=== PATIENT | female | born 1975 | race Caucasian/White ===

== ENCOUNTER 2017-05-05 14:48 | Emergency (ER) | payer MEDICAID, SELFPAY ==
[2017-05-05 14:48] VITALS: BP 129/72; PULSE 65; RESP 14; TEMP 36.6; O2SAT 100; BMI 32.3
--- NOTE | 2017-05-05 15:28 | ED.VISSUMM ---
- ER Visit Summary Date of Service: 05/05/17 Chief Complaint: Back pain History of Present Illness: The patient is a 42 F with a history of chronic back pain. She has not been in pain management for approximately 5 years. She has had injections in her back previously. Patient states that 3 days ago she carried a mattress up 3 flights of steps and down. Yesterday she developed worsening of her chronic back pain. Patient states when she stands to try to do dishes her legs go numb after approximately 10 minutes. This resolves when she sits at rest. She denies problems with bowel or bladder control. There is no fall or direct injury to her back. Patient is taking prescription strength ibuprofen regularly for her back. Physical Examination: Vital signs are unremarkable. Head and neck examination is normal. Heart is regular rate and rhythm. Lung sounds are clear. Abdomen is soft and nontender. No palpable masses. Back examination reveals bilateral lumbar paraspinal tenderness, left greater than right. There is no midline tenderness. Neuro exam reveals normal strength and sensation in the lower extremities. She has strong distal pulses and 2+ bilateral patellar reflexes. Test Results: [] Emergency Department Course and Treatment: Patient be given a single dose of [place] here along with Flexeril and prednisone. She is advised to continue ibuprofen at home and will be given prescription for Flexeril and prednisone. I advised her that I will not prescribe her narcotics for home for chronic ongoing pain. She will be given phone numbers for 2 different pain management groups in [facility] for follow-up as needed. Treatment Plan: [] Disposition: Discharge Impression: Acute on chronic back pain This note was generated with [employer] dictation software. It may contain incorrect words, spelling, and punctuation that were not noted in review of the chart prior to signing ED Disposition - Plan for ED Patient: Chief Complaint: Back Referrals: Eliseo Aparicio MD [Primary Care Provider] -
--- NOTE | 2017-05-05 15:31 | ED.DCSUM_ITS ---
- ER Visit Summary Date of Service: 05/05/17 Chief Complaint: Back pain History of Present Illness: The patient is a 42 F with a history of chronic back pain. She has not been in pain management for approximately 5 years. She has had injections in her back previously. Patient states that 3 days ago she carried a mattress up 3 flights of steps and down. Yesterday she developed worsening of her chronic back pain. Patient states when she stands to try to do dishes her legs go numb after approximately 10 minutes. This resolves when she sits at rest. She denies problems with bowel or bladder control. There is no fall or direct injury to her back. Patient is taking prescription strength ibuprofen regularly for her back. Physical Examination: Vital signs are unremarkable. Head and neck examination is normal. Heart is regular rate and rhythm. Lung sounds are clear. Abdomen is soft and nontender. No palpable masses. Back examination reveals bilateral lumbar paraspinal tenderness, left greater than right. There is no midline tenderness. Neuro exam reveals normal strength and sensation in the lower extremities. She has strong distal pulses and 2+ bilateral patellar reflexes. Test Results: [] Emergency Department Course and Treatment: Patient be given a single dose of [place] here along with Flexeril and prednisone. She is advised to continue ibuprofen at home and will be given prescription for Flexeril and prednisone. I advised her that I will not prescribe her narcotics for home for chronic ongoing pain. She will be given phone numbers for 2 different pain management groups in [facility] for follow-up as needed. Treatment Plan: [] Disposition: Discharge Impression: Acute on chronic back pain This note was generated with [employer] dictation software. It may contain incorrect words, spelling, and punctuation that were not noted in review of the chart prior to signing ED Disposition - Plan for ED Patient: Chief Complaint: Back Referrals: Eliseo Aparicio MD [Primary Care Provider] -
--- NOTE | 2017-05-05 15:31 | ED.DEP ---
ED Disposition - Plan for ED Patient: Disposition: Home or Assisted Living Chief Complaint: Back Instructions: ED Neck Back Pain General Prescriptions: Prednisone 10 mg PO UD #33 tablet Cyclobenzaprine [Flexeril] 10 mg PO TID PRN #20 tablet PRN Reason: Muscle Spasm Referrals: Elieso Aparicio MD [Primary Care Provider] - Lyndon Solomon MD [STAFF PHYSICIAN] - As Needed Jose Tobin MD [STAFF PHYSICIAN] - As Needed
[2017-05-05] MEDS: HYDROcodone Bitartrate/Apap 5/325 Tablet PO (15:32)
[2017-05-05 15:36] VITALS: BP 141/70; PULSE 75; RESP 14; O2SAT 99
== END 2017-05-05 15:36 | disposition home or self-care (01) ==
PROVIDERS: Emergency Provider Emergency Medicine; Family Provider Family Medicine; PCP Family Medicine
DX: M54.5 Low back pain (principal); G89.29 Other chronic pain; R20.0 Anesthesia of skin; R20.2 Paresthesia of skin; R53.1 Weakness; G47.33 Obstructive sleep apnea (adult) (pediatric); F32.9 Major depressive disorder, single episode, unspecified; Z87.891 Personal history of nicotine dependence; Z79.899 Other long term (current) drug therapy
CPT/HCPCS: 99283

== ENCOUNTER → 2017-06-19 13:36 | Outpatient (CLI) | payer MEDICAID, SELFPAY ==
[2017-06-19 17:33] LABS: Chlamydia Trachomatis by PCR Negative (Negative); Neisserai gonorrhoeae by PCR Negative (Negative); Probe Check PASS; Sample Adequacy Control PASS; Specimen Processing Control PASS
== END ==
PROVIDERS: Family Provider Family Medicine; PCP Family Medicine; Visit Provider Obstetrics & Gynecology
DX: Z11.3 Encounter for screening for infections with a predominantly sexual mode of transmission (principal)
CPT/HCPCS: 87491; 87591

== ENCOUNTER 2018-10-12 13:46 | Emergency (ER) | payer SELFPAY ==
[2018-10-12 13:47] VITALS: BP 104/69; PULSE 76; RESP 15; TEMP 36.4; O2SAT 98; BMI 28.3
--- NOTE | 2018-10-12 14:00 | RAD_ITS ---
STUDY: X-RAY - SACRUM/COCCYX REASON FOR EXAM: Female, 43 years old. Pain after a fall TECHNIQUE: 3 view(s) of the sacrum and coccyx were obtained. COMPARISON: None. FINDINGS: Acute minimally displaced fracture in the mid coccyx is seen on the lateral view. There is associated soft tissue swelling RAD/Sacrum-Coccyx min 2 Views IMPRESSION: Acute minimally displaced coccygeal fracture Electronically Signed: Chad Anne MD at 14:22 EDT , Service support ,
--- NOTE | 2018-10-12 15:05 | ED.VIS.GEN ---
History of Present Illness Chief Complaint: Other, Pain/Inj Narrative: 43-year-old female was in a hurry this morning to get to child support court and she slipped on wooden steps landing on her buttocks directly on her tailbone. She had sudden onset coccygeal pain. She denies any other injuries. The onset of pain was sudden. The severity is mild. It is worse with sitting and better with ice. She did not hit her head or lose consciousness. She denies any other injuries. It is mild in severity. She denies bowel bladder dysfunction. Past Medical History - Allergies and Home Meds Allergies/Adverse Reactions: Allergies bee pollen [Bee Pollen] Allergy (Verified 10/12/18 14:33) Anaphylaxis blueberry [Blueberry] Allergy (Verified 10/12/18 14:33) Anaphylaxis ketorolac tromethamine [From Toradol] Allergy (Verified 10/12/18 14:33) Hives naproxen Allergy (Verified 10/12/18 14:33) Rash Penicillins Allergy (Verified 10/12/18 14:33) Rash gabapentin Adverse Reaction (Verified 10/12/18 14:33) Other tramadol Adverse Reaction (Verified 10/12/18 14:33) Vomiting Primary Care Physician: Eliseo Aparicio MD [Primary Care Provider] - Prior records reviewed: Yes Surgical History: noncontributory Smoking Status: Former smoker Review of Systems General: Denies: Chills, Fever, Sweats Eyes: Denies: Visual changes - bilaterally, Diplopia ENT: Denies: Rhinorrhea, Sore throat Cardiovascular: Denies: Chest pain, Palpitations Respiratory: Denies: Dyspnea, Cough, Dyspnea on exertion Gastrointestinal: Denies: Abdominal pain, Nausea, Vomiting, Diarrhea, Melena, Hematochezia Genitourinary: Denies: Dysuria, Hematuria, Frequency Musculoskeletal: Reports: Back pain. Denies: Extremity Pain Skin: Denies: Rash, Wounds Neurological: Denies: Headache, Weakness, Numbness Physical Exam Vital Signs/Narrative: Vital Signs Temp Pulse Resp BP Pulse Ox 10/12/18 13:47 97.5 F L 76 15 104/69 98 General: Well nourished, Well developed, No Acute Distress Head: Normocephalic, Atraumatic Eyes: Perrl, EOMI ENT: Moist mucous membranes, No rhinorrhea Neck: Supple, Nontender Cardiovascular: Regular rate, Regular rhythm, No murmurs Respiratory: No distress, CTA bilaterally, Chest nontender Abdomen: Soft, Nontender, Nondistended, Normal bowel sounds Back: Normal Inspection, - - Mild tenderness over the coccyx. Small area of ecchymosis. Skin intact. Extremities: Nontender, No edema Skin: Normal color, No rash Neurological: Alert, Oriented x3, Cranial nerves II-XII grossly intact, Normal Strength, Normal Sensation Psychological: Normal affect, Normal Mood Diagnostic/Tx/Re-eval - Medical Decision Making Coccygeal x-rays revealed a mildly displaced coccygeal fracture. She has a completely normal neurologic exam. No evidence of cauda equina. No other injuries noted. Her pain was addressed and she was instructed on using ice and following up. She will return to the emergency department if worse. ED Disposition - Plan for ED Patient: Disposition: Home or Assisted Living Diagnosis: Closed fracture of coccyx Instructions: Tailbone (Coccyx) Fracture Prescriptions: Oxycodone HCl/Acetaminophen [Percocet 5-325 mg Tablet] 1 each PO TID PRN #12 tablet PRN Reason: Pain Referrals: Eliseo Aparicio MD [Primary Care Provider] -
[2018-10-12] MEDS: oxyCODONE 5 MG Tablet PO (15:20)
[2018-10-12 15:23] VITALS: PULSE 78; RESP 16; O2SAT 97
== END 2018-10-12 15:23 | disposition home or self-care (01) ==
PROVIDERS: Emergency Provider Emergency Medicine; Family Provider Family Medicine; PCP Family Medicine
DX: S32.2XXA Fracture of coccyx, initial encounter for closed fracture (principal); W01.0XXA Fall on same level from slipping, tripping and stumbling without subsequent striking against object, initial encounter; Y93.9 Activity, unspecified; Y92.9 Unspecified place or not applicable; Z87.891 Personal history of nicotine dependence
CPT/HCPCS: 72220; 99283

== ENCOUNTER 2020-01-19 20:28 | Inpatient (IN) | payer MEDICAID, SELFPAY ==
[2020-01-19 20:36] VITALS: BMI 33.7
[2020-01-19 20:44] VITALS: BP 103/55; PULSE 72; RESP 20; TEMP 37.1; O2SAT 100
[2020-01-19 20:46] LABS: Absolute Lymphocyte Count 1.54 X10^3/uL (0.83-4.51); Absolute Neutrophil Count 2.7 X10^3/uL (2.0-7.7); Basophil# 0.04 X10^3/uL; Basophil% 0.8 % (0-1); Eosinophil# 0.07 X10^3/uL; Eosinophils% 1.5 % (0-5); Hematocrit 38.3 % (37-47); Hemoglobin 12.3 g/dL (12.0-15.0); Lymphocyte # 1.54 X10^3/ul (4.0); Lymphocyte % 32.3 % (19-41); Mean Corp Hgb Conc 32.1 g/dL (32-36); Mean Corpuscular Hgb 33.5 pg (27.0-32.0); Mean Corpuscular Volume 104.4 fL (81-99); Mean Platelet Vol. 8.5 fl (6.2-12.0); Monocyte# 0.43 X10^3/uL; NRBC Flagged by Analyzer 0 % (0-5); Neutrophil # 2.69 X10^3/uL (2.7-7.7); Neutrophil % 56.4 % (47-70); Platelet Count 288 K/mm3 (150-450); RBC Distribution Width CV 13.2 % (11.6-14.6); RBC Distribution Width SD 50.4 fl (35.1-43.9); Red Blood Count 3.67 M/mm3 (4.2-5.4); White Blood Count 4.8 K/mm3 (4.4-11.0)
--- NOTE | 2020-01-19 20:51 | HP.PCM_ITS ---
Problem List (1) Cellulitis of toe of right foot Status: Acute History of Present Illness Date of Admission: 01/19/20 Chief Complaint: cellulitis of right foot The patient is a 44 year old F who is admitted to [facility] as direct admit for cellulitis of right foot. patient presented to me this past friday after experiencing pain, swelling and redness to right 3rd toe for 4-5 days. she thinks she may have been bit by an insect last week but did not seek medical attention until this past Friday. She was evaluated by her pcp who first recommended general surgery consult but general surgery had recommended podiatry consult. I saw patient on Friday where I performed a bedside I&D and placed her on keflex. A culture of the wound from Friday is growing proteus. I have been following patient daily by way of phone conversation. I called her yesterday and she reported that the redness and pain was not improved. when I talked with her today, she states the swelling was improving but redness was still present. I had her take a picture of her toe and there was redness present. I discussed admission to hospital. she was in agreement however, when her bed became available at 3:00 pm, she did not present to the hospital until 8:30 pm. Patient denies n/v/f/c. Patient does report pain as 8/10. Past Medical History Past Medical History (Chronic Problems): Chronic Problems Pelvic pain (Chronic) Menorrhagia with regular cycle (Chronic) Allergies bee pollen [Bee Pollen] Allergy (Verified 10/12/18 14:33) Anaphylaxis blueberry [Blueberry] Allergy (Verified 10/12/18 14:33) Anaphylaxis ketorolac tromethamine [From Toradol] Allergy (Verified 10/12/18 14:33) Hives naproxen Allergy (Verified 10/12/18 14:33) Rash Penicillins Allergy (Verified 10/12/18 14:33) Rash gabapentin Adverse Reaction (Verified 10/12/18 14:33) Other tramadol Adverse Reaction (Verified 10/12/18 14:33) Vomiting Home Medications: Ambulatory Orders Medication Instructions Recorded Citalopram [Celexa] 40 mg PO QHS 02/13/15 Estradiol 2 mg PO DAILY 10/12/18 Oxycodone HCl/Acetaminophen 1 ea PO TID PRN #12 tab 10/12/18 [Percocet 5-325 mg Tablet] Surgical History: noncontributory Smoking Status: Former smoker Review of Systems Constitutional: Denies: Chills, Fever, Weight Change Cardiovascular: Denies: Chest Pain, Palpitations Respiratory: Denies: Cough, Shortness of breath at rest, Sputum production Gastrointestinal: Denies: Abdominal Pain, Nausea, Vomiting Musculoskeletal: Reports: Foot Pain Skin: Reports: Wounds - right foot wound s/p I&D VTE Information - Inpt Only VTE Present on Admission: No Patient Problems: Active and Suspected Problems Cellulitis of toe of right foot (Acute) Objective: Patient is alert and orientated x 3. she does not appear in any distress. vascular: DP and PT pulses are palpable to right foot. CFT is less than 5 seconds. skin temperature is warm to warm. there is slight erythema to right 3rd toe but there is improvement noted from prior redness present on picture submitted by patient. derm: there is healing incision of right 3rd toe. there is no drainage from wound. there is redness present to right 3rd toe but appears to be improving. no fluctuance noted. pain to palpation of right 3rd toe. toenails right hallux are dystrophic. m/s: pain to palpation of right 3rd toe. no fluctuance noted. mmt is 5/5 for dorsiflexion and plantarflexion of toe. no calf pain noted. - Physical Exam Vitals/I&O's: Vital Signs Temp Pulse Resp BP Pulse Ox 98.7 F 72 20 H 103/55 L 100 01/19/20 20:44 01/19/20 20:44 01/19/20 20:44 01/19/20 20:44 01/19/20 20:44 Oxygen Delivery Method Room Air Body Mass Index (BMI) 28.3 Laboratory Results 01/19/20 20:37: WBC 4.8, RBC 3.67 L, Hgb 12.3, Hct 38.3, MCV 104.4 H, MCH 33.5 H , MCHC 32.1, RDW Std Deviation 50.4 H, RDW Coeff of Lee 13.2, Plt Count 288, MPV 8.5, Immature Gran % (Auto) 0.000, Neut % (Auto) 56.4, Lymph % (Auto) 32.3, [place] % (Auto) 9.0, Eos % (Auto) 1.5, Baso % (Auto) 0.8, Absolute Neuts (auto) 2.7, Absolute Lymphs (auto) 1.54, Nucleated RBC % 0 01/19/20 20:37: Sodium Pending, Potassium Pending, Chloride Pending, Carbon Dioxide Pending, Anion Gap Pending, BUN Pending, Creatinine Pending, Est GFR (MDRD) Af Amer Pending, Est GFR (MDRD) Non-Af Pending, BUN/Creatinine Ratio Pending, Glucose Pending, Calcium Pending Current Medications Acetaminophen (Acetaminophen 325 Mg Tablet) 650 mg PO Q6H PRN PRN PRN Reason: Pain 1-10 or Fever Vancomycin IV Pharmacy to Dose (1 ea/ Sodium Chloride) 500 mls @ 250 mls/hr IV X1 PRN; Protocol PRN Reason: Rx to Dose Ceftriaxone Sodium (Rocephin) 1 gm in 50 mls @ 100 mls/hr IV Q24 BRIJESH Ondansetron HCl (Ondansetron 4 Mg/2 Ml Vial) 4 mg IV Q8H PRN PRN PRN Reason: NAUSEA/VOMITING Assessment/Plan All Active Problems Cellulitis of toe of right foot (Acute) I personally was present to examine patient on admission to hospital. she is 2 days s/p bedside I&D of right 3rd toe. she has been treated with 2 full days of keflex but when I contacted patient this morning, she states the redness was still present. I personally requested a picture of her toe and I too agree that redness was present so we discussed admission to hospital for which she agreed to. She did not present to hospital until 8:30 pm, 5.5 hours after a bed was available. When I evaluated patient this evening, I do feel the redness is improving but there is still slight redness present. I will start her on vancomycin 1 gram IV bid and pharmacy will dose. I will also place her on ceftriaxone 1 gram IV q 24 hours. I will monitor for further reduction of cellulitis. I will treat her pain with percocet q 6 hours. I am going to order mri of right foot to evaluate for any residual abscess. if abscess present, then will need to discuss further I&D. if no abscess present, will treat with IV antibiotics for a few days and then possible discharge home on oral. I will consult medicine for medical management. Of note, cultures from [facility] performed on 01/17/20 are currently proteus. susceptibility still pending. will follow these.
[2020-01-19 20:56] LABS: Anion Gap 4 (5-15); BUN 21 mg/dL (7-18); BUN/Creat Ratio 20.2 RATIO (10-20); Calcium,Total 9.2 mg/dL (8.5-10.1); Chloride 107 mmol/L (98-107); Creatinine, Serum 1.04 mg/dL (0.55-1.02); EST Glomerular Filtration Rate 61 mL/min (>60); Est Glom Filt Rate - Afr Amer 74 mL/min (>60); Glucose 96 mg/dL (74-106); Potassium 4.1 mmol/L (3.5-5.1); Sodium Level 139 mmol/L (136-145)
[2020-01-19 21:09] VITALS: BMI 33.8
--- NOTE | 2020-01-19 21:30 | PN_ITS ---
Patient Problems: Active and Suspected Problems Cellulitis of toe of right foot (Acute) Subjective: Chief complaint: Consultation for medical management. 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 She underwent bedside incision and drainage as outpatient and she was sent home on Keflex. On that day, wound culture was done and reportedly, it is growing Proteus. Today, she was called by her doctor and she mentioned that the pain of the right foot and redness did not improve. 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 Currently, she complained of right foot pain, dull aching pain, not radiating, it is about 7 out of 10 in severity, associated with minimal swelling and erythema of the right forefoot around the middle toe. She denies fever or chills. Her vitals are stable. - Physical Exam Vitals/I&O's: Vital Signs Temp Pulse Resp BP Pulse Ox 98.7 F 72 20 H 103/55 L 100 01/19/20 20:44 01/19/20 20:44 01/19/20 20:44 01/19/20 20:44 01/19/20 20:44 Oxygen Delivery Method Room Air Weight: 196 lb 13.965 oz Body Mass Index (BMI) 33.7 General: Alert, Oriented x3, Cooperative, No apparent distress HEENT: Atraumatic, PERRLA, EOMI, Normocephalic Oral: Moist Mucosa, No Gingival or Mucosal Lesions/ Ulcerations Neck: Supple, No JVD, Negative Carotid Bruits, Trachea Midline, Thyroid Normal Size and Texture Lungs: Clear to auscultation, Normal air movement, No rhonchi, No wheeze, No rales Cardiovascular: Regular rate, Regular Rhythm, Normal S1, Normal S2, PMI Normal Abdomen: Bowel Sounds Present, Soft, Non Tender, Non-Distended, No Hepato- splenomegaly Extremities: No clubbing, No cyanosis, No edema Skin: No rashes, Ulcer/ Wound Musculoskeletal: - - Right foot: Minimal swelling and erythema around the middle toe, tender to palpation, hot to palpation. Neurological: Cranial nerves II-XII grossly intact, Motor Exam 5/5 strength throughout Psych/Mental Status: Normal Affect, Appropriate, Alert and oriented to time, place, person, mood and affect Laboratory Results 01/19/20 20:37: WBC 4.8, RBC 3.67 L, Hgb 12.3, Hct 38.3, MCV 104.4 H, MCH 33.5 H , MCHC 32.1, RDW Std Deviation 50.4 H, RDW Coeff of Lee 13.2, Plt Count 288, MPV 8.5, Immature Gran % (Auto) 0.000, Neut % (Auto) 56.4, Lymph % (Auto) 32.3, [place] % (Auto) 9.0, Eos % (Auto) 1.5, Baso % (Auto) 0.8, Absolute Neuts (auto) 2.7, Absolute Lymphs (auto) 1.54, Nucleated RBC % 0 01/19/20 20:37: Sodium 139, Potassium 4.1, Chloride 107, Carbon Dioxide 28.0, Anion Gap 4 L, BUN 21 H, Creatinine 1.04 H, Est GFR (MDRD) Af Amer 74, Est GFR (MDRD) Non-Af 61, BUN/Creatinine Ratio 20.2 H, Glucose 96, Calcium 9.2 Current Medications Vancomycin IV Pharmacy to Dose (1 ea/ Sodium Chloride) 500 mls @ 250 mls/hr IV PRN PRN; Protocol PRN Reason: Rx to Dose Ceftriaxone Sodium (Rocephin) 1 gm in 50 mls @ 100 mls/hr IV Q24 BRIJESH Vancomycin HCl 1,250 mg/ (Sodium Chloride) 275 mls @ 167 mls/hr IV X1 ONE Stop: 01/19/20 23:08 Influenza Virus Vaccine Quadrival (Influenza Vaccine (6mos+)/Pf 0.5 Ml Syringe) 0.5 ml IM .ONCE ONE Stop: 01/20/20 10:01 Ondansetron HCl (Ondansetron 4 Mg/2 Ml Vial) 4 mg IV Q8H PRN PRN PRN Reason: NAUSEA/VOMITING Oxycodone HCl (Oxycodone 5 Mg Tablet) 5 mg PO Q6H PRN PRN PRN Reason: Pain Score 6-10 Medical Necessity - Tobacco Use Smoking Status: Current every day smoker Tobacco Use: Cigarettes Assessment/Plan All Active Problems Cellulitis of toe of right foot (Acute) This is a 44 years old female patient directly admitted to the hospital because of right foot cellulitis which did not improve on Keflex after bedside incision and drainage that was done 2 days ago as outpatient. #1 mild right forefoot cellulitis: Status post bedside incision and drainage as outpatient 2 days ago, patient was on Keflex for 2 days. Reported improvement of the pain and redness, swelling is better. Reportedly, wound culture revealed Proteus. Her vitals are stable. Routine blood work was remarkable for mild dehydration, BUN of 21 and creatinine of 1.04. At this time, I doubt osteomyelitis. MRI of right foot ordered. She was started on IV Rocephin and vancomycin. Podiatry medicine on the case. #2 dehydration: Gentle IV fluids rotation, repeat BMP tomorrow morning. #3 depression: Continue home medication when home medications updated. #4 DVT prophylaxis: Low risk patient, no prophylaxis indicated. This note was generated with [employer] dictation software. It may contain incorrect words, spelling, and punctuation that were not noted in checking the note before signing. Inpatient E&M: 39231 Subs Hosp L2
[2020-01-19] MEDS: Ceftriaxone 1 GM/50 ML BAG IV (22:02)
[2020-01-19] MEDS: 0.9% Saline Lock 10 ML Syringe IV ×3 (22:03→23:41)
[2020-01-19] MEDS: oxyCODONE 5 MG Tablet PO (22:04)
--- NOTE | 2020-01-20 00:42 | PCM.RX.CS ---
Consult Pharmacy has been consulted to manage selected antiobiotic: Vancomycin Type of Consult: New start Suspected Infection: Skin/Soft tissue Prior Doses of Antibiotics Received/Current Regimen: Medications Vancomycin HCl 1,250 mg/ (Sodium Chloride) 275 mls @ 167 mls/hr IV Q12H BRIJESH Discontinued Medications Vancomycin HCl 1,250 mg/ (Sodium Chloride) 275 mls @ 167 mls/hr IV X1 ONE Stop: 01/19/20 23:08 Last Admin: 01/19/20 23:40 Dose: 167 mls/hr Labs: Sodium 139 mmol/L (136-145) 01/19/20 20:37 Potassium 4.1 mmol/L (3.5-5.1) 01/19/20 20:37 Chloride 107 mmol/L (98-107) 01/19/20 20:37 Carbon Dioxide 28.0 mmol/L (21.0-32.0) 01/19/20 20:37 Anion Gap 4 (5-15) L 01/19/20 20:37 BUN 21 mg/dL (7-18) H 01/19/20 20:37 Creatinine 1.04 mg/dL (0.55-1.02) H 01/19/20 20:37 Est GFR (MDRD) Af Amer 74 mL/min (>60) 01/19/20 20:37 Est GFR (MDRD) Non-Af 61 mL/min (>60) 01/19/20 20:37 BUN/Creatinine Ratio 20.2 RATIO (10-20) H 01/19/20 20:37 Glucose 96 mg/dL (74-106) 01/19/20 20:37 Weight used for dosin.3 kg Estimated Creatinine Clearance: 98 Goal Trough: 10-15 mcg/mL Pharmacy Plan for Drug Dosing: Pharmacy Service will continue to monitor and adjust dosing as required. Follow-Up Labs: Trough Vancomycin Labs to be done on [date and time ordered]: 01/21/20 @1100
[2020-01-20 02:45] VITALS: BP 105/52; PULSE 76; RESP 18; TEMP 36.6; O2SAT 96
[2020-01-20] MEDS: oxyCODONE 5 MG Tablet PO ×5 (04:24→22:56)
[2020-01-20 08:20] VITALS: BP 97/47; PULSE 65; RESP 16; TEMP 36.6; O2SAT 99
[2020-01-20 08:44] LABS: Absolute Lymphocyte Count 1.43 X10^3/uL (0.83-4.51); Absolute Neutrophil Count 2.1 X10^3/uL (2.0-7.7); Basophil# 0.03 X10^3/uL; Basophil% 0.7 % (0-1); Eosinophil# 0.14 X10^3/uL; Eosinophils% 3.4 % (0-5); Hemoglobin 11.7 g/dL (12.0-15.0); Lymphocyte # 1.43 X10^3/ul (4.0); Lymphocyte % 34.9 % (19-41); Mean Corp Hgb Conc 31.6 g/dL (32-36); Mean Corpuscular Hgb 33.1 pg (27.0-32.0); Mean Corpuscular Volume 104.5 fL (81-99); Mean Platelet Vol. 8.6 fl (6.2-12.0); Monocyte# 0.38 X10^3/uL; Monocyte% 9.3 % (0-10); NRBC Flagged by Analyzer 0 % (0-5); Neutrophil # 2.11 X10^3/uL (2.7-7.7); Neutrophil % 51.5 % (47-70); Platelet Count 260 K/mm3 (150-450); RBC Distribution Width CV 13.3 % (11.6-14.6); RBC Distribution Width SD 52.1 fl (35.1-43.9); Red Blood Count 3.54 M/mm3 (4.2-5.4); White Blood Count 4.1 K/mm3 (4.4-11.0)
[2020-01-20] MEDS: Ceftriaxone 1 GM/50 ML BAG IV (08:54)
--- NOTE | 2020-01-20 09:00 | MRI_ITS ---
STUDY: MRI RIGHT FOREFOOT WITH AND WITHOUT CONTRAST REASON FOR EXAM: Female, 44 years old. spider bite rt 3rd digit, 3RD MPJ AREA TECHNIQUE: Standardized fat and water weighted pulse sequences were obtained in all 3 orthogonal planes, post contrast administration. IV 18cc dotarem was administered for the contrast portion of the examination. COMPARISON: X-ray 01/19/2014 FINDINGS: Normal metatarsophalangeal joint of the hallux. Normal tibial and fibular sesamoids, with normal sesamoids-first metatarsal articulations. Normal interphalangeal joint of the hallux. Normal proximal and distal phalanges of the great toe. Normal medial and lateral heads of the flexor hallucis brevis tendons. Normal flexor and extensor hallucis longus tendons. Normal second through fifth metatarsophalangeal (MTP) joints. Normal interphalangeal joints of the second through fifth toes. Normal proximal, middle and distal phalanges of the second through fifth toes. Normal flexor and extensor tendons of the second through fifth toes. Normal first through fourth intermetatarsal spaces. Normal visualized metatarsi. Normal intrinsic muscles of the forefoot. Subtle edema and enhancement of the dorsum of the third digit consistent with cellulitis. No loculated fluid collection to suggest abscess. MRI/Lower Ext No Joint W/WO Cont IMPRESSION: Suspect cellulitis of the third digit but no abscess or osteomyelitis. Electronically Signed: Markell Carter MD at 16:41 EDT Tel , Service support ,
--- NOTE | 2020-01-20 10:35 | CASEMGMT ---
RN NORRIS Face to Face with patient for initial transition planning/care coordination assessment. RN CM introduced self and role at [facility]. Patient lying in bed, alert and oriented. Patient willing to participate in assessment and is able to answer all questions appropriately. Care providers, pharmacy, and demographics verified. Patient wishes to discharge home, denies need for home health at this time. Patient states she has no further needs or concerns at this time. CM to follow for discharge planning needs that may arise. PCP: Alessandra Specialists: sagar Greyiatrist; COMPA Carvalho Preferred Pharmacy: [facility] Insurance: [employer] Prescription Benefit: yes Living Will/HPOA: none LNOK: mother Living Arrangements: Patient states she is currently staying at [facility] on the second floor in [facility]. Patient state she could stay with her mother and daughter with first floor setup Transportation: Daughter, friend, taxi DME/HHC: Patient denies previous HHC or DME. Disposition Plan: Patient to discharge home with family support and follow-up plans in place. Aline BEAR, RN, CM
--- NOTE | 2020-01-20 12:06 | PN.SURG_ITS ---
Patient Problems: Active and Suspected Problems Cellulitis of toe of right foot (Acute) Subjective: patient is seen at bedside this afternoon. mri pending. patient denies n/v/f/c. reports swelling and redness are improving. still states pain as 6/10. taking percocet which helps. Objective: patient is alert and orientated x 3. she does not appear in any distress right foot with superficial wound to 3rd toe. it appears to be healing without any drainage. no flutuance noted on exam. there is pain to palpation. redness has improved since last night. no other open wounds present. - Physical Exam Vitals/I&O's: Vital Signs Temp Pulse Resp BP Pulse Ox 97.9 F 65 16 97/47 L 99 01/20/20 08:20 01/20/20 08:20 01/20/20 08:20 01/20/20 08:20 01/20/20 08:20 Oxygen Delivery Method Room Air Weight: 89.3 kg Body Mass Index (BMI) 33.7 Intake and Output for Last 24 Hours 01/18/20 01/19/20 01/20/20 23:59 23:59 23:59 Intake Total 874.75 / 874.75 1419.00 / 1419.00 Balance 874.75 / 874.75 1419.00 / 1419.00 Laboratory Results 01/19/20 20:37: WBC 4.8, RBC 3.67 L, Hgb 12.3, Hct 38.3, MCV 104.4 H, MCH 33.5 H , MCHC 32.1, RDW Std Deviation 50.4 H, RDW Coeff of Lee 13.2, Plt Count 288, MPV 8.5, Immature Gran % (Auto) 0.000, Neut % (Auto) 56.4, Lymph % (Auto) 32.3, [place] % (Auto) 9.0, Eos % (Auto) 1.5, Baso % (Auto) 0.8, Absolute Neuts (auto) 2.7, Absolute Lymphs (auto) 1.54, Nucleated RBC % 0 01/19/20 20:37: Sodium 139, Potassium 4.1, Chloride 107, Carbon Dioxide 28.0, Anion Gap 4 L, BUN 21 H, Creatinine 1.04 H, Est GFR (MDRD) Af Amer 74, Est GFR (MDRD) Non-Af 61, BUN/Creatinine Ratio 20.2 H, Glucose 96, Calcium 9.2 01/20/20 08:24: WBC 4.1 L, RBC 3.54 L, Hgb 11.7 L, Hct 37.0, MCV 104.5 H, MCH 33.1 H, MCHC 31.6 L, RDW Std Deviation 52.1 H, RDW Coeff of Lee 13.3, Plt Count 260, MPV 8.6, Immature Gran % (Auto) 0.200, Neut % (Auto) 51.5, Lymph % (Auto) 34.9, [place] % (Auto) 9.3, Eos % (Auto) 3.4, Baso % (Auto) 0.7, Absolute Neuts (auto) 2.1, Absolute Lymphs (auto) 1.43, Nucleated RBC % 0 Current Medications Vancomycin IV Pharmacy to Dose (1 ea/ Sodium Chloride) 500 mls @ 250 mls/hr IV PRN PRN; Protocol PRN Reason: Rx to Dose Ceftriaxone Sodium (Rocephin) 1 gm in 50 mls @ 100 mls/hr IV Q24 [facility] Last Infusion: 01/20/20 09:54 Dose: Infused Documented by: Sodium Chloride () 250 mls @ 15 mls/hr IV .[id number] PRN PRN Reason: Saline Flush Last Infusion: 01/20/20 11:31 Dose: 0 mls/hr Documented by: Sodium Chloride () 250 mls @ 15 mls/hr IV .[id number] PRN PRN Reason: Additional IVPB Infusion Vancomycin HCl 1,250 mg/ (Sodium Chloride) 275 mls @ 167 mls/hr IV Q12H [facility] Last Admin: 01/20/20 11:31 Dose: 167 mls/hr Documented by: Nutritional Formula (Lactose Free) (Ensure Enlive 120 Ml Liquid) 120 ml PO 4X/DAY [facility] Last Admin: 01/20/20 08:54 Dose: 120 ml Documented by: Ondansetron HCl (Ondansetron 4 Mg/2 Ml Vial) 4 mg IV Q8H PRN PRN PRN Reason: NAUSEA/VOMITING Oxycodone HCl (Oxycodone 5 Mg Tablet) 5 mg PO Q4H PRN PRN PRN Reason: Pain Score 6-10 Sodium Chloride (0.9% Saline Lock 10 Ml Syringe) 10 - 40 ml IV UD PRN PRN Reason: SALINE FLUSH Last Admin: 01/19/20 23:41 Dose: 10 ml Documented by: Medical Necessity - Tobacco Use Smoking Status: Current every day smoker Tobacco Use: Cigarettes Assessment/Plan All Active Problems Cellulitis of toe of right foot (Acute) patient seen and examined. WBC is normal. MRI is pending. Culture performed from [facility] confirm proteus infection susceptible to Ampicillin, Ampicillin Sulbactam, Cefepime, Ceftriaxone, Cipro, Ertapenem, Gentamicin, meropenem, and bactrim. I will have results added to patient chart. she is on vancomycin and ceftriaxone. I will discuss with ID but likely can stop the vancomycin and treat with ceftriaxone. MRI pending. she is scheduled to go this afternoon. If mri negative for abscess, can likely discharge possibly tomorrow on oral antibiotic. If mri confirms residual abscess, may need to discuss further I&D. continue with percocet for pain. discussed need to transition to nonnarcotic medication. appreciate hospitalist for medical management. I did review mri. mri is negative for abscess. will continue with vancomycin and ceftriaxone. I spoke with ID from [facility]. will continue with vancomycin and ceftriaxone and access tomorrow. will plan for possible discharge in coming days on clindamycin and cipro. patient wishing for discharge soon. will discuss tomorrow.
--- NOTE | 2020-01-20 13:16 | PN_ITS ---
Patient Problems: Active and Suspected Problems Cellulitis of toe of right foot (Acute) Subjective: Doing well, no issues overnight. Vitals/I&O's: Vital Signs Temp Pulse Resp BP Pulse Ox 97.9 F 65 16 97/47 L 99 01/20/20 08:20 01/20/20 08:20 01/20/20 08:20 01/20/20 08:20 01/20/20 08:20 Oxygen Delivery Method Room Air Weight: 196 lb 13.965 oz Body Mass Index (BMI) 33.7 Intake and Output for Last 24 Hours 01/18/20 01/19/20 01/20/20 23:59 23:59 23:59 Intake Total 874.75 / 874.75 1419.00 / 1419.00 Balance 874.75 / 874.75 1419.00 / 1419.00 General: Alert, Oriented x3, Cooperative, No apparent distress HEENT: Atraumatic, PERRLA, EOMI, Normocephalic Oral: Moist Mucosa Neck: Supple, No JVD Lungs: Clear to auscultation, Normal air movement, No rhonchi, No wheeze, No rales Cardiovascular: Regular rate, Regular Rhythm, Normal S1, Normal S2, No murmurs Abdomen: Soft, Non Tender, Non-Distended, No Hepato-splenomegaly Extremities: No edema, Capillary Refill Less than 3 Seconds Skin: No rashes, No breakdown, Ulcer/ Wound - Band-Aid in place Neurological: Neuro grossly intact, Sensory exam intact to light touch and pain Psych/Mental Status: Normal Affect, Appropriate Laboratory Results 01/19/20 20:37: WBC 4.8, RBC 3.67 L, Hgb 12.3, Hct 38.3, MCV 104.4 H, MCH 33.5 H , MCHC 32.1, RDW Std Deviation 50.4 H, RDW Coeff of Lee 13.2, Plt Count 288, MPV 8.5, Immature Gran % (Auto) 0.000, Neut % (Auto) 56.4, Lymph % (Auto) 32.3, [place] % (Auto) 9.0, Eos % (Auto) 1.5, Baso % (Auto) 0.8, Absolute Neuts (auto) 2.7, Absolute Lymphs (auto) 1.54, Nucleated RBC % 0 01/19/20 20:37: Sodium 139, Potassium 4.1, Chloride 107, Carbon Dioxide 28.0, Anion Gap 4 L, BUN 21 H, Creatinine 1.04 H, Est GFR (MDRD) Af Amer 74, Est GFR (MDRD) Non-Af 61, BUN/Creatinine Ratio 20.2 H, Glucose 96, Calcium 9.2 01/20/20 08:24: WBC 4.1 L, RBC 3.54 L, Hgb 11.7 L, Hct 37.0, MCV 104.5 H, MCH 33.1 H, MCHC 31.6 L, RDW Std Deviation 52.1 H, RDW Coeff of Lee 13.3, Plt Count 260, MPV 8.6, Immature Gran % (Auto) 0.200, Neut % (Auto) 51.5, Lymph % (Auto) 34.9, [place] % (Auto) 9.3, Eos % (Auto) 3.4, Baso % (Auto) 0.7, Absolute Neuts (auto) 2.1, Absolute Lymphs (auto) 1.43, Nucleated RBC % 0 Current Medications Vancomycin IV Pharmacy to Dose (1 ea/ Sodium Chloride) 500 mls @ 250 mls/hr IV PRN PRN; Protocol PRN Reason: Rx to Dose Ceftriaxone Sodium (Rocephin) 1 gm in 50 mls @ 100 mls/hr IV Q24 [facility] Last Infusion: 01/20/20 09:54 Dose: Infused Documented by: Sodium Chloride () 250 mls @ 15 mls/hr IV .[id number] PRN PRN Reason: Saline Flush Last Infusion: 01/20/20 11:31 Dose: 0 mls/hr Documented by: Sodium Chloride () 250 mls @ 15 mls/hr IV .[id number] PRN PRN Reason: Additional IVPB Infusion Vancomycin HCl 1,250 mg/ (Sodium Chloride) 275 mls @ 167 mls/hr IV Q12H [facility] Last Admin: 01/20/20 11:31 Dose: 167 mls/hr Documented by: Ondansetron HCl (Ondansetron 4 Mg/2 Ml Vial) 4 mg IV Q8H PRN PRN PRN Reason: NAUSEA/VOMITING Oxycodone HCl (Oxycodone 5 Mg Tablet) 5 mg PO Q4H PRN PRN PRN Reason: Pain Score 6-10 Sodium Chloride (0.9% Saline Lock 10 Ml Syringe) 10 - 40 ml IV UD PRN PRN Reason: SALINE FLUSH Last Admin: 01/19/20 23:41 Dose: 10 ml Documented by: Medical Necessity - Tobacco Use Smoking Status: Current every day smoker Tobacco Use: Cigarettes Assessment/Plan All Active Problems Cellulitis of toe of right foot (Acute) 1. Mild right foot cellulitis -Status post bedside incision and drainage -Wound culture revealed a fairly sensitive Proteus -ID is consulted for recommendation on antibiotics -Discharge planning per primary 2. Dehydration -We will repeat BMP in the morning -She did receive IV fluids 3. Depression/anxiety -Stable -Continue with her home medication DVT: Ambulation Inpatient E&M: 21535 Subs Hosp L2
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
[2020-01-20 14:30] VITALS: BP 97/44; PULSE 72; RESP 16; TEMP 36.5; O2SAT 98
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
[2020-01-20 20:47] VITALS: BP 115/46; PULSE 67; RESP 18; TEMP 36.9; O2SAT 98
[2020-01-20] MEDS: 0.9% Saline Lock 10 ML Syringe IV (23:00)
[2020-01-20] MEDS: Citalopram 40 MG TABLET PO (23:02)
[2020-01-21 03:31] VITALS: BP 136/97; PULSE 58; RESP 18; TEMP 36.9; O2SAT 98
[2020-01-21] MEDS: oxyCODONE 5 MG Tablet PO ×3 (03:38→13:35)
[2020-01-21 07:51] LABS: Anion Gap 4 (5-15); BUN 24 mg/dL (7-18); Calcium,Total 8.9 mg/dL (8.5-10.1); Chloride 108 mmol/L (98-107); Creatinine, Serum 0.73 mg/dL (0.55-1.02); EST Glomerular Filtration Rate 93 mL/min (>60); Est Glom Filt Rate - Afr Amer 112 mL/min (>60); Estimated Creatinine Clearance 85.81 ml/min; Glucose 99 mg/dL (74-106); Potassium 4.2 mmol/L (3.5-5.1); Sodium Level 138 mmol/L (136-145)
[2020-01-21 09:02] VITALS: BP 101/57; PULSE 64; RESP 16; TEMP 37.2; O2SAT 96
[2020-01-21] MEDS: Ceftriaxone 1 GM/50 ML BAG IV (09:15)
[2020-01-21] MEDS: 0.9% Saline Lock 10 ML Syringe IV (09:15)
--- NOTE | 2020-01-21 12:14 | PCM.PROGNOTE ---
Patient Problems: Active and Suspected Problems Cellulitis of toe of right foot (Acute) Subjective: patient is seen at bedside this afternoon. denies n/v/f/c. states there is pain to right foot but improving. patient wants to go home. Objective: patient is alert and orientated x 3. she does not appear in any distress right foot with healing wound of 3rd toe. no redness or fluctuance. mild tenderness present to right 3rd toe. mri reviewed. no evidence fluid collection to suggest abscess. - Physical Exam Vitals/I&O's: Vital Signs Temp Pulse Resp BP Pulse Ox 99.0 F 64 16 101/57 L 96 01/21/20 09:02 01/21/20 09:02 01/21/20 09:02 01/21/20 09:02 01/21/20 09:02 Oxygen Delivery Method Room Air Weight: 89.3 kg Body Mass Index (BMI) 33.7 Intake and Output for Last 24 Hours 01/19/20 01/20/20 01/21/20 23:59 23:59 23:59 Intake Total 874.75 / 874.75 2556.50 / 2556.50 770.5 / 770.5 Balance 874.75 / 874.75 2556.50 / 2556.50 770.5 / 770.5 Laboratory Results 01/21/20 07:06: Sodium 138, Potassium 4.2, Chloride 108 H, Carbon Dioxide 26.0, Anion Gap 4 L, BUN 24 H, Creatinine 0.73, Estim Creat Clear Calc 85.81, Est GFR (MDRD) Af Amer 112, Est GFR (MDRD) Non-Af 93, BUN/Creatinine Ratio 33.0 H, Glucose 99, Calcium 8.9 01/21/20 11:05: Vancomycin Trough 13.0 Current Medications Citalopram Hydrobromide (Citalopram 40 Mg Tablet) 40 mg PO QHS [facility] Last Admin: 01/20/20 23:02 Dose: 40 mg Documented by: Vancomycin IV Pharmacy to Dose (1 ea/ Sodium Chloride) 500 mls @ 250 mls/hr IV PRN PRN; Protocol PRN Reason: Rx to Dose Ceftriaxone Sodium (Rocephin) 1 gm in 50 mls @ 100 mls/hr IV Q24 [facility] Last Infusion: 01/21/20 09:50 Dose: Infused Documented by: Sodium Chloride () 250 mls @ 15 mls/hr IV .[id number] PRN PRN Reason: Saline Flush Last Infusion: 01/21/20 04:06 Dose: 0 mls/hr Documented by: Sodium Chloride () 250 mls @ 15 mls/hr IV .[id number] PRN PRN Reason: Additional IVPB Infusion Vancomycin HCl 1,250 mg/ (Sodium Chloride) 275 mls @ 167 mls/hr IV Q12H [facility] Last Admin: 01/21/20 12:00 Dose: 167 mls/hr Documented by: Ondansetron HCl (Ondansetron 4 Mg/2 Ml Vial) 4 mg IV Q8H PRN PRN PRN Reason: NAUSEA/VOMITING Oxycodone HCl (Oxycodone 5 Mg Tablet) 5 mg PO Q4H PRN PRN PRN Reason: Pain Score 6-10 Last Admin: 01/21/20 09:15 Dose: 5 mg Documented by: Sodium Chloride (0.9% Saline Lock 10 Ml Syringe) 10 - 40 ml IV UD PRN PRN Reason: SALINE FLUSH Last Admin: 01/21/20 09:15 Dose: 10 ml Documented by: Medical Necessity - Tobacco Use Smoking Status: Current every day smoker Tobacco Use: Cigarettes Assessment/Plan All Active Problems Cellulitis of toe of right foot (Acute) patient was examined and informed of findings. her redness has improved. there is no evidence of abscess on mri. patient wanting to go home. thus far, cultures from [facility] show proteus, sensitive to both bactrim and cipro. I discussed case with ID from both [facility] and [facility]. we discussed coverage for proteus but also extending coverage to include gram positive organisms for any bacteria that finalize late. We discussed options. I discussed use of bactrim and keflex vs clindamycin and cipro. Patient has never tried bactrim but has tried clindamycin in past and has tolerated. I discussed risk of c dif from use of clindamycin. she understands this. I will discharge patient on clindamycin and cipro. discussed risk of c dif and/or tendon rupture. patient chart showing zofran but she states she does not take. clindamycin will possibly interact with zofran. she states she does not take. her wound is mostly healed. she can treat with moisturizing lotion. she can resume regular shoe. I will have patient f/u with me in one week she can discharge today once her vancomycin is complete.
--- NOTE | 2020-01-21 12:32 | DS.PCM_ITS ---
Discharge Date and Diagnosis - Problem List Patient Problems: Active and Suspected Problems Cellulitis of toe of right foot (Acute) Date of Admission: 01/19/20 Date of Discharge: 01/21/20 - Primary Discharge Diagnosis Acute Problems: Active Problems Cellulitis of toe of right foot (Acute) - Secondary Discharge Diagnosis Chronic Problems: Chronic Problems Pelvic pain (Chronic) Menorrhagia with regular cycle (Chronic) Hospital Course and Treatment Imaging Results: MRI with no evidence of abscess culture from [facility] showing + proteus sensitive to bactrim, ampicillin, cipro medicine for medical management Operations: None, - - LAVH right salpingectomy Procedures: None Summary of Care Provided: The patient is a 44 year old F with cellulitis admitted to hospital for IV antibiotics. she was admitted and placed on IV vancomycin and Ceftriaxone. redness improved upon admission. MRI shows no abscess. patient desiring discharge. will discharge her on clindamycin and cipro. ] Patient Problems: Active and Suspected Problems Cellulitis of toe of right foot (Acute) Subjective: cellulitis of foot - Physical Exam Vitals/I&O's: Vital Signs Temp Pulse Resp BP Pulse Ox 99.0 F 64 16 101/57 L 96 01/21/20 09:02 01/21/20 09:02 01/21/20 09:02 01/21/20 09:02 01/21/20 09:02 Oxygen Delivery Method Room Air Weight: 89.3 kg Body Mass Index (BMI) 33.7 Intake and Output for Last 24 Hours 01/19/20 01/20/20 01/21/20 23:59 23:59 23:59 Intake Total 874.75 / 874.75 2556.50 / 2556.50 770.5 / 770.5 Balance 874.75 / 874.75 2556.50 / 2556.50 770.5 / 770.5 Laboratory Results 01/21/20 07:06: Sodium 138, Potassium 4.2, Chloride 108 H, Carbon Dioxide 26.0, Anion Gap 4 L, BUN 24 H, Creatinine 0.73, Estim Creat Clear Calc 85.81, Est GFR (MDRD) Af Amer 112, Est GFR (MDRD) Non-Af 93, BUN/Creatinine Ratio 33.0 H, Glucose 99, Calcium 8.9 01/21/20 11:05: Vancomycin Trough 13.0 Current Medications Citalopram Hydrobromide (Citalopram 40 Mg Tablet) 40 mg PO QHS [facility] Last Admin: 01/20/20 23:02 Dose: 40 mg Documented by: Vancomycin IV Pharmacy to Dose (1 ea/ Sodium Chloride) 500 mls @ 250 mls/hr IV PRN PRN; Protocol PRN Reason: Rx to Dose Ceftriaxone Sodium (Rocephin) 1 gm in 50 mls @ 100 mls/hr IV Q24 [facility] Last Infusion: 01/21/20 09:50 Dose: Infused Documented by: Sodium Chloride () 250 mls @ 15 mls/hr IV .[id number] PRN PRN Reason: Saline Flush Last Infusion: 01/21/20 04:06 Dose: 0 mls/hr Documented by: Sodium Chloride () 250 mls @ 15 mls/hr IV .[id number] PRN PRN Reason: Additional IVPB Infusion Vancomycin HCl 1,250 mg/ (Sodium Chloride) 275 mls @ 167 mls/hr IV Q12H [facility] Last Admin: 01/21/20 12:00 Dose: 167 mls/hr Documented by: Ondansetron HCl (Ondansetron 4 Mg/2 Ml Vial) 4 mg IV Q8H PRN PRN PRN Reason: NAUSEA/VOMITING Oxycodone HCl (Oxycodone 5 Mg Tablet) 5 mg PO Q4H PRN PRN PRN Reason: Pain Score 6-10 Last Admin: 01/21/20 09:15 Dose: 5 mg Documented by: Sodium Chloride (0.9% Saline Lock 10 Ml Syringe) 10 - 40 ml IV UD PRN PRN Reason: SALINE FLUSH Last Admin: 01/21/20 09:15 Dose: 10 ml Documented by: Discharge Diet: No Restrictions Discharge Activity: Return to Normal Activity Return to work on:: 01/31/20 May shower in (days): 1 Weight Bearing Status: Weight bearing as tolerated Call your doctor if your incision/area has: Continuous Slow Oozing, Sudden Increased Bleeding, Increased Redness, Foul Smelling Discharge Call your doctor if you observe: Fever of 101 or Higher, Change in Color Cleanse incision/area with: Soap & Water Home Medications: Medications to take at Discharge Citalopram [Celexa] 40 mg PO QHS 02/13/15 Estradiol 2 mg PO DAILY 10/12/18 Oxycodone HCl/Acetaminophen [Percocet 5-325 mg Tablet] 1 ea PO TID PRN #12 tab 10/12/18 Ciprofloxacin [Cipro] 500 mg PO BID #14 tab 01/21/20 Clindamycin [Cleocin] 300 mg PO TID #21 cap 01/21/20 Oxycodone [Oxyir] 5 mg PO Q6H PRN PRN #20 tab 01/21/20 Following Prescriptions Were Given to Patient: Ciprofloxacin [Cipro] 500 mg PO BID #14 tab Prescription Printed Clindamycin [Cleocin] 300 mg PO TID #21 cap Prescription Printed Oxycodone [Oxyir] 5 mg PO Q6H PRN PRN #20 tab PRN Reason: Pain Score 6-10 Prescription Printed Primary Care Physician: Eliseo Aparicio MD [Primary Care Provider] - Please Follow Up With: Rodolfo Grey DPM When: in 5 days Patient Instructions: ED Cellulitis Disposition: Home Minutes spent on discharge:: 15 Patient Condition:: Good Medical Necessity - Tobacco Use Smoking Status: Current every day smoker Tobacco Use: Cigarettes Meaningful Use Info Meaningful Use Diagnoses (Choose all that apply): None applicable
--- NOTE | 2020-01-21 12:40 | DCINST_ITS ---
Discharge Diet: No Restrictions Discharge Activity: Return to Normal Activity Return to work on:: 01/31/20July shower in (days): 1 Weight Bearing Status: Weight bearing as tolerated Call your doctor if your incision/area has: Continuous Slow Oozing, Sudden Increased Bleeding, Increased Redness, Foul Smelling Discharge Call your doctor if you observe: Fever of 101 or Higher, Change in Color Cleanse incision/area with: Soap & Water Allergies/Adverse Reactions: Allergies bee pollen [Bee Pollen] Allergy (Verified 10/12/18 14:33) Anaphylaxis blueberry [Blueberry] Allergy (Verified 10/12/18 14:33) Anaphylaxis ketorolac tromethamine [From Toradol] Allergy (Verified 10/12/18 14:33) Hives naproxen Allergy (Verified 10/12/18 14:33) Rash Penicillins Allergy (Verified 10/12/18 14:33) Rash gabapentin Adverse Reaction (Verified 01/19/20 21:04) dizziness tramadol Adverse Reaction (Verified 10/12/18 14:33) Vomiting Medications to take at Discharge Citalopram [Celexa] 40 mg PO QHS 02/13/15 Estradiol 2 mg PO DAILY 10/12/18 Oxycodone HCl/Acetaminophen [Percocet 5-325 mg Tablet] 1 ea PO TID PRN #12 tab 10/12/18 Ciprofloxacin [Cipro] 500 mg PO BID #14 tab 01/21/20 Clindamycin [Cleocin] 300 mg PO TID #21 cap 01/21/20 Oxycodone [Oxyir] 5 mg PO Q6H PRN PRN #20 tab 01/21/20 The following prescriptions were given: Ciprofloxacin [Cipro] 500 mg PO BID #14 tab Prescription Printed Clindamycin [Cleocin] 300 mg PO TID #21 cap Prescription Printed Oxycodone [Oxyir] 5 mg PO Q6H PRN PRN #20 tab PRN Reason: Pain Score 6-10 Prescription Printed Primary Care Physician: Eliseo Aparicio MD [Primary Care Provider] - Test Results: Test results from this visit will be discussed in further detail at your follow- up appointment, if applicable. Please Follow Up With: Rodolfo Grey DPM When: in 5 days
--- NOTE | 2020-01-21 12:42 | PCM.PN.HOSP ---
Patient Problems: Active and Suspected Problems Cellulitis of toe of right foot (Acute) Subjective: Looks good, no issues overnight. Would like to go home today Vitals/I&O's: Vital Signs Temp Pulse Resp BP Pulse Ox 99.0 F 64 16 101/57 L 96 01/21/20 09:02 01/21/20 09:02 01/21/20 09:02 01/21/20 09:02 01/21/20 09:02 Oxygen Delivery Method Room Air Weight: 196 lb 13.965 oz Body Mass Index (BMI) 33.7 Intake and Output for Last 24 Hours 01/19/20 01/20/20 01/21/20 23:59 23:59 23:59 Intake Total 874.75 / 874.75 2556.50 / 2556.50 770.5 / 770.5 Balance 874.75 / 874.75 2556.50 / 2556.50 770.5 / 770.5 General: Alert, Oriented x3, Cooperative, No apparent distress HEENT: Atraumatic, PERRLA, EOMI, Normocephalic Oral: Moist Mucosa Neck: Supple, No JVD Lungs: Clear to auscultation, Normal air movement, No rhonchi, No wheeze, No rales Cardiovascular: Regular rate, Regular Rhythm, Normal S1, Normal S2, No murmurs Abdomen: Soft, Non Tender, Non-Distended, No Hepato-splenomegaly Extremities: No edema, Capillary Refill Less than 3 Seconds Skin: No rashes, No breakdown, Ulcer/ Wound - Band-Aid in place Neurological: Neuro grossly intact, Sensory exam intact to light touch and pain Psych/Mental Status: Normal Affect, Appropriate Laboratory Results 01/21/20 07:06: Sodium 138, Potassium 4.2, Chloride 108 H, Carbon Dioxide 26.0, Anion Gap 4 L, BUN 24 H, Creatinine 0.73, Estim Creat Clear Calc 85.81, Est GFR (MDRD) Af Amer 112, Est GFR (MDRD) Non-Af 93, BUN/Creatinine Ratio 33.0 H, Glucose 99, Calcium 8.9 01/21/20 11:05: Vancomycin Trough 13.0 Current Medications Citalopram Hydrobromide (Citalopram 40 Mg Tablet) 40 mg PO QHS BRIJESH Last Admin: 01/20/20 23:02 Dose: 40 mg Documented by: Vancomycin IV Pharmacy to Dose (1 ea/ Sodium Chloride) 500 mls @ 250 mls/hr IV PRN PRN; Protocol PRN Reason: Rx to Dose Ceftriaxone Sodium (Rocephin) 1 gm in 50 mls @ 100 mls/hr IV Q24 BRIJESH Last Infusion: 01/21/20 09:50 Dose: Infused Documented by: Sodium Chloride () 250 mls @ 15 mls/hr IV .[id number] PRN PRN Reason: Saline Flush Last Infusion: 01/21/20 04:06 Dose: 0 mls/hr Documented by: Sodium Chloride () 250 mls @ 15 mls/hr IV .[id number] PRN PRN Reason: Additional IVPB Infusion Vancomycin HCl 1,250 mg/ (Sodium Chloride) 275 mls @ 167 mls/hr IV Q12H BRIJESH Last Admin: 01/21/20 12:00 Dose: 167 mls/hr Documented by: Ondansetron HCl (Ondansetron 4 Mg/2 Ml Vial) 4 mg IV Q8H PRN PRN PRN Reason: NAUSEA/VOMITING Oxycodone HCl (Oxycodone 5 Mg Tablet) 5 mg PO Q4H PRN PRN PRN Reason: Pain Score 6-10 Last Admin: 01/21/20 09:15 Dose: 5 mg Documented by: Sodium Chloride (0.9% Saline Lock 10 Ml Syringe) 10 - 40 ml IV UD PRN PRN Reason: SALINE FLUSH Last Admin: 01/21/20 09:15 Dose: 10 ml Documented by: STROKE Vital Signs/Narrative: Vital Signs Temp Pulse Resp BP Pulse Ox 01/21/20 09:02 99.0 F 64 16 101/57 L 96 Medical Necessity - Tobacco Use Smoking Status: Current every day smoker Tobacco Use: Cigarettes Assessment/Plan All Active Problems Cellulitis of toe of right foot (Acute) 1. Mild right foot cellulitis -Status post bedside incision and drainage -Wound culture revealed a fairly sensitive Proteus -Podiatry discussed the case with [facility] ID who recommended clindamycin and Cipro -Discharge planning per primary 2. Dehydration -She did receive IV fluids, and creatinine is improved this morning 3. Depression/anxiety -Stable -Continue with her home medication DVT: Ambulation Inpatient E&M: 90680 Subs Hosp L2
[2020-01-21 12:49] VITALS: BP 105/59; PULSE 62; RESP 18; TEMP 36.6; O2SAT 99
--- NOTE | 2020-01-21 13:12 | PCM.RX.CS ---
Consult Pharmacy has been consulted to manage selected antiobiotic: Vancomycin Type of Consult: Follow-up Suspected Infection: Skin/Soft tissue Prior Doses of Antibiotics Received/Current Regimen: current regimen is 1250mg IV q12h Labs: Sodium 138 mmol/L (136-145) 01/21/20 07:06 Potassium 4.2 mmol/L (3.5-5.1) 01/21/20 07:06 Chloride 108 mmol/L (98-107) H 01/21/20 07:06 Carbon Dioxide 26.0 mmol/L (21.0-32.0) 01/21/20 07:06 Anion Gap 4 (5-15) L 01/21/20 07:06 BUN 24 mg/dL (7-18) H 01/21/20 07:06 Creatinine 0.73 mg/dL (0.55-1.02) 01/21/20 07:06 Est GFR (MDRD) Af Amer 112 mL/min (>60) 01/21/20 07:06 Est GFR (MDRD) Non-Af 93 mL/min (>60) 01/21/20 07:06 BUN/Creatinine Ratio 33.0 RATIO (10-20) H 01/21/20 07:06 Glucose 99 mg/dL (74-106) 01/21/20 07:06 Vancomycin Trough 13.0 ug/mL (5.0-15.0) 01/21/20 11:05 Weight used for dosin.3 kg Estimated Creatinine Clearance: 108ml/min Goal Trough: 10-15 mcg/mL Pharmacy Plan for Drug Dosing: The vancomycin trough obtained this morning came back as 13.0. This is within goal range of 10-15 so will keep same dosing. Check another trough in 4 days per protocol if patient still here, although it appears the patient will be discharged later today. Pharmacy Service will continue to monitor and adjust dosing as required. Follow-Up Labs: Trough Vancomycin Labs to be done on [date and time ordered]: 01/25/20 11:00
== END 2020-01-21 14:15 | disposition home or self-care (01) | DRG 383 ==
PROVIDERS: Hospitalist; Admitting Provider Podiatrist Foot & Ankle Surgery; PCP Family Medicine; Referring Provider Podiatrist Foot & Ankle Surgery; Visit Provider Family Medicine
DX: L03.031 Cellulitis of right toe (principal); B96.4 Proteus (mirabilis) (morganii) as the cause of diseases classified elsewhere; S90.861A Insect bite (nonvenomous), right foot, initial encounter; W57.XXXA Bitten or stung by nonvenomous insect and other nonvenomous arthropods, initial encounter; Y93.9 Activity, unspecified; Y92.9 Unspecified place or not applicable; E86.0 Dehydration; F32.9 Major depressive disorder, single episode, unspecified; F41.9 Anxiety disorder, unspecified; F17.210 Nicotine dependence, cigarettes, uncomplicated; Z79.899 Other long term (current) drug therapy; Z23 Encounter for immunization
CPT/HCPCS: 36415; 73720; 80048; 80202; 85025; 97802; A9575; J7050; 90686; A4216

== ENCOUNTER 2021-06-05 07:53 | Emergency (ER) | payer MEDICAID, SELFPAY ==
[2021-06-05 07:55] VITALS: BP 124/80; PULSE 62; RESP 14; TEMP 36.6; O2SAT 98; BMI 34.3
--- NOTE | 2021-06-05 08:04 | RAD_ITS ---
STUDY: X-RAY - LUMBAR SPINE REASON FOR EXAM: Female, 46 years old. EXTREME LOW BACK PAIN AND DOWN LEFT LEG. NO INJURY TECHNIQUE: 3 view(s) of the lumbar spine were obtained. COMPARISON: None FINDINGS: Normal lumbar lordosis. Mild extra scoliosis is present. No fracture or compression deformity is seen. There is a normal alignment of the vertebrae. Mild disc space narrowing and endplate spurring is present at the L5-S1 level. Remaining disc spaces are preserved. Slight retrolisthesis of L5 on S1 of 2 to 3 mm. The soft tissue structures are unremarkable. RAD/Lumbar Spine 2 or 3 Views IMPRESSION: Degenerative changes of the spine, as detailed above. Electronically Signed: Evert Lee MD at 8:36 EDT ,
--- NOTE | 2021-06-05 08:05 | ED.VIS.BACK ---
HPI History of Present Illness Chief Complaint: Back Narrative Narrative: Patient is via EMS with back pain that she has had for the last 2 days. She states that she had previous problems with her back chronically, but not for years. No prior surgeries to her back. While she denies any injury, she does state that she has a pit bull for a dog who sometimes pulls on the leash and jerked her back. She states that she has been having pain in her middle to left side of her back for the last 2 days. Got worse last evening and she had to sleep on her right side. When she got up to go to the bathroom today, she states that she was unable to lean over or sit so she laid in bed and had her roommate called EMS. She denies any fevers or chills, but states that she was sweaty from the pain. No loss of bowel or bladder. No saddle anesthesia. Pain radiates to her left hip as it had in the past. Past surgical history includes uterine ablation and hysterectomy previously/9 years ago. PFSH PFSH Medical History no medical history Home Medications citalopram 40 mg PO QHS 02/13/15 [History Last Taken Unknown] estradiol 2 mg PO DAILY 10/12/18 [History Last Taken 01/18/20 22:00] oxycodone-acetaminophen 1 ea PO TID PRN #12 tab 10/12/18 [Rx Last Taken 01/19/20 08:30] ciprofloxacin HCl 500 mg PO BID #14 tab 01/21/20 [Rx Last Taken Unknown] clindamycin HCl 300 mg PO TID #21 cap 01/21/20 [Rx Last Taken Unknown] oxycodone 5 mg PO Q6H PRN PRN #20 tab 01/21/20 [Rx Last Taken Unknown] cyclobenzaprine 10 mg PO TID PRN #20 tab 06/05/21 [Rx Last Taken Unknown] methylprednisolone [Medrol (Manuel)] 4 mg PO DAILY #21 tab 06/05/21 [Rx Last Taken Unknown] Allergy/AdvReac Type Severity Reaction Status Date / Time bee pollen [Bee Pollen] Allergy Anaphylaxis Verified 06/05/21 07:55 blueberry [Blueberry] Allergy Anaphylaxis Verified 06/05/21 07:55 ketorolac tromethamine Allergy Hives Verified 06/05/21 07:55 [From Toradol] naproxen Allergy Rash Verified 06/05/21 07:55 Penicillins Allergy Rash Verified 06/05/21 07:55 gabapentin AdvReac dizziness Verified 06/05/21 07:55 tramadol AdvReac Vomiting Verified 06/05/21 07:55 Surgical History H/O: hysterectomy Social History Smoking Status: Current every day smoker tobacco type: cigarettes ROS ROS ED ROS Narrative Constitutional: No fever, no chills. Subjective sweating secondary to pain. HEENT: No sore throat. No neck pain. No loss of vision. No rhinorrhea. Cardiovascular: No chest pain. No palpitations. No pedal edema. Respiratory: No cough, no shortness of breath. Abdominal: No abdominal pain. No nausea. No vomiting. Genitourinary: No dysuria. No hematuria. Musculoskeletal: No myalgias. No arthralgias. Positive low back pain radiating to left hip. Worse with movement. Neurologic: No headaches. No dizziness. No lightheadedness. No loss of bowel or bladder. No saddle anesthesia. Skin: No rash. No change in color. Psychiatric: No depression. No anxiety. EXAM Physical Exam Narrative Exam Narrative: Afebrile. Vital signs noted. HEENT: Normocephalic. Atraumatic. PERRL, EOMI. Neck soft and supple. No point tenderness or step off. Cardiovascular: Regular rate and rhythm. No murmurs, rubs, or gallops appreciated. Respiratory: No tachypnea. Lungs clear to auscultation bilaterally. Gastrointestinal: Abdomen soft, nontender, with normoactive bowel sounds. No rebound or guarding. Neurological: Awake. Alert. Nonfocal, nonlateralizing. DTRs equal and symmetric. Flexion and extension of bilateral knees intact. EHL intact bilaterally. Straight leg raising negative bilaterally. Skin: No rash. Normal color. No pallor. Musculoskeletal: No pedal edema. Full range of motion extremities. No vertebral point tenderness or bony step-off. Const Vital Signs: 06/05/21 07:55 06/05/21 08:40 Temperature 97.8 F Temperature Source Oral Pulse Rate 62 56 L Respiratory Rate 14 Blood Pressure 124/80 H 107/92 H Blood Pressure Mean 94 97 Pulse Ox 98 99 Oxygen Delivery Method Room Air Room Air MDM MDM MDM Narrative Medical decision making narrative: I reviewed her prior records. She is not had problems or frequent ED visits in the last 4 years. She was given a morphine intramuscular injection along with a Norflex intramuscular injection. Given the long time that has elapsed since her previous low back pain, I will obtain imaging of her back. My interpretation of her lumbar x-rays show no acute fracture/compression fracture. There may be slight degenerative changes. Radiology confirms this. At this point in time, I feel she would be able to be discharged safely home for possible follow-up with pain management again. She will be given prescriptions for Flexeril and prednisone as she had in the past. Patient was able to ambulate to the bathroom here in the emergency department. She told the RN that she needed something more for analgesia. She will be given 1 Lamar tablet here. She was informed that she already had morphine, and that her outpatient narcotics should come from her primary care physician. I do not feel that narcotic pain medication is indicated for her low back pain. At this point in time, she will be discharged to follow-up with her primary care physician. Return instructions were reviewed. I see no red flag signs for emergent imaging of her low back. Disposition is discharged home in stable condition. Radiography Diagnostic Testing: Clinical Impression(s) from Imaging Studies Lumbar Spine X-Ray 06/05/21 08:04 IMPRESSION: Degenerative changes of the spine, as detailed above. Electronically Signed: Evert Lee MD at 8:36 EDT Reading Location ID and State: [facility] / [place] , Service support , Discharge Plan Triage Chief Complaint: Back ED Provider: Brown Barrientos Dx/Rx/DC Orders Clinical Impression: Low back pain Instructions: ED Back Care Tips, ED Back Exercises, Lumbar, ED Back Pain (Acute or Chronic) Prescriptions: New methylprednisolone [Medrol (Manuel)] 4 mg tablets,dose pack 4 mg PO DAILY Qty: 21 RF: 0 cyclobenzaprine 10 mg tablet 10 mg PO TID PRN (Reason: muscle spasm) Qty: 20 RF: 0 No Action citalopram 40 MG tablet 40 mg PO QHS RF: 0 estradiol 2 MG tablet 2 mg PO DAILY RF: 0 oxycodone-acetaminophen 1 EACH tablet 1 ea PO TID PRN (Reason: Pain) Qty: 12 RF: 0 ciprofloxacin HCl 500 MG tablet 500 mg PO BID Qty: 14 RF: 0 clindamycin HCl 150 MG capsule 300 mg PO TID Qty: 21 RF: 0 oxycodone 5 MG tablet 5 mg PO Q6H PRN PRN (Reason: Pain Score 6-10) Qty: 20 RF: 0 Primary Care Provider: Eliseo Aparicio Referrals: Eliseo Aparicio MD [Primary Care Provider] - 3-5 Days Disposition Disposition: Home, Self Care
[2021-06-05] MEDS: Morphine 4 MG/ML Syringe IM (08:17)
[2021-06-05] MEDS: Orphenadrine 60 MG/2 ML Ampul IM (08:17)
[2021-06-05 08:40] VITALS: BP 107/92; PULSE 56; O2SAT 99
[2021-06-05] MEDS: HYDROcodone Bitartrate/Apap 5/325 Tablet PO (09:18)
[2021-06-05 09:20] VITALS: BP 110/87; PULSE 61; RESP 14; O2SAT 97
--- NOTE | 2021-06-05 09:24 | ED.RN ---
PT COMPLAINING ABOUT BEING D/C. CURRENTLY REFUSING TO LEAVE ROOM UNTIL SHE FINDS A RIDE. EXPLAINED THAT SHE CAN WAIT FOR RIDE IN WAITING, NOT UNTIL I FIND A RIDE. THIS RN OFFERED A WHEELCHAIR, IM NOT GOING ANYWHERE UNTIL I FIND A RIDE. Y'ALL DONT CARE ABOUT ANYONE'S PAIN HERE DO YOU.
--- NOTE | 2021-06-05 09:40 | ED.RN ---
ASSISTED PT IN SITTING UP AND GETTING OUT OF BED. ASSISTED PT WITH BRA AND HOOKED IT. PT TOOK HER SHIRT AND QUICKLY PUT ON OVER HER HEAD. PUSHED PT TO WAITING ROOM, PT STILL ATTEMPTING TO FIND A RIDE.
--- NOTE | 2021-06-05 11:12 | ED.RN ---
PT IN WAITING ROOM ATTEMPTING TO OBTAIN A RIDE HOME. PT SCREAMING AND YELLING ABOUT HOW THE [facility] HAS DONE NOTHING FOR HER. PT CALLED HER PHYSICIAN OFFICE AND AGAIN BEGINS YELLING THAT I CAN'T WALK, THEY DID NOTHING, AND THEY DON'T CARE. P[T YELLS AT THIS RN TO COME HELP ME. THIS RN STATES I WILL GLADLY HELP YOU BUT I WILL NOT BE YELLED AT LIKE THAT. PT STATES FINE, I AM NOT YELLING.PT EXPLAINED TO PHYSICIAN OFFICE THAT SHE COULD NOT WALK AND WAS LEFT IN THE WAITING ROOMPT THEN ON PHONE WITH FRIEND REGARDING RIDE HOME. PT STATES HE WON'T COME GET ME HE IS MAD. PT RIDE THEN ARRIVES AND PT WALKS OUT OF DEPARTMENT WITH NO ASSISTIVE DEVICES
== END 2021-06-05 09:41 | disposition home or self-care (01) ==
PROVIDERS: Emergency Provider Emergency Medicine; PCP Family Medicine; Visit Provider Emergency Medicine
DX: M54.50 Low back pain, unspecified (principal); F17.210 Nicotine dependence, cigarettes, uncomplicated; G89.29 Other chronic pain
CPT/HCPCS: 72100; 96372; 99285; A4216

== ENCOUNTER → 2023-03-13 | Outpatient (CLI) | payer BC, SELFPAY ==
[2023-03-13 15:57] LABS: Red Blood Cells-Urine 0 SEEN /hpf (0-5)
[2023-03-13 17:29] LABS: Color, Urine Yellow (Yellow); Glucose, Dipstick Normal (Normal); Ketone-Dipstick 5 mg/dl (Negative); Leukocyte Esterase-Dipstick 25 /ul (Negative); Nitrite-Dipstick Negative (Negative); Occult Blood-Urine Negative /ul (Negative); Protein-Dipstick 15 mg/dl (Negative); Specific Gravity, Urine 1.015 (1.002-1.030); Urine Clarity Clear (Clear); Urine Urobilinogen Normal (Normal)
[2023-03-13 17:32] LABS: Urine Bilirubin Dipstick 1 mg/dL (Negative)
[2023-03-13 17:36] LABS: Squamous Epithelial Cells - UA 5-10 SEEN /hpf (5-10); White Blood Cells 0-5 SEEN /hpf (0-5)
[2023-03-13 17:37] LABS: Bacteria 0 SEEN /hpf (None Seen); Mucous, Urine 1+ /hpf (<or=2+)
== END | disposition home or self-care (01) ==
PROVIDERS: PCP Family Medicine; Visit Provider Physician Assistant Surgical
DX: R30.0 Dysuria (principal)
CPT/HCPCS: 81001; 87086

== ENCOUNTER 2023-11-27 12:26 | Emergency (ER) | payer MEDICAID, SELFPAY ==
[2023-11-27 12:26] VITALS: BP 126/114; BP 130/100; PULSE 83; PULSE 85; RESP 14; TEMP 36.6; O2SAT 98; BMI 37.6
--- NOTE | 2023-11-27 13:09 | EKG12_ITS ---
Test Reason : CHEST PAIN Blood Pressure : / mmHG Vent. Rate : 066 BPM Atrial Rate : 066 BPM P-R Int : 160 ms QRS Dur : 086 ms QT Int : 384 ms P-R-T Axes : 066 068 064 degrees QTc Int : 402 ms Normal sinus rhythm Normal ECG Confirmed by MILO URIBE, BHAKTI ([id number]), continuity editor SHARON GAYLE ([id number]) on 12/01/2023 8:11:43 AM Referred By: Confirmed By:BHAKTI PEDRAZA MD
--- NOTE | 2023-11-27 13:20 | ED.VIS.CHEST ---
HPI History of Present Illness Chief Complaint: Chest Pain Informant: patient Narrative Narrative: Patient is a 48-year-old female presenting with chest pain, nausea, vomiting and numbness and tingling of her extremities. Patient reports that she has long-term intermit episodes of chest pain. She states today she had some pain going down her left arm. She is coming in however because she had 2 episodes of vomiting today and started to have swelling in her hands and her feet as well as tingling in her hands and her feet. She also notes that she has had some black discoloration of her great toenails for years. She denies any urinary symptoms. She reports that her bowel movements have been dark dark and thick. She last had a bowel move this morning. Does not report any diarrhea. Last week had an episode of left-sided abdominal pain but it resolved. She notes she has a history of a hysterectomy, x 3 and uterine ablation. 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 She notes the place she is staying at did have COVID going around last week. She states she did not get it. She currently denies any abdominal pain. She notes that her vomit was brown and chunky and look like she swallowed tobacco. Denies any fevers. denies any URI symptoms. Is currently requesting something to drink. [facility] Home Medications ?Medication ?Instructions ?Recorded ?Last Taken ?Type citalopram 40 mg tablet 40 mg PO QHS mood 02/13/15 Unknown History estradiol 2 mg tablet 2 mg PO DAILY hormone 10/12/18 01/18/20 22:00 History oxycodone-acetaminophen 5 mg-325 1 ea PO TID PRN Pain #12 tabs 10/12/18 01/19/20 08:30 Rx mg tablet ciprofloxacin HCl 500 mg tablet 500 mg PO BID #14 tabs 01/21/20 Unknown Rx oxycodone 5 mg tablet 5 mg PO Q6H PRN PRN Pain Score 01/21/20 Unknown Rx 6-10 #20 tabs cyclobenzaprine 10 mg tablet 10 mg PO TID PRN muscle spasm #20 06/05/21 Unknown Rx tabs methylprednisolone 4 mg tablets in 4 mg PO DAILY #21 tabs 06/05/21 Unknown Rx a dose pack (Medrol (Manuel)) ondansetron 4 mg disintegrating 4 mg PO Q8H PRN PRN Nausea #10 tabs 11/27/23 Unknown Rx tablet Allergy/AdvReac Type Severity Reaction Status Date / Time bee pollen (Bee Pollen) Allergy Anaphylaxis Verified 11/27/23 12:27 blueberry (Blueberry) Allergy Anaphylaxis Verified 11/27/23 12:27 ketorolac tromethamine (From Allergy Hives Verified 11/27/23 12:27 Toradol) naproxen Allergy Rash Verified 11/27/23 12:27 Penicillins Allergy Rash Verified 11/27/23 12:27 gabapentin AdvReac dizziness Verified 11/27/23 12:27 tramadol AdvReac Vomiting Verified 11/27/23 12:27 Surgical History H/O: hysterectomy Social History Smoking Status: Current every day smoker tobacco type: cigarettes ROS ROS ED Constitutional Constitutional ED: Denies chills or fever(s) Cardiovascular Cardiovascular: Reports chest pain; Denies palpitations Respiratory/Chest Respiratory/Chest: Denies cough or dyspnea Gastrointestinal Gastrointestinal: Reports abdominal pain, nausea and vomiting; Denies diarrhea or melena Genitourinary Genitourinary ED: Denies dysuria or hematuria Musculoskeletal Musculoskeletal: Denies arthralgias or myalgias Integumentary Denies rash Neurologic Neurologic: Reports paresthesias; Denies headache(s) or weakness Hematologic/Lymphatic Hematologic/Lymphatic: Denies easy bleeding or easy bruising EXAM Physical Exam Const Vital Signs: 11/27/23 12:26 11/27/23 12:26 11/27/23 14:26 Temperature 98 F Temperature Source Temporal Pulse Rate 85 83 71 Respiratory Rate 14 14 16 Blood Pressure 130/100 H 126/114 H 102/66 Blood Pressure Mean 110 118 78 Pulse Ox 98 98 99 Oxygen Delivery Method Room Air Room Air Room Air Positive well nourished and well developed General Appearance ED: well developed HEENT Reports moist mucous membranes normocephalic and atraumatic Eyes PERRL and EOMs intact bilaterally General Eye ED: Negative for scleral icterus Neck supple and no JVD Chest Wall inspection of chest normal and palpation of chest normal Resp normal respiratory effort and clear to auscultation bilaterally Cardio regular rate and regular rhythm Peripheral Pulses: pulses 2+ throughout GI normal to inspection, nondistended, normoactive bowel sounds, soft to palpation and non-tender Extremity normal to inspection Extremity Narrative: Very mild edema noted to the hands and feet that is nonpitting. Neuro oriented x3 Sensorium / Orientation: awake and alert Motor Exam: Negative for general weakness Psych mental status grossly normal Mood & Affect: anxious Skin no rashes or lesions noted and no wounds Skin Narrative: Chronic thickening of all of the toe nails with discoloration of the bilateral great toenails consistent with a chronic fungal infection Heart Score History: Slightly/Non-Suspicious ECG: Normal Age: >45 - <65 years Risk Factors: 1 or 2 Risk Factors Score: 2 MDM MDM MDM Narrative Medical decision making narrative: Patient is evaluated for 2 episodes of vomiting and numbness/tingling of her extremities. She also feels that her hands and feet are swollen. She is cramping in her feet. She also reports is intermittent but chronic chest pain. Patient is well-appearing. Her vital signs are normal. Clinically she is not appear dehydrated. I question if she is having of some hyperventilation or the start of carpopedal spasm is causing this bilateral numbness and tingling. Possibly made worse by the vomiting. Will obtain basic blood work, chest x-ray and EKG. Abdomen is soft and nontender. I do not think she requires any abdominal imaging at this time. She is given IV fluids and Zofran. Lab work is largely unremarkable. CBC shows a chronic but stable anemia with a normal white blood cell count. Her platelets are normal. Her CMP shows a mild transaminitis but is very mildly elevated and she has a normal bilirubin as well as lipase. Low suspicion for acute biliary or pancreatic pathology. Her kidney function is normal. She does not have any electrolyte abnormalities and her magnesium is also normal. Urinalysis shows 1+ bacteria but 5-10 white blood cells. Will send for culture but defer treatment at this time as she is not reporting any urinary symptoms. Chest x-ray viewed by myself as well as radiology does not show any acute process. EKG shows normal sinus rhythm with no acute ischemic changes. Her high-sensitivity troponin is normal and have a low suspicion for ACS. She is not hypoxic neck pain of any shortness of breath and I have a low suspicion for pulmonary emboli. Patient is reevaluated she states she is feeling better and ready to go. She will be given a prescription for Zofran. Is given return precautions. Encouraged follow-up with her primary care doctor. Discharged home in stable condition. Lab Data Attestation: I reviewed the patient's lab results. Labs: Laboratory Results - last 24 hr 11/27/23 11/27/23 12:35 13:59 WBC 5.1 RBC 3.57 L Hgb 11.4 L Hct 34.8 L MCV 97.5 MCH 31.9 MCHC 32.8 RDW Std Deviation 46.5 H RDW Coeff of Lee 12.9 Plt Count 304 MPV 8.7 Immature Gran % (Auto) 0.400 Neut % (Auto) 51.3 Lymph % (Auto) 36.0 Dodge % (Auto) 9.3 Eos % (Auto) 2.2 Baso % (Auto) 0.8 Absolute Neuts (auto) 2.6 Absolute Lymphs (auto) 1.82 Nucleated RBC % 0 Sodium 136 Potassium 4.0 Chloride 104 Carbon Dioxide 27.0 Anion Gap 5 BUN 23 H Creatinine 0.64 Estim Creat Clear Calc 124.51 Est GFR (MDRD) Af Amer 129 Est GFR (MDRD) Non-Af 106 BUN/Creatinine Ratio 36.2 H Glucose 97 Calcium 9.3 Magnesium 2.1 Total Bilirubin 0.20 AST 42 H ALT 68 H Alkaline Phosphatase 120 H Troponin I High Sens 5 Total Protein 7.0 Albumin 3.4 Globulin 3.6 Albumin/Globulin Ratio 0.9 Lipase 27 Urine Color Yellow Urine Clarity Sl. Cloudy Urine pH 6.5 Ur Specific [place] 1.015 Urine Protein 15 H Urine Glucose (UA) Normal Urine Ketones Negative Urine Occult Blood 10 H Urine Nitrite Negative Urine Bilirubin Negative Urine Urobilinogen Normal Ur Leukocyte Esterase 100 H Urine RBC 0-5 SEEN Urine WBC 5-10 SEEN Ur Squamous Epith Cells 0-5 SEEN Urine Bacteria 1+ Urine Mucus 0 SEEN Radiography Diagnostic Testing: Clinical Impression(s) from Imaging Studies Chest X-Ray 11/27/23 14:00 IMPRESSION: Degenerative changes, as described above. No demonstrated acute cardiopulmonary process. Electronically Signed: Evert Lee MD at 14:26 EDT , Rhythm Strip Rhythm Strip: Sinus Rhythm Rate: 66 Ectopy: None EKG Initial EKG: Attestation: I personally reviewed and interpreted this EKG as follows: Interpretation: Sinus Rhythm Comments: Normal sinus rhythm at a rate of 66 bpm Normal axis Normal intervals Normal ST segments Discharge Plan Triage Chief Complaint: Chest Pain ED Provider: Marlen Paul Dx/Rx/DC Orders Clinical Impression: Tingling in extremities, Nausea and vomiting, Chest pain Instructions: ED Chest Pain, Noncardiac, ED Vomiting (Adult), ED Paraesthesias Prescriptions: New ondansetron 4 mg tablet,disintegrating 4 mg PO Q8H PRN PRN (Reason: Nausea) Qty: 10 0RF No Action citalopram 40 MG tablet 40 mg PO QHS estradiol 2 MG tablet 2 mg PO DAILY Patient Comments: TAKE 1 TABLET BY MOUTH DAILY oxycodone-acetaminophen 1 EACH tablet 1 ea PO TID PRN (Reason: Pain) Qty: 12 0RF ciprofloxacin HCl 500 MG tablet 500 mg PO BID Qty: 14 0RF oxycodone 5 MG tablet 5 mg PO Q6H PRN PRN (Reason: Pain Score 6-10) Qty: 20 0RF methylprednisolone [Medrol (Manuel)] 4 mg tablets,dose pack 4 mg PO DAILY Qty: 21 0RF cyclobenzaprine 10 mg tablet 10 mg PO TID PRN (Reason: muscle spasm) Qty: 20 0RF Primary Care Provider: Eliseo Aparicio Referrals: Eliseo Aparicio MD [Primary Care Provider] - Activity Restrictions/Additional Instructions: Make sure drinking plenty of fluids with electrolytes in it. Your workup was largely normal today. We did send your urine out for culture which will take about 48 hours to come back. Will contact you if you require antibiotics. Return if you have a progression worsening your symptoms. Print Language: Arabic Disposition Disposition: Home, Self Care
[2023-11-27 13:36] LABS: Mucous, Urine 0 SEEN /hpf (<or=2+)
[2023-11-27 13:41] LABS: Color, Urine Yellow (Yellow); Glucose, Dipstick Normal (Normal); Ketone-Dipstick Negative (Negative); Leukocyte Esterase-Dipstick 100 /ul (Negative); Nitrite-Dipstick Negative (Negative); Occult Blood-Urine 10 /ul (Negative); Protein-Dipstick 15 mg/dl (Negative); Specific Gravity, Urine 1.015 (1.002-1.030); Urine Bilirubin Dipstick Negative (Negative); Urine Clarity Sl. Cloudy (Clear); Urine Urobilinogen Normal (Normal); Urine pH 6.5 (5.0 - 8.0)
[2023-11-27] MEDS: 0.9% Normal Saline (1000mL) 1,000 ML 1000 ML IV (13:54)
[2023-11-27] MEDS: Ondansetron 4 MG/2 ML Vial IV (13:55)
[2023-11-27 13:56] LABS: Bacteria 1+ /hpf (None Seen); Red Blood Cells-Urine 0-5 SEEN /hpf (0-5); Squamous Epithelial Cells - UA 0-5 SEEN /hpf (5-10)
[2023-11-27 13:57] LABS: White Blood Cells 5-10 SEEN /hpf (0-5)
--- NOTE | 2023-11-27 14:00 | RAD_ITS ---
STUDY: X-RAY CHEST REASON FOR EXAM: Female, 48 years old. chest pain TECHNIQUE: PA and lateral views of the chest. COMPARISON: July 06, 2011 FINDINGS: The lungs are clear and expanded. There is no demonstrated pleural abnormality. Normal size heart. Normal mediastinum and adolfo. Normal visualized pulmonary arteries. There is atherosclerotic calcification of the aortic arch with tortuosity. There are diffuse degenerative changes of the visualized thoracic spine. Normal visualized ribs, clavicles, and shoulders. There is no demonstrated abnormality of the visualized soft tissue structures of the upper abdomen. RAD/Chest PA and Lateral IMPRESSION: Degenerative changes, as described above. No demonstrated acute cardiopulmonary process. Electronically Signed: Evert Lee MD at 14:26 EDT ,
--- NOTE | 2023-11-27 14:03 | MDS.RN ---
Labs late because of no US on the floor. Multiple attempts for PIV from 2 nurses.
[2023-11-27 14:07] LABS: Absolute Lymphocyte Count 1.82 X10^3/uL (0.83-4.51); Absolute Neutrophil Count 2.6 X10^3/uL (2.0-7.7); Basophil# 0.04 X10^3/uL; Basophil% 0.8 % (0-1); Eosinophil# 0.11 X10^3/uL; Eosinophils% 2.2 % (0-5); Hematocrit 34.8 % (37-47); Hemoglobin 11.4 g/dL (12.0-15.0); Lymphocyte # 1.82 X10^3/ul (0.83-4.51); Mean Corp Hgb Conc 32.8 g/dL (32-36); Mean Corpuscular Hgb 31.9 pg (27.0-32.0); Mean Corpuscular Volume 97.5 fL (81-99); Mean Platelet Vol. 8.7 fl (6.2-12.0); Monocyte# 0.47 X10^3/uL; Monocyte% 9.3 % (0-10); NRBC Flagged by Analyzer 0 % (0-5); Neutrophil # 2.59 X10^3/uL (2.7-7.7); Neutrophil % 51.3 % (47-70); Platelet Count 304 K/mm3 (150-450); RBC Distribution Width CV 12.9 % (11.6-14.6); RBC Distribution Width SD 46.5 fl (35.1-43.9); Red Blood Count 3.57 M/mm3 (4.2-5.4); White Blood Count 5.1 K/mm3 (4.4-11.0)
[2023-11-27 14:26] VITALS: BP 102/66; PULSE 71; RESP 16; O2SAT 99
[2023-11-27 14:35] LABS: ALB/GLOB Ratio 0.9 RATIO (0.9-2.4); AST(SGOT) 42 U/L (15-37); Alanine Aminotransfer ALT/SGPT 68 U/L (13-56); Albumin, Serum 3.4 g/dL (3.2-5.0); Alkaline Phosphatase 120 U/L (45-117); Anion Gap 5 (5-15); BUN 23 mg/dL (7-18); BUN/Creat Ratio 36.2 RATIO (10-20); Calcium,Total 9.3 mg/dL (8.5-10.1); Chloride 104 mmol/L (98-107); Creatinine, Serum 0.64 mg/dL (0.55-1.02); EST Glomerular Filtration Rate 106 mL/min (>60); Est Glom Filt Rate - Afr Amer 129 mL/min (>60); Estimated Creatinine Clearance 124.51 ml/min; Globulin 3.6 g/dL (2.2-4.2); Glucose 97 mg/dL (74-106); Lipase 27 U/L (13-75); Magnesium 2.1 mg/dL (1.6-2.6); Sodium Level 136 mmol/L (136-145); Troponin-I HS 5 pg/mL (3.0-54.0)
[2023-11-27 16:17] VITALS: PULSE 77; RESP 16; O2SAT 100
== END 2023-11-27 16:18 | disposition home or self-care (01) ==
PROVIDERS: Emergency Provider Emergency Medicine; PCP Family Medicine; Visit Provider Emergency Medicine
DX: R07.9 Chest pain, unspecified (principal); R11.2 Nausea with vomiting, unspecified; F17.210 Nicotine dependence, cigarettes, uncomplicated; R20.2 Paresthesia of skin; Z90.710 Acquired absence of both cervix and uterus
CPT/HCPCS: 71046; 80053; 81001; 83690; 83735; 84484; 85025; 87077; 87086; 87088; 87186; 87631; 93005; 96361; 96374; 99282; J7030; A4216; J2405

== ENCOUNTER → 2023-12-04 | Outpatient (CLI) | payer MEDICAID, SELFPAY ==
--- NOTE | 2023-12-04 08:42 | BI_ITS ---
MAMMOGRAPHY - BILATERAL DIAGNOSTIC REASON FOR EXAM: Female, 48 years old. Six-month history of a tender left breast lump. PERTINENT HISTORY: Sister with breast cancer. Mother with breast cancer. Grandmother with breast cancer. Aunt with breast cancer. TECHNIQUE: Digital bilateral breast shaun (3D mammographic acquisition) in the CC and MLO projections. 2-D mediolateral oblique (MLO) and craniocaudad (CC) views of both breasts were obtained. CAD: Full Field Digital Mammography with Computer Added Detection was performed. COMPARISON: Comparison is made with prior outside examination dated October 10, 2021. FINDINGS: Breast Composition: The breasts are heterogeneously dense, which may obscure small masses. There are no dominant masses or suspicious calcifications. Stable small benign-appearing bilateral axillary lymph nodes. No other significant abnormalities are identified. There has been no significant change since the prior study. BI/DIAG MAMM W/CAD, BILAT IMPRESSION: Stable bilateral diagnostic mammogram. With the patient''s history of a palpable lump in the left upper outer quadrant, targeted correlation with ultrasound recommended. ASSESSMENT CATEGORY: BIRADS Category 0: Incomplete. Need additional imaging evaluation. A letter regarding these results will be sent to the patient by the facility within 30 days. Approximately 10% of breast cancers are not detected by mammography. A normal mammogram should not delay biopsy of a clinically suspicious abnormality. Electronically Signed: Chet Davies MD at 11:05 EDT ,
--- NOTE | 2023-12-04 08:44 | US_ITS ---
STUDY: ULTRASOUND BREAST - LEFT REASON FOR EXAM: Female, 48 years old. Left breast lump. TECHNIQUE: Axial and longitudinal images of the LEFT breast were performed with a high resolution ultrasound transducer. # OF IMAGES: 21 COMPARISON: Comparison is made with prior mammogram done earlier today. FINDINGS: LEFT Breast: The central lateral aspect of the left breast was examined with ultrasound. There is a 9 mm x 5 mm x 3 mm benign-appearing lymph node at the 3:00 position of the breast at 4 cm from the nipple. US/Breast Limited Unilateral IMPRESSION: 9 mm x 5 mm x 3 mm benign-appearing lymph node at the 3:00 position of the left breast at 4 cm from the nipple. ASSESSMENT CATEGORY: BIRADS Category 2: Benign. A letter regarding these results will be sent to the patient by the facility within 30 days. Electronically Signed: Chet Davies MD at 11:18 EDT ,
== END | disposition home or self-care (01) ==
LOC: OPBI 08:39
PROVIDERS: PCP Family Medicine; Referring Provider Nurse Practitioner Family; Visit Provider Nurse Practitioner Family
DX: N64.4 Mastodynia (principal); N63.20 Unspecified lump in the left breast, unspecified quadrant
CPT/HCPCS: 77062; 76642; 77066; G0279

== ENCOUNTER 2024-08-03 16:24 | Emergency (ER) | payer MEDICAID, SELFPAY ==
[2024-08-03 16:26] VITALS: BP 130/81; PULSE 95; RESP 20; TEMP 36.6; O2SAT 98; BMI 39.9
--- NOTE | 2024-08-03 16:29 | EKG12_ITS ---
Test Reason : GENERAL Blood Pressure : */* mmHG Vent. Rate : 71 BPM Atrial Rate : 71 BPM P-R Int : 164 ms QRS Dur : 86 ms QT Int : 372 ms P-R-T Axes : 53 50 49 degrees QTcB Int : 404 ms Normal sinus rhythm Normal ECG Confirmed by Farhad Rice ([id number]), editor trade journal KAILA ROQUE ([id number]) on 08/05/2024 10:00:39 AM Referred By: Confirmed By: Farhad Rice
--- NOTE | 2024-08-03 16:29 | VDLE_ITS ---
Reason For Study Reason For Study: Right leg pain RIGHT LEFT GSV is normal. CFV is compressible, spontaneous, phasic, competent, CFV is compressible, spontaneous, phasic, competent and demonstrates normal augmentation. and demonstrates normal augmentation. FV is compressible, spontaneous, phasic, competent and demonstrates normal augmentation. POP V is compressible, spontaneous, phasic, competent and demonstrates normal augmentation. T/P Trunk is compressible. PTV is compressible. RT PerV is compressible. Procedure This is a venous duplex using B-mode, color flow and spectral Doppler. Exam performed portable in ED. A preliminary report was called and/or faxed to Dr. Lyle. VL/Venous Duplex US, Unilateral Interpretation Summary Deep veins of the right lower extremity are patent and compressible segmentally . There is no evidence of right lower extremity deep vein thrombosis. The right great saphenous vein appears patent a nd compressible segmentally. Ordering Physician: Ruddy Lyle Referring Physician: MD Alessandra Eliseo Performed By: Aline Ochoa RVT
--- NOTE | 2024-08-03 16:38 | EX.ED.DYSGE1 ---
HPI History of Present Illness Chief Complaint: Edema Informant: patient Onset/Context/Timing Onset: Days Context: Gradual Onset Timing: Continuous Current Severity: Mild Maximum Severity: Mild Narrative Narrative: Four 10-year-old female is new past medical history. Prior hysterectomy and C-sections. He states her last 5 7 days she has had mild swelling to her right lower extremity. Denies any fall injury or trauma. No history of DVT or PE. Prior knee effusion years ago. No recent travel, surgery or immobilization. Also states last month she has had episodes of chest discomfort. Sharp and stabbing. Lasts less than 5 minutes. Not associated with exertion. No exertional dyspnea or exertional chest pain. No history of cardiac disease. No hemoptysis. Currently symptom-free. Prior similar symptoms: No Recent Illness/Hospitalization: No PFSH PFSH Medical History no medical history no medical history Home Medications ?Medication ?Instructions ?Recorded ?Last Taken ?Type estradiol 2 mg tablet 2 mg PO DAILY hormone 10/12/18 01/18/20 22:00 History atomoxetine 40 mg capsule 40 mg PO DAILY 08/03/24 08/03/24 History Allergy/AdvReac Type Severity Reaction Status Date / Time bee pollen (Bee Pollen) Allergy Anaphylaxis Verified 08/03/24 16:26 blueberry (Blueberry) Allergy Anaphylaxis Verified 08/03/24 16:26 ketorolac tromethamine (From Allergy Hives Verified 08/03/24 16:26 Toradol) naproxen Allergy Rash Verified 08/03/24 16:26 Penicillins Allergy Rash Verified 08/03/24 16:26 gabapentin AdvReac dizziness Verified 08/03/24 16:26 tramadol AdvReac Vomiting Verified 08/03/24 16:26 Surgical History H/O: hysterectomy Social History (Updated 08/03/24 @ 16:43 by Lisa Payne) household members: spouse housing: house Smoking Status: Current every day smoker tobacco type: cigarettes ROS ROS ED ROS Narrative Atypical nonexertional chest pain. Atraumatic right leg swelling. Constitutional Constitutional ED: Denies chills or fever(s) Eyes Eyes: Denies blurry vision ENT ENT ED: Denies ear pain Cardiovascular Cardiovascular: Reports chest pain; Denies palpitations or racing heartbeat Respiratory/Chest Respiratory/Chest: Denies cough, dyspnea or dyspnea on exertion Gastrointestinal Gastrointestinal: Denies abdominal pain Genitourinary Genitourinary ED: Denies dysuria or hematuria Musculoskeletal Musculoskeletal: Denies arthralgias Integumentary Denies abscess Neurologic Neurologic: Denies headache(s) Psychiatric Psychiatric: Denies anxiety or depression Endocrine Endocrinology: Denies cold intolerance Hematologic/Lymphatic Hematologic/Lymphatic: Reports none Allergic/Immunologic Allergic/Immunologic ED: Denies mouth swelling, tongue swelling or urticaria EXAM Physical Exam Narrative Exam Narrative: 49-year-old female sitting upright in bed. Vital signs are stable afebrile. She is in no distress. Pulse ox 98% on room air no hypoxia. H EENT exam pupils round reactive light. Moist mucous membranes. Neck nontender. No lymphadenopathy. No JVD. Lungs clear to auscultation bilaterally. Heart regular rate rhythm rate about 95. Chest wall ribs nontender. No reproducible pain. Abdomen soft nontender. Moving all 4 extremities. Neurovascular intact. 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 Equal symmetric radial pulses. Dorsi plantarflexion intact. No calf tenderness. No cords. She does have mild swelling in her right leg from the knee down. There is no redness or warmth. No lymphangitic streaking. No inguinal lymphadenopathy. She has normal flexion extension of her right hip, right knee right ankle. Normal strength and sensation. Back nontender. Neurologically she is awake alert. No focal motor deficits. Answering questions following commands. Const Vital Signs: 08/03/24 16:26 08/03/24 16:42 08/03/24 16:42 Temperature 97.8 F Temperature Source Temporal Pulse Rate 95 Respiratory Rate 20 H Respiratory Effort Normal Non-Labored Respiratory Pattern Normal Blood Pressure 130/81 H Blood Pressure Mean 97 Pulse Ox 98 Oxygen Delivery Method Room Air Room Air Positive well nourished and well developed; Negative for cachectic, contractures or unkempt General Appearance ED: well developed and NAD; Negative for unkempt, cachectic, contractures, cyanotic, diaphoretic or pallor Nutritional Appearance: Negative for cachectic HEENT Reports moist mucous membranes Negative for trauma or tenderness Eyes PERRL and EOMs intact bilaterally General Eye ED: Negative for pale conjunctiva or scleral icterus Neck no lymphadenopathy, supple and no JVD General: Negative for tenderness Chest Wall inspection of chest normal and palpation of chest normal Resp normal respiratory effort and clear to auscultation bilaterally Effort and Inspection: Negative for retractions or pain with movement Auscultation: Negative for rales, rhonchi, wheezes or diminished lung sounds Cardio regular rate, regular rhythm, S1 normal heart sound, S2 normal heart sound and no murmurs Palpation: Negative for palpable S3 or palpable S4 Rate: Negative for bradycardia or tachycardic Rhythm: Negative for abnormal rhythm GI normal to inspection, nondistended, normoactive bowel sounds, non-tender, non-distended and no masses Auscultation: normoactive bowel sounds Palpation: soft; Negative for tender, guarding or rebound tenderness present Back/Spine no CVA tenderness General Back: Negative for CVA tenderness Cervical Spine: Negative for cervical spine tenderness Thoracic Spine / Upper Back: Negative for thoracic spinal tenderness or paraspinal muscle tenderness Lumbar Spine / Lower Back: Negative for lumbar spinal tenderness Extremity Negative for normal to inspection Extremity Narrative: Right leg swollen. No pitting edema. No calf tenderness. No cords. No cellulitis. No septic joint. Normal flexion extension of right hip, knee and ankle. Normal dorsi plantarflexion. Normal touch sensation. No signs of trauma. No signs of redness or warmth. Neuro oriented x3 and CN's II-XII intact bilaterally Sensorium / Orientation: alert; Negative for orientation impaired, lethargic or stuporous Motor Exam: strength 5/5 throughout; Negative for general weakness or strength abnormal Psych mental status grossly normal Appearance: Negative for unkempt Skin no rashes or lesions noted, no wounds and skin turgor normal General Skin Exam: elasticity normal; Negative for jaundice or pallor Lesions: No lesion noted Rashes: No rashes noted Trauma: Negative for abrasion Wounds: Negative for wounds noted MDM MDM MDM Narrative Medical decision making narrative: 49-year-old female right leg swelling for 5 to 7 days no trauma. No risk factors for DVT or PE. No recent travel, surgery immobilization. No family history of clots. Noninvasive study right leg to be obtained. She also had very atypical nonexertional chest pain. No cardiac history. She undergo cardiac workup. Repeat exam patient doing well at 5:16 PM I have instructed her on her test results. Awaiting the CTA of her chest and the second troponin. Repeat exam at 6:28 PM patient states she needed to go. She did not want a wait for the 2-hour troponin. I went over her test results with her. She understands the risks and benefits. Outpatient follow-up with her primary care physician. Prior to discharge her CAT scan of her chest did return and there was no PE. History & Record Review Discussion w/independent historian: Patient Additional record(s) reviewed:: Prior inpatient record, Prior outpatient record, Prior ED visit and Prior labs Lab Data Attestation: I reviewed the patient's lab results. Lab results narrative: CBC shows a white count of 4.8. H&H 12.1 and 37. Platelets 390. Electrolytes shows sodium 139. Gap 9. Normal BUN of 18 creatinine 0.8. Glucose 122. Initial troponin less than 6. 2-hour troponin equals D-dimer elevated at 0.67. CTA of the chest to be obtained. Noninvasive study of her right lower extremity was negative for DVT per the missile tracking technician. Labs: Laboratory Results - last 24 hr 08/03/24 16:37 WBC 4.8 RBC 3.73 L Hgb 12.1 Hct 37.0 MCV 99.2 H MCH 32.4 H MCHC 32.7 RDW Std Deviation 50.1 H RDW Coeff of Lee 13.5 Plt Count 390 MPV 8.7 Immature Gran % (Auto) 0.200 Neut % (Auto) 51.6 Lymph % (Auto) 36.5 [place] % (Auto) 8.4 Eos % (Auto) 2.9 Baso % (Auto) 0.4 Absolute Neuts (auto) 2.5 Absolute Lymphs (auto) 1.75 Nucleated RBC % 0 D-Dimer Quant (PE/DVT) 0.67 H* Sodium 139 Potassium 4.0 Chloride 104 Carbon Dioxide 25.7 Anion Gap 9 BUN 18 Creatinine 0.80 Estim Creat Clear Calc 101.88 Est GFR (MDRD) Non-Af 91 BUN/Creatinine Ratio 22.2 H Glucose 122 H Calcium 9.5 Troponin T High Sens < 6 Radiography Chest X-Ray - ED: 2 View, Heart, Lungs, Mediastinum, Bony Structures, No Acute Disease and Chronic Changes Diagnostic Testing: Clinical Impression(s) from Imaging Studies Chest X-Ray 08/03/24 16:50 IMPRESSION: Lungs appear clear of acute disease, and unchanged. No pleural effusion or pneumothorax is noted. The cardiomediastinal silhouette is within the normal range, and unchanged. No acute osseous process is seen. No evidence of acute cardiopulmonary disease. Reading Location: [place] [id number] Chest x-ray, portable, single view interpreted by myself shows no acute abnormality. Normal cardiac silhouette. Normal mediastinum. Normal lung paredes. Rhythm Strip Rhythm Strip: Sinus Rhythm Rate: 71 Ectopy: None EKG Initial EKG: Attestation: I personally reviewed and interpreted this EKG as follows: Interpretation: Sinus Rhythm and No Acute Injury Pattern Comments: Normal sinus rhythm rate of 71 no acute signs of ME or ischemia. No [id number]. Discharge Plan Triage Chief Complaint: Edema ED Provider: Ruddy Lyle Dx/Rx/DC Orders Clinical Impression: Leg swelling, Atypical chest pain Instructions: ED Chest Pain, Uncertain Cause Prescriptions: No Action estradiol 2 MG tablet 2 mg PO DAILY Patient Comments: PT SUPPOSED TO BE ON, NEEDS REFILLS atomoxetine 40 mg capsule 40 mg PO DAILY Primary Care Provider: Eliseo Aparicio Referrals: Eliseo Aparicio MD [Primary Care Provider] - As soon as possible Activity Restrictions/Additional Instructions: Labs look good. Awaiting your CAT scan report. Follow-up with your doctor for further evaluation. The ultrasound of your legs showed no clot. Your other tests look good. Awaiting the CAT scan your chest. If something shows up abnormal on the CAT scan results I will let you know. Print Language: Faroese Disposition Disposition: Home, Self Care
--- NOTE | 2024-08-03 16:50 | RAD_ITS ---
PROCEDURE: CHEST 1 VIEW (PORTABLE) 08/03/2024 REASON FOR EXAM: CHEST PAIN TECHNIQUE: Frontal view of the chest. COMPARISON: Chest x-ray of 11/27/2023. RAD/Chest 1 View (Portable) IMPRESSION: Lungs appear clear of acute disease, and unchanged. No pleural effusion or pneumothorax is noted. The cardiomediastinal silhouette is within the normal range, and unchanged. No acute osseous process is seen. No evidence of acute cardiopulmonary disease. Reading Location: [place] [id number]
[2024-08-03 16:56] LABS: Absolute Lymphocyte Count 1.75 X10^3/uL (0.83-4.51); Absolute Neutrophil Count 2.5 X10^3/uL (2.0-7.7); Basophil# 0.02 X10^3/uL; Basophil% 0.4 % (0-1); Eosinophil# 0.14 X10^3/uL; Eosinophils% 2.9 % (0-5); Hemoglobin 12.1 g/dL (12.0-15.0); Lymphocyte # 1.75 X10^3/ul (0.83-4.51); Lymphocyte % 36.5 % (19-41); Mean Corp Hgb Conc 32.7 g/dL (32-36); Mean Corpuscular Hgb 32.4 pg (27.0-32.0); Mean Corpuscular Volume 99.2 fL (81-99); Mean Platelet Vol. 8.7 fl (6.2-12.0); Monocyte% 8.4 % (0-10); NRBC Flagged by Analyzer 0 % (0-5); Neutrophil # 2.47 X10^3/uL (2.7-7.7); Neutrophil % 51.6 % (47-70); Platelet Count 390 K/mm3 (150-450); RBC Distribution Width CV 13.5 % (11.6-14.6); RBC Distribution Width SD 50.1 fl (35.1-43.9); Red Blood Count 3.73 M/mm3 (4.2-5.4); White Blood Count 4.8 K/mm3 (4.4-11.0)
[2024-08-03 17:13] LABS: Anion Gap 9 (5-15); BUN 18 mg/dL (4-19); BUN/Creat Ratio 22.2 RATIO (10-20); Calcium,Total 9.5 mg/dL (7.6-11.0); Carbon Dioxide 25.7 mmol/L (21.0-32.0); Chloride 104 mmol/L (98-108); D-Dimer Quantitative (DVT/PE) 0.67 FEU/ug/m (0.27-0.49); EST Glomerular Filtration Rate 91 (>60); Estimated Creatinine Clearance 101.88 ml/min (50-250); Glucose 122 mg/dL (70-99); Sodium Level 139 mmol/L (133-145); Troponin T High Sensitivity < 6 ng/L (<=14)
--- NOTE | 2024-08-03 17:17 | CT_ITS ---
PROCEDURE: CTA CHEST W/WO CONTRAST N/A REASON FOR EXAM: ATYPICAL CP AND ELEVATED D-DIMER TECHNIQUE: CTA axial imaging of the chest with intravenous contrast. Multiplanar and multisequence images were obtained. PATIENT PREPARATION: Per protocol CONTRAST: Omnipaque 350 VOLUME: 100 mL Not Provided Gauge IV One or more dose reduction techniques were used (e.g., Automated exposure control, adjustment of the mA and/or kV according to patient size, use of iterative reconstruction technique). RADIATION DOSE SUMMARY: . COMPARISON: None FINDINGS: Hardware: None Lymph nodes: No suspicious adenopathy. Heart: No cardiomegaly. No pericardial effusion. No coronary artery calcifications. Thoracic Aorta: No thoracic aortic aneurysm or dissection. Pulmonary Vessels: No large central pulmonary emboli are identified. Contrast timing is suboptimal for evaluation of more distal branches. Most Proximal Level of Embolus (if embolus present): None Lungs and Airways: Central airways are patent without endobronchial lesions. Mild bibasilar atelectasis. No focal consolidation. No pneumothorax. No pleural effusion. Upper Abdomen: Visualized portions of the upper abdominal viscera are unremarkable. Bones: Bone windows are unremarkable. CT/CTA Chest W/WO Contrast IMPRESSION: No evidence of pulmonary embolism or acute findings in the thorax. Reading Location: [facility]
[2024-08-03 17:45] VITALS: BP 177/56; PULSE 84; RESP 20; O2SAT 97
--- NOTE | 2024-08-03 18:32 | NURSING ---
Pt requesting d/c, does not want to stay for delta troponin.
== END 2024-08-03 18:33 | disposition home or self-care (01) ==
PROVIDERS: Emergency Provider Emergency Medicine; PCP Family Medicine; Visit Provider Emergency Medicine
DX: R07.89 Other chest pain (principal); F17.210 Nicotine dependence, cigarettes, uncomplicated; Z90.710 Acquired absence of both cervix and uterus; R60.9 Edema, unspecified; M79.89 Other specified soft tissue disorders
CPT/HCPCS: 71045; 71275; 80048; 84484; 85025; 85379; 93005; 93971; 99283; Q9967; A4216

== ENCOUNTER 2024-11-04 19:45 | Emergency (ER) | payer MEDICAID, SELFPAY ==
[2024-11-04] VITALS (9 sets, daily range): BP systolic 120–174; BP diastolic 51–84; PULSE 77–96; RESP 9–20; TEMP 36.1–36.9; O2SAT 95–98; BMI 42.7
--- NOTE | 2024-11-04 20:12 | ED.VIS.CHEST ---
HPI History of Present Illness Chief Complaint: Chest Pain Informant: patient Narrative Narrative: Sent from PCP concerning abnormal EKG. She has been having chest pains on and off for the last few months. States sharp in nature goes down her left arm. She has tobacco history of 17 pack years. States premature MD in mother at the age of 36. She does not know when her father had an MD. Grandmother in her 70s. Denies hypertension diabetes or hyperlipidemia. Denies any stress test history. Denies recent travel surgery or immobilizations. No history PE or DVT. She states increasing productive cough recently. No fever or chills. Reported there was concerns of left-sided swelling on EKG. Reports pain is sharp. CVD Risk Factors: Positive for Family History 1' </=55 and Smoking; Negative for Hypertension, Diabetes or Hypercholesterolemia PE Risk Factors: Negative for Recent Travel/Surgery, Recent Immobilization or Prior DVT or PE PFSH PFS Home Medications ?Medication ?Instructions ?Recorded ?Last Taken ?Type estradiol 2 mg tablet 2 mg PO DAILY hormone 10/12/18 01/18/20 22:00 History atomoxetine 40 mg capsule 40 mg PO DAILY 08/03/24 08/03/24 History hydrochlorothiazide 12.5 mg tablet 12.5 mg PO DAILY 11/04/24 Unknown History hydroxyzine pamoate 25 mg capsule 25 mg PO Q8H PRN anxiety 11/04/24 Unknown History trazodone 50 mg tablet 100 mg PO QHS PRN PRN sleep 11/04/24 Unknown History vitamin B complex (B-Complex 1 tab PO Q24H 11/04/24 Unknown History tablet) Allergy/AdvReac Type Severity Reaction Status Date / Time bee pollen (Bee Pollen) Allergy Anaphylaxis Verified 11/04/24 19:45 blueberry (Blueberry) Allergy Anaphylaxis Verified 11/04/24 19:45 ketorolac tromethamine (From Allergy Hives Verified 11/04/24 19:45 Toradol) naproxen Allergy Rash Verified 11/04/24 19:45 Penicillins Allergy Rash Verified 11/04/24 19:45 gabapentin AdvReac dizziness Verified 11/04/24 19:45 tramadol AdvReac Vomiting Verified 11/04/24 19:45 Surgical History H/O: hysterectomy Social History household members: spouse housing: house Smoking Status: Current every day smoker tobacco type: cigarettes ROS ROS ED Constitutional Constitutional ED: Denies chills, fever(s) or sweats ENT ENT ED: Denies sore throat Cardiovascular Cardiovascular: Reports chest pain; Denies leg edema, palpitations or racing heartbeat Respiratory/Chest Respiratory/Chest: Reports cough; Denies dyspnea or dyspnea on exertion Gastrointestinal Gastrointestinal: Denies abdominal pain, diarrhea, nausea or vomiting Genitourinary Genitourinary ED: Denies dysuria, hematuria or urinary frequency Musculoskeletal Musculoskeletal: Denies back pain, extremity pain or neck pain Integumentary Denies rash or wounds Neurologic Neurologic: Denies headache(s), paresthesias or weakness EXAM Physical Exam Const Vital Signs: 11/04/24 19:46 11/04/24 20:15 11/04/24 20:18 Temperature 98.5 F Temperature Source Oral Pulse Rate 96 85 Respiratory Rate 16 16 Blood Pressure 139/75 H Blood Pressure Mean 96 Pulse Ox 98 Oxygen Delivery Method Room Air 11/04/24 21:00 11/04/24 21:30 11/04/24 21:34 Temperature Temperature Source Pulse Rate 83 78 94 Respiratory Rate 15 16 16 Blood Pressure 168/77 H 158/77 H Blood Pressure Mean 104 104 Pulse Ox Oxygen Delivery Method 11/04/24 22:00 11/04/24 22:45 11/04/24 22:45 Temperature Temperature Source Pulse Rate 83 78 85 Respiratory Rate 9 L 16 20 H Blood Pressure 174/84 H 120/70 120/70 Blood Pressure Mean 109 84 84 Pulse Ox Oxygen Delivery Method 11/04/24 23:00 11/04/24 23:49 Temperature 96.9 F L Temperature Source Pulse Rate 83 77 Respiratory Rate 9 L 18 Blood Pressure 133/63 H 143/51 H Blood Pressure Mean 84 81 Pulse Ox 95 Oxygen Delivery Method Positive well nourished and well developed General Appearance ED: well developed and NAD HEENT Reports moist mucous membranes normocephalic and atraumatic Eyes General Eye ED: Yes normal appearance of both eyes Neck full ROM Chest Wall Chest: Negative for tenderness Resp normal respiratory effort and normal air movement Effort and Inspection: symmetric chest movement; Negative for respiratory distress Cardio regular rate, regular rhythm and no murmurs Peripheral Pulses: pulses 2+ throughout GI normal to inspection, nondistended, normoactive bowel sounds and non-tender Palpation: Negative for guarding or rebound tenderness present Extremity normal to inspection General Extremety ED: Negative for edema or tenderness General Extremity: Negative for edema Neuro oriented x3 and no sensory deficits noted Sensorium / Orientation: awake and alert Skin no rashes or lesions noted and no wounds MDM MDM MDM Narrative Medical decision making narrative: Interventions / MDM: Differential diagnosis: Chest pain Diagnosis considered but do not suspect: Pulmonary embolism CT chest negative. ACS however workup negative. Pneumonia however imaging studies negative. My EKG interpretation: Sinus rate of 82, no ST or T wave changes. QTc 429. Imaging independently reviewed and interpreted by myself: 2 view chest x-ray: No acute process. CTA chest: No acute process. External documents reviewed: N/A Test considered but not ordered:N/A ED course: Patient intermittent chest pains for months. Sharp in nature. She is also a productive cough. EKG in the ED. Sinus rhythm no acute findings. I will perform cardiac workup. Aspirin given. PERC criteria negative. Low suspicion for PE. Initial troponin negative chest x-ray negative. Patient's pain return allergic to NSAIDs, morphine was ordered. With her increasing pain CT angiogram chest ordered results were negative delta troponin negative. Patient reassured on findings. Discussion with the patient she received a call from scheduling that she has an echocardiogram that was ordered by her primary care office. She will keep this plan testing. Review of her office labs had concerns for left atrial enlargement that she was sent in by her PCP office. Sharp pains with her cough concerns for pleurisy. No pneumonia. Outpatient follow-up with her doctors. Re-evaluation: stable Disposition discussed with patient/family/significant other: Patient Case discussed with consulting clinician: N/A This note was generated with [employer] dictation software. It may contain incorrect words, spelling, and punctuation that were not noted in checking the note before signing. Lab Data Attestation: I reviewed the patient's lab results. Labs: Laboratory Results - last 24 hr 11/04/24 11/04/24 11/04/24 20:15 20:30 22:28 WBC 5.8 RBC 3.93 L Hgb 12.5 Hct 37.4 MCV 95.2 MCH 31.8 MCHC 33.4 RDW Std Deviation 45.4 H RDW Coeff of Lee 13.1 Plt Count 307 MPV 9.1 Immature Gran % (Auto) 0.300 Neut % (Auto) 75.4 H Lymph % (Auto) 16.4 L Bucks % (Auto) 7.1 Eos % (Auto) 0.5 Baso % (Auto) 0.3 Absolute Neuts (auto) 4.4 Absolute Lymphs (auto) 0.95 Nucleated RBC % 0 Sodium Cancelled 138 Potassium Cancelled 4.1 Chloride Cancelled 104 Carbon Dioxide Cancelled 22.4 Anion Gap Cancelled 12 BUN Cancelled 20 H Creatinine Cancelled 0.81 Estim Creat Clear Calc Cancelled 104.66 Est GFR (MDRD) Non-Af Cancelled 90 BUN/Creatinine Ratio Cancelled 24.8 H Glucose Cancelled 118 H Calcium Cancelled 9.1 Troponin T High Sens Cancelled < 6 Troponin T Hi Sens 2 Hr < 6 Radiography Diagnostic Testing: Clinical Impression(s) from Imaging Studies Chest X-Ray 11/04/24 20:20 IMPRESSION: NO ACUTE FINDINGS. Reading Location: [id number] Chest CTA 11/04/24 22:38 IMPRESSION: No embolism, dissection, or pneumonia. Reading Location: [place] [id number] Discharge Plan Triage Chief Complaint: Chest Pain ED Provider: Freddy Downing Dx/Rx/DC Orders Clinical Impression: Chest pain, Pleurisy, Bronchitis, Tobacco dependence Instructions: ED Bronchitis, No Antibiotic (Adult), ED Chest Pain, Uncertain Cause, ED Pleurisy Prescriptions: No Action estradiol 2 MG tablet 2 mg PO DAILY Patient Comments: PT SUPPOSED TO BE ON, NEEDS REFILLS atomoxetine 40 mg capsule 40 mg PO DAILY trazodone 50 mg tablet 100 mg PO QHS PRN PRN (Reason: sleep) hydroxyzine pamoate 25 mg capsule 25 mg PO Q8H PRN (Reason: anxiety) hydrochlorothiazide 12.5 mg tablet 12.5 mg PO DAILY vitamin B complex [B-Complex] Tablet 1 tab PO Q24H Primary Care Provider: Eliseo Aparicio Referrals: Eliseo Aparicio MD [Primary Care Provider] - 3-5 Days Activity Restrictions/Additional Instructions: Cardiac workup negative. CT angiogram chest negative. No pneumonia seen on image studies. Follow-up with your doctor for planned outpatient testing. Print Language: Bulgarian Disposition Disposition: Home, Self Care Discharge Date/Time: 11/04/24 23:50
--- NOTE | 2024-11-04 20:20 | RAD_ITS ---
PROCEDURE: CHEST PA AND LATERAL 11/04/2024 REASON FOR EXAM: CHEST PAIN,COUGH TECHNIQUE: CHEST PA AND LATERAL COMPARISON: 08/03/2024. FINDINGS: The heart is normal in size. The lungs are clear. No acute osseous abnormalities. RAD/Chest PA and Lateral IMPRESSION: NO ACUTE FINDINGS. Reading Location: [id number]
[2024-11-04 20:31] LABS: Hematocrit 37.4 % (37-47); Hemoglobin 12.5 g/dL (12.0-15.0); Immature Granulocytes Count 0.020 X10^3/uL (0.0-0.0); Mean Corp Hgb Conc 33.4 g/dL (32-36); Mean Corpuscular Volume 95.2 fL (81-99); Mean Platelet Vol. 9.1 fl (6.2-12.0); NRBC Flagged by Analyzer 0 % (0-5); Platelet Count 307 K/mm3 (150-450); RBC Distribution Width CV 13.1 % (11.6-14.6); RBC Distribution Width SD 45.4 fl (35.1-43.9); Red Blood Count 3.93 M/mm3 (4.2-5.4); White Blood Count 5.8 K/mm3 (4.4-11.0)
--- OUTSIDE RECORDS SUMMARY | 2024-11-04 20:37 | XMS RPT_ITS | CCD ---
Author Organization [facility] Care Team Providers Care Brim Rounder Name Role Phone Rosalino Silver MD Primary Care Provider PADMINI ATWOOD Referring PADMINI Pozo Attending ROSALINO Park Primary Care Unavailable PADMINI ATWOOD Attending ROSALINO Park Primary Care Unavailable Rosalino Silver MD Primary Care Provider Rosalino Silver MD Primary Care Provider Dr. Rosalino Silver MD Primary Care Provider [phone] Dr. Ruddy Lyle MD Emergency Provider Roger COATER ASSOCIATE.Daniela COLLINS Unavailable Julius COATER ASSOCIATE.Priyank COLLINS Unavailable Sun Thompson Referring Sun Bojorquez Attending UnavailRosalino Dinh Primary Care Unavailable Marlen Paul Attending Unavailable Rosalino Silver Primary Care Unavailable Ruddy Lyle Attending Unavailable Rosalino Silver Primary Care Unavailable Joe Gustafson Attending Unavailable Rosalino Silver Primary Care Unavailable Ruddy Lyle Referring Unavailable ROSALINO SILVER Primary Care Unavailable MITCHEL WASHINGTON Attending Unavailable ROSALINO SILVER Primary Care Unavailable Allergies Allergy Classification Reported Allergen(s) Allergy Type Date of Onset Reaction(s) Facility (17 sources) Blueberry; Translations: [BLUEBERRY] Food Intolerance 4 Hives [facility] Work Phone: (17 sources) gabapentin; Translations: [GABAPENTIN] Drug Allergy 7 Other: See Comments [facility] (16 sources) Ketorolac; Translations: [KETOROLAC] Drug Allergy 5 Rash [facility] (17 sources) Naproxen; Translations: [NAPROXEN] Drug Allergy 2 GI Upset [facility] (3 sources) Penicillins; Translations: [PENICILLINS] Drug Allergy 5 Rash [facility] Work Phone: (16 sources) traMADol; Translations: [TRAMADOL HCL] Drug Allergy 0 Vomiting [facility] Work Phone: (16 sources) Bees; Translations: [BEES] Propensity to adverse reactions 5 [facility] Work Phone: (12 sources) Penicillins Drug Allergy 5 Rash [facility] Work Phone: (1 source) Bee pollen Drug Allergy 5 Anaphylaxis [facility] (2 sources) Ketorolac; Translations: [ketorolac tromethamine] Drug Allergy 5 Hives [facility] (1 source) Penicillins Allergy to substance 5 Rash [facility] (1 source) traMADol Drug Allergy 5 Vomiting [facility] (1 source) Penicillins Drug Allergy 5 [facility] (1 source) Bee pollen Drug allergy (disorder) 5 [facility] Repository (1 source) Blueberry Drug allergy (disorder) 5 [facility] (1 source) gabapentin Drug Allergy 5 [facility] (1 source) Naproxen Drug Allergy 5 [facility] (1 source) Penicillins Drug allergy (disorder) 5 [facility] (1 source) traMADol Drug Allergy 5 [facility] Repository Medications Current Medications Medication Drug Class(es) Dates Sig (Normalized) Sig (Original) atomoxetine 40 mg oral capsule (1 source) Norepinephrine Reuptake Inhibitor Start: 08-03-2024 take 1 capsule by mouth once daily Atomoxetine 40 mg capsule Active 40 mg PO DAILY August 03, 2024 12:00am 12 hr buPROPion hydrochloride 150 mg extended release oral tablet (7 sources) Aminoketone take 1 tablet by mouth once daily buPROPion SR (ZYBAN SR; WELLBUTRIN SR) 150 mg 12 hr tablet Indications: Mood changes Take 150 mg by mouth once daily. Active Comment on above: Take 150 mg by mouth once daily. citalopram 40 mg oral tablet (17 sources) Serotonin Reuptake Inhibitor Start: 02-13-2015 End: 08-03-2024 take 1 tablet by mouth once daily citalopram (CELEXA) 40 mg tablet Take 1 tablet by mouth once daily. 30 tablet 11 09/06/2021 Active Comment on above: Take 1 tablet by yanet th once daily. ergocalciferol 1.25 mg oral capsule (13 sources) Provitamin D2 Compound Start: 10-09-2021 End: 09-04-2022 take 1 tablet by mouth two times weekly, then take 1 tablet by mouth every week ergocalciferol 50,000 unit capsule (VITAMIN D2, DRISDOL) Indications: Vitamin D deficiency Take 1 tablet by mouth twice weekly [id number], then decrease to 1 tablet weekly. 16 capsule 3 09/04/2022 Active Comment on above: Take 1 tablet by yanet th twice weekly [id number], then decrease to 1 tablet weekly. estradiol 2 mg oral tablet (18 sources) Estrogen Start: 10-12-2018 End: 09-04-2022 take 1 tablet by mouth once daily estradiol (ESTRACE) 2 mg tablet Take 1 tablet by mouth once daily. 30 tablet 09/04/2022 Active Comment on above: Take 1 tablet by yanet th once daily. lamoTRIgine 100 mg oral tablet (7 sources) Mood Stabilizer, Anti-epileptic Agent take 1 tablet by mouth once daily at bedtime lamoTRIgine (LAMICTAL) 100 mg tablet Indications: Mood changes Take 100 mg by mouth daily at bedtime. Active Comment on above: Take 100 mg by mouth daily at bedtime. magnesium oxide 400 mg oral tablet (7 sources) take 1 tablet by mouth once daily at bedtime magnesium oxide 400 mg magnesium tab Indications: History of drug abuse (HCC) Take 400 mg by mouth daily at bedtime. Active Comment on above: Take 400 mg by mouth daily at bedtime. mecobalamin (7 sources) take 1000 ug by mouth once daily mecobalamin (B12 ACTIVE ORAL) Indications: History of drug abuse (HCC) Take 1,000 mcg by mouth once daily. Active take 1000 ug by mouth once daily mecobalamin (B12 ACTIVE ORAL) Indications: History of drug abuse (HCC) Take 1,000 mcg by mouth once daily. 0 Active Comment on above: Take 1,000 mcg by mo uth once daily. melatonin 5 mg oral capsule (7 sources) take 2 tablets by mouth once daily at bedtime Melatonin 5 mg cap Indications: Difficulty sleeping Take 5 mg by mouth daily at bedtime. Two tabs at bedtime. Active Comment on above: Take 5 mg by mouth d aily at bedtime. Two tabs at bedtime. MULTIVITAMIN ORAL (7 sources) MULTIVITAMIN ORA L Indications: History of drug abuse (HCC) Take by mouth once daily. Active MULTIVITAMIN ORA L Indications: History of drug abuse (HCC) Take by mouth once daily. 0 Active Comment on above: Take by mouth once d aily. traZODone hydrochloride 150 mg oral tablet (7 sources) Serotonin Reuptake Inhibitor take 1 tablet by mouth once daily at bedtime traZODone (DESYREL) 150 mg tablet Indications: Difficulty sleeping Take 150 mg by mouth daily at bedtime. Active Comment on above: Take 150 mg by mouth daily at bedtime. Completed/Discontinued Medications Medication Drug Class(es) Dates Sig (Normalized) Sig (Original) acetaminophen 325 mg / oxyCODONE hydrochloride 5 mg oral tablet (1 source) Opioid Agonist Start: 10-12-2018 End: 08-03-2024 Oxycodone-Acetamin ophen 1 EACH tablet Discontinued 1 NMA PO THREE TIMES A DAY as needed for Pain October 12, 2018 August 03, 2024 4:59pm ciprofloxacin 500 mg oral tablet (1 source) Quinolone Antimicrobial Start: 01-21-2020 End: 08-03-2024 take 1 tablet by mouth twice daily Ciprofloxacin Hcl 500 MG tablet Discontinued 500 mg PO TWICE A DAY January 21, 2020 12:00am August 03, 2024 4:59pm clindamycin 150 mg oral capsule (1 source) Lincosamide Antibacterial Start: 01-21-2020 End: 03-13-2023 take 2 capsules by mouth three times daily Clindamycin Hcl 150 MG capsule Discontinued 300 mg PO THREE TIMES A DAY January 21, 2020 12:00am March 13, 2023 4:21pm COMPOUNDED PRESCRIPTION (9 sources) Start: 10-14-2018 End: 09-04-2022 COMPOUNDED PRESCRIPTION Indications: Injury of coccyx, subsequent encounter , Follow up Coccyx pillow 1 Each 0 10/14/2018 09/04/2022 Discontinued Start: 10-14-2018 COMPOUNDED PRE SCRIPTION Indications: Injury of coccyx, subsequent encounter , Follow up Coccyx pillow 1 Each 0 10/14/2018 Active Comment on above: Coccyx pillow cyclobenzaprine hydrochloride 10 mg oral tablet (1 source) Muscle Relaxant Start: 022 End: 025 take 1 tablet by mouth three times daily as needed for muscle spasms Cyclobenzaprine 10 mg tablet Discontinued 10 mg PO THREE TIMES A DAY as needed for muscle spasm June 05, 2021 12:00am August 03, 2024 4:59pm ibuprofen 800 mg oral tablet (10 sources) Nonsteroidal Anti-inflammatory Drug Start: 021 End: 023 take 1 tablet by mouth every eight hours as needed for headache and headache ibuprofen (MOTRIN) 800 mg tablet Indications: Headache, unspecified headache type Take 1 tablet by mouth every 8 hours as needed for pain. Take with food. 60 tablet 2 01/12/2021 09/04/2022 Discontinued Start: 06-22-2015 End: 10-24-2015 take 1 tablet by mouth every six hours as needed for pain Ibuprofen 600 MG tablet Discontinued 600 mg PO EVERY 6 HOURS NEEDED as needed for Pain June 22, 2015 12:00am October 24, 2015 8:19am Comment on above: Take 1 tablet by [facility] every 8 hours as needed for pain. Take with food. methylPREDNISolone 4 mg oral tablet (1 source) Corticosteroid Start: 2021 End: 2024 take 1 tablet by mouth once daily Methylprednisolone (Medrol (Manuel)) 4 mg tablets,dose pack Discontinued 4 mg PO DAILY June 05, 2021 12:00am August 03, 2024 4:59pm ondansetron 4 mg disintegrating oral tablet (1 source) Serotonin-3 Receptor Antagonist Start: 2023 End: 2024 take 1 tablet by mouth every eight hours as needed for nausea Ondansetron 4 mg tablet,disintegrating Discontinued 4 mg PO EVERY 8 HOURS NEEDED as needed for Nausea November 27, 2023 12:00am August 03, 2024 4:59pm oxyCODONE hydrochloride 5 mg oral tablet (1 source) Opioid Agonist Start: 2019 End: 2024 take 1 tablet by mouth every six hours as needed for pain Oxycodone 5 MG tablet Discontinued 5 mg PO EVERY 6 HOURS NEEDED as needed for Pain Score 6-10 January 21, 2020 August 03, 2024 4:59pm Problems Active Problems Problem Classification Problem Date Documented Da te Episodic/Chronic Abdominal pain (1 source) Pain in pelvis; Translations: [Pelvic and perineal pain] 10-23-2015 Episodic Administrative/social admission (1 source) Encounter for issue of repeat prescription; Translations: [Medication refill] Onset: 10-29-2024 Episodic Deficiency and other anemia (2 sources) Anemia; Translations: [Anemia, unspecified] Episodic Genitourinary symptoms and ill-defined conditions (1 source) Increased frequency of urination; Translations: [Frequency of micturition] 03-13-2023 Episodic Intracranial injury (1 source) Concussion injury of body structure; Translations: [Concussion] 03-23-2014 Episodic Menstrual disorders (1 source) Menorrhagia; Translations: [Excessive and frequent menstruation with regular cycle] 10-23-2015 Chronic Mood disorders (15 sources) Depressive disorder; Translations: [Other specified depressive episodes] Onset: 11-18-2005 11-18-2005 Chronic Mood disorders (1 source) Disturbance in mood; Translations: [Emotional lability] Episodic Nausea and vomiting (1 source) Nausea and vomiting; Translations: [Nausea with vomiting, unspecified] 12-05-2023 Episodic Nutritional deficiencies (5 sources) Vitamin D deficiency; Translations: [Vitamin D deficiency, unspecified] Onset: 07-05-2022 Chronic Other connective tissue disease (1 source) Swelling of lower limb; Translations: [Other specified soft tissue disorders] 08-03-2024 Episodic Other connective tissue disease (1 source) Ganglion of wrist; Translations: [Ganglion, unspecified wrist] 04-26-2015 Episodic Other fractures (1 source) Closed fracture of coccyx; Translations: [Fracture of coccyx, initial encounter for closed fracture] 10-13-2018 Episodic Other gastrointestinal disorders (1 source) Diarrhea; Translations: [Diarrhea, unspecified] 03-13-2023 Episodic Other nervous system disorders (1 source) Paresthesia; Translations: [Paresthesia of skin] 12-05-2023 Episodic Other non-traumatic joint disorders (2 sources) Shoulder pain; Translations: [Pain in left shoulder] Episodic Other non-traumatic joint disorders (1 source) Pain in left shoulder; Translations: [Pain in joint, shoulder region] 09-04-2022 Episodic Other screening for suspected conditions (not mental disorders or infectious disease) (6 sources) Patient encounter status; Translations: [Encounter for screening mammogram for malignant neoplasm of breast] Episodic Residual codes; unclassified (1 source) Difficulty sleeping ; Translations: [Sleep disorder, unspecified] Episodic Residual codes; unclassified (1 source) Swelling; Translations: [Edema, unspecified] 11-27-2023 Episodic Residual codes; unclassified (1 source) Edema, unspecified; Translations: [Edema, unspecified] Onset: 08-06-2024 Episodic Skin and subcutaneous tissue infections (1 source) Cellulitis of right toe; Translations: [Cellulitis of toe of right foot] 01-19-2020 Episodic Spondylosis; intervertebral disc disorders; other back problems (20 sources) Lumbar spondylosis; Translations: [Spondylosis without myelopathy or radiculopathy, lumbar region] Onset: 01-08-2013 01-08-2013 Chronic Sprains and strains (1 source) Injury of right wrist; Translations: [Strain of unspecified muscle, fascia and tendon at wrist and hand level, right hand, initial encounter] 04-26-2015 Episodic Substance-related disorders (1 source) History of drug abuse; Translations: [Other psychoactive substance abuse, in remission] Chronic Unclassified (1 source) [facility] [employer] Review Required; Translations: [[place] [facility] [employer] Review Required] Onset: 07-05-2022 Past or Other Problems Problem Classification Problem Date Documented Da te Episodic/Chronic Nonmalignant breast conditions (3 sources) Lump in left breast; Translations: [Unspecified lump in the left breast, unspecified quadrant] Onset: 12-24-2023 Episodic Nonspecific chest pain (3 sources) Atypical chest pain; Translations: [Other chest pain] Onset: 12-17-2023 08-03-2024 Episodic Other connective tissue disease (2 sources) Pain in left arm; Translations: [Pain in left arm] Onset: 07-05-2022 Episodic Other female genital disorders (15 sources) Female genital organ symptoms; Translations: [Unspecified condition associated with female genital organs and menstrual cycle] Onset: 10-12-2008 10-12-2008 Episodic Other injuries and conditions due to external causes (15 sources) Finding of urine substance level; Translations: [Elevated urine levels of drugs, medicaments and biological substances] Onset: 10-30-2016 10-30-2016 Episodic Other nervous system disorders (8 sources) Carpal tunnel syndrome; Translations: [Carpal tunnel syndrome, unspecified upper limb] Onset: 04-11-2014 Resolved: 05-17-2014 Chronic Spondylosis; intervertebral disc disorders; other back problems (16 sources) Lumbar radiculopathy; Translations: [Radiculopathy, lumbar region] Onset: 10-03-2016 10-03-2016 Episodic Superficial injury; contusion (4 sources) Foreign body in hand; Translations: [Superficial foreign body of unspecified hand, initial encounter] Onset: 08-23-2014 Resolved: 08-23-2014 08-23-2014 Episodic Unclassified (1 source) [facility] [employer] Review Required; Translations: [[place] [facility] [employer] Review Required] Onset: 07-05-2022 Results Test Name Value Interpretation Reference Range Facility [facility] 10-29-2024 CNOV Office Visit ([facility]) ZEB SWIFT ([id number]) 1975 F Date Time Provider Department 10/29/24 2:45 PM MITCHEL WASHINGTON During your visit today, we recorded the following information about you: Temperature Pulse Respiration Blood pressure 98.1 degrees 82/minute 20/minute 116/76 Weight 113 kg Mitchel Washington APRN.CNP 10/29/2024 3:12 PM Signed [facility] Subjective Zeb Swift is a 49 year old female. Patient presents with: Edema: RLE swelling, pain in kneem swelling is increasing in entire leg, states she normally takes htcz but is out HPI Right Lower Extremity Edema and Pain: - Edema from the knee down, x6-8 months. - New onset pain in the right knee, worsening over time. - Taking HCTZ 12.5 mg daily x3 months for edema, prescribed by Dr. Jean-Baptiste. - Ran out of HCTZ 2 days ago; no previous lapses in medication. - Recent x-ray suggested a torn meniscus in the right knee. - Denies redness or warmth in the affected area. - Follow-up appointment scheduled with Dr. Silver on . Review of Systems Musculoskeletal: (+) right lower leg swelling, (+) right anterior knee pain, (-) posterior knee pain, (-) calf pain Objective BP 116/76 Pulse 82 Temp 36.7 ?C (98.1 ?F) Resp 20 Wt 113 kg (249 lb 1.9 oz) LMP 12/17/2009 SpO2 96% Physical Exam General: No acute distress. MSK/Ext: No asymmetry, no erythema, no edema, no tenderness. { 1. Medication refill (Z76.0) - Chronic lower extremity edema, previously managed with HCTZ 12.5 mg daily; swelling worsened after missing 2 days of medication. - No clinical signs of DVT on exam (no redness, warmth, or calf tenderness). - Provided 1-week supply of HCTZ 12.5 mg daily to bridge until established follow-up. - Advised patient to keep follow-up appointment with Dr. Silver on for ongoing management. - Encouraged patient to follow up with orthopedics for further evaluation of meniscal tear and potential surgical intervention. 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 Patient/authorized sales representative [employer] agreed to proceed MDM Procedures Allergies As of Date: 10/29/2024 Noted Allergy Reaction GABAPENTIN 10/18/2016 14 - Other: See Comments Comments: Feels drunk and off balance PENICILLINS 02/27/2005 2 - Rash BEES 02/27/2005 BLUEBERRY 11/02/2013 4 - Hives NAPROXEN 10/07/2011 8 - GI Upset Comments: GI upset and sweating TORADOL (KETOROLAC) 04/07/2014 2 - Rash TRAMADOL HCL 12/18/2009 11 - Vomiting Date Reviewed: 10/29/2024 Reviewed by: Jocy Dumont LPN - Fully Assessed Reason for Visit: Edema [39] Cmt: RLE swelling, pain in kneem swelling is increasing in entire leg, states she normally takes htcz but is out Primary Visit Diagnosis:Medication refill [Z76.0] Order(s):hydroCHLOROth iazide 12.5 mg tabletTake 1 tablet by mouth once daily for 7 days.Disp: 7 tabletRfl: 0 Prescriptions as of 10/29/2024 - atomoxetine (STRATTERA) 40 mg capsule Take 40 mg by mouth once daily. - hydroCHLOROthiazide 12.5 mg tablet Take 1 tablet by mouth once daily for 7 days. - estradiol (ESTRACE) 2 mg tablet Take 1 tablet by mouth once daily. - ergocalciferol 50,000 unit capsule (VITAMIN D2, DRISDOL) Take 1 tablet by mouth twice weekly [id number], then decrease to 1 tablet weekly. - lamoTRIgine (LAMICTAL) 100 mg tablet Take 100 mg by mouth daily at bedtime. - traZODone (DESYREL) 150 mg tablet Take 150 mg by mouth daily at bedtime. - Melatonin 5 mg cap Take 5 mg by mouth daily at bedtime. Two tabs at bedtime. - mecobalamin (B12 ACTIVE ORAL) Take 1,000 mcg by mouth once daily. - magnesium oxide 400 mg magnesium tab Take 400 mg by mouth daily at bedtime. - MULTIVITAMIN ORAL Take by mouth once daily. - citalopram (CELEXA) 40 mg tablet Take 1 tablet by mouth once daily. Problem List As Of Date 10/29/2024 Noted Resolved DEPRESSIVE DISORDER NEC [F32.89] 11/18/2005 Female genital symptoms [N94.9] 10/12/2008 Lumbar spondylosis [M47.816] 01/08/2013 DDD (degenerative disc disease), lumbar [M51.36*01/08/2013 Carpal tunnel syndrome [G56.00] 04/11/2014 05/03/2014 CTS (carpal tunnel syndrome) left [G56.00] 05/17/2014 05/17/2014 Hand(s) except finger(s) alone, superficial for*08/23/2014 08/23/2014 Lumbar radiculopathy [M54.16] 10/03/2016 Positive urine drug screen [R82.5] 10/30/2016 Prescriptions ordered this encounter Disp Refills Start End HYDROCHLOROTHIAZIDE 12.5 MG TABLET 7 ta* 0 10/29/2024 11/05/2024 Route: PO Sig: Take 1 tablet by mouth once daily for 7 days. Medications Discontinued During This Encounter Prescriptions - buPROPion SR (ZYBAN SR; WELLBUTRIN SR) 150 mg 12 hr tablet (Discontinued) Reported on 10/29/2024 - hydroCHLOROthiazide 12.5 mg tablet (Discont (more content not included)... Normal [facility] 12 Lead EKGon 08-03-2024 12 Lead EKG [facility] [address] [place] [address] 12 Lead EKG 08/03/24 1707 MR#: [id number] Acct: [id number] Name: ZEB SWIFT BARRY Rep #: [id number] : 1975 49 From: Farhad Rice MD Attending Dr: Status: DEP ER Ordering Dr: Ruddy Lyle MD Date: 08/03/24 Location: ED Sex: F C Admitted: Test Reason : GENERAL Blood Pressure : */* mmHG Vent. Rate : 71 BPM Atrial Rate : 71 BPM P-R Int : 164 ms QRS Dur : 86 ms QT Int : 372 ms P-R-T Axes : 53 50 49 degrees QTcB Int : 404 ms Normal sinus rhythm Normal ECG Confirmed by Farhad Rice ([id number]), food editor KAILA ROQUE ([id number]) on 08/05/2024 10:00:39 AM Referred By: Confirmed By: Farhad Rice 08/05/24 1000 Date Farhad Rice MD CC: Dr. Ruddy Lyle MD; Dr. Rosalino Silver MD Signed Normal [facility] Absolute lymphocyte countOrd ered By: Ruddy Lyle on 08-03-2024 Lymphocytes Auto (Unsp spec) [#/Vol] 1.75 10*3/uL 0.83-4.51 [facility] Absolute neutrophil countOrd ered By: Ruddy Lyle on 08-03-2024 Neutrophils (Bld) [#/Vol] 2.5 10*3/uL 2.0-7.7 [facility] Anion gap in Serum or Plasma Ordered By: Ruddy Lyle on 08-03-2024 Anion gap [Moles/Vol] 9 mmol/L 5-15 [facility] Automated lymphocyte count a s percentage of total leukocytesOrdered By: Ruddy Lyle on 08-03-2024 Lymphocytes/100 WBC Auto (Unsp spec) 36.5 % - [facility] BUN/creatinine ratioOrdered By: Ruddy Lyle on 08-03-2024 Urea nitrogen/Creatinine [Mass ratio] 22.2 mg/mg High - [facility] Basic Metabolic Profile (BMP )on 08-03-2024 BUN/CRE 22.2 RATIO High - [facility] Comment on above: Performed By: #### L 100.0100, L500.2500, L501.4021 ####[facility] [address] [place], [address] Calcium [Mass/Vol] 9.5 mg/dL Normal 7.6-11.0 [facility] Comment on above: Performed By: #### L 100.0100, L500.2500, L501.4021 ####[facility] [address] [place], [address] Chloride [Moles/Vol] 104 mmol/L Normal 98-[address] [facility] Comment on above: Performed By: #### L 100.0100, L500.2500, L501.4021 ####[facility] [address] [place], [address] CO2 [Moles/Vol] 25.7 mmol/L Normal 21.0-32.0 [facility] Comment on above: Performed By: #### L 100.0100, L500.2500, L501.4021 ####[facility] [address] [place], [address] Creatinine [Mass/Vol] 0.80 mg/dL Normal 0.70-1.20 [facility] Comment on above: Performed By: #### L 100.0100, L500.2500, L501.4021 ####[facility] [address] [place], [address] ECRCL 101.88 ml/min Normal 50-250 [facility] Comment on above: Performed By: #### L 100.0100, L500.2500, L501.4021 ####[facility] [address] [place], [address] GAP 9 Normal 5-15 [facility] Comment on above: Performed By: #### L 100.0100, L500.2500, L501.4021 ####[facility] [address] [place], [address] GFR/1.73 sq M.predicted among non-blacks MDRD (S/P/Bld) [Vol rate/Area] 91 mL/min/{1.73_m2} Normal >60 [facility] Comment on above: Result Comment: mL/m in/1.73m2 CKD-EPI Creatinine Equation (2020) Performed By: #### L 100.0100, L500.2500, L501.4021 ####[facility] [address] [place], [address] Glucose [Mass/Vol] 122 mg/dL High 70-99 [facility] Comment on above: Performed By: #### L 100.0100, L500.2500, L501.4021 ####[facility] [address] [place], [address] Potassium [Moles/Vol] 4.0 mmol/L Normal 3.3-5.1 [facility] Comment on above: Performed By: #### L 100.0100, L500.2500, L501.4021 ####[facility] [address] [place], [address] Sodium [Moles/Vol] 139 mmol/L Normal 133-145 [facility] Comment on above: Performed By: #### L 100.0100, L500.2500, L501.4021 ####[facility] [address] [place], [address] Urea nitrogen [Mass/Vol] 18 mg/dL Normal 4-19 [facility] Comment on above: Performed By: #### L 100.0100, L500.2500, L501.4021 ####[facility] [address] [place], [address] Basophil percentageOrdered B y: Ruddy Lyle on 08-03-2024 Basophils/100 WBC (Bld) 0.4 % 0-1 [facility] CBC W/Diff, Automatedon 07-22 Absolute Lymph 1.75 X10 3/uL Normal 0.83-4.51 [facility] Comment on above: Performed By: #### L 100.0100, L500.2500, L501.4021 ####[facility] [address] [place], [address] Absolute Neut 2.5 X10 3/uL Normal 2.0-7.7 [facility] Comment on above: Performed By: #### L 100.0100, L500.2500, L501.4021 ####[facility] [address] [place], [address] Basophils/100 WBC (Bld) 0.4 % Normal 0-1 [facility] Comment on above: Performed By: #### L 100.0100, L500.2500, L501.4021 ####[facility] [address] [place], [address] Eosinophils/100 WBC (Bld) 2.9 % Normal 0-5 [facility] Comment on above: Performed By: #### L 100.0100, L500.2500, L501.4021 ####[facility] [address] [place], [address] Erythrocyte distribution width (RBC) [Ratio] 13.5 % Normal 11.6-14.6 [facility] Comment on above: Performed By: #### L 100.0100, L500.2500, L501.4021 ####[facility] [address] [place], [address] Hematocrit (Bld) [Volume fraction] 37.0 % Normal 37-47 [facility] Comment on above: Performed By: #### L 100.0100, L500.2500, L501.4021 ####[facility] [address] [place], [address] Hemoglobin (Bld) [Mass/Vol] 12.1 g/dL Normal 12.0-15.0 [facility] Comment on above: Performed By: #### L 100.0100, L500.2500, L501.4021 ####[facility] [address] [place], [address] IG% 0.200 Normal 0.0-0.9 [facility] Comment on above: Result Comment: IG% - Immature Granulocytes (promyelocytes, myelocytes and metamyelocytes) > 1% indicates that a LEFT SHIFT is Present. Performed By: #### L 100.0100, L500.2500, L501.4021 ####[facility] [address] [place], [address] Lymphocytes/100 WBC (Bld) 36.5 % Normal 19-41 [facility] Comment on above: Performed By: #### L 100.0100, L500.2500, L501.4021 ####[facility] [address] [place], [address] MCH (RBC) [Entitic mass] 32.4 pg High 27.0-32.0 [facility] Comment on above: Performed By: #### L 100.0100, L500.2500, L501.4021 ####[facility] [address] [place], [address] MCHC (RBC) [Mass/Vol] 32.7 g/dL Normal 32-36 [facility] Comment on above: Performed By: #### L 100.0100, L500.2500, L501.4021 ####[facility] [address] [place], [address] MCV (RBC) [Entitic vol] 99.2 fL High 81-99 [facility] Comment on above: Performed By: #### L 100.0100, L500.2500, L501.4021 ####[facility] [address] [place], [address] Monocytes/100 WBC (Bld) 8.4 % Normal 0-10 [facility] Comment on above: Performed By: #### L 100.0100, L500.2500, L501.4021 ####[facility] [address] [place], [address] Neutrophils/100 WBC (Bld) 51.6 % Normal 47-70 [facility] Comment on above: Performed By: #### L 100.0100, L500.2500, L501.4021 ####[facility] [address] [place], [address] Nucleated RBC (Bld) [#/Vol] 0 10*3/uL Normal 0-5 [facility] Comment on above: Performed By: #### L 100.0100, L500.2500, L501.4021 ####[facility] [address] [place], [address] Platelet mean volume (Bld) [Entitic vol] 8.7 fL Normal 6.2-12.0 [facility] Comment on above: Performed By: #### L 100.0100, L500.2500, L501.4021 ####[facility] [address] [place], [address] Platelets (Bld) [#/Vol] 390 10*3/uL Normal 150-450 [facility] Comment on above: Performed By: #### L 100.0100, L500.2500, L501.4021 ####[facility] [address] [place], [address] RBC (Bld) [#/Vol] 3.73 10*6/uL Low 4.2-5.4 [facility] Comment on above: Performed By: #### L 100.0100, L500.2500, L501.4021 ####[facility] [address] [place], [address] RDW SD 50.1 fl High 35.1-43.9 [facility] Comment on above: Performed By: #### L 100.0100, L500.2500, L501.4021 ####[facility] [address] [place], [address] WBC (Bld) [#/Vol] 4.8 10*3/uL Normal 4.4-11.0 [facility] Comment on above: Performed By: #### L 100.0100, L500.2500, L501.4021 ####[facility] [address] [place], [address] CTA Chest W/WO Contraston CTA Chest W/WO Contrast [facility] Imaging Services [address] [place] [address] CTA Chest W/WO Contrast MR#: [id number] Acct: [id number] Name: ZEB SWIFT BARRY Rep #: [id number] : 1975 F 49 From: Andrea strong MD PCP: Dr. Rosalino Silver MD Status: REG ER Study: CTA Chest W/WO Contrast Date of Exam: 08/03/24 Exam# [id number] Ordering Dr: Ruddy Lyle MD PROCEDURE: CTA CHEST W/WO CONTRAST N/A REASON FOR EXAM: ATYPICAL CP AND ELEVATED D-DIMER TECHNIQUE: CTA axial imaging of the chest with intravenous contrast. Multiplanar and multisequence images were obtained. PATIENT PREPARATION: Per protocol CONTRAST: Omnipaque 350 VOLUME: 100 mL Not Provided Gauge IV One or more dose reduction techniques were used (e.g., Automated exposure control, adjustment of the mA and/or kV according to patient size, use of iterative reconstruction technique). RADIATION DOSE SUMMARY: . COMPARISON: None FINDINGS: Hardware: None Lymph nodes: No suspicious adenopathy. Heart: No cardiomegaly. No pericardial effusion. No coronary artery calcifications. Thoracic Aorta: No thoracic aortic aneurysm or dissection. Pulmonary Vessels: No large central pulmonary emboli are identified. Contrast timing is suboptimal for evaluation of more distal branches. Most Proximal Level of Embolus (if embolus present): None Lungs and Airways: Central airways are patent without endobronchial lesions. Mild bibasilar atelectasis. No focal consolidation. No pneumothorax. No pleural effusion. Upper Abdomen: Visualized portions of the upper abdominal viscera are unremarkable. Bones: Bone windows are unremarkable. CT/CTA Chest W/WO Contrast IMPRESSION: No evidence of pulmonary embolism or acute findings in the thorax. Reading Location: [facility] CC: Dr. Ruddy Lyle MD; Dr. Rosalino Silver MD Oracle R12 Developer: Signed Normal [facility] Carbon dioxide, total [Moles /volume] in Central venous bloodOrdered By: Ruddy Lyle on 08-03-2024 CO2 [Moles/Vol] 25.7 mmol/L 21.0-32.0 [facility] Chest 1 View (Portable)on Chest 1 View (Portable) [facility] Imaging Services [address] [place] [address] Chest 1 View (Portable) MR#: [id number] Acct: [id number] Name: ZEB SWIFT Rep #: [id number] : 1975 F 49 From: Eddie Pearson PCP: Dr. Rosalino Silver MD Status: REG ER Study: Chest 1 View (Portable) Date of Exam: 08/03/24 Exam# [id number] Ordering Dr: Ruddy Lyle MD PROCEDURE: CHEST 1 VIEW (PORTABLE) 08/03/2024 REASON FOR EXAM: CHEST PAIN TECHNIQUE: Frontal view of the chest. COMPARISON: Chest x-ray of 11/27/2023. RAD/Chest 1 View (Portable) IMPRESSION: Lungs appear clear of acute disease, and unchanged. No pleural effusion or pneumothorax is noted. The cardiomediastinal silhouette is within the normal range, and unchanged. No acute osseous process is seen. No evidence of acute cardiopulmonary disease. Reading Location: [place] [address] CC: Dr. Ruddy Lyle MD; Dr. Rosalino Silver MD Oracle R12 Developer: Signed Normal [facility] Chloride assayOrdered By: Navarro Lyle on 08-03-2024 Chloride [Moles/Vol] 104 mmol/L 98-[address] [facility] D-Dimer Quantitative (DVT/PE )on 08-03-2024 D-DIMER QUANT 0.67 FEU/ug/m Invalid Interpretation Code 0.27-0.49 [facility] Comment on above: Order Comment: CRITI MATEO VALUE CALLED TO NOE DELUCA08/03/24 1713 Lissett Seals.RESULTS READ BACK BY SAME. Result Comment: D-Di lucy ELEVATED (>0.49): Additional studies and clinical assessments are indicated to conclude diagnosis of: Deep Vein Thrombosis (DVT) or Pulmonary Embolism (PE) Performed By: #### L 300.8000 ####[facility] [address] [facility] [place], [place], [id number] Emergency Department Summary on 08-03-2024 Emergency Department Summary [facility] Medical Records Department [address] [place] [address] Emergency Department Summary 08/03/24 MR#: [id number] Acct: [id number] Name: JENIFFERZEB BARRY Rep #: [id number] : 1975 49 From: Ruddy Lyle MD PCP: Dr. Rosalino Silver MD Status:DEP ER Location: ED HPI History of Present Illness Chief Complaint: Edema Informant: patient Onset/Context/Timing Onset: Days Context: Gradual Onset Timing: Continuous Current Severity: Mild Maximum Severity: Mild Narrative Narrative: Four 10-year-old female is new past medical history. Prior hysterectomy and C-sections. He states her last 5 7 days she has had mild swelling to her right lower extremity. Denies any fall injury or trauma. No history of DVT or PE. Prior knee effusion years ago. No recent travel, surgery or immobilization. Also states last month she has had episodes of chest discomfort. Sharp and stabbing. Lasts less than 5 minutes. Not associated with exertion. No exertional dyspnea or exertional chest pain. No history of cardiac disease. No hemoptysis. Currently symptom-free. Prior similar symptoms: No Recent Illness/Hospitalizatio n: No PFSH PFSH Medical History no medical history no medical history Home Medications ???Medication ???Instructions ???Recorded ???Last Taken ???Type estradiol 2 mg tablet 2 mg PO DAILY hormone 10/12/18 22:00 History atomoxetine 40 mg capsule 40 mg PO DAILY 08/03/24 08/03/24 H istory Allergy/AdvReac Type Severity Reaction Status Date / Time bee pollen (Bee Pollen) Allergy Anaphylaxis Verified 08/03/24 16:26 blueberry (Blueberry) Allergy Anaphylaxis Verified 08/03/24 16:26 ketorolac tromethamine (From Allergy Hives Verified 08/03/24 16:26 Toradol) naproxen Allergy Rash Verified 08/03/24 16:26 Penicillins Allergy Rash Verified 08/03/24 16:26 gabapentin AdvReac dizziness Verified 08/03/24 16:26 tramadol AdvReac Vomiting Verified 08/03/24 16:26 Surgical History H/O: hysterectomy Social History (Updated 08/03/24 @ 16:43 by Lisa Payne) household members: spouse housing: house Smoking Status: Current every day smoker tobacco type: cigarettes ROS ROS ED ROS Narrative Atypical nonexertional chest pain. Atraumatic right leg swelling. Constitutional Constitutional ED: Denies chills or fever(s) Eyes Eyes: Denies blurry vision ENT ENT ED: Denies ear pain Cardiovascular Cardiovascular: Reports chest pain; Denies palpitations or racing heartbeat Respiratory/Chest Respiratory/Chest: Denies cough, dyspnea or dyspnea on exertion Gastrointestinal Gastrointestinal: Denies abdominal pain Genitourinary Genitourinary ED: Denies dysuria or hematuria Musculoskeletal Musculoskeletal: Denies arthralgias Integumentary Denies abscess Neurologic Neurologic: Denies headache(s) Psychiatric Psychiatric: Denies anxiety or depression Endocrine Endocrinology: Denies cold intolerance Hematologic/Lymphatic Hematologic/Lymphatic: Reports none Allergic/Immunologic Allergic/Immunologic ED: Denies mouth swelling, tongue swelling or urticaria EXAM Physical Exam Narrative Exam Narrative: 49-year-old female sitting upright in bed. Vital signs are stable afebrile. She is in no distress. Pulse ox 98% on room air no hypoxia. H EENT exam pupils round reactive light. Moist mucous membranes. Neck nontender. No lymphadenopathy. No JVD. Lungs clear to auscultation bilaterally. Heart regular rate rhythm rate about 95. Chest wall ribs nontender. No reproducible pain. Abdomen soft nontender. Moving all 4 extremities. Neurovascular intact. 5-5 information scientist strength. Equal symmetric radial pulses. Dorsi plantarflexion intact. No calf tenderness. No cords. She does have mild swelling in her right leg from the knee down. There is no redness or warmth. No lymphangitic streaking. No inguinal lymphadenopathy. She has normal flexion extension of her right hip, right knee right ankle. Normal strength and sensation. Back nontender. Neurologically she is awake alert. No focal motor deficits. Answering questions following commands. Const Vital Signs: 08/03/24 16:26 08/03/24 16:42 08/03/24 16:42 Temperature 97.8 F Temperature Source Temporal Pulse Rate 95 Respiratory Rate 20 H Respiratory Effort Normal Non-Labored Respiratory Pattern Normal Blood Pressure 130/81 H Blood Pressure Mean 97 Pulse Ox 98 Oxygen Delivery Method Room Air Room Air Positive well nourished and well developed; Negative for cachectic, contractures or unkempt General Appearance ED: well developed and NAD; Negative for unkempt, cachectic, contractures, cyanotic, diaphoretic or pallor Nutritional Appearance: Negative for cachectic HEENT Reports moist mucous membranes (more content not included)... Normal [facility] Eosinophil percentageOrdered By: Ruddy Lyle on 08-03-2024 Eosinophils/100 WBC (Bld) 2.9 % 0-5 [facility] Erythrocyte distribution wid th ratioOrdered By: Ruddy Lyle on 08-03-2024 Erythrocyte distribution width (RBC) [Ratio] 13.5 % 11.6-14.6 [facility] Erythrocyte distribution wid th standard deviationOrdered By: Ruddy Lyle on 08-03-2024 Erythrocyte distribution width (RBC) [Ratio] 50.1 fl High 35.1-43.9 [facility] Glomerular filtration rate ( GFR) estimation/1.73 sq m using serum, plasma, or whole bOrdered By: Ruddy Lyle on 08-03-2024 GFR/1.73 sq M.predicted among non-blacks MDRD (S/P/Bld) [Vol rate/Area] 91 mL/min/{1.73_m2} >60 [facility] Comment on above: mL/min/1.73m2 CKD-EP I Creatinine Equation (2020) Hematocrit Auto (Bld) [Volum e fraction]Ordered By: Ruddy Lyle on 08-03-2024 Hematocrit (Bld) [Volume fraction] 37.0 % 37-47 [facility] Hemoglobin measurementOrdere d By: Ruddy Lyle on 08-03-2024 Hemoglobin (Bld) [Mass/Vol] 12.1 g/dL 12.0-15.0 [facility] Immature granulocytes/100 WB C Auto (Bld)Ordered By: Ruddy Lyle on 08-03-2024 Immature granulocytes/100 WBC (Bld) 0.200 % 0.0-0.9 [facility] Comment on above: IG% - Immature Granu locytes (promyelocytes, myelocytes and metamyelocytes) > 1% indicates that a LEFT SHIFT is Present. L501.4021on 08-03-2024 Trop T High Sen < 6 Normal <=14 [facility] Comment on above: Performed By: #### L 100.0100, L500.2500, L501.4021 ####[facility] [address] [place], [address] MCV (mean corpuscular volume ) determinationOrdered By: uRddy Lyle on 08-03-2024 MCV (RBC) [Entitic vol] 99.2 fL High 81-99 [facility] Mean corpuscular hemoglobin (MCH) determinationOrdered By: Ruddy Lyle on 08-03-2024 MCH (RBC) [Entitic mass] 32.4 pg High 27.0-32.0 [facility] Mean corpuscular hemoglobin concentration (MCHC) determinationOrdered By: Ruddy Lyle on 08-03-2024 MCHC (RBC) [Mass/Vol] 32.7 g/dL 32-36 [facility] Mean platelet volume determi nationOrdered By: Ruddy Lyle on 08-03-2024 Platelet mean volume (Bld) [Entitic vol] 8.7 fL 6.2-12.0 [facility] Monocyte percentageOrdered B y: Ruddy Lyle on 08-03-2024 Monocytes/100 WBC (Bld) 8.4 % 0-10 [facility] Neutrophil percentageOrdered By: Ruddy Lyle on 08-03-2024 Neutrophils/100 WBC (Bld) 51.6 % 47-70 [facility] Nucleated red blood cell per centageOrdered By: Ruddy Lyle on 08-03-2024 Nucleated RBC/100 WBC (Bld) [Ratio] 0 % 0-5 [facility] Platelet countOrdered By: Navarro Lyle on 08-03-2024 Platelets (Bld) [#/Vol] 390 10*3/uL 150-450 [facility] Potassium measurement (mass/ volume)Ordered By: Ruddy Lyle on 08-03-2024 Potassium (Unsp spec) [Mass/Vol] 4.0 mmol/L 3.3-5.1 [facility] RBC Auto (Bld) [#/Vol]Ordere d By: Ruddy Lyle on 08-03-2024 RBC (Bld) [#/Vol] 3.73 10*6/uL Low 4.2-5.4 [facility] Serum creatinine measurement (mass/volume)Ordered By: Ruddy Lyle on 08-03-2024 Creatinine [Mass/Vol] 0.80 mg/dL 0.70-1.20 [facility] Serum glucose measurement (m ass/volume)Ordered By: Ruddy Lyle on 08-03-2024 Glucose [Mass/Vol] 122 mg/dL High 70-99 [facility] Serum or plasma calcium kiet urement (mass/volume)Ordered By: Ruddy Lyle on 08-03-2024 Calcium [Mass/Vol] 9.5 mg/dL 7.6-11.0 [facility] Serum or plasma urea nitroge n measurement (mass/volume)Ordered By: Ruddy Lyle on 08-03-2024 Urea nitrogen [Mass/Vol] 18 mg/dL 4-19 [facility] Sodium levelOrdered By: Ruddy Lyle on 08-03-2024 Sodium [Moles/Vol] 139 mmol/L 133-145 [facility] Troponin T.cardiac [Mass/vol ume] in Serum or Plasma by High sensitivity methodOrdered By: Ruddy Lyle on 08-03-2024 Troponin T.cardiac High sensitivity method [Mass/Vol] < 6 ng/L <14 [facility] Venous Duplex US, Unilateral on 08-03-2024 Venous Duplex US, Unilateral [facility] [address] [place] [address] Venous Duplex US, Unilateral 08/03/24 1638 MR#: [id number] Acct: [id number] Name: ZEB SWIFT BARRY Rep #: [id number] : 1975 49 From: Joe Gustafson MD Attending Dr: Status: DEP ER Ordering Dr: Ruddy Lyle MD Date: 08/03/24 Location: ED Sex: F C Admitted: Reason For Study Reason For Study: Right leg pain RIGHT LEFT GSV is normal. CFV is compressible, spontaneous, phasic, competent, CFV is compressible, spontaneous, phasic, competent and demonstrates normal augmentation. and demonstrates normal augmentation. FV is compressible, spontaneous, phasic, competent and demonstrates normal augmentation. POP V is compressible, spontaneous, phasic, competent and demonstrates normal augmentation. T/P Trunk is compressible. PTV is compressible. RT PerV is compressible. Procedure This is a venous duplex using B-mode, color flow and spectral Doppler. Exam performed portable in ED. A preliminary report was called and/or faxed to Dr. Lyle. VL/Venous Duplex US, Unilateral Interpretation Summary Deep veins of the right lower extremity are patent and compressible segmentally. There is no evidence of right lower extremity deep vein thrombosis. The right great saphenous vein appears patent and compressible segmentally. Ordering Physician: Ruddy Lyle Referring Physician: MD Rosalino Silver Performed By: Aline Ochoa T 08/04/24754 Date Joe Gustafson MD CC: Dr. Ruddy Lyle MD; Dr. Rosalino Silver MD Date Dictated: 08/03/241637 Date Transcribed: 08/04/24754 Oracle R12 Developer: Signed Normal [facility] White blood cell (WBC) count Ordered By: Ruddy Lyle on 08-03-2024 WBC (Bld) [#/Vol] 4.8 10*3/uL 4.4-11.0 [facility] Breast Limited Unilateralon 12-04-2023 Breast Limited Unilateral [facility] Imaging Services [address] [place] [id number] Breast Limited Unilateral MR#: [id number] Acct: [id number] Name: JENIFFERZEB BARRY Rep #: [id number] : 1975 F 48 From: Chet alvarez MD PCP: Dr. Rosalino Silver MD Status: REG CLI Study: Breast Limited Unilateral Date of Exam: Exam# [id number] Ordering Dr: Sun Tirado [facility] DISH MACHINE OPERATOR-C [id number] STUDY: ULTRASOUND BREAST - LEFT REASON FOR EXAM: Female, 48 years old. Left breast lump. TECHNIQUE: Axial and longitudinal images of the LEFT breast were performed with a high resolution ultrasound transducer. # OF IMAGES: 21 COMPARISON: Comparison is made with prior mammogram done earlier today. FINDINGS: LEFT Breast: The central lateral aspect of the left breast was examined with ultrasound. There is a 9 mm x 5 mm x 3 mm benign-appearing lymph node at the 3:00 position of the breast at 4 cm from the nipple. US/Breast Limited Unilateral IMPRESSION: 9 mm x 5 mm x 3 mm benign-appearing lymph node at the 3:00 position of the left breast at 4 cm from the nipple. ASSESSMENT CATEGORY: BIRADS Category 2: Benign. A letter regarding these results will be sent to the patient by the facility within 30 days. Electronically Signed: Chet Davies MD at 11:18 EDT , CC: [facility] DISH MACHINE OPERATOR-C Sun Tirado; Dr. Rosalino Silver MD Oracle R12 Developer: Signed Normal [facility] DIAG MAMM W/CAD, BILATon DIAG MAMM W/CAD, BILAT [facility] Imaging Services [address] [place], [place] [id number] DIAG MAMM W/CAD, BILAT MR#: [id number] Acct: [id number] Name: JENIFFERZEB BARRY Rep #: [id number] : 1975 F 48 From: Chet alvarez MD PCP: Dr. Rosalino Silver MD Status: [facility] [address] Study: DIAG MAMM W/CAD, BILAT Date of Exam: 12/04/23 Exam# [id number] Ordering Dr: Sun Tirado [facility] DISH MACHINE OPERATOR-C [id number] MAMMOGRAPHY - BILATERAL DIAGNOSTIC REASON FOR EXAM: Female, 48 years old. Six-month history of a tender left breast lump. PERTINENT HISTORY: Sister with breast cancer. Mother with breast cancer. Grandmother with breast cancer. Aunt with breast cancer. TECHNIQUE: Digital bilateral breast lev (3D mammographic acquisition) in the CC and MLO projections. 2-D mediolateral oblique (MLO) and craniocaudad (CC) views of both breasts were obtained. CAD: Full Field Digital Mammography with Computer Added Detection was performed. COMPARISON: Comparison is made with prior outside examination dated October 10, 2021. FINDINGS: Breast Composition: The breasts are heterogeneously dense, which may obscure small masses. There are no dominant masses or suspicious calcifications. Stable small benign-appearing bilateral axillary lymph nodes. No other significant abnormalities are identified. There has been no significant change since the prior study. BI/DIAG MAMM W/CAD, BILAT IMPRESSION: Stable bilateral diagnostic mammogram. With the patient''s history of a palpable lump in the left upper outer quadrant, targeted correlation with ultrasound recommended. ASSESSMENT CATEGORY: BIRADS Category 0: Incomplete. Need additional imaging evaluation. A letter regarding these results will be sent to the patient by the facility within 30 days. Approximately 10% of breast cancers are not detected by mammography. A normal mammogram should not delay biopsy of a clinically suspicious abnormality. Electronically Signed: Chet Davies MD at 11:05 EDT , CC: [facility] DIONISIO Tirado; Dr. Rosalino Silver MD Oracle R12 Developer: Signed Normal [facility] Urine Cultureon 11-29-2023 URC Escherichia coli Trinidad Count 50,000-80,000 Escherichia coli: REACTION Ampicillin Islt TORI >=32 R Ampicillin+Sulbac Islt TORI >=32 R ceFAZolin Islt TORI <=4 S Cefepime Islt TORI <=0.12 S cefTRIAXone Islt TORI <=0.25 S Ciprofloxacin Islt TORI <=0.25 S Ertapenem Islt TORI <=0.12 S B-Lactamase Extended Susc Islt NEG Gentamicin Islt TORI <=1 S Imipenem Islt TORI <=0.25 S levoFLOXacin Islt TORI <=0.12 S Nitrofurantoin Islt TORI <=16 S Pip+Tazo Islt TORI <=4 S Tobramycin Islt TORI <=1 S TMP SMX Islt TORI <=20 S [facility] Comment on above: Performed By: #### M 100.2200 ####[facility] [id number] [place], [address] 12 Lead EKGon 11-27-2023 12 Lead EKG [facility] Cardiovascular Services [address] [place] [address] 12 Lead EKG 11/27/23 1243 MR#: [id number] Acct: [id number] Name: ZEB SWIFT BARRY Rep #: [id number] : 1975 48 From: Jalil Jacinto MD Attending Dr: Status: DEP ER Ordering Dr: Marlen Paul DO Date: 11/27/23 Location: ED Sex: F C Admitted: Test Reason : CHEST PAIN Blood Pressure : / mmHG Vent. Rate : 066 BPM Atrial Rate : 066 BPM P-R Int : 160 ms QRS Dur : 086 ms QT Int : 384 ms P-R-T Axes : 066 068 064 degrees QTc Int : 402 ms Normal sinus rhythm Normal ECG Confirmed by JALIL JACINTO MD ([id number]), food editor DAPHNE GAYLE ([id number]) on 12/01/2023 8:11:43 AM Referred By: Confirmed By:JALIL JACINTO MD 09/09/24 0811 Date Jalil Jacinto MD CC: Dr. Marlen Paul, DO; Dr. Rosalino Silver MD Signed Normal [facility] CBC W/Diff, Automatedon 09-0 5-2023 Absolute Lymph 1.82 X10 3/uL Normal 0.83-4.51 [facility] Comment on above: Performed By: #### L 100.0100, L500.4050, L501.2450, L501.4020, L501.5200 #### [facility] Laboratory [address] [place], [address] Absolute Neut 2.6 X10 3/uL Normal 2.0-7.7 [facility] Comment on above: Performed By: #### L 100.0100, L500.4050, L501.2450, L501.4020, L501.5200 #### [facility] [address] [place], [address] Basophils/100 WBC (Bld) 0.8 % Normal 0-1 [facility] Comment on above: Performed By: #### L 100.0100, L500.4050, L501.2450, L501.4020, L501.5200 #### [facility] [address] [place], [address] Eosinophils/100 WBC (Bld) 2.2 % Normal 0-5 [facility] Comment on above: Performed By: #### L 100.0100, L500.4050, L501.2450, L501.4020, L501.5200 #### [facility] [address] [place], [address] Erythrocyte distribution width (RBC) [Ratio] 12.9 % Normal 11.6-14.6 [facility] Comment on above: Performed By: #### L 100.0100, L500.4050, L501.2450, L501.4020, L501.5200 #### [facility] Laboratory [address] [place], [address] Hematocrit (Bld) [Volume fraction] 34.8 % Low 37-47 [facility] Comment on above: Performed By: #### L 100.0100, L500.4050, L501.2450, L501.4020, L501.5200 #### [facility] [address] [place], [address] Hemoglobin (Bld) [Mass/Vol] 11.4 g/dL Low 12.0-15.0 [facility] Comment on above: Performed By: #### L 100.0100, L500.4050, L501.2450, L501.4020, L501.5200 #### [facility] [address] [place], [address] IG% 0.400 Normal 0.0-0.9 [facility] Comment on above: Result Comment: IG% - Immature Granulocytes (promyelocytes, myelocytes and metamyelocytes) > 1% indicates that a LEFT SHIFT is Present. Performed By: #### L 100.0100, L500.4050, L501.2450, L501.4020, L501.5200 #### [facility] [address] [place] [place], [address] Lymphocytes/100 WBC (Bld) 36.0 % Normal 19-41 [facility] Comment on above: Performed By: #### L 100.0100, L500.4050, L501.2450, L501.4020, L501.5200 #### [facility] [address] [place], [address] MCH (RBC) [Entitic mass] 31.9 pg Normal 27.0-32.0 [facility] Comment on above: Performed By: #### L 100.0100, L500.4050, L501.2450, L501.4020, L501.5200 #### [facility] [address] [place], [address] MCHC (RBC) [Mass/Vol] 32.8 g/dL Normal 32-36 [facility] Comment on above: Performed By: #### L 100.0100, L500.4050, L501.2450, L501.4020, L501.5200 #### [facility] [address] [place], [address] MCV (RBC) [Entitic vol] 97.5 fL Normal 81-99 [facility] Comment on above: Performed By: #### L 100.0100, L500.4050, L501.2450, L501.4020, L501.5200 #### [facility] [address] [place], [address] Monocytes/100 WBC (Bld) 9.3 % Normal 0-10 [facility] Comment on above: Performed By: #### L 100.0100, L500.4050, L501.2450, L501.4020, L501.5200 #### [facility] [address] [place], [address] Neutrophils/100 WBC (Bld) 51.3 % Normal 47-70 [facility] Comment on above: Performed By: #### L 100.0100, L500.4050, L501.2450, L501.4020, L501.5200 #### [facility] [address] [place], [address] Nucleated RBC (Bld) [#/Vol] 0 10*3/uL Normal 0-5 [facility] Comment on above: Performed By: #### L 100.0100, L500.4050, L501.2450, L501.4020, L501.5200 #### [facility] [address] [place], [address] Platelet mean volume (Bld) [Entitic vol] 8.7 fL Normal 6.2-12.0 [facility] Comment on above: Performed By: #### L 100.0100, L500.4050, L501.2450, L501.4020, L501.5200 #### [facility] [address] [place], [address] Platelets (Bld) [#/Vol] 304 10*3/uL Normal 150-450 [facility] Comment on above: Performed By: #### L 100.0100, L500.4050, L501.2450, L501.4020, L501.5200 #### [facility] [address] [place], [address] RBC (Bld) [#/Vol] 3.57 10*6/uL Low 4.2-5.4 [facility] Comment on above: Performed By: #### L 100.0100, L500.4050, L501.2450, L501.4020, L501.5200 #### [facility] [address] [place], [address] RDW SD 46.5 fl High 35.1-43.9 [facility] Comment on above: Performed By: #### L 100.0100, L500.4050, L501.2450, L501.4020, L501.5200 #### [facility] [address] [place], [address] WBC (Bld) [#/Vol] 5.1 10*3/uL Normal 4.4-11.0 [facility] Comment on above: Performed By: #### L 100.0100, L500.4050, L501.2450, L501.4020, L501.5200 #### [facility] [address] [place], [address] CHRISOVon 11-27-2023 CNOV Office Visit (UCWSTR ) ZEB SWIFT ([id number]) 1975 F Date Time Provider Department 11/27/23 12:15 PM MITCHEL WASHINGTON [facility] During your visit today, we recorded the following information about you: Mitchel Washington APRN.CNP 11/27/2023 12:19 PM Signed She came in with complaints of bilateral leg swelling feet swelling to the point where the toes normally on the ground. Patient says they hurt. Patient says she also has bilateral hand swelling. Patient does not get regular medical care checkups. Patient is currently in a sober house have been clean 1 month. Patient says she is shaky and vomiting and having high blood pressure. Patient says her eyes feel off and her pupils are tiny. Patient says she just does not feel very good. At this time patient is being referred to the ER for full evaluation. Patient is okay with this and her caregiver will take her now. Allergies As of Date: 11/27/2023 Noted Allergy Reaction GABAPENTIN 10/18/2016 14 - Other: See Comments Comments: Feels drunk and off balance PENICILLINS 02/27/2005 2 - Rash BEES 02/27/2005 BLUEBERRY 11/02/2013 4 - Hives NAPROXEN 10/07/2011 8 - GI Upset Comments: GI upset and sweating TORADOL (KETOROLAC) 04/07/2014 2 - Rash TRAMADOL HCL 12/18/2009 11 - Vomiting Date Reviewed: 09/04/2022 Reviewed by: Daniela Duran APRN.PHP SOFTWARE ENGINEER - Fully Assessed Primary Visit Diagnosis:Swelling [R60.9] Prescriptions as of 11/27/2023 - estradiol (ESTRACE) 2 mg tablet Take 1 tablet by mouth once daily. - ergocalciferol 50,000 unit capsule (VITAMIN D2, DRISDOL) Take 1 tablet by mouth twice weekly [id number], then decrease to 1 tablet weekly. - buPROPion SR (ZYBAN SR; WELLBUTRIN SR) 150 mg 12 hr tablet Take 150 mg by mouth once daily. - lamoTRIgine (LAMICTAL) 100 mg tablet Take 100 mg by mouth daily at bedtime. - traZODone (DESYREL) 150 mg tablet Take 150 mg by mouth daily at bedtime. - Melatonin 5 mg cap Take 5 mg by mouth daily at bedtime. Two tabs at bedtime. - mecobalamin (B12 ACTIVE ORAL) Take 1,000 mcg by mouth once daily. - magnesium oxide 400 mg magnesium tab Take 400 mg by mouth daily at bedtime. - MULTIVITAMIN ORAL Take by mouth once daily. - citalopram (CELEXA) 40 mg tablet Take 1 tablet by mouth once daily. Problem List As Of Date 11/27/2023 Noted Resolved DEPRESSIVE DISORDER NEC [F32.89] 11/18/2005 Female genital symptoms [N94.9] 10/12/2008 Lumbar spondylosis [M47.816] 01/08/2013 DDD (degenerative disc disease), lumbar [M51.36]01/08/2013 Carpal tunnel syndrome [G56.00] 04/11/2014 05/03/2014 CTS (carpal tunnel syndrome) left [G56.00] 05/17/2014 05/17/2014 Hand(s) except finger(s) alone, superficial for*08/23/2014 08/23/2014 Lumbar radiculopathy [M54.16] 10/03/2016 Positive urine drug screen [R82.5] 10/30/2016 Encounter Status:Closed by MITCHEL WASHINGTON on 11/27/23 Normal [facility] Chest PA and Lateralon 11-26 Chest PA and Lateral [facility] Imaging Services [address] [place], [place] [id number] Chest PA and Lateral MR#: [id number] Acct: [id number] Name: ZEB SWIFT BARRY Rep #: [id number] : 1975 F 48 From: Evert best MD PCP: Dr. Rosalino Silver MD Status: REG ER Study: Chest PA and Lateral Date of Exam: 11/27/23 Exam# [id number] Ordering Dr: Marlen Paul DO [id number] STUDY: X-RAY CHEST REASON FOR EXAM: Female, 48 years old. chest pain TECHNIQUE: PA and lateral views of the chest. COMPARISON: July 06, 2011 FINDINGS: The lungs are clear and expanded. There is no demonstrated pleural abnormality. Normal size heart. Normal mediastinum and adolfo. Normal visualized pulmonary arteries. There is atherosclerotic calcification of the aortic arch with tortuosity. There are diffuse degenerative changes of the visualized thoracic spine. Normal visualized ribs, clavicles, and shoulders. There is no demonstrated abnormality of the visualized soft tissue structures of the upper abdomen. RAD/Chest PA and Lateral IMPRESSION: Degenerative changes, as described above. No demonstrated acute cardiopulmonary process. Electronically Signed: Evert Lee MD at 14:26 EDT Reading Location ID and State: [facility] / [place] , Service support , CC: Dr. Marlen Paul DO; Dr. Rosalino Silver MD Oracle R12 Developer: Signed Normal [facility] Comprehensive Metabolic Prof ilon 11-27-2023 Albumin [Mass/Vol] 3.4 g/dL Normal 3.2-5.0 [facility] Comment on above: Order Comment: 'TROP ' Serial specimen #1, #2 or #3: 1 Performed By: #### L 100.0100, L500.4050, L501.2450, L501.4020, L501.5200 #### [facility] Laboratory [address] [place], [address] Albumin/Globulin [Mass ratio] 0.9 {ratio} Normal 0.9-2.4 [facility] Comment on above: Order Comment: 'TROP ' Serial specimen #1, #2 or #3: 1 Performed By: #### L 100.0100, L500.4050, L501.2450, L501.4020, L501.5200 #### [facility] Laboratory [address] [place], [address] ALK P 120 U/L High 45-117 [facility] Comment on above: Order Comment: 'TROP ' Serial specimen #1, #2 or #3: 1 Performed By: #### L 100.0100, L500.4050, L501.2450, L501.4020, L501.5200 #### [facility] [address] [place], [address] ALT [Catalytic activity/Vol] 68 U/L High 13-56 [facility] Comment on above: Order Comment: 'TROP ' Serial specimen #1, #2 or #3: 1 Performed By: #### L 100.0100, L500.4050, L501.2450, L501.4020, L501.5200 #### [facility] [address] [place], [address] AST [Catalytic activity/Vol] 42 U/L High 15-37 [facility] Comment on above: Order Comment: 'TROP ' Serial specimen #1, #2 or #3: 1 Performed By: #### L 100.0100, L500.4050, L501.2450, L501.4020, L501.5200 #### [facility] [address] [place], [address] Bilirubin [Mass/Vol] 0.20 mg/dL Normal 0.20-1.[address] [facility] Comment on above: Order Comment: 'TROP ' Serial specimen #1, #2 or #3: 1 Result Comment: For patients on eltrombopag therapy, use of Dimension [place] TBIL is not recommended. Performed By: #### L 100.0100, L500.4050, L501.2450, L501.4020, L501.5200 #### [facility] [address] [place], [address] BUN/CRE 36.2 RATIO High 10-20 [facility] Comment on above: Order Comment: 'TROP ' Serial specimen #1, #2 or #3: 1 Performed By: #### L 100.0100, L500.4050, L501.2450, L501.4020, L501.5200 #### [facility] [address] [place], [address] CA,Total 9.3 mg/dL Normal 8.5-10.1 [facility] Comment on above: Order Comment: 'TROP ' Serial specimen #1, #2 or #3: 1 Performed By: #### L 100.0100, L500.4050, L501.2450, L501.4020, L501.5200 #### [facility] [address] [place], [address] Chloride [Moles/Vol] 104 mmol/L Normal 98-[address] [facility] Comment on above: Order Comment: 'TROP ' Serial specimen #1, #2 or #3: 1 Performed By: #### L 100.0100, L500.4050, L501.2450, L501.4020, L501.5200 #### [facility] [address] [place], [address] CO2 [Moles/Vol] 27.0 mmol/L Normal 21.0-32.0 [facility] Comment on above: Order Comment: 'TROP ' Serial specimen #1, #2 or #3: 1 Performed By: #### L 100.0100, L500.4050, L501.2450, L501.4020, L501.5200 #### [facility] [address] [place], [address] Creatinine [Mass/Vol] 0.64 mg/dL Normal 0.55-1.02 [facility] Comment on above: Order Comment: 'TROP ' Serial specimen #1, #2 or #3: 1 Result Comment: The validity of the calculated GFR GFRAA in patients over 70 years has not been determined. Clinical correlation is essential. Performed By: #### L 100.0100, L500.4050, L501.2450, L501.4020, L501.5200 #### [facility] [address] [place], [address] ECRCL 124.51 ml/min Normal [facility] Comment on above: Order Comment: 'TROP ' Serial specimen #1, #2 or #3: 1 Performed By: #### L 100.0100, L500.4050, L501.2450, L501.4020, L501.5200 #### [facility] [address] [place], [address] EST GFR - AA 129 mL/min Normal >60 [facility] Comment on above: Order Comment: 'TROP ' Serial specimen #1, #2 or #3: 1 Result Comment: Afri can Hungarian GFR Calc Performed By: #### L 100.0100, L500.4050, L501.2450, L501.4020, L501.5200 #### [facility] [address] [place], [address] GAP 5 Normal 5-15 [facility] Comment on above: Order Comment: 'TROP ' Serial specimen #1, #2 or #3: 1 Performed By: #### L 100.0100, L500.4050, L501.2450, L501.4020, L501.5200 #### [facility] [address] [place], [address] GFR/1.73 sq M.predicted among non-blacks MDRD (S/P/Bld) [Vol rate/Area] 106 mL/min/{1.73_m2} Normal >60 [facility] Comment on above: Order Comment: 'TROP ' Serial specimen #1, #2 or #3: 1 Result Comment: Non- GFR Calc Performed By: #### L 100.0100, L500.4050, L501.2450, L501.4020, L501.5200 #### [facility] [address] [place], [address] Globulin (S) [Mass/Vol] 3.6 g/dL Normal 2.2-4.2 [facility] Comment on above: Order Comment: 'TROP ' Serial specimen #1, #2 or #3: 1 Performed By: #### L 100.0100, L500.4050, L501.2450, L501.4020, L501.5200 #### [facility] [address] [place], [address] Glucose [Mass/Vol] 97 mg/dL Normal 74-106 [facility] Comment on above: Order Comment: 'TROP ' Serial specimen #1, #2 or #3: 1 Performed By: #### L 100.0100, L500.4050, L501.2450, L501.4020, L501.5200 #### [facility] [address] [place], [address] Potassium [Moles/Vol] 4.0 mmol/L Normal 3.5-5.1 [facility] Comment on above: Order Comment: 'TROP ' Serial specimen #1, #2 or #3: 1 Performed By: #### L 100.0100, L500.4050, L501.2450, L501.4020, L501.5200 #### [facility] [address] [place], [address] Sodium [Moles/Vol] 136 mmol/L Normal 136-145 [facility] Comment on above: Order Comment: 'TROP ' Serial specimen #1, #2 or #3: 1 Performed By: #### L 100.0100, L500.4050, L501.2450, L501.4020, L501.5200 #### [facility] [address] [place], [address] T PROT 7.0 g/dL Normal 6.4-8.2 [facility] Comment on above: Order Comment: 'TROP ' Serial specimen #1, #2 or #3: 1 Performed By: #### L 100.0100, L500.4050, L501.2450, L501.4020, L501.5200 #### [facility] [address] [place], [address] Urea nitrogen [Mass/Vol] 23 mg/dL High 7-18 [facility] Comment on above: Order Comment: 'TROP ' Serial specimen #1, #2 or #3: 1 Performed By: #### L 100.0100, L500.4050, L501.2450, L501.4020, L501.5200 #### [facility] [address] [place], [address] Emergency Department Summary on 11-27-2023 Emergency Department Summary [facility] Medical Records Department [address] [place] [address] Emergency Department Summary 11/27/23 MR#: [id number] Acct: [id number] Name: ZEB SWIFT BARRY Rep #: [id number] : 1975 48 From: Marlen Paul DO PCP: Dr. Rosalino Silver MD Status:REG ER Location: ED HPI History of Present Illness Chief Complaint: Chest Pain Informant: patient Narrative Narrative: Patient is a 48-year-old female presenting with chest pain, nausea, vomiting and numbness and tingling of her extremities. Patient reports that she has long-term intermit episodes of chest pain. She states today she had some pain going down her left arm. She is coming in however because she had 2 episodes of vomiting today and started to have swelling in her hands and her feet as well as tingling in her hands and her feet. She also notes that she has had some black discoloration of her great toenails for years. She denies any urinary symptoms. She reports that her bowel movements have been dark dark and thick. She last had a bowel move this morning. Does not report any diarrhea. Last week had an episode of left-sided abdominal pain but it resolved. She notes she has a history of a hysterectomy, x 3 and uterine ablation. She is currently a resident of [facility] and states that she has been sober for 30 days now. She notes the place she is staying at did have COVID going around last week. She states she did not get it. She currently denies any abdominal pain. She notes that her vomit was brown and chunky and look like she swallowed tobacco. Denies any fevers. denies any URI symptoms. Is currently requesting something to drink. PFSH PFS Home Medications ???Medication ???Instructions ???Recorded ???Last Taken ???Type citalopram 40 mg tablet 40 mg PO QHS mood 02/13/15 Unknown History estradiol 2 mg tablet 2 mg PO DAILY hormone 10/12/18 01/18/20 22:00 History oxycodone-acetaminophe n 5 mg-325 1 ea PO TID PRN Pain #12 tabs 10/12/18 01/19/20 08:30 Rx mg tablet ciprofloxacin HCl 500 mg tablet 500 mg PO BID #14 tabs 01/21/20 Unknown Rx oxycodone 5 mg tablet 5 mg PO Q6H PRN PRN Pain Score 01/21/20 Unknown Rx 6-10 #20 tabs cyclobenzaprine 10 mg tablet 10 mg PO TID PRN muscle spasm #20 06/05/21 Unknown Rx tabs methylprednisolone 4 mg tablets in 4 mg PO DAILY #21 tabs 06/05/21 Unknown Rx a dose pack (Medrol (Manuel)) ondansetron 4 mg disintegrating 4 mg PO Q8H PRN PRN Nausea #10 tabs 11/27/23 Unknown Rx tablet Allergy/AdvReac Type Severity Reaction Status Date / Time bee pollen (Bee Pollen) Allergy Anaphylaxis Verified 11/27/23 12:27 blueberry (Blueberry) Allergy Anaphylaxis Verified 11/27/23 12:27 ketorolac tromethamine (From Allergy Hives Verified 11/27/23 12:27 Toradol) naproxen Allergy Rash Verified 11/27/23 12:27 Penicillins Allergy Rash Verified 11/27/23 12:27 gabapentin AdvReac dizziness Verified 11/27/23 12:27 tramadol AdvReac Vomiting Verified 11/27/23 12:27 Surgical History H/O: hysterectomy Social History Smoking Status: Current every day smoker tobacco type: cigarettes ROS ROS ED Constitutional Constitutional ED: Denies chills or fever(s) Cardiovascular Cardiovascular: Reports chest pain; Denies palpitations Respiratory/Chest Respiratory/Chest: Denies cough or dyspnea Gastrointestinal Gastrointestinal: Reports abdominal pain, nausea and vomiting; Denies diarrhea or melena Genitourinary Genitourinary ED: Denies dysuria or hematuria Musculoskeletal Musculoskeletal: Denies arthralgias or myalgias Integumentary Denies rash Neurologic Neurologic: Reports paresthesias; Denies headache(s) or weakness Hematologic/Lymphatic Hematologic/Lymphatic: Denies easy bleeding or easy bruising EXAM Physical Exam Const Vital Signs: 11/27/23 12:26 11/27/23 12:26 11/27/23 14:26 Temperature 98 F Temperature Source Temporal Pulse Rate 85 83 71 Respiratory Rate 14 14 16 Blood Pressure 130/100 H 126/114 H 102/66 Blood Pressure Mean 110 118 78 Pulse Ox 98 98 99 Oxygen Delivery Method Room Air Room Air Room Air Positive well nourished and well developed General Appearance ED: well developed HEENT Reports moist mucous membranes normocephalic and atraumatic Eyes PERRL and EOMs intact bilaterally General Eye ED: Negative for scleral icterus Neck supple and no JVD Chest Wall inspection of chest normal and palpation of chest normal Resp normal respiratory effort and clear to auscultation bilaterally Cardio regular rate and regular rhythm Peripheral Pulses: pulses 2+ throughout GI normal to inspection, nondistended, normoactive bowel sounds, soft to palpation and non-tender Ex (more content not included)... Normal [facility] L501.4020on 11-27-2023 TROPONIN-I HS 5 pg/mL Normal 3.0-54.0 [facility] Comment on above: Order Comment: 'TROP ' Serial specimen #1, #2 or #3: 1 Result Comment: Plea se Note: New Test Units and Gender Specific Reference Ranges. For more information see Policy Stat Procedure [facility] High Sensitivity Troponin (TNIH) and attachments. Performed By: #### L 100.0100, L500.4050, L501.2450, L501.4020, L501.5200 #### [facility] [address] [place], [address] Lipaseon 11-27-2023 Lipase [Catalytic activity/Vol] 27 U/L Normal 13-75 [facility] Comment on above: Order Comment: 'TROP ' Serial specimen #1, #2 or #3: 1 Result Comment: Plea se note: LIPASE revised reference range effective 22. New Lipase methodology. Expected to produce lower values than the previous assay method. NEW Reference Range: 13 - 75 U/L Performed By: #### L 100.0100, L500.4050, L501.2450, L501.4020, L501.5200 #### [facility] [address] [place], [address] M100.678on 11-27-2023 M100.678 Pending SARS-CoV-2 (COVID 19) Negative INFLUENZA A Negative INFLUENZA B Negative RSV PCR Negative Normal [facility] Comment on above: Performed By: #### M 100.678 ####[facility] [address] [place], [address] Magnesiumon 11-27-2023 Magnesium [Mass/Vol] 2.1 mg/dL Normal 1.6-2.[address] [facility] Comment on above: Order Comment: 'TROP ' Serial specimen #1, #2 or #3: 1 Performed By: #### L 100.0100, L500.4050, L501.2450, L501.4020, L501.5200 #### [facility] [address] [place], [address] Urinalysis, Completeon 11-26 WBC 5-10 SEEN Normal 0-5 [facility] Comment on above: Order Comment: CLEAN CATCH Performed By: #### L 400.0001 ####[facility] [address] [place], [address] BACTERIA 1+ /hpf Normal None Seen [facility] Comment on above: Order Comment: CLEAN CATCH Performed By: #### L 400.0001 ####[facility] [address] [place], [address] EPI,SQUAMOUS 0-5 SEEN Normal 5-10 [facility] Comment on above: Order Comment: CLEAN CATCH Performed By: #### L 400.0001 ####[facility] [address] [place], [address] RBC 0-5 SEEN Normal 0-5 [facility] Comment on above: Order Comment: CLEAN CATCH Performed By: #### L 400.0001 ####[facility] [address] [place], [address] Mucus Ql (Urine sed) 0 SEEN Normal [facility] Comment on above: Order Comment: CLEAN CATCH Performed By: #### L 400.0001 ####[facility] [address] [place], [address] XR Shoulder - left 3 Viewson 09-06-2022 IMPRESSION: SMALL OSTEOPHYTE AND HUMERAL HEAD CONSISTENT WITH MINIMAL DEGENERATIVE CHANGES Oracle R12 Developer: [facility] Transcribe Date/Time: Sep 06 2022 5:30P Dictated by : CHILO MARR MD This examination was interpreted and the report reviewed and electronically signed by: CHILO MARR MD on Sep 06 2022 5:33PM [facility] DIVISION OF RADIOLOGY * * *Final Report* * * DATE OF EXAM: Sep 04 2022 2:15PM WOX 5252 - XR SHLDR >/=3V AP/ANGELA AP/OTHR LT / PROCEDURE REASON: Acute pain of left shoulder * * * * Physician Interpretation * * * * HISTORY: 47-YEAR-OLD FEMALE WITH Acute pain of left shoulder . Chronic worsening left shoulder pain TECHNIQUE: XR SHLDR >/=3V AP/ANGELA AP/OTHR LT Laterality: LEFT Number of different views (projections): 3 COMPARISON: None RESULT: Left shoulder: Small osteophyte and humeral head. Glenohumeral joint space maintained. Acromiohumeral interval is maintained. Acromioclavicular joint is intact. No fracture or dislocation. DIVISION OF RADIOLOGY Provider, Eri Saini [facility] - 09/06/2022 * * *Final Report* * * DATE OF EXAM: Sep 04 2022 2:15PM WOX 5252 - XR SHLDR >/=3V AP/ANGELA AP/OTHR LT / PROCEDURE REASON: Acute pain of left shoulder * * * * Physician Interpretation * * * * HISTORY: 47-YEAR-OLD FEMALE WITH Acute pain of left shoulder . Chronic worsening left shoulder pain TECHNIQUE: XR SHLDR >/=3V AP/ANGELA AP/OTHR LT Laterality: LEFT Number of different views (projections): 3 COMPARISON: None RESULT: Left shoulder: Small osteophyte and humeral head. Glenohumeral joint space maintained. Acromiohumeral interval is maintained. Acromioclavicular joint is intact. No fracture or dislocation. IMPRESSION IMPRESSION: SMALL OSTEOPHYTE AND HUMERAL HEAD CONSISTENT WITH MINIMAL DEGENERATIVE CHANGES Oracle R12 Developer: [facility] Transcribe Date/Time: Sep 06 2022 5:30P Dictated by : CHILO MARR MD This examination was interpreted and the report reviewed and electronically signed by: CHILO MARR MD on Sep 06 2022 5:33PM EST [facility] XR Shoulder - left 3 ViewsOr dered By: [facility] Provider on 09-06-2022 [facility] XR Shoulder - left 3 Viewson 09-04-2022 Radiology Study observation (narrative) [facility] DIAGNOSTIC BILATon 10-10 [facility] No Panel Informationon 10-10 [facility] Vital Signs Date Time Vital Sign Value Performing Clinician Manish whittington 08-03-2024 17:45-0400 Diastolic blood pressure 56 mm[Hg] Dr. Rosalino Silver MD Work Phone: [facility] 08-03-2024 17:45-0400 Heart rate 84 /min Dr. Rosalino Silver MD Work Phone: [facility] 08-03-2024 17:45-0400 Respiratory rate 20 /min Dr. Rosalino Silver MD Work Phone: [facility] 08-03-2024 17:45-0400 SaO2% (BldA) [Mass fraction] 97 % Dr. Rosalino Silver MD Work Phone: 3(274)030-890088 [place] [address] 08-03-2024 17:45-0400 Systolic blood pressure 177 mm[Hg] Dr. Rosalino Silver MD Work Phone: 2(298)[phone] [place] [address] 08-03-2024 16:26-0400 Body height 162.[address] Rosalino Silver MD Work Phone: 7(896)446-318088 [place] [address] 08-03-2024 16:26-0400 Body mass index (BMI) [Ratio] 39.9 kg/m2 Dr. Rosalino Silver MD Work Phone: 3(363)[phone] [place] [address] 08-03-2024 16:26-0400 Body temperature 97.8 [degF] Dr. Rosalino Silver MD Work Phone: 7(437)[phone] [place] [address] 08-03-2024 16:26-0400 Body weight 105.[address] Rosalino Silver MD Work Phone: [facility] 09-04-2022 13:07-0400 Body weight 104.78 kg Daniela Duran APRN.PHP SOFTWARE ENGINEER Work Phone: [facility] 09-04-2022 13:07-0400 Diastolic blood pressure 72 mm[Hg] Daniela Duran COATER ASSOCIATE.PHP SOFTWARE ENGINEER Work Phone: [facility] 09-04-2022 13:07-0400 Heart rate 65 /min Daniela Duran COATER ASSOCIATE.PHP SOFTWARE ENGINEER Work Phone: [facility] 09-04-2022 13:07-0400 Respiratory rate 16 /min Daniela Duran COATER ASSOCIATE.PHP SOFTWARE ENGINEER Work Phone: [facility] 09-04-2022 13:07-0400 SaO2% (BldA) [Mass fraction] 99 % Daniela Tannhof COATER ASSOCIATE.PHP SOFTWARE ENGINEER Work Phone: [facility] 09-04-2022 13:07-0400 Systolic blood pressure 100 mm[Hg] Daniela Aguilerahof COATER ASSOCIATE.PHP SOFTWARE ENGINEER Work Phone: [facility] 10-08-2021 13:01-0400 Body weight 93.44 kg Danieladarrian Aguilerahof COATER ASSOCIATE.PHP SOFTWARE ENGINEER Work Phone: [facility] 10-08-2021 13:01-0400 Diastolic blood pressure 78 mm[Hg] Daniela Aguilerahof COATER ASSOCIATE.PHP SOFTWARE ENGINEER Work Phone: [facility] 10-08-2021 13:01-0400 Heart rate 72 /min Daniela Aguilerahof COATER ASSOCIATE.PHP SOFTWARE ENGINEER Work Phone: [facility] 10-08-2021 13:01-0400 Respiratory rate 16 /min Daniela Aguilerahof COATER ASSOCIATE.PHP SOFTWARE ENGINEER Work Phone: [facility] 10-08-2021 13:01-0400 Systolic blood pressure 126 mm[Hg] Daniela Aguilerahof COATER ASSOCIATE.PHP SOFTWARE ENGINEER Work Phone: [facility] Encounters Encounter Date Encounter Type Care Provider Facility Start: 10-29-2024 End: 10-29-2024 ambulatory ROSALINO SILVER Facility:[facility] Start: 08-03-2024 End: 08-03-2024 Emergency department patient visit Dr. Rosalino Silver MD Work Phone: -Emergency Department Work Phone: Start: 08-03-2024 End: 08-03-2024 ambulatory Rosalino Silvre MD Work Phone: [facility] [place] Comment on above: Chest Pain; right le g swelling Start: 12-04-2023 End: 12-04-2023 ambulatory Sun Tirado Jay Facility:[facility] Start: 11-27-2023 End: 11-27-2023 Emergency department patient visit Marlensteffi Paul Facility:[facility] Start: 11-27-2023 End: 11-27-2023 ambulatory ROSALINO SILVER Facility:[facility] Start: 11-27-2023 End: 11-27-2023 Patient encounter procedure Mitchel Washington COATER ASSOCIATE.PHP SOFTWARE ENGINEER Work Phone: [facility] Comment on above: Swelling (Primary Dx ) Start: 11-19-2023 End: 11-24-2023 ambulatory Rosalino Silver MD Work Phone: Internal [facility] Start: 06-23-2023 Patient encounter status Rosalino Silver MD Work Phone: [facility] Work Phone: Start: 06-23-2023 Telephone encounter Rosalino salgado MD Work Phone: [facility] [place] Start: 09-07-2022 Telephone encounter Daniela dee COATER ASSOCIATE.PHP SOFTWARE ENGINEER Work Phone: [facility] Comment on above: Results (Xray Should er ) Start: 09-04-2022 End: 09-04-2022 Subsequent hospital visit by physician [facility] Work Phone: Radiology Comment on above: Acute pain of left s houlder [M25.512] Start: 09-04-2022 End: 09-04-2022 Patient encounter procedure Daniela Duran COATER ASSOCIATE.PHP SOFTWARE ENGINEER Work Phone: [facility] Comment on above: History of drug abus e (HCC) (Primary Dx); Acute pain of left shoulder; Vitamin D deficiency; Mood changes; Difficulty sleeping Start: 07-05-2022 End: 07-08-2022 ambulatory [facility] Start: 12-12-2021 ambulatory Rosalino barone MD Work Phone: Internal [facility] Start: 10-12-2021 Telephone encounter Rosalino salgado MD Work Phone: [facility] Comment on above: Results; Patient Que stion Start: 10-10-2021 End: 10-10-2021 Subsequent hospital visit by physician Diagnostic Mamm[facility] Comment on above: Left breast lump [N6 3.20] Start: 10-09-2021 Telephone encounter Rosalino salgado MD Work Phone: [facility] Comment on above: Results (lab) Start: 10-08-2021 End: 10-08-2021 Patient encounter procedure Daniela Duran APRN.PHP SOFTWARE ENGINEER Work Phone: [facility] Comment on above: Tests ordered (Prima ry Dx) Start: 10-08-2021 End: 10-08-2021 Patient encounter status Daniela Duran APRN.PHP SOFTWARE ENGINEER Work Phone: [facility] Start: 09-06-2021 Refill Rosalino barone MD Work Phone: [facility] Comment on above: Refill Request Start: 08-27-2021 ambulatory Rosalino barone MD Work Phone: [facility] Comment on above: Depression Procedures Date Procedure Procedure Detail Performing Clinician Start: 08-03-2024 CT angiography of ch est with contrast Dr. Rosalino Silver MD Work Phone: Start: 08-03-2024 Plain chest X-ray Dr. Jesús Silver MD Work Phone: Start: 08-03-2024 D-dimer assay, quantitative Dr. Rosalino Silver MD Work Phone: Comment on above: D-Dimer ELEVATED (>0 .49): Additional studies and clinicalassessments are indicated to conclude diagnosis of:Deep Vein Thrombosis (DVT) or Pulmonary Embolism (PE) Start: 08-03-[address] Rosalino Silver MD Work Phone: Start: 09-04-2022 Radex shoulder compl ete minimum 2 views Daniela Duran APRN.PHP SOFTWARE ENGINEER Work Phone: Start: 10-10-2021 Us breast uni real t trever with image limited Rosalino Silver MD Work Phone: Start: 10-10-2021 Diagnostic mammograp hy computer-aided detcj bi Rosalino Silver MD Work Phone: Start: 11-02-2020 Mammography Rosalino clement MD Work Phone: Start: 02-20-2010 Lipid 1996 panel - S sushil or Plasma Rosalino Silver MD Work Phone: Plan of Treatment Date Care Activity Detail Author Start: 07-05-2025 Diabetes Screening Diabetes Screenin g [facility] Start: 11-22-2024 Influenza vaccination Influenz a Vaccine (Season Ended) [facility] Start: 10-08-2024 DIABETES SCREEN DIABETES SCREEN [facility] Start: 08-14-2024 Urine microalbumin profile [facility] Start: 08-03-2024 [facility] Start: 11-23-2023 Covid-19 Vaccine ( season) Covid-19 Vaccine ( season) [facility] Start: 11-23-2023 Covid-19 Vaccine () Covid-19 Vaccine () [facility] Start: 11-23-2023 Influenza vaccination C [facility] Start: 06-23-2023 End: 09-22-2023 25-hydroxyvitamin D3 [Mass/volume] in Serum or Plasma VITAMIN D 25 HYDROXY Lab Routine Vitamin D deficiency Expected: 06/23/2023, Expires: 09/22/2023 [facility] Work Phone: Comment on above: Expected: 06/23/2023 , Expires: 09/22/2023 Start: 06-23-2023 End: 09-22-2023 Comprehensive metabolic 2000 panel - Serum or Plasma COMP METABOLIC PANEL Lab Routine Wellness examination Expected: 06/23/2023, Expires: 09/22/2023 [facility] Work Phone: Comment on above: Expected: 06/23/2023 , Expires: 09/22/2023 Start: 06-23-2023 End: 09-22-2023 Hemoglobin A1c in Blood HGB A1C Lab Routine Screening for diabetes mellitus Expected: 06/23/2023, Expires: 09/22/2023 [facility] Work Phone: Comment on above: Expected: 06/23/2023 , Expires: 09/22/2023 Start: 06-23-2023 End: 09-22-2023 Lipid 1996 panel - Serum or Plasma LIPID PANEL BASIC Lab Routine Screening cholesterol level Expected: 06/23/2023, Expires: 09/22/2023 [facility] Work Phone: Comment on above: Expected: 06/23/2023 , Expires: 09/22/2023 Start: 11-22-2022 Covid-19 Vaccine ( season) Covid-19 Vaccine () [facility] Start: 11-22-2022 Influenza vaccination INFLUENZ A (Season Ended) [facility] Start: 10-10-2022 Screening for malign ant neoplasm of breast Mammogram Screening [facility] Start: 11-22-2021 Influenza vaccination C [facility] Start: 11-02-2021 Mammography MAMMOGRAM [facility] Start: 10-12-2021 End: 12-12-2021 Cobalamin (Vitamin B12) [Mass/volume] in Serum or Plasma VITAMIN B12 BLOOD Lab Routine Anemia, unspecified type Expected: 10/12/2021, Expires: 12/12/2021 [facility] Work Phone: Comment on above: Expected: 10/12/2021 , Expires: 12/12/2021 Start: 10-12-2021 End: 12-12-2021 Folate [Mass/volume] in Serum or Plasma FOLATE SERUM Lab Routine Anemia, unspecified type Expected: 10/12/2021, Expires: 12/12/2021 [facility] Work Phone: Comment on above: Expected: 10/12/2021 , Expires: 12/12/2021 Start: 10-12-2021 End: 12-12-2021 Methylmalonate [Moles/volume] in Serum or Plasma METHYLMALONIC ACID Lab Routine Anemia, unspecified type Expected: 10/12/2021, Expires: 12/12/2021 [facility] Work Phone: Comment on above: Expected: 10/12/2021 , Expires: 12/12/2021 Start: 10-09-2021 End: 12-09-2021 Ferritin [Mass/volume] in Serum or Plasma FERRITIN BLD Lab Routine Anemia, unspecified type Expected: 10/09/2021, Expires: 12/09/2021 [facility] Work Phone: Comment on above: Expected: 10/09/2021 , Expires: 12/09/2021 Start: 10-09-2021 End: 12-09-2021 Iron and Iron binding capacity panel - Serum or Plasma IRON + TIBC Lab Routine Anemia, unspecified type Expected: 10/09/2021, Expires: 12/09/2021 [facility] Work Phone: Comment on above: Expected: 10/09/2021 , Expires: 12/09/2021 Start: 2021 COLOGUARD (FIT-DNA) COLOGUARD (FIT-D NA) [facility] Start: 2021 Colonoscopy COLONOSCOPY [facility] Start: 2021 COLORECTAL CANCER SCREENING COLORECTAL CANCER SCREENING [facility] Start: [address] COLONOGRAPHY [facility] Start: 2021 DIABETES SCREEN DIABETES SCREEN [facility] Start: 2021 FECAL OCCULT BLOOD FECAL OCCULT BLOO D [facility] Start: 2021 Lipid panel Lipid Screening [facility] Start: 2021 LIPID SCREEN LIPID SCREEN [facility] Start: 2021 Screening for malign ant neoplasm of colon [facility] Start: 2021 SIGMOIDOSCOPY SIGMOIDOSCOPY [facility] Start: 07-27-2018 HPV TESTING HPV TESTING [facility] Start: 07-27-2018 PAP TESTING PAP TESTING [facility] Start: 07-27-2018 Screening for malign ant neoplasm of cervix [facility] Start: 1995 Hepatitis B Vaccine (1 of 3 - 19+ 3-dose series) Hepatitis B Vaccine (1 of 3 - 19+ 3-dose series) [facility] Start: 1994 Anxiety Screening Anxiety Screening [facility] Start: 1994 HEPATITIS C SCREENING HEPATITIS C [facility] Start: 1994 Hepatitis C screening Hepatitis C [facility] Start: 1981 COVID-19 VACCINE (#1) COVID-19 VACCI NE (#1) [facility] Start: 1976 COVID-19 VACCINE (#1) COVID-19 VACCI NE (#1) [facility] Start: 1976 HEPATITIS B (1 of 3 - 3-dose series) HEPATITIS B (1 of 3 - 3-dose series) [facility] End: 12-18-2024 DBT Breast - bilateral screening NINA SCREENING W LEV Radiology Routine Encounter for screening mammogram for breast cancer 1 Occurrences starting 11/19/2023 until 12/18/2024 [facility] Work Phone: Comment on above: 1 Occurrences starti ng 11/19/2023 until 12/18/2024 Patient Education ED Chest Pain, Uncertain Cause [facility] Work Phone: Patient referral [facility] Work Phone: End: 01-11-2023 Screening mammography bi 2-view breast inc cad NINA SCREENING Radiology Routine Encounter for screening mammogram for breast cancer 1 Occurrences starting 12/12/2021 until 01/11/2023 [facility] Work Phone: Comment on above: 1 Occurrences starti ng 12/12/2021 until 01/11/2023 End: 10-04-2023 XR SHOULDER GENERAL 3V OR MORE AP/TRUE AP/OTHER LEFT XR SHOULDER GENERAL 3V OR MORE AP/TRUE AP/OTHER LEFT Radiology Routine Acute pain of left shoulder History of drug abuse (HCC) 1 Occurrences starting 09/04/2022 until 10/04/2023 [facility] Work Phone: Comment on above: 1 Occurrences starti ng 09/04/2022 until 10/04/2023 XR SHOULDER GENERAL 3V OR MORE AP/TRUE AP/OTHER LEFT XR SHOULDER GENERAL 3V OR MORE AP/TRUE AP/OTHER LEFT Radiology Routine Acute pain of left shoulder 09/04/2022 2:15 PM EDT [facility] Work Phone: [facility] Immunizations Immunization Date Immunization Notes Care Provider Fa [facility] 01-20-2020 influenza, injectabl e, quadrivalent, preservative free Dr. Rosalino Silver MD Work Phone: [facility] 01-20-2020 influenza, seasonal, injectable, preservative free Rosalino Silver MD Work Phone: [facility] Work Phone: 01-20-2020 influenza virus vacc ine, unspecified formulation Rosalino Silver MD Work Phone: [facility] 08-14-2014 tetanus toxoid, redu bronson diphtheria toxoid, and acellular pertussis vaccine, adsorbed Rosalino Silver MD Work Phone: [facility] Work Phone: 11-01-2013 pneumococcal polysaccharide vaccine, 23 valent Rosalino Silver MD Work Phone: [facility] Work Phone: 03-23-2012 influenza virus vacc ine, unspecified formulation Rosalino Silver MD Work Phone: [facility] 09-23-2011 tetanus toxoid, redu bronson diphtheria toxoid, and acellular pertussis vaccine, adsorbed Rosalino Silver MD Work Phone: [facility] 07-12-2010 hepatitis B immune globulin Rosalino Silver MD Work Phone: [facility] Payers Date Payer Category Payer Self-pay 2022 Medicaid [id number] 2020 Medicaid [employer] [id number] 2020[facility] [phone] [address] [place] [address] Medicaid [id number] 2020 Medicaid [id number] 2014 [facility] [id number] 1976 Unknown [id number] 1976 Unknown [id number] Unknown [id number] Unknown [id number] Unknown [id number] Unknown [id number] Social History Date Type Detail Facility Start: 10-03-2016 End: 09-04-2022 Tobacco smoking status NHIS Ex-smoker [facility] History of tobacco use Cigarette Smoker C [facility] Start: 10-03-2016 End: 09-04-2022 Cigarettes smoked current (pack per day) - Reported 0.5 [facility] Start: 10-03-2016 End: 09-04-2022 Tobacco use and exposure Smokeless tobacco non-user [facility] Start: 03-13-2021 End: 09-04-2022 Alcohol intake Current non-drinker of alcohol (finding) [facility] Start: 1975 Sex Assigned At Female [facility] Start: 08-17-2021 End: 10-10-2021 Exposure to SARS-CoV-2 (event) Not sure [facility] History of tobacco use Current smoker [facility] Start: 09-04-2022 Tobacco use panel [facility] Work Phone: National Score (1-10 0), lower number is lower risk 91 [facility] Start: 03-15-2021 Gender identity Identifies as female gender (finding) [facility] Start: 03-15-2021 Sexual orientation Heterosexual (fin ding) [facility] Start: 08-03-2024 Tobacco smoking stat us AKIS Smokes tobacco daily (finding) [facility] Start: 04-25-2015 Alcohol Alcohol [facility] Start: 01-19-2020 Tobacco Use Tobacco Use [facility] Functional Status Date Assessment Result Facility 10-11-2014 Are you deaf, or do you have serious difficulty hearing No 10/11/2014 8:37 AM EDT Radha Andrade MA No [facility] 10-11-2014 Are you blind, or do you have serious difficulty seeing, even when wearing glasses No 10/11/2014 8:37 AM EDT Radha Andrade MA [facility] 10-11-2014 Do you have serious difficulty walking or climbing stairs No 10/11/2014 8:37 AM EDT Radha Andrade MA [facility] 10-11-2014 Do you have difficul ty dressing or bathing No 10/11/2014 8:37 AM EDT Radha Andrade MA [facility] 10-11-2014 Because of a physica l, mental, or emotional condition, do you have difficulty doing errands alone such as visiting a physician's office or shopping No 10/11/2014 8:37 AM EDT Radha Andrade MA [facility] Mental Status Date Assessment Result Facility 08-03-2024 Cognitive function Level Of Cons ciousness Awake;Alert;Appropriate;Fol lows Commands [facility] Work Phone: 10-11-2014 Because of a physica l, mental, or emotional condition, do you have serious difficulty concentrating, remembering, or making decisions No 10/11/2014 8:37 AM EDT Radha Andrade MA [facility] Clinical Notes 08-23-2014 to 10-29-2024 Telephone Encounter - Hailey Lindsey RN - 08/03/2024 2:20 PM EDTTelephone Encounter - Hailey Lindsey RN - 08/03/2024 2:20 PM Mitchel Romero APRN.CNP - 11/27/2023 12:16 PM EDT Note Date & Type Note Facility 10-29-2024 Note HNO ID: [id number] Author: MITCHEL WASHINGTON APRN.KARINA Service: ? Author Type: Nurse Practitioner Type: Progress Notes Filed: 10/29/2024 15:12 Note Text: URGENT CARE [facility] Zeb Swift is a 49 year old female. Patient presents with: Edema: RLE swelling, pain in kneem swelling is increasing in entire leg, states she normally takes htcz but is out HPI Right Lower Extremity Edema and Pain: - Edema from the knee down, x6-8 months. - New onset pain in the right knee, worsening over time. - Taking HCTZ 12.5 mg daily x3 months for edema, prescribed by Dr. Jean-Baptiste. - Ran out of HCTZ 2 days ago; no previous lapses in medication. - Recent x-ray suggested a torn meniscus in the right knee. - Denies redness or warmth in the affected area. - Follow-up appointment scheduled with Dr. Silver on . Review of Systems Musculoskeletal: (+) right lower leg swelling, (+) right anterior knee pain, (-) posterior knee pain, (-) calf pain Objective BP 116/76 Pulse 82 Temp 36.7 ?C (98.1 ?F) Resp 20 Wt 113 kg (249 lb 1.9 oz) LMP 12/17/2009 SpO2 96% Physical Exam General: No acute distress. MSK/Ext: No asymmetry, no erythema, no edema, no tenderness. { 1. Medication refill (Z76.0) - Chronic lower extremity edema, previously managed with HCTZ 12.5 mg daily; swelling worsened after missing 2 days of medication. - No clinical signs of DVT on exam (no redness, warmth, or calf tenderness). - Provided 1-week supply of HCTZ 12.5 mg daily to bridge until established follow-up. - Advised patient to keep follow-up appointment with Dr. Silver on for ongoing management. - Encouraged patient to follow up with orthopedics for further evaluation of meniscal tear and potential surgical intervention. 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 Patient/authorized sales representative rural power agreed to proceed MDM Procedures [facility] 08-03-2024 Radiology Diagnostic study note [facility] [address] [place] [address] CTA Chest W/WO Contrast MR#: [id number] Acct: [id number] Name: ZEB SWIFT BARRY Rep #: [id number] : 1975 F 49 From: Gita Weems MD PCP: Dr. Rosalino Silver MD Status: RE G ER Study:CTA Chest W/WO Contrast Date of Exam: 08/03/24 Exam# [id number] Ordering Dr: Erendira Lyle MD PROCEDURE: CTA CHEST W/WO CONTRAST N/A REASON FOR EXAM: ATYPICAL CP AND ELEVATED D-DIMER TECHNIQUE: CTA axial imaging of the chest with intravenous contrast. Multiplanar and multisequence images were obtained. PATIENT PREPARATION: Per protocol CONTRAST: Omnipaque 350 VOLUME: 100 mL Not Provided Gauge IV One or more dose reduction techniques were used (e.g., Automated exposure control, adjustment of the mA and/or kV according to patient size, use of iterative reconstruction technique). RADIATION DOSE SUMMARY: . COMPARISON: None FINDINGS: Hardware: None Lymph nodes: No suspicious adenopathy. Heart: No cardiomegaly. No pericardial effusion. No coronary artery calcifications. Thoracic Aorta: No thoracic aortic aneurysm or dissection. Pulmonary Vessels: No large central pulmonary emboli are identified. Contrast timing is suboptimal for evaluation of more distal branches. Most Proximal Level of Embolus (if embolus present): None Lungs and Airways: Central airways are patent without endobronchial lesions. Mild bibasilar atelectasis. No focal consolidation. No pneumothorax. No pleural effusion. Upper Abdomen: Visualized portions of the upper abdominal viscera are unremarkable. Bones: Bone windows are unremarkable. CT/CTA Chest W/WO Contrast IMPRESSION: No evidence of pulmonary embolism or acute findings in the thorax. Reading Location: [place] CC: Dr. Ruddy Lyle MD; Dr. Rosalino Silver MD ~ Oracle R12 Developer: Signed [facility] 08-03-2024 Radiology Diagnostic study note [facility] [address], [place] [id number] Chest 1 View (Portable) MR#: [id number] Acct: [id number] Name: ZEB SWIFT BARRY Rep #: [id number] : 1975 F 49 From: Armando Velarde MD PCP: Dr. Rosalino Silver MD Status: RE G ER Study:Chest 1 View (Portable) Date of Exam: 08/03/24 Exam# [id number] Ordering Dr: Erendira Lyle MD PROCEDURE: CHEST 1 VIEW (PORTABLE) 08/03/2024 REASON FOR EXAM: CHEST PAIN TECHNIQUE: Frontal view of the chest. COMPARISON: Chest x-ray of 11/27/2023. RAD/Chest 1 View (Portable) IMPRESSION: Lungs appear clear of acute disease, and unchanged. No pleural effusion or pneumothorax is noted. The cardiomediastinal silhouette is within the normal range, and unchanged. No acute osseous process is seen. No evidence of acute cardiopulmonary disease. Reading Location: [place] [address] CC: Dr. Ruddy Lyle MD; Dr. Rosalino Silver MD ~ Oracle R12 Developer: Signed [facility] 08-03-2024 Telephone encounter Note Patient call in for right leg pain and swelling x 5-7 days. Patient has chest pain that radiates to left arm off and on. Nurse Triage assessment completed with protocol recommending for disposition of Go to ED now. Care advice reviewed with patient, patient stated understanding. Reason for Disposition [1] Thigh, calf, or ankle swelling AND [2] only 1 side Answer Assessment - Initial Assessment Questions 1. ONSET: 5-7 days ago 2. LOCATION: Right leg Calf, Knee 3. SEVERITY: Moderate; From Knee down. 4. REDNESS: Redness 5. PAIN: Patient states that when she walks and bend leg it is painful; 4 or 5 out of 10 6. FEVER: Hot Flashes 7. CAUSE: Unsure 8. MEDICAL HISTORY: Denies. 9. RECURRENT SYMPTOM: Denies 10. OTHER SYMPTOMS: Feels lumps on neck; chest pain; numbness to foot Protocols used: Leg Swelling and [id number] [facility] 08-03-2024 Miscellaneous Notes Patient call in for right leg pain and swelling x 5-7 days. Patient has chest pain that radiates to left arm off and on. Nurse Triage assessment completed with protocol recommending for disposition of Go to ED now. Care advice reviewed with patient, patient stated understanding. Reason for Disposition [1] Thigh, calf, or ankle swelling AND [2] only 1 side Answer Assessment - Initial Assessment Questions 1. ONSET: 5-7 days ago 2. LOCATION: Right leg Calf, Knee 3. SEVERITY: Moderate; From Knee down. 4. REDNESS: Redness 5. PAIN: Patient states that when she walks and bend leg it is painful; 4 or 5 out of 10 6. FEVER: Hot Flashes 7. CAUSE: Unsure 8. MEDICAL HISTORY: Denies. 9. RECURRENT SYMPTOM: Denies 10. OTHER SYMPTOMS: Feels lumps on neck; chest pain; numbness to foot Protocols used: Leg Swelling and [id number]-HJ documented in this encounter [facility] 11-27-2023 Note HNO ID: [id number] Author: MITCHEL WASHINGTON APRN.PHP SOFTWARE ENGINEER Service: ? Author Type: Nurse Practitioner Type: Progress Notes Filed: 11/27/2023 12:19 Note Text: She came in with complaints of bilateral leg swelling feet swelling to the point where the toes normally on the ground. Patient says they hurt. Patient says she also has bilateral hand swelling. Patient does not get regular medical care checkups. Patient is currently in a sober house have been clean 1 month. Patient says she is shaky and vomiting and having high blood pressure. Patient says her eyes feel off and her pupils are tiny. Patient says she just does not feel very good. At this time patient is being referred to the ER for full evaluation. Patient is okay with this and her caregiver will take her now. [facility] 11-27-2023 History of Presen t illness Narrative She came in with complaints of bilateral leg swelling feet swelling to the point where the toes normally on the ground. Patient says they hurt. Patient says she also has bilateral hand swelling. Patient does not get regular medical care checkups. Patient is currently in a sober house have been clean 1 month. Patient says she is shaky and vomiting and having high blood pressure. Patient says her eyes feel off and her pupils are tiny. Patient says she just does not feel very good. At this time patient is being referred to the ER for full evaluation. Patient is okay with this and her caregiver will take her now. documented in this encounter [facility] 11-19-2023 Note Patient Outreach (IN TMMN) ZEB SWIFT ([id number]) 1975 F Date Time Provider Department 11/19/23 ROSALINO SILVER During your visit today, we recorded the following information about you: Allergies As of Date: 11/19/2023 Noted Allergy Reaction GABAPENTIN 10/18/2016 14 - Other: See Comments Comments: Feels drunk and off balance PENICILLINS 02/27/2005 2 - Rash BEES 02/27/2005 BLUEBERRY 11/02/2013 4 - Hives NAPROXEN 10/07/2011 8 - GI Upset Comments: GI upset and sweating TORADOL (KETOROLAC) 04/07/2014 2 - Rash TRAMADOL HCL 12/18/2009 11 - Vomiting Date Reviewed: 09/04/2022 Reviewed by: Daniela Duran APRN.PHP SOFTWARE ENGINEER - Fully Assessed Visit Diagnosis:Encounter for screening mammogram for breast cancer [Z12.31] Order(s):[facility] SCREENING W LEV [[id number]] Order #: [id number] FUTURE Prescriptions as of 11/24/2023 - estradiol (ESTRACE) 2 mg tablet Take 1 tablet by mouth once daily. - ergocalciferol 50,000 unit capsule (VITAMIN D2, DRISDOL) Take 1 tablet by mouth twice weekly [id number], then decrease to 1 tablet weekly. - buPROPion SR (ZYBAN SR; WELLBUTRIN SR) 150 mg 12 hr tablet Take 150 mg by mouth once daily. - lamoTRIgine (LAMICTAL) 100 mg tablet Take 100 mg by mouth daily at bedtime. - traZODone (DESYREL) 150 mg tablet Take 150 mg by mouth daily at bedtime. - Melatonin 5 mg cap Take 5 mg by mouth daily at bedtime. Two tabs at bedtime. - mecobalamin (B12 ACTIVE ORAL) Take 1,000 mcg by mouth once daily. - magnesium oxide 400 mg magnesium tab Take 400 mg by mouth daily at bedtime. - MULTIVITAMIN ORAL Take by mouth once daily. - citalopram (CELEXA) 40 mg tablet Take 1 tablet by mouth once daily. Problem List As Of Date 11/19/2023 Noted Resolved DEPRESSIVE DISORDER NEC [F32.89] 11/18/2005 Female genital symptoms [N94.9] 10/12/2008 Lumbar spondylosis [M47.816] 01/08/2013 DDD (degenerative disc disease), lumbar [M51.36]01/08/2013 Carpal tunnel syndrome [G56.00] 04/11/2014 05/03/2014 CTS (carpal tunnel syndrome) left [G56.00] 05/17/2014 05/17/2014 Hand(s) except finger(s) alone, superficial for*08/23/2014 08/23/2014 Lumbar radiculopathy [M54.16] 10/03/2016 Positive urine drug screen [R82.5] 10/30/2016 Encounter Status:Closed by [employer] TopBlipUSEMartinez on 11/24/23 [facility] 06-23-2023 Miscellaneous Notes Fasting lab orders have been placed. Daniela Duran APRN.PHP SOFTWARE ENGINEER Pt has appt for Physical on 06/25/23 with Daniela Duran. Please file orders and notify pt. Elena Esposito MA Patient has apt on 06/24 please order labs documented in this encounter [facility] 09-09-2022 Miscellaneous Notes TC to patient who verbalized understanding of providers message and has no questions at this time. Patient states she is going to call and schedule PT later today once she is done with class. ARACELIS Cole Can you please call the patient and let her know that I reviewed her x-ray results. X-ray of the shoulder shows some mild degenerative changes, which is consistent with arthritis. Due to ongoing symptoms as discussed during office visit I would recommend that she consider physical therapy. Consult has been placed. She can schedule at any time. Please let me know if she has any questions. Thank you. Daniela Duran APRN.KARINA documented in this encounter [facility] 09-04-2022 Instructions Marilynn Jackson - 09/04/2022 1:19 PM EDT Start taking NSAIDs for shoulder pain Ice to the area Return in 3 months for wellness exam documented in this encounter [facility] 09-04-2022 History of Presen t illness Narrative This is a 47 year old female who presents today with: Patient presents with: Follow Up: medication HISTORY OF PRESENT ILLNESS: Zeb Swift is a 47 year old female. Patient presents with: Follow Up: medication Here for medication refills. Mood: Taking Celexa 40 mg daily. Denies any increased sadness, anxiety, SI/HI. Recently completed residential drug rehab in [place]- 90 days sober! Vitamin D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 Start Date Expiration Date Visits Requested Visits Authorized [id number] Pending Review Auto-Generat ed Referral 09/07/2022 09/07/2023 1 1 Summary Purpose Family History No Family History Records FoundNo Family History Records FoundNo Family History Records Found Advance Directives No Advanced Directives Records Found Advance Directive Response Recorded Date/ Time Do you have a Healthcare Power of Machine Crater? No August 03, 2024 4:42pm Advance Directives No October 22 5:27pm Chief Complaint and Reason for Visit Chief Complaint Admit Date edema August 03, 2024 4:24p m Additional Source Comments Source Comments (unrecognize d section and content) In the event this informatio n is protected by the Federal Confidentiality of Alcohol and Drug Abuse Patient Records regulations: The Federal rules restrict any use of the information to criminally investigate or prosecute any alcohol or drug abuse patient.[facility] the event this information is protected by the Federal Confidentiality of Alcohol and Drug Abuse Patient Records regulations: The Federal rules restrict any use of the information to criminally investigate or prosecute any alcohol or drug abuse patient.[facility] the event this information is protected by the Federal Confidentiality of Alcohol and Drug Abuse Patient Records regulations: The Federal rules restrict any use of the information to criminally investigate or prosecute any alcohol or drug abuse patient.[facility] the event this information is protected by the Federal Confidentiality of Alcohol and Drug Abuse Patient Records regulations: The Federal rules restrict any use of the information to criminally investigate or prosecute any alcohol or drug abuse patient.[facility] the event this information is protected by the Federal Confidentiality of Alcohol and Drug Abuse Patient Records regulations: The Federal rules restrict any use of the information to criminally investigate or prosecute any alcohol or drug abuse patient.[facility] the event this information is protected by the Federal Confidentiality of Alcohol and Drug Abuse Patient Records regulations: The Federal rules restrict any use of the information to criminally investigate or prosecute any alcohol or drug abuse patient.[facility] the event this information is protected by the Federal Confidentiality of Alcohol and Drug Abuse Patient Records regulations: The Federal rules restrict any use of the information to criminally investigate or prosecute any alcohol or drug abuse patient.[facility]In the event this information is protected by the Federal Confidentiality of Alcohol and Drug Abuse Patient Records regulations: The Federal rules restrict any use of the information to criminally investigate or prosecute any alcohol or drug abuse patient.[facility] the event this information is protected by the Federal Confidentiality of Alcohol and Drug Abuse Patient Records regulations: The Federal rules restrict any use of the information to criminally investigate or prosecute any alcohol or drug abuse patient.[facility] the event this information is protected by the Federal Confidentiality of Alcohol and Drug Abuse Patient Records regulations: The Federal rules restrict any use of the information to criminally investigate or prosecute any alcohol or drug abuse patient.[facility] the event this information is protected by the Federal Confidentiality of Alcohol and Drug Abuse Patient Records regulations: The Federal rules restrict any use of the information to criminally investigate or prosecute any alcohol or drug abuse patient.[facility]In the event this information is protected by the Federal Confidentiality of Alcohol and Drug Abuse Patient Records regulations: The Federal rules restrict any use of the information to criminally investigate or prosecute any alcohol or drug abuse patient.[facility]In the event this information is protected by the Federal Confidentiality of Alcohol and Drug Abuse Patient Records regulations: The Federal rules restrict any use of the information to criminally investigate or prosecute any alcohol or drug abuse patient.[facility] HospitalIn the event this information is protected by the Federal Confidentiality of Alcohol and Drug Abuse Patient Records regulations: The Federal rules restrict any use of the information to criminally investigate or prosecute any alcohol or drug abuse patient.[facility]In the event this information is protected by the Federal Confidentiality of Alcohol and Drug Abuse Patient Records regulations: The Federal rules restrict any use of the information to criminally investigate or prosecute any alcohol or drug abuse patient.[facility] Reason for Visit (unrecogniz ed section and content) Reason Comments Depression Reason Onset Date Comments Refill Request 09/06/2021 Reason Comments Fatigue breast pain Reason Comments Results lab Reason Comments Radiology US Specialty Diagnoses / Procedures Referred By Rianna t Referred To Contact [facility] Diagnoses Left breast lump Encounter for screening mammogram for malignant neoplasm of breast Procedures US BREAST LTD LT US BREAST UNILAT INCL AXILLA LIMITED Rosalino Silver MD [address] [place] [address] [facility] [address] [facility] [place] [place] [address] Referral ID Status Reason Start Date Expiration Date V isits Requested Visits Authorized [id number] Closed Auto-Generate d Referral 01/12/2021 02/11/2022 1 1 Reason Comments Results Patient Question Reason Comments Follow Up medication Reason Comments Results Xray Shoulder Reason Comments Chest Pain right leg swelling Care Teams (unrecognized sec tion and content) Brim Rounder Relationship Specialty Start Date End Date Rosalino Silver MD [address] [place], [place] [id number] PCP - General Family Practice 04/12/10 Brim Rounder Relationship Specialty Start Date End Date Rosalino Silver MD [facility] [place], [place] [id number] PCP - General Family Practice 04/12/10 Brim Rounder Relationship Specialty Start Date End Date Rosalino Silver MD [facility] [place] [address] PCP - General Family Practice 04/12/10 Brim Rounder Relationship Specialty Start Date End Date Rosalino Silver MD [address] [place] [address] PCP - General Family Practice 04/12/10 Brim Rounder Relationship Specialty Start Date End Date Rosalino Silver MD [address] [place] [address] PCP - General Family Practice 04/12/10 Brim Rounder Relationship Specialty Start Date End Date Rosalino Silver MD [address] [place] [address] PCP - General Family Practice 04/12/10 Brim Rounder Relationship Specialty Start Date End Date Rosalino Silver MD [address] [place] [address] PCP - General Family Practice 04/12/10 Brim Rounder Relationship Specialty Start Date End Date Rosalino Silver MD [address] [place] [address] PCP - General Family Medicine 04/12/10 Brim Rounder Relationship Specialty Start Date End Date Rosalino Silver MD [address] [place] [address] PCP - General Family Medicine 04/12/10 Brim Rounder Relationship Specialty Start Date End Date Rosalino Silver MD [address] [place] [address] PCP - General Family Medicine 04/12/10 Brim Rounder Relationship Specialty Start Date End Date Rosalino Silver MD [address] [place] [address] PCP - General Family Medicine 04/12/10 Brim Rounder Relationship Specialty Start Date End Date Rosalino Silver MD [address] [place], [place] [id number] PCP - General Family Medicine 04/12/10 Brim Rounder Relationship Specialty Start Date End Date Rosalino Silver MD [address] [place], [place] [address] PCP - General Family Medicine 04/12/10 Brim Rounder Relationship Specialty Start Date End Date Rosalino Silver MD [address] [place], [place] [address] PCP - General Family Medicine 04/12/10 Team Status: Active Member Role Status Dates Dr. Rosalino Silver MD Primary Care Provider Active Team Status: Inactive Member Role Status Dates Dr. Rosalino Silver MD Primary Care Provider Active Start: August 03, 2024 End: August 03, 2024 Dr. Ruddy Lyle MD Emergency Provider Active S tart: August 03, 2024 End: August 03, 2024 Brim Rounder Relationship Specialty Start Date End Date Rosalino Silver MD [address] [place], [place] [id number] PCP - General Family Medicine 04/12/10 Daniela Duran, COATER ASSOCIATE.PHP SOFTWARE ENGINEER [address] [place] [address] Senior Data Warehouse Architect Family Medicine 02/29/24 Priyank Lira APRN.PHP SOFTWARE ENGINEER [address] [place], [place] [id number] Senior Data Warehouse Architect Family Medicine 03/09/24 INFORMATION SOURCE (unrecogn ized section and content) DATE CREATED AUTHOR 03/08/2023 [facility] DATE CREATED AUTHOR AUTHOR'S ORGANIZ ATION 08/19/2024 [facility] DATE CREATED AUTHOR AUTHOR'S ORGANIZ ATION 10/31/2024 [facility] Goals (unrecognized section and content) Goals may be documented in a n alternate section FOR RECORDS PERTAINING TO PATIENTS WHO ARE OR HAVE BEEN ENROLLED IN A CHEMICAL DEPENDENCY/SUBSTANCEABUSE PROGRAM, SOME INFORMATION MAY BE OMITTED. This clinical summary was aggregated from multiple sources. Caution should be exercised in using it in the provision of clinical care. This summary normalizes information from multiple sources, and as a consequence, information in this document may materially change the coding, format and clinical context of patient data. In addition, data may be omitted in some cases. CLINICAL DECISIONS SHOULD BE BASED ON THE PRIMARY CLINICAL RECORDS. [facility] CenterE[facility] [employer] provides no warranty or guarantee of the accuracy or completeness of information in this document.
[2024-11-04 21:03] LABS: Troponin T High Sensitivity < 6 ng/L (<=14)
[2024-11-04 21:10] LABS: Anion Gap 12 (5-15); BUN 20 mg/dL (4-19); BUN/Creat Ratio 24.8 RATIO (10-20); Calcium,Total 9.1 mg/dL (7.6-11.0); Carbon Dioxide 22.4 mmol/L (21.0-32.0); Chloride 104 mmol/L (98-108); Estimated Creatinine Clearance 104.66 ml/min (50-250); Glucose 118 mg/dL (70-99); Potassium 4.1 mmol/L (3.3-5.1)
--- NOTE | 2024-11-04 22:38 | CT_ITS ---
PROCEDURE: CTA CHEST W/WO CONTRAST 11/04/2024 REASON FOR EXAM: CHEST PAIN TECHNIQUE: CTA CHEST W/WO CONTRAST Multiplanar Sagittal and Coronal images were obtained. CONTRAST: Isovue 370 VOLUME: 99 mL One or more dose reduction techniques were used (e.g., Automated exposure control, adjustment of the mA and/or kV according to patient size, use of iterative reconstruction technique). RADIATION DOSE SUMMARY: CTDlvol: 44 mGy DLP: 559 mGycm COMPARISON: 08/03/2024 FINDINGS: Unremarkable base of neck and axilla. Normal esophagus. Normal heart size. No aortic dissection. No pulmonary embolism. Thoracic spine degeneration. No acute chest wall findings. No acute abdominal findings. Central airways are patent. Dependent atelectasis. No consolidation, effusion or pneumothorax. CT/CTA Chest W/WO Contrast IMPRESSION: No embolism, dissection, or pneumonia. Reading Location: [place] [address]
--- NOTE | 2024-11-04 22:38 | ED.RN ---
Pt c/o 09/30, sharp chest pain, Dr. Downing notified.
[2024-11-04 23:10] LABS: Troponin T High Sens 2 HR < 6 ng/L (<=14)
== END 2024-11-04 23:50 | disposition home or self-care (01) ==
PROVIDERS: Emergency Provider Emergency Medicine; PCP Family Medicine; Visit Provider Emergency Medicine
DX: R07.9 Chest pain, unspecified (principal); R09.1 Pleurisy; F17.210 Nicotine dependence, cigarettes, uncomplicated; J40 Bronchitis, not specified as acute or chronic; Z90.710 Acquired absence of both cervix and uterus
CPT/HCPCS: 71046; 71275; 80048; 84484; 85025; 93005; 96374; 99283; Q9967; A4216

== ENCOUNTER 2024-11-07 19:54 | Emergency (ER) | payer MEDICAID, SELFPAY ==
[2024-11-07 19:55] VITALS: BP 129/74; PULSE 88; RESP 18; TEMP 36.2; O2SAT 97; BMI 42.7
--- OUTSIDE RECORDS SUMMARY | 2024-11-07 20:44 | XMS RPT_ITS | CCD ---
Author Organization [facility] Care Team Providers Care Unemployment Specialist Name Role Phone Rosalino Aparicio MD Primary Care Provider PADMINI ATWOOD Referring UnavailPADMINI George Attending UnavailROSALINO Gutierres Primary Care Unavailable PADMINI ATWOOD Attending UnavailROSALINO Gutierres Primary Care Unavailable Rosalino Aparicio MD Primary Care Provider Rosalino Aparicio MD Primary Care Provider Dr. Rosalino Aparicio MD Primary Care Provider Dr. Ruddy Lyle MD Emergency Provider [employer] PLANT MACHINIST.CABIN EQUIPMENT SUPERVISOR, Daniela Unavailable Julius PLANT MACHINIST.CABIN EQUIPMENT SUPERVISOR, Priyank Unavailable [phone] Dr. Ruddy Lyle MD Attending Provider Dr. Joe Gustafson MD Attending Provider Dr. Ruddy Lyle MD Referring Provider Dr. Freddy Downing DO Emergency Provider [phone] MICHAELA DE LA GARZA Attending Unavailable SELF Referring Unavailable ROSALINO APARICIO Primary Care Unavailable MITCHEL WASHINGTON Attending Unavailable ROSALINO APARICIO Primary Care Unavailable ROSALINO APARICIO Primary Care Unavailable Marlen Paul Attending Unavailable Rosalino Aparicio Primary Care Unavailable Ruddy Lyle Attending Unavailable Rosalino Aparicio Primary Care Unavailable Freddy Downing Attending Unavailable Rosalino Aparicio Primary Care Unavailable Ruddy Lyle Referring Unavailable Joe Gustafson Attending Unavailable Rosalino Aparicio Primary Care Unavailable Sun Tirado Referring Unavailable Sun Tirado Attending Unavailable Rosalino Aparicio Primary Care Unavailable Allergies Allergy Classification Reported Allergen(s) Allergy Type Date of Onset Reaction(s) Facility (20 sources) Blueberry; Translations: [BLUEBERRY] Food Intolerance 4 Hives [facility] Work Phone: (20 sources) gabapentin; Translations: [GABAPENTIN] Drug Allergy 7 Other: See Comments [facility] (18 sources) Ketorolac; Translations: [KETOROLAC] Drug Allergy 5 Rash [facility] (20 sources) Naproxen; Translations: [NAPROXEN] Drug Allergy 2 GI Upset [facility] (3 sources) Penicillins; Translations: [PENICILLINS] Drug Allergy 5 Rash [facility] Work Phone: (18 sources) traMADol; Translations: [TRAMADOL HCL] Drug Allergy 0 Vomiting [facility] Work Phone: (18 sources) Bees; Translations: [BEES] Propensity to adverse reactions 5 [facility] Work Phone: (12 sources) Penicillins Drug Allergy 5 [facility] Work Phone: (2 sources) Bee pollen Drug Allergy 5 Anaphylaxis [facility] (3 sources) Ketorolac; Translations: [ketorolac tromethamine] Drug Allergy 5 [facility] (2 sources) Penicillins Allergy to substance 5 Rash [facility] (2 sources) traMADol Drug Allergy 5 Vomiting [facility] (3 sources) Penicillins Drug Allergy 5 [facility] (1 source) Bee pollen Drug allergy (disorder) 5 [facility] (1 source) Blueberry Drug allergy (disorder) 5 [facility] (1 source) gabapentin Drug Allergy 5 [facility] (1 source) Naproxen Drug Allergy 5 [facility] (1 source) Penicillins Drug allergy (disorder) 5 [facility] (1 source) traMADol Drug Allergy 5 [facility] Medications Current Medications Medication Drug Class(es) Dates Sig (Normalized) Sig (Original) atomoxetine 40 mg oral capsule (5 sources) Norepinephrine Reuptake Inhibitor Start: 08-04-19 End: 11-05-19 take 1 capsule by mouth once daily atomoxetine (STRATTERA) 40 mg capsule Indications: ADHD (attention deficit hyperactivity disorder), combined type Take 1 capsule by mouth once daily. 90 capsule 1 11/04/2024 Active 12 hr buPROPion hydrochloride 150 mg extended release oral tablet (7 sources) Aminoketone take 1 tablet by mouth once daily buPROPion SR (ZYBAN SR; WELLBUTRIN SR) 150 mg 12 hr tablet Indications: Mood changes Take 150 mg by mouth once daily. Active Comment on above: Take 150 mg by mouth once daily. estradiol 2 mg oral tablet (20 sources) Estrogen Start: 10-13-19 End: 11-05-19 take 1 tablet by mouth once daily estradiol (ESTRACE) 2 mg tablet Indications: Female genital symptoms Take 1 tablet by mouth once daily. 30 tablet 11/04/2024 Active Comment on above: Take 1 tablet by yanet once daily. hydroCHLOROthiazide 12.5 mg oral tablet (4 sources) Thiazide Diuretic Start: 10-30-19 End: 05-03-19 take 1 tablet by mouth once daily hydroCHLOROthiazide 12.5 mg tablet Indications: Medication refill , Swelling of lower extremity Take 1 tablet by mouth once daily. 90 tablet 11/04/2024 05/03/2025 Active hydrOXYzine pamoate 25 mg oral capsule (3 sources) Antihistamine Start: 11-05-19 take 1 capsule by mouth every eight hours as needed for anxiety Hydroxyzine Pamoate 25 mg capsule Active 25 mg PO Q8H as needed for anxiety November 04, 2024 12:00am Start: 09-11-2024 take 1 capsule by mo [facility] every six hours as needed hydrOXYzine pamoate (VISTARIL) 25 mg capsule Take 25 mg by mouth four times a day as needed for anxiety. 09/11/2024 Active magnesium oxide 400 mg oral tablet (9 sources) take 1 tablet by mouth once daily at bedtime magnesium oxide 400 mg magnesium tab Indications: History of drug abuse (HCC) Take 400 mg by mouth daily at bedtime. Active Comment on above: Take 400 mg by mouth daily at bedtime. melatonin 5 mg oral capsule (10 sources) Start: 11-04-2024 End: 11-04-2024 take 2 capsules by mouth once daily at bedtime, then take 2 capsules by mouth at bedtime Melatonin 5 mg cap Indications: Difficulty sleeping Take 2 capsules by mouth daily at bedtime. Two tabs at bedtime. 180 capsule 1 11/04/2024 Active Comment on above: Take 5 mg by mouth d aily at bedtime. Two tabs at bedtime. MULTIVITAMIN ORAL (9 sources) MULTIVITAMIN ORA L Indications: History of drug abuse (HCC) Take by mouth once daily. Active MULTIVITAMIN ORA L Indications: History of drug abuse (HCC) Take by mouth once daily. 0 Active Comment on above: Take by mouth once d aily. traZODone hydrochloride 50 mg oral tablet (12 sources) Serotonin Reuptake Inhibitor Start: take 2 tablets by mouth at bedtime as needed for sleep Trazodone 50 mg tablet Active 100 mg PO AT BEDTIME NEEDED as needed for sleep November 04, 2024 12:00am Start: 10-01-2024 End: 11-04-2024 traZODone (DESYREL) 50 mg ta blet Indications: Difficulty sleeping Take 1-2 tabs at bedtime as needed for insomnia 120 tablet 1 11/04/2024 Active End: 11-04-2024 take 1 tablet by mouth once daily at bedtime traZODone (DESYREL) 150 mg tablet Indications: Difficulty sleeping Take 150 mg by mouth daily at bedtime. 11/04/2024 Discontinued Comment on above: Take 150 mg by mouth daily at bedtime. Vitamin B Complex (B-Complex) tablet (1 source) Start: 11-04-2024 Vitamin B Complex (B-Complex) tablet Active 1 {tbl} PO Q24H November 04, 2024 12:00am Completed/Discontinued Medications Medication Drug Class(es) Dates Sig (Normalized) Sig (Original) acetaminophen 325 mg / oxyCODONE hydrochloride 5 mg oral tablet (2 sources) Opioid Agonist Start: 10-12-2018 End: 08-03-2024 Oxycodone-Acetamin ophen 1 EACH tablet Discontinued 1 NMA PO THREE TIMES A DAY as needed for Pain 12 0 October 12, 2018 August 03, 2024 4:59pm Fracture of coccyx Fracture of coccyx, initial encounter for closed fracture ciprofloxacin 500 mg oral tablet (2 sources) Quinolone Antimicrobial Start: 01-21-2020 End: 08-03-2024 take 1 tablet by mouth twice daily Ciprofloxacin Hcl 500 MG tablet Discontinued 500 mg PO TWICE A DAY 14 January 21, 2020 12:00am August 03, 2024 4:59pm citalopram 40 mg oral tablet (19 sources) Serotonin Reuptake Inhibitor Start: 02-13-2015 End: 11-04-2024 take 1 tablet by mouth at bedtime Citalopram 40 MG tablet Discontinued 40 mg PO AT BEDTIME February 13, 2015 1:00am August 03, 2024 4:59pm mood Comment on above: Take 1 tablet by yanet once daily. clindamycin 150 mg oral capsule (2 sources) Lincosamide Antibacterial Start: 01-21-2020 End: 03-13-2023 take [...] pillow cyclobenzaprine hydrochloride 10 mg oral tablet (2 sources) Muscle Relaxant Start: End: take 1 tablet by mouth three times daily as needed for muscle spasms Cyclobenzaprine 10 mg tablet Discontinued 10 mg PO THREE TIMES A DAY as needed for muscle spasm June 05, 2021 12:00am August 03, 2024 4:59pm ergocalciferol 1.25 mg oral capsule (14 sources) Provitamin D2 Compound Start: End: take 1 tablet by mouth two times weekly, then take 1 tablet by mouth every week ergocalciferol 50,000 unit capsule (VITAMIN D2, DRISDOL) Indications: Vitamin D deficiency Take 1 tablet by mouth twice weekly [id number], then decrease to 1 tablet weekly. 16 capsule 3 09/04/2022 11/04/2024 Discontinued Comment on above: Take 1 tablet by yanet th twice weekly [id number], then decrease to 1 tablet weekly. ibuprofen 800 mg oral tablet (13 sources) Nonsteroidal Anti-inflammatory Drug Start: 021 End: 023 take 1 tablet by mouth every eight hours as needed for headache and headache ibuprofen (MOTRIN) 800 mg tablet Indications: Headache, unspecified headache type Take 1 tablet by mouth every 8 hours as needed for pain. Take with food. 60 tablet 2 01/12/2021 09/04/2022 Discontinued Start: 06-22-2015 take 1 tablet by yanet th every eight hours as needed ibuprofen (MOTRIN) 600 mg tablet Take 600 mg by mouth every 8 hours as needed for pain. 06/22/2015 Active Start: 06-22-2015 End: 10-24-2015 take 1 tablet by mouth every six hours as needed for pain Ibuprofen 600 MG tablet Discontinued 600 mg PO EVERY 6 HOURS NEEDED as needed for Pain 30 June 22, 2015 12:00am October 24, 2015 8:19am Comment on above: Take 1 tablet by yanet th every 8 hours as needed for pain. Take with food. lamoTRIgine 100 mg oral tablet (8 sources) Mood Stabilizer, Anti-epileptic Agent End: 11-04-2024 take 1 tablet by mouth once daily at bedtime lamoTRIgine (LAMICTAL) 100 mg tablet Indications: Mood changes Take 100 mg by mouth daily at bedtime. 11/04/2024 Discontinued Comment on above: Take 100 mg by mouth daily at bedtime. mecobalamin (8 sources) End: 11-04-2024 take 1000 ug by mouth once daily mecobalamin (B12 ACTIVE ORAL) Indications: History of drug abuse (HCC) Take 1,000 mcg by mouth once daily. 11/04/2024 Discontinued take 1000 ug by mouth once daily mecobalamin (B12 ACTIVE ORAL) Indications: History of drug abuse (HCC) Take 1,000 mcg by mouth once daily. Active take 1000 ug by mouth once daily mecobalamin (B12 ACTIVE ORAL) Indications: History of drug abuse (HCC) Take 1,000 mcg by mouth once daily. 0 Active Comment on above: Take 1,000 mcg by [facility] once daily. methylPREDNISolone 4 mg oral tablet (2 sources) Corticosteroid Start: 2021 End: 2024 take 1 tablet by mouth once daily Methylprednisolone (Medrol (Manuel)) 4 mg tablets,dose pack Discontinued 4 mg PO DAILY 21 June 05, 2021 12:00am August 03, 2024 4:59pm ondansetron 4 mg disintegrating oral tablet (2 sources) Serotonin-3 Receptor Antagonist Start: 2023 End: 2024 take 1 tablet by mouth every eight hours as needed for nausea Ondansetron 4 mg tablet,disintegrating Discontinued 4 mg PO EVERY 8 HOURS NEEDED as needed for Nausea 10 November 27, 2023 12:00am August 03, 2024 4:59pm oxyCODONE hydrochloride 5 mg oral tablet (2 sources) Opioid Agonist Start: 2019 End: 2024 take 1 tablet by mouth every six hours as needed for pain Oxycodone 5 MG tablet Discontinued 5 mg PO EVERY 6 HOURS NEEDED as needed for Pain Score 6-10 20 January 21, 2020 August 03, 2024 4:59pm Cellulitis of toe of right foot Cellulitis of right toe Problems Active Problems Problem Classification Problem Date Documented Da te Episodic/Chronic Abdominal pain (2 sources) Pain in pelvis; Translations: [Pelvic and perineal pain] 10-23-2015 Episodic Administrative/social admission (2 sources) Repeated prescription; Translations: [Encounter for issue of repeat prescription] Onset: 10-29-2024 11-04-2024 Episodic Attention-deficit, conduct, and disruptive behavior disorders (2 sources) Attention deficit hyperactivity disorder, combined type; Translations: [Attention-deficit hyperactivity disorder, combined type] 11-04-2024 Chronic Chronic obstructive pulmonary disease and bronchiectasis (1 source) Bronchitis; Translations: [Bronchitis, not specified as acute or chronic] 11-04-2024 Episodic Deficiency and other anemia (2 sources) Anemia; Translations: [Anemia, unspecified] Episodic Genitourinary symptoms and ill-defined conditions (2 sources) Increased frequency of urination; Translations: [Frequency of micturition] 03-13-2023 Episodic Intracranial injury (2 sources) Concussion injury of body structure; Translations: [Concussion] 03-23-2014 Episodic Menstrual disorders (2 sources) Menorrhagia; Translations: [Excessive and frequent menstruation with regular cycle] 10-23-2015 Chronic Mood disorders (17 sources) Depressive disorder; Translations: [Other specified depressive episodes] Onset: 11-18-2005 11-18-2005 Chronic Mood disorders (1 source) Disturbance in mood; Translations: [Emotional lability] Episodic Nausea and vomiting (2 sources) Nausea and vomiting; Translations: [Nausea with vomiting, unspecified] 12-05-2023 Episodic Nutritional deficiencies (6 sources) Vitamin D deficiency; Translations: [Vitamin D deficiency, unspecified] Onset: 07-05-2022 Chronic Other connective tissue disease (3 sources) Swelling of lower limb; Translations: [Other specified soft tissue disorders] 08-03-2024 Episodic Other connective tissue disease (2 sources) Ganglion of wrist; Translations: [Ganglion, unspecified wrist] 04-26-2015 Episodic Other fractures (2 sources) Closed fracture of coccyx; Translations: [Fracture of coccyx, initial encounter for closed fracture] 10-13-2018 Episodic Other gastrointestinal disorders (2 sources) Diarrhea; Translations: [Diarrhea, unspecified] 03-13-2023 Episodic Other nervous system disorders (2 sources) Paresthesia; Translations: [Paresthesia of skin] 12-05-2023 Episodic Other non-traumatic joint disorders (2 sources) Shoulder pain; Translations: [Pain in left shoulder] Episodic Other non-traumatic joint disorders (1 source) Pain in left shoulder; Translations: [Pain in joint, shoulder region] 09-04-2022 Episodic Other non-traumatic joint disorders (1 source) Pain in right knee; Translations: [Pain in joint, lower leg] 11-04-2024 Episodic Other screening for suspected conditions (not mental disorders or infectious disease) (13 sources) Patient encounter status; Translations: [Encounter for screening mammogram for malignant neoplasm of breast] Episodic Pleurisy; pneumothorax; pulmonary collapse (1 source) Pleurisy; Translations: [Pleurisy] 11-04-2024 Episodic Residual codes; unclassified (2 sources) Difficulty sleeping ; Translations: [Sleep disorder, unspecified] Episodic Residual codes; unclassified (1 source) Swelling; Translations: [Edema, unspecified] 11-27-2023 Episodic Skin and subcutaneous tissue infections (2 sources) Cellulitis of right toe; Translations: [Cellulitis of toe of right foot] 01-19-2020 Episodic Spondylosis; intervertebral disc disorders; other back problems (20 sources) Lumbar spondylosis; Translations: [Spondylosis without myelopathy or radiculopathy, lumbar region] Onset: 01-08-2013 01-08-2013 Chronic Sprains and strains (2 sources) Injury of right wrist; Translations: [Strain of unspecified muscle, fascia and tendon at wrist and hand level, right hand, initial encounter] 04-26-2015 Episodic Substance-related disorders (2 sources) History of drug abuse; Translations: [Other psychoactive substance abuse, in remission] Chronic Unclassified (1 source) [facility] Com[employer] Technician Review Required; Translations: [[facility] [employer] Technician Review Required] Onset: 07-05-2022 Unclassified (2 sources) Patient encounter status 11-04-2024 Past or Other Problems Problem Classification Problem Date Documented Da te Episodic/Chronic Nonmalignant breast conditions (3 sources) Lump in left breast; Translations: [Unspecified lump in the left breast, unspecified quadrant] Onset: 12-24-2023 Episodic Nonspecific chest pain (8 sources) Atypical chest pain; Translations: [Other chest pain] Onset: 12-17-2023 08-03-2024 Episodic Other connective tissue disease (2 sources) Pain in left arm; Translations: [Pain in left arm] Onset: 07-05-2022 Episodic Other female genital disorders (18 sources) Female genital organ symptoms; Translations: [Unspecified condition associated with female genital organs and menstrual cycle] Onset: 10-12-2008 10-12-2008 Episodic Other injuries and conditions due to external causes (17 sources) Finding of urine substance level; Translations: [Elevated urine levels of drugs, medicaments and biological substances] Onset: 10-30-2016 10-30-2016 Episodic Other nervous system disorders (12 sources) Carpal tunnel syndrome; Translations: [Carpal tunnel syndrome, unspecified upper limb] Onset: 04-11-2014 Resolved: 05-17-2014 Chronic Residual codes; unclassified (1 source) Edema, unspecified; Translations: [Edema, unspecified] Onset: 08-06-2024 Episodic Spondylosis; intervertebral disc disorders; other back problems (19 sources) Lumbar radiculopathy; Translations: [Radiculopathy, lumbar region] Onset: 10-03-2016 10-03-2016 Episodic Superficial injury; contusion (6 sources) Foreign body in hand; Translations: [Superficial foreign body of unspecified hand, initial encounter] Onset: 08-23-2014 Resolved: 08-23-2014 08-23-2014 Episodic Unclassified (1 source) [facility] Technician Review Required; Translations: [[facility] Com[employer] Technician Review Required] Onset: 07-05-2022 Unclassified (1 source) Acute pain of right knee 11-04-2024 Results Test Name Value Interpretation Reference Range Facility [facility] ZEB [facility]IFT ([id number]) 1975 F Date Time Provider Department 11/05/24 MICHAELA DE LA GARZA [facility] During your visit today, we recorded the following information about you: Daphne Bermudez RN 11/05/2024 10:08 AM Signed Pt called and reports she went to [facility] ER yesterday per provider. Pt was asking if she should come in and get the lab work done the provider had ordered. I told her it looked like the provider had wanted her to get that done. Pt is going to come in and get lab work done and will drop off a copy of her ER records. Transferred to scheduling to set up appt for mammogram and MRI knee. Daphne Bermudez RN Allergies As of Date: 11/05/2024 Noted Allergy Reaction GABAPENTIN 10/18/2016 14 - Other: See Comments Comments: Feels drunk and off balance PENICILLINS 02/27/2005 2 - Rash BEES 02/27/2005 BLUEBERRY 11/02/2013 4 - Hives NAPROXEN 10/07/2011 8 - GI Upset Comments: GI upset and sweating TORADOL (KETOROLAC) 04/07/2014 2 - Rash TRAMADOL HCL 12/18/2009 11 - Vomiting Date Reviewed: 11/04/2024 Reviewed by: Debra Barron MA - Fully Assessed Reason for Visit: Appointment [[id number]] Patient Question [0147] Prescriptions as of 11/05/2024 - hydrOXYzine pamoate (VISTARIL) 25 mg capsule Take 25 mg by mouth four times a day as needed for anxiety. - ibuprofen (MOTRIN) 600 mg tablet Take 600 mg by mouth every 8 hours as needed for pain. - hydroCHLOROthiazide 12.5 mg tablet Take 1 tablet by mouth once daily. - atomoxetine (STRATTERA) 40 mg capsule Take 1 capsule by mouth once daily. - Melatonin 5 mg cap Take 2 capsules by mouth daily at bedtime. Two tabs at bedtime. - traZODone (DESYREL) 50 mg tablet Take 1-2 tabs at bedtime as needed for insomnia - estradiol (ESTRACE) 2 mg tablet Take 1 tablet by mouth once daily. - magnesium oxide 400 mg magnesium tab Take 400 mg by mouth daily at bedtime. - MULTIVITAMIN ORAL Take by mouth once daily. Problem List As Of Date 11/05/2024 Noted Resolved DEPRESSIVE DISORDER NEC [F32.89] 11/18/2005 Female genital symptoms [N94.9] 10/12/2008 Lumbar spondylosis [M47.816] 01/08/2013 DDD (degenerative disc disease), lumbar [M51.36*01/08/2013 Carpal tunnel syndrome [G56.00] 04/11/2014 05/03/2014 CTS (carpal tunnel syndrome) left [G56.00] 05/17/2014 05/17/2014 Hand(s) except finger(s) alone, superficial for*08/23/2014 08/23/2014 Lumbar radiculopathy [M54.16] 10/03/2016 Positive urine drug screen [R82.5] 10/30/2016 Encounter Status:Closed by DAPHNE BERMUDEZ on 11/05/24 [facility] 4 HRon 025 Trop T High Sen Normal <=14 [facility] Comment on above: Result Comment: Canc elled via OM: Order cancelled - Patient discharged Performed By: #### M [id number] #### [facility] [address] [place], [address] Absolute lymphocyte countOrd ered By: Freddy Le on 11-04-2024 Lymphocytes Auto (Unsp spec) [#/Vol] 0.95 10*3/uL 0.83-4.51 [facility] Absolute neutrophil countOrd ered By: Freddy Salina on 11-04-2024 Neutrophils (Bld) [#/Vol] 4.4 10*3/uL 2.0-7.7 [facility] Anion gap in Serum or Plasma Ordered By: Freddy Le on 11-04-2024 Anion gap [Moles/Vol] 12 mmol/L 5-15 [facility] Automated lymphocyte count a s percentage of total leukocytesOrdered By: Freddy Le on 11-04-2024 Lymphocytes/100 WBC Auto (Unsp spec) 16.4 % Low 19-41 [facility] BUN/creatinine ratioOrdered By: Freddy Downing on 11-04-2024 Urea nitrogen/Creatinine [Mass ratio] 24.8 mg/mg High 10-20 [facility] Basic Metabolic Profile (BMP )on 11-04-2024 BUN/CRE 24.8 RATIO High 10-20 [facility] Comment on above: Order Comment: REDRA W. PREVIOUS SPECIMEN REJECTED DUE TO HEMOLYSIS. 11/04/242023 Padmini Jacobson. Performed By: #### L [id number], L500.2500 #### [facility] [address] [place], [address] Calcium [Mass/Vol] 9.1 mg/dL Normal 7.6-11.0 [facility] Comment on above: Order Comment: REDRA W. PREVIOUS SPECIMEN REJECTED DUE TO HEMOLYSIS. 11/04/242023 Padmini Jacobson. Performed By: #### L [id number], L500.2500 #### [facility] [address] [place], [address] Chloride [Moles/Vol] 104 mmol/L Normal 98-108 [facility] Comment on above: Order Comment: REDRA W. PREVIOUS SPECIMEN REJECTED DUE TO HEMOLYSIS. 11/04/242023 Padmini Jacobson. Performed By: #### L [id number], L500.2500 #### [facility] [address] [place], [address] CO2 [Moles/Vol] 22.4 mmol/L Normal 21.0-32.0 [facility] Comment on above: Order Comment: REDRA W. PREVIOUS SPECIMEN REJECTED DUE TO HEMOLYSIS. 11/04/242023 Padmini Jacobson. Performed By: #### L [id number], L500.2500 #### [facility] [address] [place], [address] Creatinine [Mass/Vol] 0.81 mg/dL Normal 0.70-1.20 [facility] Comment on above: Order Comment: REDRA W. PREVIOUS SPECIMEN REJECTED DUE TO HEMOLYSIS. 11/04/242023 Padmini Jacobson. Performed By: #### L [id number], L500.2500 #### [facility] [address] [place], [address] ECRCL 104.66 ml/min Normal 50-250 [facility] Comment on above: Order Comment: REDRA W. PREVIOUS SPECIMEN REJECTED DUE TO HEMOLYSIS. 11/04/242023 Padmini Jacobson. Performed By: #### L [id number], L500.2500 #### [facility] [address] [place], [address] GAP 12 Normal 5-15 [facility] Comment on above: Order Comment: REDRA W. PREVIOUS SPECIMEN REJECTED DUE TO HEMOLYSIS. 11/04/242023 Padmini Jacobson. Performed By: #### L [id number], L500.2500 #### [facility] [address] [place], [address] GFR/1.73 sq M.predicted among non-blacks MDRD (S/P/Bld) [Vol rate/Area] 90 mL/min/{1.73_m2} Normal >60 [facility] Comment on above: Order Comment: REDRA W. PREVIOUS SPECIMEN REJECTED DUE TO HEMOLYSIS. 11/04/242023 Padmini Jacobson. Result Comment: mL/m in/1.73m2 CKD-EPI Creatinine Equation (2020) Performed By: #### L 501.4021, L500.2500 #### [facility] [address] [place], [address] Glucose [Mass/Vol] 118 mg/dL High 70-99 [facility] Comment on above: Order Comment: REDRA W. PREVIOUS SPECIMEN REJECTED DUE TO HEMOLYSIS. 11/04/242023 Padmini Jacobson. Performed By: #### L 501.4021, L500.2500 #### [facility] [address] [place], [address] Potassium [Moles/Vol] 4.1 mmol/L Normal 3.3-5.1 [facility] Comment on above: Order Comment: REDRA W. PREVIOUS SPECIMEN REJECTED DUE TO HEMOLYSIS. 11/04/242023 Padmini Jacobson. Result Comment: Hemo lysis present, Results??could be affected. ?? Performed By: #### L 501.4021, L500.2500 #### [facility] [address] [place], [address] Sodium [Moles/Vol] 138 mmol/L Normal 133-145 [facility] Comment on above: Order Comment: REDRA W. PREVIOUS SPECIMEN REJECTED DUE TO HEMOLYSIS. 11/04/242023 Padmini Jacobson. Performed By: #### L 501.4021, L500.2500 #### [facility] [address] [place], [address] Urea nitrogen [Mass/Vol] 20 mg/dL High - [facility] Comment on above: Order Comment: REDRA W. PREVIOUS SPECIMEN REJECTED DUE TO HEMOLYSIS. 11/04/242023 Padmini Jacobson. Performed By: #### L 501.4021, L500.2500 #### [facility] [address] [place], [address] BUN Normal - [facility] Comment on above: Result Comment: This specimen has been REJECTED due to Laboratory criteria: Hemolyzed. WANDA (ED) has been notified of need of recollection. 11/04/242023 Padmini L White Performed By: #### L 500.2500, L100.0100 #### [facility] [address] [place], [address] BUN/CRE Normal 10-20 [facility] Comment on above: Result Comment: This specimen has been REJECTED due to Laboratory criteria: Hemolyzed. WANDA (ED) has been notified of need of recollection. 11/04/242023 Padmini L White Performed By: #### L 500.2500, L100.0100 #### [facility] [address] [place], [address] Calcium Normal 7.6-11.0 [facility] Comment on above: Result Comment: This specimen has been REJECTED due to Laboratory criteria: Hemolyzed. WANDA (ED) has been notified of need of recollection. 11/04/242023 Padmini L White Performed By: #### L 500.2500, L100.0100 #### [facility] [address] [place], [address] CL Normal 98-108 [facility] Comment on above: Result Comment: This specimen has been REJECTED due to Laboratory criteria: Hemolyzed. WANDA (ED) has been notified of need of recollection. 11/04/242023 Padmini L White Performed By: #### L 500.2500, L100.0100 #### [facility] [address] [place], [address] CO2 Normal 21.0-32.0 [facility] Comment on above: Result Comment: This specimen has been REJECTED due to Laboratory criteria: Hemolyzed. WANDA (ED) has been notified of need of recollection. 11/04/242023 Padmini L White Performed By: #### L 500.2500, L100.0100 #### [facility] [address] [place], [address] CREAT,SERUM Normal 0.70-1.20 [facility] Comment on above: Result Comment: This specimen has been REJECTED due to Laboratory criteria: Hemolyzed. WANDA (ED) has been notified of need of recollection. 11/04/242023 Padmini L White Performed By: #### L 500.2500, L100.0100 #### [facility] [address] [place], [address] eGFR Normal >60 [facility] Comment on above: Result Comment: This specimen has been REJECTED due to Laboratory criteria: Hemolyzed. WANDA (ED) has been notified of need of recollection. 11/04/242023 Padmini L White Performed By: #### L 500.2500, L100.0100 #### [facility] [address] [place], [address] GAP Normal 5-15 [facility] Comment on above: Result Comment: This specimen has been REJECTED due to Laboratory criteria: Hemolyzed. WANDA (ED) has been notified of need of recollection. 11/04/242023 Padmini L White Performed By: #### L 500.2500, L100.0100 #### [facility] [address] [place], [address] GLU Normal 70-99 [facility] Comment on above: Result Comment: This specimen has been REJECTED due to Laboratory criteria: Hemolyzed. WANDA (ED) has been notified of need of recollection. 11/04/242023 Padmini L White Performed By: #### L 500.2500, L100.0100 #### [facility] [address] [place], [address] Potassium Normal 3.3-5.1 [facility] Comment on above: Result Comment: This specimen has been REJECTED due to Laboratory criteria: Hemolyzed. WANDA (ED) has been notified of need of recollection. 11/04/242023 Padmini L White Performed By: #### L 500.2500, L100.0100 #### [facility] [address] [place], [address] Basic Metabolic Profile (BMP) Normal 133-145 [facility] Comment on above: Result Comment: This specimen has been REJECTED due to Laboratory criteria: Hemolyzed. WANDA (ED) has been notified of need of recollection. 11/04/242023 Padmini Jacobson Performed By: #### L 500.2500, L100.0100 #### [facility] [address] [place], [address] Basophil percentageOrdered B y: Freddy Downing on 11-04-2024 Basophils/100 WBC (Bld) 0.3 % 0-1 [facility] CBC W/Diff, Automatedon 10-22 Absolute Lymph 0.95 X10 3/uL Normal 0.83-4.51 [facility] Comment on above: Performed By: #### L 500.2500, L100.0100 #### [facility] [address] [place], [address] Absolute Neut 4.4 X10 3/uL Normal 2.0-7.7 [facility] Comment on above: Performed By: #### L 500.2500, L100.0100 #### [facility] [address] [place], [address] Basophils/100 WBC (Bld) 0.3 % Normal 0-1 [facility] Comment on above: Performed By: #### L 500.2500, L100.0100 #### [facility] [address] [place], [address] Eosinophils/100 WBC (Bld) 0.5 % Normal 0-5 [facility] Comment on above: Performed By: #### L 500.2500, L100.0100 #### [facility] [address] [place], [address] Erythrocyte distribution width (RBC) [Ratio] 13.1 % Normal 11.6-14.6 [facility] Comment on above: Performed By: #### L 500.2500, L100.0100 #### [facility] [address] [place], [address] Hematocrit (Bld) [Volume fraction] 37.4 % Normal 37-47 [facility] Comment on above: Performed By: #### L 500.2500, L100.0100 #### [facility] [address] [place], [address] Hemoglobin (Bld) [Mass/Vol] 12.5 g/dL Normal 12.0-15.0 [facility] Comment on above: Performed By: #### L 500.2500, L100.0100 #### [facility] [address] [place], [address] IG% 0.300 Normal 0.0-0.9 [facility] Comment on above: Result Comment: IG% - Immature Granulocytes (promyelocytes, myelocytes and metamyelocytes) > 1% indicates that a LEFT SHIFT is Present. Performed By: #### L 500.2500, L100.0100 #### [facility] [address] [place], [address] Lymphocytes/100 WBC (Bld) 16.4 % Low 19-41 [facility] Comment on above: Performed By: #### L 500.2500, L100.0100 #### [facility] [address] [place], [address] MCH (RBC) [Entitic mass] 31.8 pg Normal 27.0-32.0 [facility] Comment on above: Performed By: #### L 500.2500, L100.0100 #### [facility] [address] [place], [address] MCHC (RBC) [Mass/Vol] 33.4 g/dL Normal 32-36 [facility] Comment on above: Performed By: #### L 500.2500, L100.0100 #### [facility] [address] [place], [address] MCV (RBC) [Entitic vol] 95.2 fL Normal 81-99 [facility] Comment on above: Performed By: #### L 500.2500, L100.0100 #### [facility] [address] [place], [address] Monocytes/100 WBC (Bld) 7.1 % Normal 0-10 [facility] Comment on above: Performed By: #### L 500.2500, L100.0100 #### [facility] [address] [place], [address] Neutrophils/100 WBC (Bld) 75.4 % High 47-70 [facility] Comment on above: Performed By: #### L 500.2500, L100.0100 #### [facility] [address] [place], [address] Nucleated RBC (Bld) [#/Vol] 0 10*3/uL Normal 0-5 [facility] Comment on above: Performed By: #### L 500.2500, L100.0100 #### [facility] [address] [place], [address] Platelet mean volume (Bld) [Entitic vol] 9.1 fL Normal 6.2-12.0 [facility] Comment on above: Performed By: #### L 500.2500, L100.0100 #### [facility] [address] [place], [address] Platelets (Bld) [#/Vol] 307 10*3/uL Normal 150-450 [facility] Comment on above: Performed By: #### L 500.2500, L100.0100 #### [facility] [address] [place], [address] RBC (Bld) [#/Vol] 3.93 10*6/uL Low 4.2-5.4 [facility] Comment on above: Performed By: #### L 500.2500, L100.0100 #### [facility] [address] [place], [address] RDW SD 45.4 fl High 35.1-43.9 [facility] Comment on above: Performed By: #### L 500.2500, L100.0100 #### [facility] [address] [place], [address] WBC (Bld) [#/Vol] 5.8 10*3/uL Normal 4.4-11.0 [facility] Comment on above: Performed By: #### L 500.2500, L100.0100 #### [facility] [address] [place], [address] CNOVon 11-04-2024 CNOV Office Visit (FAMPWS ) ZEB SWIFT ([id number]) 1975 F Date Time Provider Department 11/04/24 1:20 PM [facility] During your visit today, we recorded the following information about you: Pulse Blood pressure Weight 90/minute 95/67 113 kg Michaela De La Garza APRN.[employer]MENT SUPERVISOR 11/04/2024 1:56 PM Signed Chief Complaint Patient presents with: Physical HPI Zeb Swift is a 49 year old female who presents here today for Above Complaints. Patient presents for annual physical, has multiple concerns. Chest Pain: - Intermittent pulling sensation in the left chest, occurring a couple of times a month. - Pain radiates to the arm. - Episodes last less than a minute. Knee Pain: - Chronic right knee pain, progressively worsening. - Recent x-ray suggested a possible meniscus tear. - Associated with significant edema in legs, ankles, and hands. - Denies known trauma. - Taking HCTZ with noted improvement in edema; ankles look like balloons without it. ADHD: - Currently taking Strattera. - History of inpatient treatment. Substance Use Disorder: - Currently residing in transitional housing. - 93 days clean and sober. Past medical history, appointments, medications, allergies reviewed. Previous Medical History PAST MEDICAL HISTORY Diagnosis Date DEPRESSIVE DISORDER NEC 11/18/2005 Lumbar radiculopathy 10/03/2016 Meningitis, unspecified(322.9) 1998 Previous Surgical History PAST SURGICAL HISTORY Procedure Laterality Date DELIVERY ONLY 2001 , low transverse DELIVERY+ CARE 1998 DELIVERY+ CARE 2000 DILATION AND CURETTAGE DXAND/THER NONOBSTETRIC 1994,1995 Dilation AND curettage F SALPINGO-OOPHORECTOMY 06/22/15 Dr. Martin Mariee HYSTERECTOMY HX 10/23/15 Dr. Eddie Mariee INCISION AND REMOVAL FOREIGN BODY SUBQ TISS COMPL Left 08/23/2014 Excision retained suture s/p Left CTR LIG/TRNSXJ FLP TUBE ABDL/VAG APPR UNI/BI NOVASURE REVISE MEDIAN N/CARPAL TUNNEL SURG 05/17/14 left CTR REVISE MEDIAN N/CARPAL TUNNEL SURG 05/03/14 right CTR Family History FAMILY HISTORY Problem Relation Age of Onset other (Bowel Cancer [Other]) Father Breast Cancer Paternal Grandmother other (epilepsy [Other]) Mother Psychiatry Mother depression Arthritis Father Gout Breast Cancer Mother Patient Allergies ALLERGIES Allergen Reactions Gabapentin Other: See Comments Feels drunk and off balance Penicillins Rash Bees Blueberry Hives Naproxen GI Upset GI upset and sweating Toradol [Ketorolac] Rash Tramadol Hcl Vomiting Current Medications Current Outpatient Medications on File Prior to Visit Medication Sig atomoxetine (STRATTERA) 40 mg capsule Take 40 mg by mouth once daily. hydroCHLOROthiazide 12.5 mg tablet Take 1 tablet by mouth once daily for 7 days. estradiol (ESTRACE) 2 mg tablet Take 1 tablet by mouth once daily. ergocalciferol 50,000 unit capsule (VITAMIN D2, DRISDOL) Take 1 tablet by mouth twice weekly [id number], then decrease to 1 tablet weekly. lamoTRIgine (LAMICTAL) 100 mg tablet Take 100 mg by mouth daily at bedtime. (Patient not taking: Reported on 10/29/2024) traZODone (DESYREL) 150 mg tablet Take 150 mg by mouth daily at bedtime. Melatonin 5 mg cap Take 5 mg by mouth daily at bedtime. Two tabs at bedtime. mecobalamin (B12 ACTIVE ORAL) Take 1,000 mcg by mouth once daily. (Patient not taking: Reported on 10/29/2024) magnesium oxide 400 mg magnesium tab Take 400 mg by mouth daily at bedtime. MULTIVITAMIN ORAL Take by mouth once daily. citalopram (CELEXA) 40 mg tablet Take 1 tablet by mouth once daily. (Patient not taking: Reported on 10/29/2024) No current facility-administered medications on file prior to visit. Social History SOCIAL HISTORY[1] Review of Symptoms REVIEW OF SYSTEMS SEE HPI EXAM: BP 95/67 Pulse 90 Wt 113 kg (249 lb 1.9 oz) LMP 12/17/2009 General Appearance: Well appearing, alert, in no acute distress, well-hydrated, well nourished. Skin: Skin color, texture, turgor normal, no suspicious rashes or lesions. Lungs: Lungs clear to auscultation. No wheezing, rhonchi, rales.. Heart: RRR without murmur, gallop, or rubs. No ectopy. Abdomen: Normal abdominal exam, Abdomen soft, non-tender. Bowel sounds normal. No masses, organomegaly. Musculoskeletal: Positive findings: joint location: on right knee swelling, painful movement, loss of ROM, and stiffness. Peripheral Pulses: Normal. Neurologic: Gait normal. Reflexes normal and symmetric. Sensation grossly intact. Health Maintenance List Anxiety Screening Never done Hepatitis C Screening Never done Hepatitis B Vaccine(1 of 3 - 19+ 3-dose series) Never done Cervical Cancer Screening due on 07/27/2018 Lipid Screening due on 2021 Colorectal Cancer Screening Never done Mammogram Screening due on 10/10/2022 (more content not included)... Normal [facility] CTA Chest W/WO Contraston CTA Chest W/WO Contrast [facility] Services [address] [place] [address] [id number] CTA Chest W/WO Contrast MR#: [id number] Acct: [id number] Name: ZEB SWIFT BARRY Rep #: [id number] : 1975 F 49 From: Enio Mendez MD PCP: Dr. Rosalino Aparicio MD Status: REG ER Study: CTA Chest W/WO Contrast Date of Exam: 11/04/24 Exam# [id number] Ordering Dr: Freddy Downing DO PROCEDURE: CTA CHEST W/WO CONTRAST 11/04/2024 REASON FOR EXAM: CHEST PAIN TECHNIQUE: CTA CHEST W/WO CONTRAST Multiplanar Sagittal and Coronal images were obtained. CONTRAST: Isovue 370 VOLUME: 99 mL One or more dose reduction techniques were used (e.g., Automated exposure control, adjustment of the mA and/or kV according to patient size, use of iterative reconstruction technique). RADIATION DOSE SUMMARY: CTDlvol: 44 mGy DLP: 559 mGycm COMPARISON: 08/03/2024 FINDINGS: Unremarkable base of neck and axilla. Normal esophagus. Normal heart size. No aortic dissection. No pulmonary embolism. Thoracic spine degeneration. No acute chest wall findings. No acute abdominal findings. Central airways are patent. Dependent atelectasis. No consolidation, effusion or pneumothorax. CT/CTA Chest W/WO Contrast IMPRESSION: No embolism, dissection, or pneumonia. Reading Location: [place] [address] CC: Dr. Rosalino Aparicio MD; Dr. Freddy Downing DO Scraper Loader Operator: Signed Normal [facility] Carbon dioxide, total [Moles /volume] in Central venous bloodOrdered By: Freddy Downing on 11-04-2024 CO2 [Moles/Vol] 22.4 mmol/L 21.0-32.0 [facility] Chest PA and Lateralon 11-04 Chest PA and Lateral [facility] Imaging Services [address] [place] [address] Chest PA and Lateral MR#: [id number] Acct: [id number] Name: ZEB SWIFT BARRY Rep #: [id number] : 1975 F 49 From: Rodolfo March MD PCP: Dr. Rosalino Aparicio MD Status: REG ER Study: Chest PA and Lateral Date of Exam: 11/04/24 Exam# [id number] Ordering Dr: Freddy Downing DO PROCEDURE: CHEST PA AND LATERAL 11/04/2024 REASON FOR EXAM: CHEST PAIN,COUGH TECHNIQUE: CHEST PA AND LATERAL COMPARISON: 08/03/2024. FINDINGS: The heart is normal in size. The lungs are clear. No acute osseous abnormalities. RAD/Chest PA and Lateral IMPRESSION: NO ACUTE FINDINGS. Reading Location: [facility] CC: Dr. Rosalino Aparicio MD; Dr. Freddy Downing DO Scraper Loader Operator: Signed Normal [facility] Chloride assayOrdered By: Drew Downing on 11-04-2024 Chloride [Moles/Vol] 104 mmol/L 98-108 [facility] [id number] 11-04-2024 ECG01 Ventricular Rate : 8 4 BPM Atrial Rate : 84 BPM P-R Interval : 174 ms QRS Duration : 94 ms Q-T Interval : 380 ms QTC Calculation(Bazett) : 449 ms Calculated P [place] : 55 degrees Calculated R [place] : 45 degrees Calculated T [place] : 71 degrees NORMAL SINUS RHYTHM POSSIBLE LEFT ATRIAL ENLARGEMENT POSSIBLE INFERIOR MYOCARDIAL INFARCTION , AGE UNDETERMINED ABNORMAL ECG Confirmed by MD BE QARAB ([id number]) on 11/04/2024 4:58:32 PM NAME : ZEB SWIFT PID : [id number] : 1975 Gender : Female Race : ORD : Procedure Date : Nov 04 2024 13:46:20 Edit Date : Nov 04 2024 16:58:41 Diagnosis: NORMAL SINUS RHYTHM POSSIBLE LEFT ATRIAL ENLARGEMENT POSSIBLE INFERIOR MYOCARDIAL INFARCTION , AGE UNDETERMINED ABNORMAL ECG Confirmed by MD BE QARAB ([id number]) on 11/04/2024 4:58:32 PM Test Reason : Location : 136 : [place] Overread By : MD BE QARAB Edited By : MD BE QARAB Referred By : Michaela MANCIA Acquired by : Tana montoya [facility] Emergency Department Summary on 11-04-2024 Emergency Department Summary [facility] Medical Records Department [address] [place] [address] Emergency Department Summary 11/04/24 MR#: [id number] Acct: [id number] Name: ZEB SWIFT BARRY Rep #: [id number] : 1975 49 From: Freddy Weber PCP: Dr. Rosalino Aparicio MD Status:DEP ER Location: ED HPI History of Present Illness Chief Complaint: Chest Pain Informant: patient Narrative Narrative: Sent from PCP concerning abnormal EKG. She has been having chest pains on and off for the last few months. States sharp in nature goes down her left arm. She has tobacco history of 17 pack years. States premature PR in mother at the age of 36. She does not know when her father had an PR. Grandmother in her 70s. Denies hypertension diabetes or hyperlipidemia. Denies any stress test history. Denies recent travel surgery or immobilizations. No history PE or DVT. She states increasing productive cough recently. No fever or chills. Reported there was concerns of left- sided swelling on EKG. Reports pain is sharp. CVD Risk Factors: Positive for Family History 1' Diabetes or Hypercholesterolemia PE Risk Factors: Negative for Recent Travel/Surgery, Recent Immobilization or Prior DVT or PE PFSH PFS Home Medications ???Medication ???Instructions ???Recorded ???Last Taken ???Type estradiol 2 mg tablet 2 mg PO DAILY hormone 10/12/18 22:00 History atomoxetine 40 mg capsule 40 mg PO DAILY 08/03/24 08/03/24 H istory hydrochlorothiazide 12.5 mg tablet 12.5 mg PO DAILY 11/04/24 Unknow n History hydroxyzine pamoate 25 mg capsule 25 mg PO Q8H PRN anxiety 11/04/24 Unknown History trazodone 50 mg tablet 100 mg PO QHS PRN PRN sleep Unknown History vitamin B complex (B-Complex 1 tab PO Q24H 11/04/24 Unknown His tory tablet) Allergy/AdvReac Type Severity Reaction Status Date / Time bee pollen (Bee Pollen) Allergy Anaphylaxis Verified 11/04/24 19:45 blueberry (Blueberry) Allergy Anaphylaxis Verified 11/04/24 19:45 ketorolac tromethamine (From Allergy Hives Verified 11/04/24 19:45 Toradol) naproxen Allergy Rash Verified 11/04/24 19:45 Penicillins Allergy Rash Verified 11/04/24 19:45 gabapentin AdvReac dizziness Verified 11/04/24 19:45 tramadol AdvReac Vomiting Verified 11/04/24 19:45 Surgical History H/O: hysterectomy Social History household members: spouse housing: house Smoking Status: Current every day smoker tobacco type: cigarettes ROS ROS ED Constitutional Constitutional ED: Denies chills, fever(s) or sweats ENT ENT ED: Denies sore throat Cardiovascular Cardiovascular: Reports chest pain; Denies leg edema, palpitations or racing heartbeat Respiratory/Chest Respiratory/Chest: Reports cough; Denies dyspnea or dyspnea on exertion Gastrointestinal Gastrointestinal: Denies abdominal pain, diarrhea, nausea or vomiting Genitourinary Genitourinary ED: Denies dysuria, hematuria or urinary frequency Musculoskeletal Musculoskeletal: Denies back pain, extremity pain or neck pain Integumentary Denies rash or wounds Neurologic Neurologic: Denies headache(s), paresthesias or weakness EXAM Physical Exam Const Vital Signs: 11/04/24 19:46 11/04/24 20:15 11/04/24 20:18 Temperature 98.5 F Temperature Source Oral Pulse Rate 96 85 Respiratory Rate 16 16 Blood Pressure 139/75 H Blood Pressure Mean 96 Pulse Ox 98 Oxygen Delivery Method Room Air 11/04/24 21:00 11/04/24 21:30 11/04/24 21:34 Temperature Temperature Source Pulse Rate 83 78 94 Respiratory Rate 15 16 16 Blood Pressure 168/77 H 158/77 H Blood Pressure Mean 104 104 Pulse Ox Oxygen Delivery Method 11/04/24 22:00 11/04/24 22:45 11/04/24 22:45 Temperature Temperature Source Pulse Rate 83 78 85 Respiratory Rate 9 L 16 20 H Blood Pressure 174/84 H 120/70 120/70 Blood Pressure Mean 109 84 84 Pulse Ox Oxygen Delivery Method 11/04/24 23:00 11/04/24 23:49 Temperature 96.9 F L Temperature Source Pulse Rate 83 77 Respiratory Rate 9 L 18 Blood Pressure 133/63 H 143/51 H Blood Pressure Mean 84 81 Pulse Ox 95 Oxygen Delivery Method Positive well nourished and well developed General Appearance ED: well developed and NAD HEENT Reports moist mucous membranes normocephalic and atraumatic Eyes General Eye ED: Yes normal appearance of both eyes Neck full ROM Chest Wall Chest: Negative for tenderness Resp normal respiratory effort and normal air movement Effort and Inspection: symmetric chest movement; Negative for respiratory distress Cardio regular rate, regular rhythm and no murmurs Peripheral Pulses: pulses 2+ throug (more content not included)... Normal [facility] Eosinophil percentageOrdered By: Freddy Downing on 11-04-2024 Eosinophils/100 WBC (Bld) 0.5 % 0-5 [facility] Erythrocyte distribution wid th ratioOrdered By: Freddy Downing on 11-04-2024 Erythrocyte distribution width (RBC) [Ratio] 13.1 % 11.6-14.6 [facility] Erythrocyte distribution wid th standard deviationOrdered By: Freddy Downing on 11-04-2024 Erythrocyte distribution width (RBC) [Ratio] 45.4 fl High 35.1-43.9 [facility] Glomerular filtration rate ( GFR) estimation/1.73 sq m using serum, plasma, or whole bOrdered By: Freddy Downing on 11-04-2024 GFR/1.73 sq M.predicted among non-blacks MDRD (S/P/Bld) [Vol rate/Area] 90 mL/min/{1.73_m2} >60 [facility] [facility] Comment on above: mL/min/1.73m2 CKD-EP I Creatinine Equation (2020) Hematocrit Auto (Bld) [Volum e fraction]Ordered By: Freddy Downing on 11-04-2024 Hematocrit (Bld) [Volume fraction] 37.4 % 37-47 [facility] Hemoglobin measurementOrdere d By: Freddy Downing on 11-04-2024 Hemoglobin (Bld) [Mass/Vol] 12.5 g/dL 12.0-15.0 [facility] Immature granulocytes/100 WB C Auto (Bld)Ordered By: Freddy Downing on 11-04-2024 Immature granulocytes/100 WBC (Bld) 0.300 % 0.0-0.9 [facility] Comment on above: IG% - Immature Granu locytes (promyelocytes, myelocytes and metamyelocytes) > 1% indicates that a LEFT SHIFT is Present. L501.4021on 11-04-2024 Trop T High Sen < 6 Normal <=14 [facility] Comment on above: Order Comment: ANUP W. PREVIOUS SPECIMEN REJECTED DUE TO HEMOLYSIS. 11/04/242023 Padmini Jacobson. Performed By: #### L 501.4021, L500.2500 #### [facility] [address] [place], [address] MCV (mean corpuscular volume ) determinationOrdered By: Freddy Downing on 11-04-2024 MCV (RBC) [Entitic vol] 95.2 fL 81-99 [facility] Mean corpuscular hemoglobin (MCH) determinationOrdered By: Freddy Downing on 11-04-2024 MCH (RBC) [Entitic mass] 31.8 pg 27.0-32.0 [facility] Mean corpuscular hemoglobin concentration (MCHC) determinationOrdered By: Freddy Downing on 11-04-2024 MCHC (RBC) [Mass/Vol] 33.4 g/dL 32-36 [facility] Mean platelet volume determi nationOrdered By: Freddy Downing on 11-04-2024 Platelet mean volume (Bld) [Entitic vol] 9.1 fL 6.2-12.0 [facility] Monocyte percentageOrdered B y: Freddy Downing on 11-04-2024 Monocytes/100 WBC (Bld) 7.1 % 0-10 [facility] Neutrophil percentageOrdered By: Freddy Downing on 11-04-2024 Neutrophils/100 WBC (Bld) 75.4 % High 47-70 [facility] Nucleated red blood cell per centageOrdered By: Freddy Downing on 11-04-2024 Nucleated RBC/100 WBC (Bld) [Ratio] 0 % 0-5 [facility] Platelet countOrdered By: Drew Downing on 11-04-2024 Platelets (Bld) [#/Vol] 307 10*3/uL 150-450 [facility] Potassium measurement (mass/ volume)Ordered By: Freddy Downing on 11-04-2024 Potassium (Unsp spec) [Mass/Vol] 4.1 mmol/L 3.3-5.1 [facility] Comment on above: Hemolysis present, R esults could be affected. RBC Auto (Bld) [#/Vol]Ordere d By: Freddy Downing on 11-04-2024 RBC (Bld) [#/Vol] 3.93 10*6/uL Low 4.2-5.4 [facility] Serum creatinine measurement (mass/volume)Ordered By: Freddy Downing on 11-04-2024 Creatinine [Mass/Vol] 0.81 mg/dL 0.70-1.20 [facility] Serum glucose measurement (m ass/volume)Ordered By: Freddy Downing on 11-04-2024 Glucose [Mass/Vol] 118 mg/dL High 70-99 [facility] Serum or plasma calcium kiet urement (mass/volume)Ordered By: Freddy Downing on 11-04-2024 Calcium [Mass/Vol] 9.1 mg/dL 7.6-11.0 [facility] Serum or plasma urea nitroge n measurement (mass/volume)Ordered By: Freddy Downing on 11-04-2024 Urea nitrogen [Mass/Vol] 20 mg/dL High 4-19 [facility] Sodium levelOrdered By: Freddy Downing on 11-04-2024 Sodium [Moles/Vol] 138 mmol/L 133-145 [facility] Troponin T HS 2 HRon 025 Trop T High Sen < 6 Normal <=14 [facility] Comment on above: Performed By: #### L 499.0042 #### [facility] [address] [place], [place], [id number] Troponin T.cardiac [Mass/vol ume] in Serum or Plasma by High sensitivity methodOrdered By: Freddy Downing on 11-04-2024 Troponin T.cardiac High sensitivity method [Mass/Vol] < 6 ng/L <14 [facility] Troponin T.cardiac High sensitivity method [Mass/Vol] < 6 ng/L <14 [facility] White blood cell (WBC) count Ordered By: Freddy Downing on 11-04-2024 WBC (Bld) [#/Vol] 5.8 10*3/uL 4.4-11.0 [facility] CNOVon 10-29-2024 CNOV Office Visit ([facility]OU[facility]) ZEB SWIFT ([id number]) 1975 F Date Time Provider Department 10/29/24 2:45 PM MITCHEL WASHINGTON During your visit today, we recorded the following information about you: Temperature Pulse Respiration Blood pressure 98.1 degrees 82/minute 20/minute 116/76 Weight 113 kg Mitchel Washington, PLANT MACHINIST.CABIN EQUIPMENT SUPERVISOR 10/29/2024 3:12 PM Signed [facility] [...] area. - Follow-up appointment scheduled with Dr. Aparicio on . Review of Systems Musculoskeletal: (+) [...] patient to keep follow-up appointment with Dr. Aparicio on for ongoing management. - Encouraged patient to follow up with orthopedics for further evaluation of meniscal tear and potential surgical intervention. and Recording using [employer] software for draft documentation of the visit was discussed with the patient/authorized premium service representative; all questions welcomed and answered. Patient/authorized premium service representative agreed to proceed MDM Procedures Allergies As [...] is out Primary Visit Diagnosis:Medication refill [Z76.0] Order(s):hydroCHLOROthi azide 12.5 mg tabletTake 1 tablet by mouth [...] Take 1 tablet by mouth twice weekly c2vsfon, then decrease to 1 tablet weekly. - [...] tablet (Discont (more content not included)... Normal [facility] 12 Lead EKGon 08-03-2024 12 Lead EKG [facility] Cardiovascular Services [address] [place] [address] 12 Lead EKG 08/03/24 1707 MR#: [id number] Acct: [id number] Name: ZEB SWIFT BARRY Rep #: [id number] : 1975 49 From: Farhad Rice MD [...] Normal ECG Confirmed by Farhad Rice ([id number]), manager editorial KAILA ROQUE ([id number]) on 08/05/2024 10:00:39 AM Referred By: Confirmed By: Farhad Rice 08/05/24999 Date Farhad Rice MD CC: Dr. Ruddy Lyle MD; Dr. Rosalino Aparicio MD Signed Normal [facility] Absolute lymphocyte countOrd ered By: Ruddy Lyle on 08-03-2024 Lymphocytes Auto (Unsp spec) [#/Vol] 1.75 10*3/uL 0.83-4.51 [facility] Absolute neutrophil countOrd ered By: Ruddy Lyle on 08-03-2024 Neutrophils (Bld) [#/Vol] 2.5 10*3/uL 2.0-7.7 [facility] Anion gap in Serum or Plasma Ordered By: Ruddy Lyle on 08-03-2024 Anion gap [Moles/Vol] 9 mmol/L 08-05 [facility] Automated lymphocyte count a s percentage of total leukocytesOrdered By: Ruddy Lyle on 08-03-2024 Lymphocytes/100 WBC Auto (Unsp spec) 36.5 % [facility] BUN/creatinine ratioOrdered By: Ruddy Lyle on 08-03-2024 Urea nitrogen/Creatinine [Mass ratio] 22.2 mg/mg High 01-10 [facility] Basic Metabolic Profile (BMP )on 08-03-2024 BUN/CRE 22.2 RATIO High 01-10 [facility] Comment on above: Performed By: #### L 501.4021, L500.2500, L100.0100 ####[facility] [address] [place], [address] Calcium [Mass/Vol] 9.5 mg/dL Normal 7.6-11.0 [facility] Comment on above: Performed By: #### L 501.4021, L500.2500, L100.0100 ####[facility] [address] [place], [address] Chloride [Moles/Vol] 104 mmol/L Normal 98-108 [facility] Comment on above: Performed By: #### L 501.4021, L500.2500, L100.0100 ####[facility] [address] [place], [address] CO2 [Moles/Vol] 25.7 mmol/L Normal 21.0-32.0 [facility] Comment on above: Performed By: #### L 501.4021, L500.2500, L100.0100 ####[facility] [address] [place], [address] Creatinine [Mass/Vol] 0.80 mg/dL Normal 0.70-1.20 [facility] Comment on above: Performed By: #### L 501.4021, L500.2500, L100.0100 ####[facility] [address] [place], [address] ECRCL 101.88 ml/min Normal 50-250 [facility] Comment on above: Performed By: #### L 501.4021, L500.2500, L100.0100 ####[facility] [address] [place], [address] GAP 9 Normal 5-15 [facility] Comment on above: Performed By: #### L 501.4021, L500.2500, L100.0100 ####[facility] [address] [place], [address] GFR/1.73 sq M.predicted among non-blacks MDRD (S/P/Bld) [Vol rate/Area] 91 mL/min/{1.73_m2} Normal >60 [facility] Comment on above: Result Comment: mL/m in/1.73m2 CKD-EPI Creatinine Equation (2020) Performed By: #### L 501.4021, L500.2500, L100.0100 ####[facility] [address] [place], [address] Glucose [Mass/Vol] 122 mg/dL High 70-99 [facility] Comment on above: Performed By: #### L 501.4021, L500.2500, L100.0100 ####[facility] [address] [place], [address] Potassium [Moles/Vol] 4.0 mmol/L Normal 3.3-5.1 [facility] Comment on above: Performed By: #### L 501.4021, L500.2500, L100.0100 ####[facility] [address] [place], [address] Sodium [Moles/Vol] 139 mmol/L Normal 133-145 [facility] Comment on above: Performed By: #### L 501.4021, L500.2500, L100.0100 ####[facility] [address] [place], [address] Urea nitrogen [Mass/Vol] 18 mg/dL Normal 4-19 [facility] Comment on above: Performed By: #### L 501.4021, L500.2500, L100.0100 ####[facility] [address] [place], [address] Basophil percentageOrdered B y: Ruddy Lyle on 08-03-2024 Basophils/100 WBC (Bld) 0.4 % 0-1 [facility] CBC W/Diff, Automatedon 07-22 Absolute Lymph 1.75 X10 3/uL Normal 0.83-4.51 [facility] Comment on above: Performed By: #### L 501.4021, L500.2500, L100.0100 ####[facility] [address] [place], [address] Absolute Neut 2.5 X10 3/uL Normal 2.0-7.7 [facility] Comment on above: Performed By: #### L 501.4021, L500.2500, L100.0100 ####[facility] [address] [place], [address] Basophils/100 WBC (Bld) 0.4 % Normal 0-1 [facility] Comment on above: Performed By: #### L 501.4021, L500.2500, L100.0100 ####[facility] [address] [place], [address] Eosinophils/100 WBC (Bld) 2.9 % Normal 0-5 [facility] Comment on above: Performed By: #### L 501.4021, L500.2500, L100.0100 ####[facility] [address] [place], [address] Erythrocyte distribution width (RBC) [Ratio] 13.5 % Normal 11.6-14.6 [facility] Comment on above: Performed By: #### L 501.4021, L500.2500, L100.0100 ####[facility] [address] [place], [address] Hematocrit (Bld) [Volume fraction] 37.0 % Normal 37-47 [facility] Comment on above: Performed By: #### L 501.4021, L500.2500, L100.0100 ####[facility] [address] [place], [address] Hemoglobin (Bld) [Mass/Vol] 12.1 g/dL Normal 12.0-15.0 [facility] Comment on above: Performed By: #### L 501.4021, L500.2500, L100.0100 ####[facility] [address] [place], [address] IG% 0.200 Normal 0.0-0.9 [facility] Comment on above: Result Comment: IG% - Immature Granulocytes (promyelocytes, myelocytes and metamyelocytes) > 1% indicates that a LEFT SHIFT is Present. Performed By: #### L 501.4021, L500.2500, L100.0100 ####[facility] [address] [place], [address] Lymphocytes/100 WBC (Bld) 36.5 % Normal 19-41 [facility] Comment on above: Performed By: #### L 501.4021, L500.2500, L100.0100 ####[facility] [address] [place], [address] MCH (RBC) [Entitic mass] 32.4 pg High 27.0-32.0 [facility] Comment on above: Performed By: #### L 501.4021, L500.2500, L100.0100 ####[facility] [address] [place], [address] MCHC (RBC) [Mass/Vol] 32.7 g/dL Normal 32-36 [facility] Comment on above: Performed By: #### L 501.4021, L500.2500, L100.0100 ####[facility] [address] [place], [address] MCV (RBC) [Entitic vol] 99.2 fL High 81-99 [facility] Comment on above: Performed By: #### L 501.4021, L500.2500, L100.0100 ####[facility] [address] [place], [address] Monocytes/100 WBC (Bld) 8.4 % Normal 0-10 [facility] Comment on above: Performed By: #### L 501.4021, L500.2500, L100.0100 ####[facility] [address] [place], [address] Neutrophils/100 WBC (Bld) 51.6 % Normal 47-70 [facility] Comment on above: Performed By: #### L 501.4021, L500.2500, L100.0100 ####[facility] [address] [place], [address] Nucleated RBC (Bld) [#/Vol] 0 10*3/uL Normal 0-5 [facility] Comment on above: Performed By: #### L 501.4021, L500.2500, L100.0100 ####[facility] [address] [place], [address] Platelet mean volume (Bld) [Entitic vol] 8.7 fL Normal 6.2-12.0 [facility] Comment on above: Performed By: #### L 501.4021, L500.2500, L100.0100 ####[facility] [address] [place], [address] Platelets (Bld) [#/Vol] 390 10*3/uL Normal 150-450 [facility] Comment on above: Performed By: #### L 501.4021, L500.2500, L100.0100 ####[facility] [address] [place], [address] RBC (Bld) [#/Vol] 3.73 10*6/uL Low 4.2-5.4 [facility] Comment on above: Performed By: #### L 501.4021, L500.2500, L100.0100 ####[facility] [address] [place], [address] RDW SD 50.1 fl High 35.1-43.9 [facility] Comment on above: Performed By: #### L 501.4021, L500.2500, L100.0100 ####[facility] [address] [place], [address] WBC (Bld) [#/Vol] 4.8 10*3/uL Normal 4.4-11.0 [facility] Comment on above: Performed By: #### L 501.4021, L500.2500, L100.0100 ####[facility] [address] [facility] [place], [address] CTA Chest W/WO Contraston CTA Chest W/WO Contrast [facility] Imaging Services [address] [place] [address] CTA Chest W/WO Contrast MR#: [id number] Acct: [id number] Name: ZEB SWIFT BARRY Rep #: [id number] : 1975 F 49 From: Andrea strong MD PCP: Dr. Rosalino Aparicio MD Status: REG ER Study: CTA Chest W/WO Contrast Date of Exam: 08/03/24 Exam# [id number] Ordering Dr: Ruddy Lyle MD PROCEDURE: CTA [...] acute findings in the thorax. [facility] CC: Dr. Ruddy Lyle MD; Dr. Rosalino Aparicio MD Scraper Loader Operator: Signed Normal [facility] Carbon dioxide, total [Moles /volume] in Central venous bloodOrdered By: Ruddy Lyle on 08-03-2024 CO2 [Moles/Vol] 25.7 mmol/L 21.0-32.0 [facility] Chest 1 View (Portable)on Chest 1 View (Portable) [facility] Imaging Services [address] [place] [address] Chest 1 View (Portable) MR#: [id number] Acct: [id number] Name: ZEB SWIFT Rep #: [id number] : 1975 F 49 From: Eddie Pearson PCP: Dr. Rosalino Aparicio MD Status: REG ER Study: Chest 1 View (Portable) Date of Exam: 08/03/24 Exam# [id number] Ordering Dr: Ruddy Lyle MD PROCEDURE: CHEST [...] evidence of acute cardiopulmonary disease. Reading Location: [place] [address] CC: Dr. Ruddy Lyle MD; Dr. Rosalino Aparicio MD Scraper Loader Operator: Signed Normal [facility] Chloride assayOrdered By: Navarro Lyle on 08-03-2024 Chloride [Moles/Vol] 104 mmol/L 98-108 [facility] D-Dimer Quantitative (DVT/PE )on 08-03-2024 D-DIMER QUANT 0.67 FEU/ug/m Invalid Interpretation Code 0.27-0.49 [facility] Comment on above: Order Comment: CRITI MATEO VALUE CALLED TO NOE DELUCA08/03/24 1713 Lissett Seals.RESULTS READ BACK BY SAME. Result Comment: D-Di lucy ELEVATED (>0.49): Additional studies and clinical assessments are indicated to conclude diagnosis of: Deep Vein Thrombosis (DVT) or Pulmonary Embolism (PE) Performed By: #### L 300.4966 ####[facility] [address] [place], [address] Emergency Department Summary on 08-03-2024 Emergency Department Summary [facility] Medical Records Department [address] [place] [address] Emergency Department Summary 08/03/24 MR#: [id number] Acct: [id number] Name: ZEB SWIFT BARRY Rep #: [id number] : 1975 49 From: Ruddy Lyle MD PCP: Dr. Rosalino Aparicio MD Status:DEP ER Location: ED HPI History [...] Currently symptom-free. Prior similar symptoms: No Recent Illness/Hospitalization : No PFSH PFSH Medical History no medical [...] Moving all 4 extremities. Neurovascular intact. 5-5 ore buyer strength. Equal symmetric radial pulses. Dorsi plantarflexion [...] mucous membranes (more content not included)... Normal [facility] Eosinophil percentageOrdered By: Ruddy Lyle on 08-03-2024 Eosinophils/100 WBC (Bld) 2.9 % 0-5 [facility] Erythrocyte distribution wid th ratioOrdered By: Ruddy Lyle on 08-03-2024 Erythrocyte distribution width (RBC) [Ratio] 13.5 % 11.6-14.6 [facility] Erythrocyte distribution wid th standard deviationOrdered By: Ruddy Lyle on 08-03-2024 Erythrocyte distribution width (RBC) [Ratio] 50.1 fl High 35.1-43.9 [facility] Glomerular filtration rate ( GFR) estimation/1.73 sq m using serum, plasma, or whole bOrdered By: Ruddy Lyle on 08-03-2024 GFR/1.73 sq M.predicted among non-blacks MDRD (S/P/Bld) [Vol rate/Area] 91 mL/min/{1.73_m2} >60 [facility] Comment on above: mL/min/1.73m2 CKD-EP I Creatinine Equation (2020) Hematocrit Auto (Bld) [Volum e fraction]Ordered By: Ruddy Lyle on 08-03-2024 Hematocrit (Bld) [Volume fraction] 37.0 % 37-47 [facility] Hemoglobin measurementOrdere d By: Ruddy Lyle on 08-03-2024 Hemoglobin (Bld) [Mass/Vol] 12.1 g/dL 12.0-15.0 [facility] Immature granulocytes/100 WB C Auto (Bld)Ordered By: Ruddy Lyle on 08-03-2024 Immature granulocytes/100 WBC (Bld) 0.200 % 0.0-0.9 [facility] Comment on above: IG% - Immature Granu locytes (promyelocytes, myelocytes and metamyelocytes) > 1% indicates that a LEFT SHIFT is Present. L501.4021on 08-03-2024 Trop T High Sen < 6 Normal <=14 [facility] Comment on above: Performed By: #### L 501.4021, L500.2500, L100.0100 ####[facility] [address] [place], [place], [address] MCV (mean corpuscular volume ) determinationOrdered By: Ruddy Lyle on 08-03-2024 MCV (RBC) [Entitic vol] 99.2 fL High 81-99 [facility] Mean corpuscular hemoglobin (MCH) determinationOrdered By: Ruddy Lyle on 08-03-2024 MCH (RBC) [Entitic mass] 32.4 pg High 27.0-32.0 [facility] Mean corpuscular hemoglobin concentration (MCHC) determinationOrdered By: Ruddy Lyle on 08-03-2024 MCHC (RBC) [Mass/Vol] 32.7 g/dL 32-36 [facility] Mean platelet volume determi nationOrdered By: Ruddy Lyle on 08-03-2024 Platelet mean volume (Bld) [Entitic vol] 8.7 fL 6.2-12.0 [facility] Monocyte percentageOrdered B y: Ruddy Lyle on 08-03-2024 Monocytes/100 WBC (Bld) 8.4 % 0-10 [facility] Neutrophil percentageOrdered By: Ruddy Lyle on 08-03-2024 Neutrophils/100 WBC (Bld) 51.6 % 47-70 [facility] Nucleated red blood cell per centageOrdered By: Ruddy Lyle on 08-03-2024 Nucleated RBC/100 WBC (Bld) [Ratio] 0 % 0-5 [facility] Platelet countOrdered By: Navarro Lyle on 08-03-2024 Platelets (Bld) [#/Vol] 390 10*3/uL 150-450 [facility] Potassium measurement (mass/ volume)Ordered By: Ruddy Lyle on 08-03-2024 Potassium (Unsp spec) [Mass/Vol] 4.0 mmol/L 3.3-5.1 [facility] RBC Auto (Bld) [#/Vol]Ordere d By: Ruddy Lyle on 08-03-2024 RBC (Bld) [#/Vol] 3.73 10*6/uL Low 4.2-5.4 [facility] Serum creatinine measurement (mass/volume)Ordered By: Ruddy Lyle on 08-03-2024 Creatinine [Mass/Vol] 0.80 mg/dL 0.70-1.20 [facility] Serum glucose measurement (m ass/volume)Ordered By: Ruddy Lyle on 08-03-2024 Glucose [Mass/Vol] 122 mg/dL High 70-99 [facility] Serum or plasma calcium kiet urement (mass/volume)Ordered By: Ruddy Lyle on 08-03-2024 Calcium [Mass/Vol] 9.5 mg/dL 7.6-11.0 [facility] Serum or plasma urea nitroge n measurement (mass/volume)Ordered By: Ruddy Lyle on 08-03-2024 Urea nitrogen [Mass/Vol] 18 mg/dL 4-19 [facility] Sodium levelOrdered By: Ruddy Lyle on 08-03-2024 Sodium [Moles/Vol] 139 mmol/L 133-145 [facility] Troponin T.cardiac [Mass/vol ume] in Serum or Plasma by High sensitivity methodOrdered By: Ruddy Lyle on 08-03-2024 Troponin T.cardiac High sensitivity method [Mass/Vol] < 6 ng/L <14 [facility] Venous Duplex US, Unilateral on 08-03-2024 Venous Duplex US, Unilateral [facility] Cardi[facility] Services [address] [place] [address] Venous Duplex US, Unilateral 08/03/24 1638 MR#: [id number] Acct: [id number] Name: ZEB SWIFT BARRY Rep #: [id number] : 1975 49 From: Joe Gustafson MD [...] Physician: Ruddy Lyle Referring Physician: MD Rosalino Aparicio Performed By: Aline Ochoa RVT 08/04/245 Date Joe Gustafson MD CC: Dr. Ruddy Lyle MD; Dr. Rosalino Aparicio MD Date Dictated: 08/03/24 1638 Date Transcribed: 08/04/24754 Scraper Loader Operator: Signed Normal [facility] White blood cell (WBC) count Ordered By: Ruddy Lyle on 08-03-2024 WBC (Bld) [#/Vol] 4.8 10*3/uL 4.4-11.0 [facility] Breast Limited Unilateralon 12-04-2023 Breast Limited Unilateral [facility] Imaging Services [address] [place] [address] Breast Limited Unilateral MR#: [id number] Acct: [id number] Name: ZEB SWIFT BARRY Rep #: [id number] : 1975 F 48 From: Chet alvarez MD PCP: Dr. Rosalino Aparicio MD Status: REG CLI Study: Breast Limited Unilateral Date of Exam: Exam# [id number] Ordering Dr: Sun Tirado [facility] [id number] STUDY: ULTRASOUND BREAST - LEFT REASON FOR [...] Davies MD at 11:18 EDT , CC: [facility] Sun Tirado; Dr. Rosalino Aparicio MD Scraper Loader Operator: Signed Normal [facility] DIAG MAMM W/CAD, BILATon DIAG MAMM W/CAD, BILAT [facility] Imaging Services [address] [place] [address] DIAG MAMM W/CAD, BILAT MR#: [id number] Acct: [id number] Name: ZEB SWIFT Rep #: [id number] : 1975 F 48 From: Chet alvarez MD PCP: Dr. Rosalino Aparicio MD Status: REG CLI Study: DIAG MAMM W/CAD, BILAT Date of Exam: 12/04/23 Exam# [id number] Ordering Dr: Sun Tirado [facility] [id number] MAMMOGRAPHY - BILATERAL DIAGNOSTIC REASON FOR EXAM: [...] Signed: Chet Davies MD at 11:05 EDT Reading Location ID and State: [facility] / [place] , Service support , CC: [facility] ANTHROPOLOGISTLuis Fernando Tirado; Dr. Rosalino Aparicio MD Scraper Loader Operator: Signed Normal [facility] Urine Cultureon 11-29-2023 [facility] Escherichia coli [place] Count 50,000-80,000 Escherichia coli: REACTION Ampicillin Islt [...] S TMP SMX Islt TORI <=20 S Normal [facility] Comment on above: Performed By: #### M 100.678 #### [facility] Laboratory [address] [place], [address] 12 Lead EKGon 11-27-2023 12 Lead EKG [facility] Cardiovascular Services [address] [place] [address] 12 Lead EKG 11/27/23 1243 MR#: [id number] Acct: [id number] Name: ZEB SWIFT BARRY Rep #: [id number] : 1975 48 From: Jalil Jacinto MD [...] Normal ECG Confirmed by JALIL JACINTO MD ([id number]), manager editorial DAPHNE GAYLE ([id number]) on 12/01/2023 8:11:43 AM Referred By: Confirmed By:JALIL JACINTO MD 12/01/23 0811 Date Jalil Jacinto MD CC: Dr. Marlen Paul DO; Dr. Rosalino Aparicio MD Signed Normal [facility] CBC W/Diff, Automatedon Absolute Lymph 1.82 X10 3/uL Normal 0.83-4.51 [facility] Comment on above: Performed By: #### L 501.2450, L501.4020, L500.4050, L100.0100, L501.5200 #### [facility] [address] [place], [address] Absolute Neut 2.6 X10 3/uL Normal 2.0-7.7 [facility] Comment on above: Performed By: #### L 501.2450, L501.4020, L500.4050, L100.0100, L501.5200 #### [facility] [address] [place], [address] Basophils/100 WBC (Bld) 0.8 % Normal 0-1 [facility] Comment on above: Performed By: #### L 501.2450, L501.4020, L500.4050, L100.0100, L501.5200 #### [facility] [address] [place], [address] Eosinophils/100 WBC (Bld) 2.2 % Normal 0-5 [facility] Comment on above: Performed By: #### L 501.2450, L501.4020, L500.4050, L100.0100, L501.5200 #### [facility] [address] [place], [address] Erythrocyte distribution width (RBC) [Ratio] 12.9 % Normal 11.6-14.6 [facility] Comment on above: Performed By: #### L 501.2450, L501.4020, L500.4050, L100.0100, L501.5200 #### [facility] [address] [place], [address] Hematocrit (Bld) [Volume fraction] 34.8 % Low 37-47 [facility] Comment on above: Performed By: #### L 501.2450, L501.4020, L500.4050, L100.0100, L501.5200 #### [facility] [address] [place], [address] Hemoglobin (Bld) [Mass/Vol] 11.4 g/dL Low 12.0-15.0 [facility] Comment on above: Performed By: #### L 501.2450, L501.4020, L500.4050, L100.0100, L501.5200 #### [facility] [address] [place], [address] IG% 0.400 Normal 0.0-0.9 [facility] Comment on above: Result Comment: IG% - Immature Granulocytes (promyelocytes, myelocytes and metamyelocytes) > 1% indicates that a LEFT SHIFT is Present. Performed By: #### L 501.2450, L501.4020, L500.4050, L100.0100, L501.5200 #### [facility] [address] [place], [address] Lymphocytes/100 WBC (Bld) 36.0 % Normal 19-41 [facility] Comment on above: Performed By: #### L 501.2450, L501.4020, L500.4050, L100.0100, L501.5200 #### [facility] [address] [place], [address] MCH (RBC) [Entitic mass] 31.9 pg Normal 27.0-32.0 [facility] Comment on above: Performed By: #### L 501.2450, L501.4020, L500.4050, L100.0100, L501.5200 #### [facility] [address] [place], [address] MCHC (RBC) [Mass/Vol] 32.8 g/dL Normal 32-36 [facility] Comment on above: Performed By: #### L 501.2450, L501.4020, L500.4050, L100.0100, L501.5200 #### [facility] [address] [place], [address] MCV (RBC) [Entitic vol] 97.5 fL Normal 81-99 [facility] Comment on above: Performed By: #### L 501.2450, L501.4020, L500.4050, L100.0100, L501.5200 #### [facility] [address] [place], [address] Monocytes/100 WBC (Bld) 9.3 % Normal 0-10 [facility] Comment on above: Performed By: #### L 501.2450, L501.4020, L500.4050, L100.0100, L501.5200 #### [facility] [address] [place], [address] Neutrophils/100 WBC (Bld) 51.3 % Normal 47-70 [facility] Comment on above: Performed By: #### L 501.2450, L501.4020, L500.4050, L100.0100, L501.5200 #### [facility] [address] [place], [address] Nucleated RBC (Bld) [#/Vol] 0 10*3/uL Normal 0-5 [facility] Comment on above: Performed By: #### L 501.2450, L501.4020, L500.4050, L100.0100, L501.5200 #### [facility] [address] [place], [address] Platelet mean volume (Bld) [Entitic vol] 8.7 fL Normal 6.2-12.0 [facility] Comment on above: Performed By: #### L 501.2450, L501.4020, L500.4050, L100.0100, L501.5200 #### [facility] [address] [place], [address] Platelets (Bld) [#/Vol] 304 10*3/uL Normal 150-450 [facility] Comment on above: Performed By: #### L 501.2450, L501.4020, L500.4050, L100.0100, L501.5200 #### [facility] [address] [place], [address] RBC (Bld) [#/Vol] 3.57 10*6/uL Low 4.2-5.4 [facility] Comment on above: Performed By: #### L 501.2450, L501.4020, L500.4050, L100.0100, L501.5200 #### [facility] [address] [place], [address] RDW SD 46.5 fl High 35.1-43.9 [facility] Comment on above: Performed By: #### L 501.2450, L501.4020, L500.4050, L100.0100, L501.5200 #### [facility] [address] [place], [place], [address] WBC (Bld) [#/Vol] 5.1 10*3/uL Normal 4.4-11.0 [facility] Comment on above: Performed By: #### L 501.2450, L501.4020, L500.4050, L100.0100, L501.5200 #### [facility] [address] [place], [address] CNOVon 11-27-2023 [facility] ZEB SWIFT ([id number]) 1975 F Date Time Provider Department 11/27/23 12:15 PM MITCHEL WASHINGTON RUST During your visit today, we recorded the [...] Date Reviewed: 09/04/2022 Reviewed by: Daniela Duran APRN.CABIN EQUIPMENT SUPERVISOR - Fully Assessed Primary Visit Diagnosis:Swelling [R60.9] Prescriptions as of 11/27/2023 - estradiol (ESTRACE) 2 mg tablet Take 1 tablet by mouth once daily. - ergocalciferol 50,000 unit capsule (VITAMIN D2, DRISDOL) Take 1 tablet by mouth twice weekly [id number], then decrease to 1 tablet weekly. - [...] Status:Closed by MITCHEL WASHINGTON on 11/27/23 Normal [facility] Chest PA and Lateralon 11-26 Chest PA and Lateral [facility] Imaging Services [address] [place] [address] Chest PA and Lateral MR#: [id number] Acct: [id number] Name: ZEB SWIFT BARRY Rep #: [id number] : 1975 F 48 From: Evert best MD PCP: Dr. Rosalino Aparicio MD Status: REG ER Study: Chest PA and Lateral Date of Exam: 11/27/23 Exam# [id number] Ordering [place]: [place] [id number] STUDY: X-RAY CHEST REASON FOR EXAM: Female, [...] Signed: Evert Lee MD at 14:26 EDT , CC: Dr. Marlen Paul DO; Dr. Rosalino Aparicio MD Scraper Loader Operator: Signed Normal [facility] Comprehensive Metabolic Prof stacey 11-27-2023 Albumin [Mass/Vol] 3.4 g/dL Normal 3.2-5.0 [facility] Comment on above: Order Comment: 'TROP ' Serial specimen #1, #2 or #3: 1 Performed By: #### L 501.2450, L501.4020, L500.4050, L100.0100, L501.5200 #### [facility] [address] [place], [address] Albumin/Globulin [Mass ratio] 0.9 {ratio} Normal 0.9-2.4 [facility] Comment on above: Order Comment: 'TROP ' Serial specimen #1, #2 or #3: 1 Performed By: #### L 501.2450, L501.4020, L500.4050, L100.0100, L501.5200 #### [facility] [address] [place], [address] ALK P 120 U/L High 45-117 [facility] Comment on above: Order Comment: 'TROP ' Serial specimen #1, #2 or #3: 1 Performed By: #### L 501.2450, L501.4020, L500.4050, L100.0100, L501.5200 #### [facility] [address] [place], [address] ALT [Catalytic activity/Vol] 68 U/L High 13-56 [facility] Comment on above: Order Comment: 'TROP ' Serial specimen #1, #2 or #3: 1 Performed By: #### L 501.2450, L501.4020, L500.4050, L100.0100, L501.5200 #### [facility] [address] [place], [address] AST [Catalytic activity/Vol] 42 U/L High 15-37 [facility] Comment on above: Order Comment: 'TROP ' Serial specimen #1, #2 or #3: 1 Performed By: #### L 501.2450, L501.4020, L500.4050, L100.0100, L501.5200 #### [facility] [address] [place], [address] Bilirubin [Mass/Vol] 0.20 mg/dL Normal 0.20-1.00 [facility] Comment on above: Order Comment: 'TROP ' Serial specimen #1, #2 or #3: 1 Result Comment: For patients on eltrombopag therapy, use of Dimension [place] TBIL is not recommended. Performed By: #### L 501.2450, L501.4020, L500.4050, L100.0100, L501.5200 #### [facility] [address] [place], [address] BUN/CRE 36.2 RATIO High 10-20 [facility] Comment on above: Order Comment: 'TROP ' Serial specimen #1, #2 or #3: 1 Performed By: #### L 501.2450, L501.4020, L500.4050, L100.0100, L501.5200 #### [facility] [address] [place], [address] CA,Total 9.3 mg/dL Normal 8.5-10.1 [facility] Comment on above: Order Comment: 'TROP ' Serial specimen #1, #2 or #3: 1 Performed By: #### L 501.2450, L501.4020, L500.4050, L100.0100, L501.5200 #### [facility] [address] [place], [address] Chloride [Moles/Vol] 104 mmol/L Normal 98-107 [facility] Comment on above: Order Comment: 'TROP ' Serial specimen #1, #2 or #3: 1 Performed By: #### L 501.2450, L501.4020, L500.4050, L100.0100, L501.5200 #### [facility] [address] [place], [address] CO2 [Moles/Vol] 27.0 mmol/L Normal 21.0-32.0 [facility] Comment on above: Order Comment: 'TROP ' Serial specimen #1, #2 or #3: 1 Performed By: #### L 501.2450, L501.4020, L500.4050, L100.0100, L501.5200 #### [facility] [address] [place], [address] Creatinine [Mass/Vol] 0.64 mg/dL Normal 0.55-1.02 [facility] Comment on above: Order Comment: 'TROP ' Serial specimen #1, #2 or #3: 1 Result Comment: The validity of the calculated GFR GFRAA in patients over 70 years has not been determined. Clinical correlation is essential. Performed By: #### L 501.2450, L501.4020, L500.4050, L100.0100, L501.5200 #### [facility] [address] [place], [address] ECRCL 124.51 ml/min Normal [facility] Comment on above: Order Comment: 'TROP ' Serial specimen #1, #2 or #3: 1 Performed By: #### L 501.2450, L501.4020, L500.4050, L100.0100, L501.5200 #### [facility] [address] [place], [address] EST GFR - AA 129 mL/min Normal >60 [facility] Comment on above: Order Comment: 'TROP ' Serial specimen #1, #2 or #3: 1 Result Comment: Afri can [place] GFR Calc Performed By: #### L 501.2450, L501.4020, L500.4050, L100.0100, L501.5200 #### [facility] [address] [place], [address] GAP 5 Normal 5-15 [facility] Comment on above: Order Comment: 'TROP ' Serial specimen #1, #2 or #3: 1 Performed By: #### L 501.2450, L501.4020, L500.4050, L100.0100, L501.5200 #### [facility] [address] [place], [address] GFR/1.73 sq M.predicted among non-blacks MDRD (S/P/Bld) [Vol rate/Area] 106 mL/min/{1.73_m2} Normal >60 [facility] Comment on above: Order Comment: 'TROP ' Serial specimen #1, #2 or #3: 1 Result Comment: Non- GFR Calc Performed By: #### L 501.2450, L501.4020, L500.4050, L100.0100, L501.5200 #### [facility] [address] [place], [address] Globulin (S) [Mass/Vol] 3.6 g/dL Normal 2.2-4.2 [facility] Comment on above: Order Comment: 'TROP ' Serial specimen #1, #2 or #3: 1 Performed By: #### L 501.2450, L501.4020, L500.4050, L100.0100, L501.5200 #### [facility] [address] [place], [address] Glucose [Mass/Vol] 97 mg/dL Normal 74-106 [facility] Comment on above: Order Comment: 'TROP ' Serial specimen #1, #2 or #3: 1 Performed By: #### L 501.2450, L501.4020, L500.4050, L100.0100, L501.5200 #### [facility] [address] [place], [address] Potassium [Moles/Vol] 4.0 mmol/L Normal 3.5-5.1 [facility] Comment on above: Order Comment: 'TROP ' Serial specimen #1, #2 or #3: 1 Performed By: #### L 501.2450, L501.4020, L500.4050, L100.0100, L501.5200 #### [facility] [address] [place], [address] Sodium [Moles/Vol] 136 mmol/L Normal 136-145 [facility] Comment on above: Order Comment: 'TROP ' Serial specimen #1, #2 or #3: 1 Performed By: #### L 501.2450, L501.4020, L500.4050, L100.0100, L501.5200 #### [facility] [address] [place], [address] T PROT 7.0 g/dL Normal 6.4-8.2 [facility] Comment on above: Order Comment: 'TROP ' Serial specimen #1, #2 or #3: 1 Performed By: #### L 501.2450, L501.4020, L500.4050, L100.0100, L501.5200 #### [facility] [address] [place], [address] Urea nitrogen [Mass/Vol] 23 mg/dL High 7-18 [facility] Comment on above: Order Comment: 'TROP ' Serial specimen #1, #2 or #3: 1 Performed By: #### L 501.2450, L501.4020, L500.4050, L100.0100, L501.5200 #### [facility] [address] [place], [address] Emergency Department Summary on 11-27-2023 Emergency Department Summary [facility] Medical Records Department [address] [place] [address] Emergency Department Summary 11/27/23 MR#: [id number] Acct: [id number] Name: ZEB SWIFT BARRY Rep #: [id number] : 1975 48 From: Marlen Paul DO PCP: Dr. Rosalino Aparicio MD Status:REG ER Location: ED HPI History [...] ablation. She is currently a resident of [facility] and states that she has been [...] symptoms. Is currently requesting something to drink. [facility] Home Medications ???Medication ???Instructions ???Recorded ???Last Taken ???Type citalopram 40 mg tablet 40 mg PO QHS mood 02/13/15 Unknown History estradiol 2 mg tablet 2 mg PO DAILY hormone 10/12/18 01/18/20 22:00 History oxycodone-acetaminophen 5 mg-325 1 ea PO TID PRN [...] non-tender Ex (more content not included)... Normal [facility] L501.4020on 11-27-2023 TROPONIN-I HS 5 pg/mL Normal 3.0-54.0 [facility] Comment on above: Order Comment: 'TROP ' Serial specimen #1, #2 or #3: 1 Result Comment: Plea se Note: New Test Units and Gender Specific Reference Ranges. For more information see Policy Stat Procedure [place] High Sensitivity Troponin (TNIH) and attachments. Performed By: #### L 501.2450, L501.4020, L500.4050, L100.0100, L501.5200 ####[facility] [address] [place], [address] Lipaseon 11-27-2023 Lipase [Catalytic activity/Vol] 27 U/L Normal 13-75 [facility] Comment on above: Order Comment: 'TROP ' Serial specimen #1, #2 or #3: 1 Result Comment: Plea se note: LIPASE revised reference range effective 22. New Lipase methodology. Expected to produce lower values than the previous assay method. NEW Reference Range: 13 - 75 U/L Performed By: #### L 501.2450, L501.4020, L500.4050, L100.0100, L501.5200 ####[facility] [address] [place], [address] M100.678on 11-27-2023 M100.678 Pending SARS-CoV-2 (COVID 19) Negative INFLUENZA A Negative INFLUENZA B Negative RSV PCR Negative Normal [facility] Comment on above: Performed By: #### M 100.678 #### [facility] [address] [place], [address] Magnesiumon 11-27-2023 Magnesium [Mass/Vol] 2.1 mg/dL Normal 1.6-2.6 [facility] Comment on above: Order Comment: 'TROP ' Serial specimen #1, #2 or #3: 1 Performed By: #### L 501.2450, L501.4020, L500.4050, L100.0100, L501.5200 ####[facility] [address] [place], [address] Urinalysis, Completeon 11-26 WBC 5-10 SEEN Normal 0-5 [facility] Comment on above: Order Comment: CLEAN CATCH Performed By: #### L 400.0001 ####[facility] [address] [place], [address] BACTERIA 1+ /hpf Normal None Seen [facility] Comment on above: Order Comment: CLEAN CATCH Performed By: #### L 400.0001 ####[facility] [address] [place], [address] EPI,SQUAMOUS 0-5 SEEN Normal 5-10 [facility] Comment on above: Order Comment: CLEAN CATCH Performed By: #### L 400.0001 ####[facility] [address] [place], [address] RBC 0-5 SEEN Normal 0-5 [facility] Comment on above: Order Comment: CLEAN CATCH Performed By: #### L 400.0001 ####[facility] [address] [place], [address] Mucus Ql (Urine sed) 0 SEEN Normal [facility] Comment on above: Order Comment: CLEAN CATCH Performed By: #### L 400.0001 ####[facility] [address] [place], [address] XR Shoulder - left 3 Viewson 09-06-2022 IMPRESSION: SMALL OSTEOPHYTE AND HUMERAL HEAD CONSISTENT WITH MINIMAL DEGENERATIVE CHANGES Scraper Loader Operator: MIKE Transcribe Date/Time: Sep 06 2022 5:30P Dictated by : CHILO MARR MD This examination was interpreted and the report reviewed and electronically signed by: CHILO MARR MD on Sep 06 2022 5:33PM [facility] DIVISION OF RADIOLOGY * * [...] fracture or dislocation. DIVISION OF RADIOLOGY Provider, [facility] - 09/06/2022 * * *Final Report* [...] HUMERAL HEAD CONSISTENT WITH MINIMAL DEGENERATIVE CHANGES Scraper Loader Operator: MIKE Transcribe Date/Time: Sep 06 2022 5:30P Dictated by : CHILO MARR MD This examination was interpreted and the report reviewed and electronically signed by: CHILO MARR MD on Sep 06 2022 5:33PM EST [facility] XR Shoulder - left 3 ViewsOr dered By: [facility] Provider on 09-06-2022 [facility] XR Shoulder - left 3 Viewson 09-04-2022 Radiology Study observation (narrative) [facility] NINA DIAGNOSTIC BILATon 10-10 [facility] No Panel Informationon 10-10 [facility] Vital Signs Date Time Vital Sign Value Performing Clinician Faci lity 11-04-2024 23:49-0400 Body temperature 96.9 [degF] Dr. Rosalino Aparicio MD Work Phone: [facility] 11-04-2024 23:49-0400 Diastolic blood pressure 51 mm[Hg] Dr. Rosalino Aparicio MD Work Phone: [facility] 11-04-2024 23:49-0400 Heart rate 77 /min Dr. Rosalino Aparicio MD Work Phone: [facility] 11-04-2024 23:49-0400 Respiratory rate 18 /min Dr. Rosalino Aparicio MD Work Phone: [facility] 11-04-2024 23:49-0400 SaO2% (BldA) [Mass fraction] 95 % Dr. Rosalino Aparicio MD Work Phone: [facility] 11-04-2024 23:49-0400 Systolic blood pressure 143 mm[Hg] Dr. Rosalino Aparicio MD Work Phone: [facility] 11-04-2024 19:46-0400 Body height 162.[address] Rosalino Aparicio MD Work Phone: [facility] 11-04-2024 19:46-0400 Body mass index (BMI) [Ratio] 42.7 kg/m2 Dr. Rosalino Aparicio MD Work Phone: [facility] 11-04-2024 19:46-0400 Body weight 113.[address] Rosalino Aparicio MD Work Phone: [facility] 11-04-2024 13:15-0400 Body weight 113 kg Michaela De La Garza APRN.CNP Work Phone: [facility] 11-04-2024 13:15-0400 Diastolic blood pressure 67 mm[Hg] Michaela De La Garza APRN.CABIN EQUIPMENT SUPERVISOR Work Phone: [facility] 11-04-2024 13:15-0400 Heart rate 90 /min Michaela De La Garza APRN.CABIN EQUIPMENT SUPERVISOR Work Phone: [facility] 11-04-2024 13:15-0400 Systolic blood pressure 95 mm[Hg] Michaela De La Garza PLANT MACHINIST.CABIN EQUIPMENT SUPERVISOR Work Phone: [facility] 08-03-2024 17:45-0400 Diastolic blood pressure 56 mm[Hg] Dr. Rosalino Aparicio MD Work Phone: [facility] 08-03-2024 17:45-0400 Heart rate 84 /min Dr. Rosalino Aparicio MD Work Phone: [facility] 08-03-2024 17:45-0400 Respiratory rate 20 /min Dr. Rosalino Aparicio MD Work Phone: [facility] 08-03-2024 17:45-0400 SaO2% (BldA) [Mass fraction] 97 % Dr. Rosalino Aparicio MD Work Phone: [facility] 08-03-2024 17:45-0400 Systolic blood pressure 177 mm[Hg] Dr. Rosalino Apariico MD Work Phone: [facility] 08-03-2024 16:26-0400 Body height 162.[address] Rosalino Aparicio MD Work Phone: [facility] 08-03-2024 16:26-0400 Body mass index (BMI) [Ratio] 39.9 kg/m2 Dr. Rosalino Aparicio MD Work Phone: [facility] 08-03-2024 16:26-0400 Body temperature 97.8 [degF] Dr. Rosalino Aparicio MD Work Phone: [facility] 08-03-2024 16:26-0400 Body weight 105.[address] Rosalino Aparicio MD Work Phone: [facility] 09-04-2022 13:07-0400 Body weight 104.78 kg Daniela Tannhof PLANT MACHINIST.CABIN EQUIPMENT SUPERVISOR Work Phone: [facility] 09-04-2022 13:07-0400 Diastolic blood pressure 72 mm[Hg] Daniela Tannhof PLANT MACHINIST.CABIN EQUIPMENT SUPERVISOR Work Phone: [facility] 09-04-2022 13:07-0400 Heart rate 65 /min Daniela Tannhof PLANT MACHINIST.CABIN EQUIPMENT SUPERVISOR Work Phone: [facility] 09-04-2022 13:07-0400 Respiratory rate 16 /min Daniela Tannhof PLANT MACHINIST.CABIN EQUIPMENT SUPERVISOR Work Phone: [facility] 09-04-2022 13:07-0400 SaO2% (BldA) [Mass fraction] 99 % Daniela Tannhof PLANT MACHINIST.CABIN EQUIPMENT SUPERVISOR Work Phone: [facility] 09-04-2022 13:07-0400 Systolic blood pressure 100 mm[Hg] Daniela Tannhof PLANT MACHINIST.CABIN EQUIPMENT SUPERVISOR Work Phone: [facility] 10-08-2021 13:01-0400 Body weight 93.44 kg Daniela Tannhof PLANT MACHINIST.CABIN EQUIPMENT SUPERVISOR Work Phone: [facility] 10-08-2021 13:01-0400 Diastolic blood pressure 78 mm[Hg] Daniela Tannhof PLANT MACHINIST.CABIN EQUIPMENT SUPERVISOR Work Phone: [facility] 10-08-2021 13:01-0400 Heart rate 72 /min Daniela Tannhof PLANT MACHINIST.CABIN EQUIPMENT SUPERVISOR Work Phone: [facility] 10-08-2021 13:01-0400 Respiratory rate 16 /min Daniela Tannhof PLANT MACHINIST.CABIN EQUIPMENT SUPERVISOR Work Phone: [facility] 10-08-2021 13:01-0400 Systolic blood pressure 126 mm[Hg] Daniela Tannhof PLANT MACHINIST.CABIN EQUIPMENT SUPERVISOR Work Phone: [facility] Encounters Encounter Date Encounter Type Care Provider Facility Start: 11-05-2024 End: 11-05-2024 Telephone encounter Michaela De La Garza PLANT MACHINIST.CABIN EQUIPMENT SUPERVISOR Work Phone: [facility] Comment on above: Appointment; Patient Question Start: 11-04-2024 End: 11-04-2024 Emergency department patient visit Dr. Rosalino Aparicio MD Work Phone: -Emergency Department Work Phone: Start: 11-04-2024 End: 11-04-2024 Patient encounter procedure Michaela De La Garza APRN.CABIN EQUIPMENT SUPERVISOR Work Phone: [facility] Comment on above: Wellness examination (Primary Dx); Chest pressure; Acute pain of right knee; Screening cholesterol level; Screening for diabetes mellitus; Vitamin D deficiency; Encounter for screening examination for other mental health and behavioral disorders; Medication refill; Swelling of lower extremity; Difficulty sleeping; ADHD (attention deficit hyperactivity disorder), combined type; Female genital symptoms; Encounter for screening mammogram for breast cancer; Encounter for immunization; Screening for colon cancer; Medication management Start: 11-04-2024 End: 11-04-2024 Patient encounter status Michaela De La Garza APRN.CABIN EQUIPMENT SUPERVISOR Work Phone: [facility] Start: 11-04-2024 ambulatory MICHAELA DE LA GARZA Facilit y:[facility] Start: 10-29-2024 End: 10-29-2024 ambulatory MITCHEL WASHINGTON Facility:[facility] Start: 08-03-2024 Non-patient / Non-visit Dr. Joe powell MD -[facility] Start: 08-03-2024 End: 08-03-2024 Emergency department patient visit Dr. Rosalino Aparicio MD Work Phone: -Emergency Department Work Phone: Start: 08-03-2024 End: 08-03-2024 ambulatory Rosalino Aparicio MD Work Phone: [facility] Comment on above: Chest Pain; right le g swelling Start: 12-04-2023 End: 12-04-2023 ambulatory Sun Tirado Facility:[facility] Start: 11-27-2023 End: 11-27-2023 Emergency department patient visit Marlen Beverly Facility:[facility] Start: 11-27-2023 End: 11-27-2023 ambulatory ROSALINO APARICIO Facility:[facility] Start: 11-27-2023 End: 11-27-2023 Patient encounter procedure Mitchel Washington PLANT MACHINIST.CABIN EQUIPMENT SUPERVISOR Work Phone: [facility] Comment on above: Swelling (Primary Dx ) Start: 11-19-2023 End: 11-24-2023 ambulatory Rosalino Aparicio MD Work Phone: Internal [facility] Start: 06-23-2023 Patient encounter status Rosalino Aparicio MD Work Phone: [facility] Work Phone: Start: 06-23-2023 Telephone encounter Rosalino salgado MD Work Phone: [facility] Start: 09-07-2022 Telephone encounter Daniela dee PLANT MACHINIST.CABIN EQUIPMENT SUPERVISOR Work Phone: [facility] Comment on above: Results (Xray Should er ) Start: 09-04-2022 End: 09-04-2022 Subsequent hospital visit by physician Xr [facility] Work Phone: Radiology Comment on above: Acute pain of left s houlder [M25.512] Start: 09-04-2022 End: 09-04-2022 Patient encounter procedure Daniela Duran APRN.CABIN EQUIPMENT SUPERVISOR Work Phone: [facility] Comment on above: History of drug abus e (HCC) (Primary Dx); Acute pain of left shoulder; Vitamin D deficiency; Mood changes; Difficulty sleeping Start: 07-05-2022 End: 07-08-2022 ambulatory [facility] Start: 12-12-2021 ambulatory Rosalino barone MD Work Phone: Internal [facility] Start: 10-12-2021 Telephone encounter Rosalino salgado MD Work Phone: [facility] Comment on above: Results; Patient Que stion Start: 10-10-2021 End: 10-10-2021 Subsequent hospital visit by physician Diagnostic Mammo [facility] Comment on above: Left breast lump [N6 3.20] Start: 10-09-2021 Telephone encounter Rosalino slagado MD Work Phone: [facility] Comment on above: Results (lab) Start: 10-08-2021 End: 10-08-2021 Patient encounter procedure Daniela Aguilerasangeetameg MATT.CABIN EQUIPMENT SUPERVISOR Work Phone: [facility] Comment on above: Tests ordered (Prima ry Dx) Start: 10-08-2021 End: 10-08-2021 Patient encounter status Daniela Roger GUTIERREZ.CABIN EQUIPMENT SUPERVISOR Work Phone: [facility] Start: 09-06-2021 Refill Rosalino barone MD Work Phone: [facility] Comment on above: Refill Request Start: 08-27-2021 ambulatory [facility]one MD [facility] Comment on above: Depression Procedures Date Procedure Procedure Detail Performing Clinician Start: 11-04-2024 CT angiography of ch est with contrast Dr. Rosalino Aparicio MD Work Phone: Start: 11-04-[address] Rosalino Aparicio MD Work Phone: Start: 11-04-2024 X-ray of chest, PA a nd lateral views Dr. Rosalino Aparicio MD Work Phone: Start: 08-03-2024 CT angiography of ch est with contrast Dr. Rosalino Aparicio MD Work Phone: Start: 08-03-2024 Plain chest X-ray Dr. Jesús Aparicio MD Work Phone: Start: 08-03-2024 D-dimer assay, quantitative Dr. Rosalino Aparicio MD Work Phone: Comment on above: D-Dimer ELEVATED (>0 .49): Additional studies and clinicalassessments are indicated to conclude diagnosis of:Deep Vein Thrombosis (DVT) or Pulmonary Embolism (PE) Start: 08-03-[address] Rosalino Aparicio MD Work Phone: Start: 09-04-2022 Radex shoulder compl ete minimum 2 views Daniela Duran APRN.CABIN EQUIPMENT SUPERVISOR Work Phone: Start: 10-10-2021 Us breast uni real t trever with image limited Rosalino Aparicio MD Work Phone: Start: 10-10-2021 Diagnostic mammograp hy computer-aided detcj bi Rosalino Aparicio MD Work Phone: Start: 11-02-2020 Mammography Rosalino clement MD Work Phone: Start: 02-20-2010 Lipid 1996 panel - S sushil or Plasma Rosalino Aparicio MD Work Phone: Plan of Treatment Date Care Activity Detail Author Start: 11-04-2025 Anxiety Screening Anxiety Screening [facility] Start: 11-04-2025 Hepatitis B Vaccine (1 of 3 - 19+ 3-dose series) Hepatitis B Vaccine (1 of 3 - 19+ 3-dose series) [facility] Comment on above: Postponed from 1995 (Declined at t his time) Start: 07-05-2025 Diabetes Screening Diabetes Screening [facility] Start: 11-22-2024 Influenza vaccination [facility] Start: 11-12-2024 End: 11-12-2024 Patient encounter procedure Radiology Comment on above: MRI KNEE WO IVCON RIGHT Start: 11-08-2024 End: 11-08-2024 ambulatory 11/08/2024 10:30 AM EDT [facility] [address] [place] [address] Arley Lagos, PLANT MACHINIST.CABIN EQUIPMENT SUPERVISOR [address] [place] [address] Screening for colon cancer [Z12.11] Gastroenterology Comment on above: Screening for colon cancer [Z12.11] Start: 11-04-2024 [facility] Start: 11-04-2024 [facility] Start: 11-04-2024 End: 02-03-2025 25-hydroxyvitamin D3 [Mass/volume] in Serum or Plasma VITAMIN D 25 HYDROXY Lab Routine Vitamin D deficiency Expected: 11/04/2024, Expires: 02/03/2025 [facility] Comment on above: Expected: 11/04/2024, Expires: Start: 11-04-2024 End: 02-03-2025 CBC W Auto Differential panel - Blood COMPLETE BLOOD COUNT AND DIFFERENTIAL Lab Routine Wellness examination Expected: 11/04/2024, Expires: 02/03/2025 [facility] Work Phone: Comment on above: Expected: 11/04/2024, Expires: Start: 11-04-2024 End: 02-03-2025 Comprehensive metabolic 2000 panel - Serum or Plasma COMPREHENSIVE METABOLIC PANEL Lab Routine Screening for diabetes mellitus Expected: 11/04/2024, Expires: 02/03/2025 [facility] Comment on above: Expected: 11/04/2024, Expires: Start: 11-04-2024 End: 02-03-2025 Hemoglobin A1c in Blood HEMOGLOBIN A1C Lab Routine Screening for diabetes mellitus Expected: 11/04/2024, Expires: 02/03/2025 [facility] Comment on above: Expected: 11/04/2024, Expires: Start: 11-04-2024 End: 02-03-2025 LIPID PANEL, NONFASTING LIPID PANEL, NONFASTING Lab Routine Screening cholesterol level Expected: 11/04/2024, Expires: 02/03/2025 [facility] Comment on above: Expected: 11/04/2024, Expires: Start: 11-04-2024 End: 02-03-2025 Thyrotropin [Units/volume] in Serum or Plasma THYROID STIMULATING HORMONE Lab Routine Medication management Expected: 11/04/2024, Expires: 02/03/2025 [facility] Comment on above: Expected: 11/04/2024, Expires: Start: 10-08-2024 DIABETES SCREEN DIABETES SCREEN [facility] Start: 08-14-2024 Urine microalbumin profile [facility] Start: 08-03-2024 [facility] Start: 11-23-2023 Covid-19 Vaccine ( season) Covid-19 Vaccine () [facility] Start: 11-23-2023 Covid-19 Vaccine () Covid-19 Vaccine ( season) [facility] Start: 11-23-2023 Influenza vaccination [facility] Start: 06-23-2023 End: 09-22-2023 25-hydroxyvitamin D3 [Mass/volume] in Serum or Plasma VITAMIN D 25 HYDROXY Lab Routine Vitamin D deficiency Expected: 06/23/2023, Expires: 09/22/2023 [facility] Work Phone: Comment on above: Expected: 06/23/2023, Expires: Start: 06-23-2023 End: 09-22-2023 Comprehensive metabolic 2000 panel - Serum or Plasma COMP METABOLIC PANEL Lab Routine Wellness examination Expected: 06/23/2023, Expires: 09/22/2023 [facility] Work Phone: Comment on above: Expected: 06/23/2023, Expires: Start: 06-23-2023 End: 09-22-2023 Hemoglobin A1c in Blood HGB A1C Lab Routine Screening for diabetes mellitus Expected: 06/23/2023, Expires: 09/22/2023 [facility] Work Phone: Comment on above: Expected: 06/23/2023, Expires: Start: 06-23-2023 End: 09-22-2023 Lipid 1996 panel - Serum or Plasma LIPID PANEL BASIC Lab Routine Screening cholesterol level Expected: 06/23/2023, Expires: 09/22/2023 [facility] Work Phone: Comment on above: Expected: 06/23/2023, Expires: Start: 11-22-2022 Covid-19 Vaccine ( season) Covid-19 Vaccine ( season) [facility] Start: 11-22-2022 Influenza vaccination INFLUENZA (Season Ended) [facility] Start: 10-10-2022 Screening for malignant neoplasm of breast Mammogram Screening [facility] Start: 11-22-2021 Influenza vaccination [facility] Start: 11-02-2021 Mammography MAMMOGRAM [facility] Start: 10-12-2021 End: 12-12-2021 Cobalamin (Vitamin B12) [Mass/volume] in Serum or Plasma VITAMIN B12 BLOOD Lab Routine Anemia, unspecified type Expected: 10/12/2021, Expires: 12/12/2021 [facility] Work Phone: Comment on above: Expected: 10/12/2021, Expires: 2 Start: 10-12-2021 End: 12-12-2021 Folate [Mass/volume] in Serum or Plasma FOLATE SERUM Lab Routine Anemia, unspecified type Expected: 10/12/2021, Expires: 12/12/2021 [facility] Work Phone: Comment on above: Expected: 10/12/2021, Expires: 2 Start: 10-12-2021 End: 12-12-2021 Methylmalonate [Moles/volume] in Serum or Plasma METHYLMALONIC ACID Lab Routine Anemia, unspecified type Expected: 10/12/2021, Expires: 12/12/2021 [facility] Work Phone: Comment on above: Expected: 10/12/2021, Expires: 2 Start: 10-09-2021 End: 12-09-2021 Ferritin [Mass/volume] in Serum or Plasma FERRITIN BLD Lab Routine Anemia, unspecified type Expected: 10/09/2021, Expires: 12/09/2021 [facility] Work Phone: Comment on above: Expected: 10/09/2021, Expires: 2 Start: 10-09-2021 End: 12-09-2021 Iron and Iron binding capacity panel - Serum or Plasma IRON + TIBC Lab Routine Anemia, unspecified type Expected: 10/09/2021, Expires: 12/09/2021 [facility] Work Phone: Comment on above: Expected: 10/09/2021, Expires: 2 Start: 2021 COLOGUARD (FIT-DNA) COLOGUARD (FIT-DNA) [facility] Start: 2021 Colonoscopy COLONOSCOPY [facility] Start: 2021 COLORECTAL CANCER SCREENING COLORECTAL CANCER SCREENING [facility] Start: [address] COLONOGRAPHY [facility] Start: 2021 DIABETES SCREEN DIABETES SCREEN [facility] Start: 2021 FECAL OCCULT BLOOD FECAL OCCULT BLOOD [facility] Start: 2021 Lipid panel Lipid Screening [facility] Start: 2021 LIPID SCREEN LIPID SCREEN [facility] Start: 2021 Screening for malignant neoplasm of colon [facility] Start: 2021 SIGMOIDOSCOPY SIGMOIDOSCOPY [facility] Start: 07-27-2018 HPV TESTING HPV TESTING [facility] Start: 07-27-2018 PAP TESTING PAP TESTING [facility] Start: 07-27-2018 Screening for malignant neoplasm of cervix [facility] Start: 1995 Hepatitis B Vaccine (1 of 3 - 19+ 3-dose series) Hepatitis B Vaccine (1 of 3 - 19+ 3-dose series) [facility] Start: 1994 Anxiety Screening Anxiety Screening [facility] Start: 1994 HEPATITIS C SCREENING HEPATITIS C SCREENING [facility] Start: 1994 Hepatitis C screening Hepatitis C Screening [facility] Start: 1981 COVID-19 VACCINE (#1) COVID-19 VACCINE (#1) [facility] Start: 1976 COVID-19 VACCINE (#1) COVID-19 VACCINE (#1) [facility] Start: 1976 HEPATITIS B (1 of 3 - 3-dose series) HEPATITIS B (1 of 3 - 3-dose series) [facility] End: 12-18-2024 DBT Breast - bilateral screening NINA SCREENING W LEV Radiology Routine Encounter for screening mammogram for breast cancer 1 Occurrences starting 11/19/2023 until 12/18/2024 [facility] Work Phone: Comment on above: 1 Occurrences starting 11/19/2023 until 12/18/2024 End: 12-04-2025 DBT Breast - bilateral screening NINA SCREENING W LEV Radiology Routine Encounter for screening mammogram for breast cancer 1 Occurrences starting 11/04/2024 until 12/04/2025 [facility] Comment on above: 1 Occurrences starting 11/04/2024 until 12/04/2025 ECG COMPLETE ECG COMPLETE ECG Routine Chest pressure Ordered: 11/04/2024 [facility] Comment on above: Ordered: 11/04/2024 End: 12-04-2025 MR Knee - right WO contrast MRI KNEE WO IVCON RIGHT Radiology Routine Acute pain of right knee 1 Occurrences starting 11/04/2024 until 12/04/2025 [facility] Comment on above: 1 Occurrences starting 11/04/2024 until 12/04/2025 Patient Education [facility] Work Phone: Patient referral [facility] Work Phone: End: 01-11-2023 Screening mammography bi 2-view breast inc cad NINA SCREENING Radiology Routine Encounter for screening mammogram for breast cancer 1 Occurrences starting 12/12/2021 until 01/11/2023 [facility] Work Phone: Comment on above: 1 Occurrences starting 12/12/2021 until 01/11/2023 End: 10-04-2023 XR SHOULDER GENERAL 3V OR MORE AP/TRUE AP/OTHER LEFT XR SHOULDER GENERAL 3V OR MORE AP/TRUE AP/OTHER LEFT Radiology Routine Acute pain of left shoulder History of drug abuse (HCC) 1 Occurrences starting 09/04/2022 until 10/04/2023 [facility] Work Phone: Comment on above: 1 Occurrences starting 09/04/2022 until 10/04/2023 XR SHOULDER GENERAL 3V OR MORE AP/TRUE AP/OTHER LEFT XR SHOULDER GENERAL 3V OR MORE AP/TRUE AP/OTHER LEFT Radiology Routine Acute pain of left shoulder 09/04/2022 2:15 PM EDT [facility] Work Phone: [facility] Immunizations Immunization Date Immunization Notes Care Provider Fa [facility] 01-20-2020 influenza, injectabl e, quadrivalent, preservative free Dr. Rosalino Aparicio MD Work Phone: [facility] 01-20-2020 influenza, seasonal, injectable, preservative free Rosalino Aparicio MD Work Phone: [facility] Work Phone: 01-20-2020 influenza virus vacc ine, unspecified formulation Rosalino Aparicio MD Work Phone: [facility] 08-14-2014 tetanus toxoid, redu bronson diphtheria toxoid, and acellular pertussis vaccine, adsorbed Rosalino Aparicio MD Work Phone: [facility] Work Phone: 11-01-2013 pneumococcal polysaccharide vaccine, 23 valent Rosalino Aparicio MD Work Phone: [facility] Work Phone: 03-23-2012 influenza virus vacc ine, unspecified formulation Rosalino Aparicio MD Work Phone: [facility] 09-23-2011 tetanus toxoid, redu bronson diphtheria toxoid, and acellular pertussis vaccine, adsorbed Rosalino Aparicio MD Work Phone: [facility] 07-12-2010 hepatitis B immune globulin Rosalino Aparicio MD Work Phone: [facility] Payers Date Payer Category Payer Self-pay 2022 Medicaid [id number] 2020 Medicaid [employer] [id number] 2020-Present [phone] [address] [place] [address] Medicaid [id number] 2020 Medicaid [id number] 2014 Unknown [id number] 1975 Unknown [id number] 1975 Unknown [id number] Unknown [id number] Unknown [id number] Unknown [id number] Unknown [id number] Unknown [id number] Social History Date Type Detail Facility Start: 10-03-2016 End: 10-29-2024 Tobacco smoking status NHIS Ex-smoker [facility] History of tobacco use Cigarette Smoker [facility] Start: 10-03-2016 End: 11-01-2024 Cigarettes smoked current (pack per day) - Reported 0.5 [facility] Start: 10-03-2016 End: 10-29-2024 Tobacco use and exposure Smokeless tobacco non-user [facility] Start: 03-13-2021 End: 11-04-2024 Alcohol intake Current non-drinker of alcohol (finding) [facility] Start: 1975 Sex Assigned At Female [facility] Start: 08-17-2021 End: 10-10-2021 Exposure to SARS-CoV-2 (event) Not sure [facility] History of tobacco use Current smoker [facility] Start: 09-04-2022 End: 11-01-2024 Tobacco use panel [facility] Work Phone: Start: 02-23-2012 National Score (1-100), lower number is lower risk 91 [facility] Start: 03-15-2021 Gender identity Identifies as female gender (finding) [facility] Start: 03-15-2021 Sexual orientation Heterosexual (finding) [facility] Start: 08-03-2024 End: 11-04-2024 Tobacco smoking status ILIS Smokes tobacco daily (finding) [facility] Start: 04-25-2015 Alcohol Alcohol [facility] Start: 01-19-2020 Tobacco Use Tobacco Use [facility] Do you belong to any clubs or organizations such as latter-day groups, unions, fraternal or athletic groups, or school groups? Yes [facility] Are you now , , , , never or living with a partner? [facility] How often to you hav e a drink containing alcohol? Never [facility] Do you feel stress - tense, restless, nervous, or anxious, or unable to sleep at night because your mind is troubled all the time - these days [OSQ] Not at all [facility] (I/We) worried whemaryuri er (my/our) food would run out before (I/we) got money to buy more. Never [facility] Has the [employer] or [employer] threatened to shut off services in your home in past 12Mo No [facility] Functional Status Date Assessment Result Facility 10-11-2014 Are you deaf, or do you have serious difficulty hearing No 10/11/2014 8:37 AM Radha Carr MA [facility] 10-11-2014 Are you blind, or do you have serious difficulty seeing, even when wearing glasses No 10/11/2014 8:37 AM Radha Carr MA No [facility] 10-11-2014 Do you have serious difficulty walking or climbing stairs No 10/11/2014 8:37 AM Radha Carr MA [facility] 10-11-2014 Do you have difficul ty dressing or bathing No 10/11/2014 8:37 AM Radha Carr MA [facility] 10-11-2014 Because of a physica l, mental, or emotional condition, do you have difficulty doing errands alone such as visiting a physician's office or shopping No 10/11/2014 8:37 AM Radha Carr MA No [facility] Mental Status Date Assessment Result Facility 11-04-2024 Cognitive function Level Of Cons ciousness Awake;Alert;Appropriate;Fol lows Commands [facility] Work Phone: 08-03-2024 Cognitive function Level Of Cons ciousness Awake;Alert;Appropriate;Fol lows Commands [facility] Work Phone: 10-11-2014 Because of a physica l, mental, or emotional condition, do you have serious difficulty concentrating, remembering, or making decisions No 10/11/2014 8:37 AM Radha Carr MA [facility] Clinical Notes 08-23-2014 to 11-05-2024 Telephone Encounter - Daphne Bermudez RN - 11/05/2024 9:59 AM EDTTelephone Encounter - Daphne Bermudez RN - 11/05/2024 9:59 AM EDTPatient InstructionsPatient Instructions Note Date & Type Note Facility 11-05-2024 Telephone encounter Note Pt called and reports she went to [facility] ER yesterday per provider. Pt was asking if she should come in and get the lab work done the provider had ordered. I told her it looked like the provider had wanted her to get that done. Pt is going to come in and get lab work done and will drop off a copy of her ER records. Transferred to scheduling to set up appt for mammogram and MRI knee. Daphne Bermudez RN [facility] 11-05-2024 Miscellaneous Notes Pt called and reports she went to [facility] ER yesterday per provider. Pt was asking if she should come in and get the lab work done the provider had ordered. I told her it looked like the provider had wanted her to get that done. Pt is going to come in and get lab work done and will drop off a copy of her ER records. Transferred to scheduling to set up appt for mammogram and MRI knee. Daphne Bermudez RN documented in this encounter [facility] 11-04-2024 Radiology Diagnostic study note [facility] Imaging Services [address] [place] [address] CTA Chest W/WO Contrast MR#: [id number] Acct: [id number] Name: ZEB SWIFT BARRY Rep #: [id number] : 1975 F 49 From: Esthela Mendez MD PCP: Dr. Rosalino Aparicio MD Status: RE G ER Study:CTA Chest W/WO Contrast Date of Exam: 11/04/24 Exam# [id number] Ordering Dr: Freddy Downing DO PROCEDURE: CTA CHEST W/WO CONTRAST 11/04/2024 REASON FOR EXAM: CHEST PAIN TECHNIQUE: CTA CHEST W/WO CONTRAST Multiplanar Sagittal and Coronal images were obtained. CONTRAST: Isovue 370 VOLUME: 99 mL One or more dose reduction techniques were used (e.g., Automated exposure control, adjustment of the mA and/or kV according to patient size, use of iterative reconstruction technique). RADIATION DOSE SUMMARY: CTDlvol: 44 mGy DLP: 559 mGycm COMPARISON: 08/03/2024 FINDINGS: Unremarkable base of neck and axilla. Normal esophagus. Normal heart size. Noaortic dissection. No pulmonary embolism. Thoracic spine degeneration. No acute chest wall findings. No acute abdominal findings. Central airways are patent. Dependent atelectasis. No consolidation, effusion or pneumothorax. CT/CTA Chest W/WO Contrast IMPRESSION: No embolism, dissection, or pneumonia. Reading Location: [place] [address] CC: Dr. Rosalino Aparicio MD; Dr. Freddy Downing DO ~ Scraper Loader Operator: Signed [facility] 11-04-2024 Radiology Diagnostic study note [facility] Imaging Services [address] [place] [address] [id number] Chest PA and Lateral MR#: [id number] Acct: [id number] Name: ZEB SWIFT Rep #: [id number] : 1975 F 49 From: Willard March MD PCP: Dr. Rosalino Aparicio MD Status: RE G ER Study:Chest PA and Lateral Date of Exam: 11/04/24 Exam# [id number] Ordering Dr: Freddy Downing DO PROCEDURE: CHEST PA AND LATERAL 11/04/2024 REASON FOR EXAM: CHEST PAIN,COUGH TECHNIQUE: CHEST PA AND LATERAL COMPARISON: 08/03/2024. FINDINGS: The heart is normal in size. The lungs are clear. No acute osseous abnormalities. RAD/Chest PA and Lateral IMPRESSION: NO ACUTE FINDINGS. Reading Location: [facility] CC: Dr. Rosalino Aparicio MD; Dr. Freddy Downing DO ~ Scraper Loader Operator: Signed [facility] [facility] Instructions Michaela De La Garza APRN.KARNIA - 11/04/2024 1:47 PM EDT - Refills have been sent to your pharmacy for trazodone, melatonin (as needed), Strattera (ADHD), hydrochlorothiazide and estradiol (Estrace). - Draw labs today before leaving: complete blood count, metabolic panel, vitamin D, cholesterol, diabetes screening and TSH. - Receive a cuoqzwi-bqizvxxolp-uwtljdmwy booster (Tdap) today; expect arm soreness for 1-2 days--use ibuprofen or Tylenol as needed and avoid heavy lifting. - Schedule an MRI of your right knee using the referral order placed. - Arrange a mammogram appointment through the order we entered today. - Meet with General Surgery to schedule a colonoscopy (family history requires colonoscopy rather than Cologuard). - After your EKG is reviewed, we will schedule an echocardiogram and a stress test; if local openings are delayed, testing may be arranged at [place]. - Check [facility] for your lab and test results, expected by Friday. documented in this encounter [facility] 11-04-2024 Note HNO ID: [id number] Author: MICHAELA DE LA GARZA APRN.KARINA Service: ? Author Type: Nurse Practitioner Type: Progress Notes Filed: 11/04/2024 13:56 Note Text: Chief Complaint Patient presents with: Physical HPI Zeb Swift is a 49 year old female who presents here today for Above Complaints. Patient presents for annual physical, has multiple concerns. Chest Pain: - Intermittent pulling sensation in the left chest, occurring a couple of times a month. - Pain radiates to the arm. - Episodes last less than a minute. Knee Pain: - Chronic right knee pain, progressively worsening. - Recent x-ray suggested a possible meniscus tear. - Associated with significant edema in legs, ankles, and hands. - Denies known trauma. - Taking HCTZ with noted improvement in edema; ankles look like balloons without it. ADHD: - Currently taking Strattera. - History of inpatient treatment. Substance Use Disorder: - Currently residing in transitional housing. - 93 days clean and sober. Past medical history, appointments, medications, allergies reviewed. Previous Medical History PAST MEDICAL HISTORY Diagnosis Date DEPRESSIVE DISORDER NEC 11/18/2005 Lumbar radiculopathy 10/03/2016 Meningitis, unspecified(322.9) 1998 Previous Surgical History PAST SURGICAL HISTORY Procedure Laterality Date DELIVERY ONLY 2001 , low transverse DELIVERY+ CARE 1998 DELIVERY+ CARE 2000 DILATION AND CURETTAGE DXAND/THER NONOBSTETRIC 1994,1995 Dilation AND curettage F SALPINGO-OOPHORECTOMY 06/22/15 Dr. Martin Mariee HYSTERECTOMY HX 10/23/15 Dr. Eddie Mariee INCISION AND REMOVAL FOREIGN BODY SUBQ TISS COMPL Left 08/23/2014 Excision retained suture s/p Left CTR LIG/TRNSXJ FLP TUBE ABDL/VAG APPR UNI/BI NOVASURE REVISE MEDIAN N/CARPAL TUNNEL SURG 05/17/14 left CTR REVISE MEDIAN N/CARPAL TUNNEL SURG 05/03/14 right CTR Family History FAMILY HISTORY Problem Relation Age of Onset other (Bowel Cancer [Other]) Father Breast Cancer Paternal Grandmother other (epilepsy [Other]) Mother Psychiatry Mother depression Arthritis Father Gout Breast Cancer Mother Patient Allergies ALLERGIES Allergen Reactions Gabapentin Other: See Comments Feels drunk and off balance Penicillins Rash Bees Blueberry Hives Naproxen GI Upset GI upset and sweating Toradol [Ketorolac] Rash Tramadol Hcl Vomiting Current Medications Current Outpatient Medications on File Prior to Visit Medication Sig atomoxetine (STRATTERA) 40 mg capsule Take 40 mg by mouth once daily. hydroCHLOROthiazide 12.5 mg tablet Take 1 tablet by mouth once daily for 7 days. estradiol (ESTRACE) 2 mg tablet Take 1 tablet by mouth once daily. ergocalciferol 50,000 unit capsule (VITAMIN D2, DRISDOL) Take 1 tablet by mouth twice weekly [id number], then decrease to 1 tablet weekly. lamoTRIgine (LAMICTAL) 100 mg tablet Take 100 mg by mouth daily at bedtime. (Patient not taking: Reported on 10/29/2024) traZODone (DESYREL) 150 mg tablet Take 150 mg by mouth daily at bedtime. Melatonin 5 mg cap Take 5 mg by mouth daily at bedtime. Two tabs at bedtime. mecobalamin (B12 ACTIVE ORAL) Take 1,000 mcg by mouth once daily. (Patient not taking: Reported on 10/29/2024) magnesium oxide 400 mg magnesium tab Take 400 mg by mouth daily at bedtime. MULTIVITAMIN ORAL Take by mouth once daily. citalopram (CELEXA) 40 mg tablet Take 1 tablet by mouth once daily. (Patient not taking: Reported on 10/29/2024) No current facility-administered medications on file prior to visit. Social History SOCIAL HISTORY[1] Review of Symptoms REVIEW OF SYSTEMS SEE HPI EXAM: BP 95/67 Pulse 90 Wt 113 kg (249 lb 1.9 oz) LMP 12/17/2009 General Appearance: Well appearing, alert, in no acute distress, well-hydrated, well nourished. Skin: Skin color, texture, turgor normal, no suspicious rashes or lesions. Lungs: Lungs clear to auscultation. No wheezing, rhonchi, rales.. Heart: RRR without murmur, gallop, or rubs. No ectopy. Abdomen: Normal abdominal exam, Abdomen soft, non-tender. Bowel sounds normal. No masses, organomegaly. Musculoskeletal: Positive findings: joint location: on right knee swelling, painful movement, loss of ROM, and stiffness. Peripheral Pulses: Normal. Neurologic: Gait normal. Reflexes normal and symmetric. Sensation grossly intact. Health Maintenance List Anxiety Screening Never done Hepatitis C Screening Never done Hepatitis B Vaccine(1 of 3 - 19+ 3-dose series) Never done Cervical Cancer Screening due on 07/27/2018 Lipid Screening due on 2021 Colorectal Cancer Screening Never done Mammogram Screening due on 10/10/2022 DTaP,Tdap,Td Vaccine(3 - Td or Tdap) due on 08/14/2024 Influenza Vaccine(1) due on 11/22/2024 Diabetes Screening due on 07/05/2025 HIV Screening Completed Recording using Cinario software for draft documentation of the visit wa (more content not included)... [facility] 11-04-2024 History of Present illness Narrative Chief Complaint Patient presents with: Physical HPI Zeb Swift is a 49 year old female who presents here today for Above Complaints. Patient presents for annual physical, has multiple concerns. Chest Pain: - Intermittent pulling sensation in the left chest, occurring a couple of times a month. - Pain radiates to the arm. - Episodes last less than a minute. Knee Pain: - Chronic right knee pain, progressively worsening. - Recent x-ray suggested a possible meniscus tear. - Associated with significant edema in legs, ankles, and hands. - Denies known trauma. - Taking HCTZ with noted improvement in edema; ankles look like balloons without it. ADHD: - Currently taking Strattera. - History of inpatient treatment. Substance Use Disorder: - Currently residing in transitional housing. - 93 days clean and sober. Past medical history, appointments, medications, allergies reviewed. Previous Medical History PAST MEDICAL HISTORY Diagnosis Date DEPRESSIVE DISORDER NEC 11/18/2005 Lumbar radiculopathy 10/03/2016 Meningitis, unspecified(322.9) 1998 Previous Surgical History PAST SURGICAL HISTORY Procedure Laterality Date DELIVERY [...] MEDIAN N/CARPAL TUNNEL SURG 05/03/14 right CTR Family History FAMILY HISTORY Problem Relation Age of Onset other (Bowel Cancer [Other]) Father Breast Cancer Paternal Grandmother other (epilepsy [Other]) Mother Psychiatry Mother depression Arthritis Father Gout Breast Cancer Mother Patient Allergies ALLERGIES Allergen Reactions Gabapentin Other: See Comments Feels drunk and off balance Penicillins Rash Bees Blueberry Hives Naproxen GI Upset GI upset and sweating Toradol [Ketorolac] Rash Tramadol Hcl Vomiting Current Medications Current Outpatient Medications on File Prior to Visit Medication Sig atomoxetine (STRATTERA) 40 mg capsule Take 40 mg by mouth once daily. hydroCHLOROthiazide 12.5 mg tablet Take 1 tablet by mouth once daily for 7 days. estradiol (ESTRACE) 2 mg tablet Take 1 tablet by mouth once daily. ergocalciferol 50,000 unit capsule (VITAMIN D2, DRISDOL) Take 1 tablet by mouth twice weekly [id number], then decrease to 1 tablet weekly. lamoTRIgine (LAMICTAL) 100 mg tablet Take 100 mg by mouth daily at bedtime. (Patient not taking: Reported on 10/29/2024) traZODone (DESYREL) 150 mg tablet Take 150 mg by mouth daily at bedtime. Melatonin 5 mg cap Take 5 mg by mouth daily at bedtime. Two tabs at bedtime. mecobalamin (B12 ACTIVE ORAL) Take 1,000 mcg by mouth once daily. (Patient not taking: Reported on 10/29/2024) magnesium oxide 400 mg magnesium tab Take 400 mg by mouth daily at bedtime. MULTIVITAMIN ORAL Take by mouth once daily. citalopram (CELEXA) 40 mg tablet Take 1 tablet by mouth once daily. (Patient not taking: Reported on 10/29/2024) No current facility-administered medications on file prior to visit. Social History SOCIAL HISTORY[1] Review of Symptoms REVIEW OF SYSTEMS SEE HPI EXAM: BP 95/67 Pulse 90 Wt 113 kg (249 lb 1.9 oz) LMP 12/17/2009 General Appearance: Well appearing, alert, in no acute distress, well-hydrated, well nourished. Skin: Skin color, texture, turgor normal, no suspicious rashes or lesions. Lungs: Lungs clear to auscultation. No wheezing, rhonchi, rales.. Heart: RRR without murmur, gallop, or rubs. No ectopy. Abdomen: Normal abdominal exam, Abdomen soft, non-tender. Bowel sounds normal. No masses, organomegaly. Musculoskeletal: Positive findings: joint location: on right knee swelling, painful movement, loss of ROM, and stiffness. Peripheral Pulses: Normal. Neurologic: Gait normal. Reflexes normal and symmetric. Sensation grossly intact. Health Maintenance List Anxiety Screening Never done Hepatitis C Screening Never done Hepatitis B Vaccine(1 of 3 - 19+ 3-dose series) Never done Cervical Cancer Screening due on 07/27/2018 Lipid Screening due on 2021 Colorectal Cancer Screening Never done Mammogram Screening due on 10/10/2022 DTaP,Tdap,Td Vaccine(3 - Td or Tdap) due on 08/14/2024 Influenza Vaccine(1) due on 11/22/2024 Diabetes Screening due on 07/05/2025 HIV Screening Completed Recording using Cinario software for draft documentation of the visit was discussed with the patient/authorized premium service representative; all questions welcomed and answered. Patient/authorized premium service representative agreed to proceed ASSESSMENT/PLAN: 1. Wellness examination - ICD9: V70.0, ICD10: Z00.00 (primary diagnosis) - Counseled on healthy diet and regular exercise - Discussed need and benefit for weight loss. BMI 42.76 kg/(m^2) - Colorectal cancer screening - ordered colonoscopy - Breast cancer screening - ordered mammogram - Follow up for annual exam in one year - COMPLETE BLOOD COUNT AND DIFFERENTIAL 2. Chest pressure - ICD9: 786.59, ICD10: R07.89 Chest pain of unclear etiology, patient with significant risk factor(s) of substance abuse - ECG COMPLETE-EKG shows ST elevation and inferior infarct age undetermined, [facility] EKG 07/2024 NSR no elevation. Patient directed to ER for further evaluation. Patient to transport self, no current chest pain. 3. Acute pain of right knee - ICD9: 719.46, ICD10: M25.561 - MRI KNEE WO IVCON RIGHT 4. Screening cholesterol level - ICD9: V77.91, ICD10: Z13.220 - LIPID PANEL, NONFASTING 5. Screening for diabetes mellitus - ICD9: V77.1, ICD10: Z13.1 - COMPREHENSIVE METABOLIC PANEL - HEMOGLOBIN A1C 6. Vitamin D deficiency - ICD9: 268.9, ICD10: E55.9 - VITAMIN D 25 HYDROXY 7. Encounter for screening examination for other mental health and behavioral disorders - ICD9: V79.8, ICD10: Z13.39 - ANXIETY SCREENING 8. Medication refill - ICD9: V68.1, ICD10: Z76.0 - HYDROCHLOROTHIAZIDE 12.5 MG TABLET 9. Swelling of lower extremity - ICD9: 729.81, ICD10: M79.89 - HYDROCHLOROTHIAZIDE 12.5 MG TABLET 10. Difficulty sleeping - ICD9: 780.50, ICD10: G47.9 - MELATONIN 5 MG CAPSULE - TRAZODONE 50 MG TABLET 11. ADHD (attention deficit hyperactivity disorder), combined type - ICD9: 314.01, ICD10: F90.2 - ATOMOXETINE 40 MG CAPSULE 12. Female genital symptoms - ICD9: 625.9, ICD10: N94.9 - ESTRADIOL 2 MG TABLET 13. Encounter for screening mammogram for breast cancer - ICD9: V76.12, ICD10: Z12.31 - Set up for mammogram, yearly mammogram recommended - Encouraged monthly BSE - Follow up for annual exam in one year. - NINA SCREENING W LEV 14. Encounter for immunization - ICD9: V03.89, ICD10: Z23 - TDAP VACCINE, AGE 7+ YR (ADACEL, BOOSTRIX) 15. Screening for colon cancer - ICD9: V76.51, ICD10: Z12.11 - CONSULT TO GENERAL SURGERY 16. Medication management - ICD9: V58.69, ICD10: Z79.899 - THYROID STIMULATING HORMONE Michaela De La Garza APRN.CABIN EQUIPMENT SUPERVISOR [1] Social History Tobacco Use Smoking status: Former Current packs/day: 0.50 Average packs/day: 0.5 packs/day for 20.0 years (10.0 ttl pk-yrs) Types: Cigarettes Smokeless tobacco: Never Substance Use Topics Alcohol use: No Drug use: No documented in this encounter [facility] 10-29-2024 Note HNO ID: [id number] Author: MITCHEL WASHINGTON APRN.CABIN EQUIPMENT SUPERVISOR Service: ? Author Type: Nurse Practitioner Type: Progress Notes Filed: 10/29/2024 15:12 Note Text: [facility] Mckeon Eusebio is a 49 year old female. Patient [...] area. - Follow-up appointment scheduled with Dr. Aparicio on . Review of Systems Musculoskeletal: (+) [...] patient to keep follow-up appointment with Dr. Aparicio on for ongoing management. - Encouraged patient to follow up with orthopedics for further evaluation of meniscal tear and potential surgical intervention. and Recording using Cinario software for draft documentation of the visit was discussed with the patient/authorized premium service representative; all questions welcomed and answered. Patient/authorized premium service representative agreed to proceed MDM Procedures [facility] 08-03-2024 Radiology Diagnostic study note [facility] Imaging Services [address] [place] [address] [id number] CTA Chest W/WO Contrast MR#: [id number] Acct: [id number] Name: ZEB SWIFT BARRY Rep #: [id number] : 1975 F 49 From: Gita Weems MD PCP: Dr. Rosalino Aparicio MD Status: RE G ER Study:CTA Chest W/WO Contrast Date of Exam: 08/03/24 Exam# [id number] Ordering Dr: Erendira Lyle MD PROCEDURE: CTA [...] acute findings in the thorax. Reading Location: [facility] CC: Dr. Ruddy Lyle MD; Dr. Rosalino Aparicio MD ~ Scraper Loader Operator: Signed [facility] 08-03-2024 Radiology Diagnostic study note [facility] Imaging Services [address] [place] [id number] Chest 1 View (Portable) MR#: [id number] Acct: [id number] Name: ZEB SWIFT BARRY Rep #: [id number] : 1975 F 49 From: Armando Velarde MD PCP: Dr. Rosalino Aparicio MD Status: RE G ER Study:Chest 1 View (Portable) Date of Exam: 08/03/24 Exam# [id number] Ordering Dr: Erendira Lyle MD PROCEDURE: CHEST [...] evidence of acute cardiopulmonary disease. Reading Location: [place] [address] CC: Dr. Ruddy Lyle MD; Dr. Rosalino Aparicio MD ~ Scraper Loader Operator: Signed [facility] 08-03-2024 Telephone encounter Note Patient call in [...] to foot Protocols used: Leg Swelling and [id number]-TUIDD-FG [facility] 08-03-2024 Miscellaneous Notes Patient call in for [...] to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 Alcohol and Drug Abuse Patient Records regulations: The Federal rules restrict any use of the information to criminally investigate or prosecute any alcohol or drug abuse patient.[facility] the event this information is protected by the Federal Confidentiality of Alcohol and Drug Abuse Patient Records regulations: The Federal rules restrict any use of the information to criminally investigate or prosecute any alcohol or drug abuse patient.[facility] System[facility] the event this information is protected by the Federal Confidentiality of Alcohol and Drug Abuse Patient Records regulations: The Federal rules restrict any use of the information to criminally investigate or prosecute any alcohol or drug abuse patient.[facility] Reason for Visit (unrecogniz ed section and content) Reason Comments Depression Reason Onset Date Comments Refill Request 09/06/2021 Reason Comments Fatigue breast pain Reason Comments Results lab Reason Comments Radiology US Specialty Diagnoses / Procedures Referred By Gorgeac t Referred To Contact [facility] Diagnoses Left breast lump Encounter for screening mammogram for malignant neoplasm of breast Procedures US BREAST LTD LT US BREAST UNILAT INCL AXILLA LIMITED Rosalino Aparicio MD [address] [place] [address] [facility] [address] [place] [address] Referral ID Status Reason Start Date Expiration Date V isits Requested Visits Authorized [id number] Closed Auto-Generate d Referral 01/12/2021 02/11/2022 1 1 Reason Comments Results Patient Question Reason Comments Follow Up medication Reason Comments Results Xray Shoulder Reason Comments Chest Pain right leg swelling Reason Comments Physical Reason Comments Appointment Patient Question Care Teams (unrecognized sec tion and content) Unemployment Specialist Relationship Specialty Start Date End Date Rosalino Aparicio MD [address] [place], [place] [id number] PCP - General Family Practice 04/12/10 Unemployment Specialist Relationship Specialty Start Date End Date Rosalino Aparicio MD [address] [place], [place] [id number] PCP - General Family Practice 04/12/10 Unemployment Specialist Relationship Specialty Start Date End Date Rosalino Aparicio MD [address] [place], [place] [id number] PCP - General Family Practice 04/12/10 Unemployment Specialist Relationship Specialty Start Date End Date Rosalino Aparicio MD [address] [place], [place] [id number] PCP - General Family Practice 04/12/10 Unemployment Specialist Relationship Specialty Start Date End Date Rosalino Aparicio MD [address] [place] [address] PCP - General Family Practice 04/12/10 Unemployment Specialist Relationship Specialty Start Date End Date Rosalino Aparicio MD [address] [place] [address] PCP - General Family Practice 04/12/10 Unemployment Specialist Relationship Specialty Start Date End Date Rosalino Aparicio MD [address] [place] [address] PCP - General Family Practice 04/12/10 Unemployment Specialist Relationship Specialty Start Date End Date Rosalino Aparicio MD [address] [place] [address] PCP - General Family Medicine 04/12/10 Unemployment Specialist Relationship Specialty Start Date End Date Rosalino Aparicio MD [address] [place] [address] PCP - General Family Medicine 04/12/10 Unemployment Specialist Relationship Specialty Start Date End Date Rosalino Aparicio MD [address] [place] [address] PCP - General Family Medicine 04/12/10 Unemployment Specialist Relationship Specialty Start Date End Date Rosalino Aparicio MD [address] [place] [address] PCP - General Family Medicine 04/12/10 Unemployment Specialist Relationship Specialty Start Date End Date Rosalino Aparicio MD [address] [place] [address] PCP - General Family Medicine 04/12/10 Unemployment Specialist Relationship Specialty Start Date End Date Rosalino Aparicio MD [address] [place] [address] PCP - General Family Medicine 04/12/10 Unemployment Specialist Relationship Specialty Start Date End Date Rosalino Aparicio MD [address] [place] [address] PCP - General Family Medicine 04/12/10 Team Status: Active Member Role Status Dates Dr. Rosalino Aparicio MD Primary Care Provider Active Team Status: Inactive Member Role Status Dates Dr. Rosalino Apraicio MD Primary Care Provider Active Start: August 03, 2024 End: August 03, 2024 Dr. Ruddy Lyle MD Emergency Provider Active S tart: August 03, 2024 End: August 03, 2024 Unemployment Specialist Relationship Specialty Start Date End Date Rosalino Aparicio MD [address] [place] [address] PCP - General Family Medicine 04/12/10 Daniela Duran APRN.CABIN EQUIPMENT SUPERVISOR [address] [place] [address] Assistant Store Manager Family Medicine 02/29/24 Priyank Lira APRN.CABIN EQUIPMENT SUPERVISOR [address] [place] [address] Assistant Store Manager Family Medicine 03/09/24 Unemployment Specialist Relationship Specialty Start Date End Date Rosalino Aparicio MD [address] [place] [address] PCP - General Family Medicine 04/12/10 Priyank Lira APRN.CABIN EQUIPMENT SUPERVISOR [address] [facility] [address] Assistant Store Manager Family Medicine 03/09/24 Team Status: Active Member Role/Relationship Status Dates Dr. Rosalino Aparicio MD Primary Care Provider Active Team Status: Inactive Member Role/Relationship Status Dates Dr. Rosalino Aparicio MD Primary Care Provider Active Start: August 03, 2024 End: August 03, 2024 Dr. Ruddy Lyle MD Attending Provider Active S tart: August 03, 2024 End: August 03, 2024 Dr. Ruddy Lyle MD Emergency Provider Active S tart: August 03, 2024 End: August 03, 2024 Team Status: Active Member Role/Relationship Status Dates Dr. Rosalino Aparicio MD Primary Care Provider Active Start: August 03, 2024 Dr. Joe Gustafson MD Attending Provider Active S tart: August 03, 2024 Dr. Ruddy Lyle MD Referring Provider Active S tart: August 03, 2024 Team Status: Inactive Member Role/Relationship Status Dates Dr. Rosalino Aparicio MD Primary Care Provider Active Start: November 04, 2024 End: November 04, 2024 Dr. Freddy Downing DO Emergency Provider Active Start : November 04, 2024 End: November 04, 2024 Unemployment Specialist Relationship Specialty Start Date End Date Rosalino Aparicio MD [address] [place], [place] [id number] PCP - General Family Medicine 04/12/10 Priyank Lira APRN.CABIN EQUIPMENT SUPERVISOR [address] [place] [address] Assistant Store Manager Family Medicine 03/09/24 INFORMATION SOURCE (unrecogn ized section and content) DATE CREATED AUTHOR 03/08/2023 [facility] DATE CREATED AUTHOR AUTHOR'S ORGANIZ ATION 11/06/2024 [facility] DATE CREATED AUTHOR AUTHOR'S ORGANIZ ATION 11/06/2024 [facility] Goals (unrecognized section and content) Goals may be documented in a n alternate sectionGoals may be documented in an alternate section FOR RECORDS PERTAINING TO PATIENTS [...] BE BASED ON THE PRIMARY CLINICAL RECORDS. [facility] [employer] [facility]. provides no warranty or guarantee of the accuracy or completeness of information in this document.
[2024-11-07 20:54] VITALS: BP 116/82; PULSE 78; RESP 16; O2SAT 97
[2024-11-07 21:00] VITALS: BP 119/72; PULSE 79; RESP 16; O2SAT 98
--- NOTE | 2024-11-07 21:22 | EKG12_ITS ---
Test Reason : CP Blood Pressure : */* mmHG Vent. Rate : 77 BPM Atrial Rate : 77 BPM P-R Int : 164 ms QRS Dur : 84 ms QT Int : 358 ms P-R-T Axes : 58 52 57 degrees QTcB Int : 405 ms Normal sinus rhythm Normal ECG Confirmed by MILO URIBE, BHAKTI ([id number]), writer editor SHARON GAYLE ([id number]) on 11/09/2024 6:12:50 AM Referred By: Confirmed By: BHAKTI PEDRAZA MD
--- NOTE | 2024-11-07 21:24 | ED.VIS.CHEST ---
HPI History of Present Illness Chief Complaint: Chest Pain Informant: patient Narrative Narrative: Return for recurrent left-sided chest pain sharp in nature worse with deep breaths. She is having a dry cough last few days. Was seen by myself 3 days ago for workup with similar. Tobacco history family history of MIs reported more in her mother in her 30s. Grandmother in her 70s. No recent travel or surgeries. Diagnosed with pleurisy bronchitis 3 days ago. She had cardiac workup negative including a CT angiogram of her chest for PE rule out. She cannot do NSAIDs due to allergies. She is not a diabetic however does not want to do steroids as she has chronic lymphedema on a water pill. In addition she reports she would like to see crisis for depression symptoms. She states a lot of stress, she is feeling depressed. She states she had a daughter that at the age of 11 due to cardiac arrest. She also reports suicidal ideations. CVD Risk Factors: Positive for Family History 1' </=55 and Smoking; Negative for Hypertension, Diabetes or Hypercholesterolemia PE Risk Factors: Negative for Recent Travel/Surgery, Recent Immobilization or Prior DVT or PE [facility] Medical History Bipolar disorder Anxiety Depression Smoker Sleep apnea Home Medications ?Medication ?Instructions ?Recorded ?Last Taken ?Type estradiol 2 mg tablet 2 mg PO DAILY hormone 10/12/18 01/18/20 22:00 History atomoxetine 40 mg capsule 40 mg PO DAILY 08/03/24 08/03/24 History hydrochlorothiazide 12.5 mg tablet 12.5 mg PO DAILY 11/04/24 Unknown History hydroxyzine pamoate 25 mg capsule 25 mg PO Q8H PRN anxiety 11/04/24 Unknown History trazodone 50 mg tablet 100 mg PO QHS PRN PRN sleep 11/04/24 Unknown History vitamin B complex (B-Complex 1 tab PO Q24H 11/04/24 Unknown History tablet) Allergy/AdvReac Type Severity Reaction Status Date / Time bee pollen (Bee Pollen) Allergy Anaphylaxis Verified 11/07/24 19:55 blueberry (Blueberry) Allergy Anaphylaxis Verified 11/07/24 19:55 ketorolac tromethamine (From Allergy Hives Verified 11/07/24 19:55 Toradol) naproxen Allergy Rash Verified 11/07/24 19:55 Penicillins Allergy Rash Verified 11/07/24 19:55 gabapentin AdvReac dizziness Verified 11/07/24 19:55 tramadol AdvReac Vomiting Verified 11/07/24 19:55 Surgical History H/O: hysterectomy Social History household members: spouse housing: house Smoking Status: Current every day smoker tobacco type: cigarettes ROS ROS ED Constitutional Constitutional ED: Denies chills, fever(s) or sweats ENT ENT ED: Denies sore throat Cardiovascular Cardiovascular: Reports chest pain; Denies leg edema, palpitations or racing heartbeat Respiratory/Chest Respiratory/Chest: Reports cough; Denies dyspnea or dyspnea on exertion Gastrointestinal Gastrointestinal: Denies abdominal pain, diarrhea, nausea or vomiting Genitourinary Genitourinary ED: Denies dysuria, hematuria or urinary frequency Musculoskeletal Musculoskeletal: Denies back pain, extremity pain or neck pain Integumentary Denies rash or wounds Neurologic Neurologic: Denies headache(s), paresthesias or weakness Psychiatric Psychiatric: Reports depression and suicidal ideation EXAM Physical Exam Const Vital Signs: 11/07/24 19:55 11/07/24 20:15 11/07/24 20:54 Temperature 97.1 F L Temperature Source Oral Pulse Rate 88 78 Respiratory Rate 18 16 Respiratory Effort Short of Breath Respiratory Pattern Normal Blood Pressure 129/74 H 116/82 H Blood Pressure Mean 92 93 Pulse Ox 97 97 Oxygen Delivery Method Room Air Room Air 11/07/24 21:00 11/07/24 22:00 11/07/24 23:00 Temperature Temperature Source Pulse Rate 79 77 73 Respiratory Rate 16 16 16 Respiratory Effort Respiratory Pattern Blood Pressure 119/72 123/76 H 120/74 Blood Pressure Mean 87 91 89 Pulse Ox 98 97 98 Oxygen Delivery Method Room Air Room Air Room Air 11/08/24 00:00 Temperature Temperature Source Pulse Rate 82 Respiratory Rate 19 H Respiratory Effort Respiratory Pattern Blood Pressure 133/63 H Blood Pressure Mean 86 Pulse Ox 94 Oxygen Delivery Method Room Air Positive well nourished and well developed General Appearance ED: well developed and NAD HEENT Reports moist mucous membranes normocephalic and atraumatic Eyes General Eye ED: Yes normal appearance of both eyes Neck full ROM Chest Wall Chest: Negative for tenderness Resp normal respiratory effort and normal air movement Effort and Inspection: symmetric chest movement; Negative for respiratory distress Cardio regular rate, regular rhythm and no murmurs Peripheral Pulses: pulses 2+ throughout GI normal to inspection, nondistended, normoactive bowel sounds and non-tender Palpation: Negative for guarding or rebound tenderness present Extremity normal to inspection General Extremety ED: Negative for edema or tenderness General Extremity: Negative for edema Neuro oriented x3 and no sensory deficits noted Sensorium / Orientation: awake and alert Skin no rashes or lesions noted and no wounds Heart Score History: Slightly/Non-Suspicious ECG: Normal Age: >45 - <65 years Risk Factors: 1 or 2 Risk Factors Troponin: </= Normal Limit Score: 2 MDM MDM MDM Narrative Medical decision making narrative: Interventions / MDM: Differential diagnosis: Depression with suicidal ideation, chest pain Diagnosis considered but do not suspect: Pulm embolism however PERC negative including a recent CT angiogram chest negative 3 days ago. ACS however cardiac workup negative My EKG interpretation: Sinus rate of 77, no ST changes. Imaging independently reviewed and interpreted by myself: 1 view chest x-ray: No acute process. External documents reviewed: N/A Test considered but not ordered:N/A ED course: Current chest pains EKG normal will recheck cardiac enzymes and chest x-ray. Cannot do NSAIDs, morphine ordered for pain control. Additionally reporting depression with suicidal ideations. Will add toxicology along with alcohol level. 0015: Initial labs stable initial troponin negative. Chest x-ray negative.. Alcohol negative. Toxicology cannabis cocaine and opiates. She was given morphine 3 days ago again today. She is medically cleared. She was evaluated by crisis, reporting suicidal with plan of overdose. They do feel she will benefit from psychiatric admission. [place] slip filled out by crisis. Re-evaluation: stable Disposition discussed with patient/family/significant other: Patient Case discussed with consulting clinician: Crisis This note was generated with [employer] dictation software. It may contain incorrect words, spelling, and punctuation that were not noted in checking the note before signing. Lab Data Attestation: I reviewed the patient's lab results. Labs: Laboratory Results - last 24 hr 11/07/24 11/07/24 11/07/24 20:20 23:05 23:14 WBC 5.5 RBC 3.60 L Hgb 11.7 L Hct 34.5 L MCV 95.8 MCH 32.5 H MCHC 33.9 RDW Std Deviation 45.0 H RDW Coeff of Lee 12.8 Plt Count 309 MPV 9.0 Immature Gran % (Auto) 0.200 Neut % (Auto) 53.7 Lymph % (Auto) 33.2 [place] % (Auto) 9.9 Eos % (Auto) 2.5 Baso % (Auto) 0.5 Absolute Neuts (auto) 3.0 Absolute Lymphs (auto) 1.84 Nucleated RBC % 0 Sodium Cancelled 139 Potassium Cancelled 3.9 Chloride Cancelled 103 Carbon Dioxide Cancelled 25.8 Anion Gap Cancelled 11 BUN Cancelled 25 H Creatinine Cancelled 0.80 Estim Creat Clear Calc 105.87 Est GFR (MDRD) Non-Af Cancelled 91 BUN/Creatinine Ratio Cancelled 31.0 H Glucose Cancelled 102 H Calcium Cancelled 9.2 Troponin T High Sens < 6 Troponin T Hi Sens 2 Hr < 6 Urine Opiates Screen PRESUMPTIVE POSITIVE U Buprenorphine Qual NEGATIVE Ur Oxycodone Screen NEGATIVE Urine Methadone Screen NEGATIVE Urine Fentanyl Screen NEGATIVE Ur Barbiturates Screen NEGATIVE Ur Phencyclidine Scrn NEGATIVE Ur Amphetamines Screen NEGATIVE U Benzodiazepines Scrn NEGATIVE Urine Cocaine Screen PRESUMPTIVE POSITIVE U Cannabinoids Screen PRESUMPTIVE POSITIVE Ethyl Alcohol < 10.1 Radiography Diagnostic Testing: Clinical Impression(s) from Imaging Studies Chest X-Ray 11/07/24 21:32 IMPRESSION: No acute cardiopulmonary disease. Reading Location: [facility] Discharge Plan Triage Chief Complaint: Chest Pain ED Provider: Freddy Downing Dx/Rx/DC Orders Clinical Impression: Depression, Chest pain, Suicidal ideation, Has access to planned means of suicide Prescriptions: No Action estradiol 2 MG tablet 2 mg PO DAILY Patient Comments: PT SUPPOSED TO BE ON, NEEDS REFILLS atomoxetine 40 mg capsule 40 mg PO DAILY trazodone 50 mg tablet 100 mg PO QHS PRN PRN (Reason: sleep) hydroxyzine pamoate 25 mg capsule 25 mg PO Q8H PRN (Reason: anxiety) hydrochlorothiazide 12.5 mg tablet 12.5 mg PO DAILY vitamin B complex [B-Complex] Tablet 1 tab PO Q24H Primary Care Provider: Eliseo Aparicio Referrals: Eliseo Aparicio MD [Primary Care Provider] - Print Language: Sudanese Disposition Disposition: Psychiatric Hospital or Unit
--- NOTE | 2024-11-07 21:32 | RAD_ITS ---
PROCEDURE: CHEST 1 VIEW (PORTABLE) 11/07/2024 REASON FOR EXAM: CHEST PAIN TECHNIQUE: Frontal view of the chest. COMPARISON: 11/04/2024 FINDINGS: Lungs/Pleura: Clear. No pneumothorax or sizable pleural effusion. Heart/Mediastinum: Within normal limits. No vascular congestion. Bones/Soft tissues: Unremarkable. RAD/Chest 1 View (Portable) IMPRESSION: No acute cardiopulmonary disease. Reading Location: [id number]
[2024-11-07 22:00] VITALS: BP 123/76; PULSE 77; RESP 16; O2SAT 97
[2024-11-07 22:14] LABS: Hematocrit 34.5 % (37-47); Hemoglobin 11.7 g/dL (12.0-15.0); Immature Granulocytes Count 0.010 X10^3/uL (0.0-0.0); Mean Corp Hgb Conc 33.9 g/dL (32-36); Mean Corpuscular Volume 95.8 fL (81-99); Mean Platelet Vol. 9.0 fl (6.2-12.0); NRBC Flagged by Analyzer 0 % (0-5); Platelet Count 309 K/mm3 (150-450); RBC Distribution Width CV 12.8 % (11.6-14.6); RBC Distribution Width SD 45.0 fl (35.1-43.9); Red Blood Count 3.60 M/mm3 (4.2-5.4); White Blood Count 5.5 K/mm3 (4.4-11.0)
[2024-11-07 22:58] LABS: Alcohol, Blood (Medical)-Serum < 10.1 mg/dL (<=10.0)
[2024-11-07 23:00] VITALS: BP 120/74; PULSE 73; RESP 16; O2SAT 98
[2024-11-07 23:07] LABS: Troponin T High Sensitivity < 6 ng/L (<=14)
[2024-11-07 23:46] LABS: Troponin T High Sens 2 HR < 6 ng/L (<=14)
[2024-11-07 23:48] LABS: Barbiturate Urine NEGATIVE (< 200 ng/mL); Benzodiazepine Urine NEGATIVE (< 200 ng/mL); PCP Urine NEGATIVE (< 25 ng/mL); THC Urine PRESUMPTIVE POSITIVE (< 50 ng/mL)
[2024-11-07 23:48] LABS: Anion Gap 11 (5-15); BUN 25 mg/dL (4-19); BUN/Creat Ratio 31.0 RATIO (10-20); Calcium,Total 9.2 mg/dL (7.6-11.0); Carbon Dioxide 25.8 mmol/L (21.0-32.0); Chloride 103 mmol/L (98-108); Estimated Creatinine Clearance 105.87 ml/min (50-250); Glucose 102 mg/dL (70-99); Potassium 3.9 mmol/L (3.3-5.1)
[2024-11-08] VITALS: BP 133/63; PULSE 82; RESP 19; O2SAT 94
[2024-11-08 01:00] VITALS: BP 130/66; PULSE 88; RESP 18; O2SAT 95
[2024-11-08 02:00] VITALS: BP 118/86; PULSE 99; RESP 17; O2SAT 95
--- NOTE | 2024-11-08 02:34 | PCA ---
PT ACCEPTED AT [facility] N2N [phone] OPT 1
[2024-11-08 03:00] VITALS: BP 110/60; PULSE 73; RESP 13; O2SAT 95
--- NOTE | 2024-11-08 05:44 | ED.RN ---
report called to Derek Schmitt, given to Kayleigh
[2024-11-08 07:08] VITALS: BP 110/60; PULSE 73; RESP 13; TEMP 36.2; O2SAT 95
== END 2024-11-08 07:09 ==
PROVIDERS: Emergency Provider Emergency Medicine; PCP Family Medicine; Visit Provider Emergency Medicine
DX: R07.9 Chest pain, unspecified (principal); R45.851 Suicidal ideations; F17.210 Nicotine dependence, cigarettes, uncomplicated; Z90.710 Acquired absence of both cervix and uterus; F32.A Depression, unspecified; F41.9 Anxiety disorder, unspecified; Z79.899 Other long term (current) drug therapy
CPT/HCPCS: 36415; 71045; 80048; 80307; 82077; 84484; 85025; 93005; 96374; 99285; A4216